=== PATIENT | female | born 1965 | race Caucasian/White ===

== ENCOUNTER → 2016-12-15 | Outpatient (CLI) | payer MEDICARE, OTHER ==
[~2016-12-15] MED LIST: ASPI-557 PO; ATOR10TA64 PO; BETH10TA PO; BUSP30TA2 PO; COLE1TAB2 PO; CYCL-375 PO; DICL100G5 TOP; DICY10CA13 PO; FLUV150C2 PO; GLIM2TAB3 PO; GUAI-782 PO; HYDR4TAB84 PO; HYDR50TA48 PO; HYOS0.124 SL; IBUP-1724 PO; L GA1CAP2 PO; LEVO500T88 PO; LISI10TA7 PO; MENT118G TOP; MULT1TAB69 PO; NALO25TA PO; ONDA4TAB7 PO; PRED10TA PO; PREG150C PO; PROM25TA7 PO; QUET300T3 PO; TOPI50TA25 PO; ZOLP10TA6 PO
--- NOTE | 2016-12-15 16:54 | DI ---
Indication: ITS.REASON: M25.562 LEFT KNEE PAIN PROCEDURE: MRI KNEE LEFT W/O CONTRAST: Encounter: Initial Comparison: None Technique: Multiplanar multisequence MR imaging of the left knee was performed without contrast. Findings: There is a possible oblique undersurface tear of the posterior horn lateral meniscus seen best on coronal proton density image #12. Horizontal tear of the posterior horn medial meniscus involving the inferior articular surface. The ACL and PCL are intact. The MCL and lateral collateral ligament complex are intact. The extensor mechanism is normal. No acute fracture. The cartilage of the lateral compartment is maintained. Medial compartment cartilage is intact. Patellofemoral compartment shows moderate loss in the median ridge and medial facet with small areas of subchondral edema. No joint effusion. Moderate sized Haywood's cyst. Impression: 1. Medial meniscal tear and possible lateral meniscal tear. 2. Moderate Haywood's cyst. .
== END ==
LOC: IMA 14:46
PROVIDERS: ATTEND Internal Medicine
DX: S83.242A Other tear of medial meniscus, current injury, left knee, initial encounter (principal); M71.22 Synovial cyst of popliteal space [Baker], left knee; X58.XXXA Exposure to other specified factors, initial encounter; Y93.9 Activity, unspecified; Y92.9 Unspecified place or not applicable; Y99.9 Unspecified external cause status; M25.562 Pain in left knee

== ENCOUNTER 2016-12-25 12:42 | Emergency (ER) | payer MEDICARE, OTHER ==
[~2016-12-25] VITALS: Ht 160 cm; Wt 109.3 kg
[2016-12-25 12:45] VITALS: Ht 160 cm; Wt 109.3 kg
--- OUTSIDE RECORDS SUMMARY | 2016-12-25 12:47 | XMS REPORT | Summary of Care ---
Author Author Cristi Crystal, Janice J Organization Unknown Address [address], [place] [id number] Phone Unavailable Care Team Providers Care Industrial Real Estate Agent Name Role Phone Tiny Crystal, Min Unavailable Unavailable Cristi Crystal, Leon Unavailable Unavailable Que Adams, Kip Unavailable Unavailable Parish Crystal, Tracie Unavailable Unavailable Manoj Crystal, Pretty Unavailable Unavailable Pretty Aranda PP Unavailable Unavailable Unavailable Functional Status Functional Status Health Issues* Name Dates Details Functional status health issues are not documented Status: Cognitive Status Health Issues* Name Dates Details Cognitive status health issues are not documented Status: Problems Name Dates Details Insomnia (780.52, G47.00) Status: Active Irritable bowel syndrome (564.1, K58.9) Status: Active Anemia (285.9, D64.9) Status: Active Tendonitis (726.90, M77.9) Status: Active Restless legs syndrome (333.94, G25.81) Status: Active Vitamin d deficiency (268.9, E55.9) Status: Active Encounter for screening for malignant neoplasm of colon (V76.51, Z12.11) Status: Active Bursitis of hip (726.5, M70.70) Status: Active Acute ischemic colitis (557.0, K55.0) Status: Active Sleep related hypoxia (327.24, G47.34) Status: Active Bright red blood per rectum (569.3, K62.5) Status: Active Nontoxic thyroid nodule (241.0, E04.1) Status: Active Pain in hand (729.5, M79.643) Status: Active Trigger finger (727.03, M65.30) Status: Active Muscle weakness (728.87, M62.81) Status: Active Clostridium difficile colitis (008.45, A04.7) Status: Active Joint pain, knee (719.46, M25.569) Status: Active Arthralgia of multiple sites (719.49, M25.50) Status: Active Lower back pain (724.2, M54.5) Status: Active Lung nodule (793.11, R91.1) Status: Active Elevated liver enzymes (790.5, R74.8) Status: Active Abnormal liver function test (790.6, R79.89) Status: Active Abdominal pain (789.00, R10.9) Status: Active Diarrhea (787.91, R19.7) Status: Active Visit for screening mammogram (V76.12, Z12.31) Status: Active Type 2 diabetes mellitus (250.00, E11.9) Status: Active Hypertension (401.9, I10) Status: Active Chronic kidney disease, stage III (moderate) (585.3, N18.3) Status: Active Depression (311, F32.9) Status: Active Fibromyalgia (729.1, M79.7) Status: Active Migraine headache (346.90, G43.909) Status: Active Obstructive sleep apnea (327.23, G47.33) Status: Active Obesity (278.00, E66.9) Status: Active Knee joint pain (719.46, M25.569) Status: Active Pain, low back (724.2, M54.5) Status: Active Medications Name Dates Details Multi-Vitamin/Minerals Oral Tablet TAKE 1 TABLET DAILY. Quantity: 30 * Started 24-Nov-2008 ActiveLyrica 150 MG Oral Capsule TAKE 1 CAPSULE BY MOUTH TWICE DAILY. * Quantity: 60 Refills: 2 Devendra Lugo M.D.* Started 10-Nov-2009 ActiveClonazePAM 1 MG Oral Tablet TAKE 1 TABLET 3 times daily * Refills: 0 * Started 14-Apr-2009 ActiveVitamin D3 2000 UNIT Oral Tablet Take 1 tablet daily * Quantity: 30 Refills: 0 * Started ActiveFish Oil 1000 MG Oral Capsule TAKE 2 CAPSULE Daily * Quantity: 60 Refills: 0 * Started ActiveNystatin-Triamcinolone 376877-0.1 UNIT/GM-% External Cream APPLY SPARINGLY TO AFFECTED AREA(S) 3 TIMES A DAY * Quantity: 2 Refills: 4 Pretty Aranda M.D.* Started 19-Jan-2012 Snqdfk33 GM Tube SEROquel XR 300 MG Oral Tablet Extended Release 24 Hour TAKE 1 TABLET DAILY. * Refills: 0 * Started 10-Jul-2012 ActiveLisinopril 10 MG Oral Tablet TAKE 1 TABLET DAILY. * Quantity: 90 Refills: 3 Pretty Aranda M.D.* Started 01-Nov-2012 ActiveBusPIRone HCl - 15 MG Oral Tablet TAKE 1 TABLET 3 times daily * Refills: 0 * Started 19-Nov-2012 ActiveMicronized Colestipol HCl - 1 GM Oral Tablet TAKE 1 TABLET TWICE DAILY PRN diarrhea. * Quantity: 180 Refills: 3 Janice Colin M.D.* Started ActiveVoltaren 1 % Transdermal Gel Sig: Apply to affected area Qid prn. * Quantity: 1 Refills: 1 Devendra Lugo M.D.* Started ActiveGabapentin 600 MG Oral Tablet TAKE ONE TABLET BY MOUTH AT BEDTIME * Quantity: 90 Refills: 3 David Franks M.D.* Started 27-Mar-2013 ActiveAmbien 10 MG Oral Tablet TAKE 1 TABLET BY MOUTH AT BEDTIME NEEDED FOR SLEEP * Quantity: 30 Refills: 0 Pretty Aranda M.D.* Started 14-May-2013 ActiveProbiotic Colon Support Oral Capsule TAKE 1 CAPSULE Daily * Quantity: 30 Refills: 0 Pretty Aranda M.D.* Started 14-May-2013 ActiveVitamin B-12 1000 MCG Oral Tablet TAKE 1 TABLET DAILY DIRECTED. * Quantity: 30 Refills: 0 Pretty Aranda M.D.* Started 14-May-2013 ActiveHerbal/ Natural Products Saccharonyces Boulardiitmos * Refills: 0 * Started 05-Jul-2013 ActiveCalcium 600/Vitamin D 600-400 MG-UNIT Oral Tablet * Refills: 0 * Started 05-Jul-2013 ActiveGlimepiride 2 MG Oral Tablet take one tablet by mouth every day with breakfast * Quantity: 90 Refills: 3 Pretty Aranda M.D.* Started 22-Jul-2013 ActiveHYDROmorphone HCl - 4 MG Oral Tablet Si PO every 6 hours prn with a max of 4 per day. Script must last 30 days. * Quantity: 120 Refills: 0 Devendra Lugo M.D.* Started 29-Aug-2013 ActivePromethazine HCl - 12.5 MG Oral Tablet TAKE 1 TABLET EVERY 6 TO 8 HOURS NEEDED NAUSEA. * Quantity: 60 Refills: 0 Devendra Lugo M.D.* Started 15-Oct-2013 ActiveCyclobenzaprine HCl - 10 MG Oral Tablet Si PO Tid. * Quantity: 90 Refills: 0 Devendra Lugo M.D.* Started 24-Oct-2013 ActiveDicyclomine HCl - 20 MG Oral Tablet TAKE 1 TABLET EVERY 6 HOURS NEEDED. * Quantity: 40 Refills: 0 Kip Grey P.A.* Started 27-May-2014 ActiveLinzess 145 MCG Oral Capsule take 1 capsule daily * Quantity: 7 Refills: 0 Kip Grey PTacoA.* Started 02-Jul-2014 ActiveFluvoxaMINE Maleate 100 MG Oral Tablet Take 1 1/2 tablet at bedtime * Quantity: 45 Refills: 0 Pretty Aranda M.D.* Started 23-Jul-2014 Active Allergies and Adverse Reactions Name Dates Details MetFORMIN HCl TABS Reaction: Diarrhea Status: Active Past Medical History Name Dates Details History of candidiasis (V12.09, Z86.19) Status: Resolved History of herpes zoster (V12.09, Z86.19) Status: Resolved History of infectious mononucleosis (V12.09, Z86.19) Status: Resolved History of influenza (V12.09, Z86.19) Status: Resolved History of Tick bite (919.4, T14.8) Status: Resolved History of transient cerebral ischemia (V12.54, Z86.73) Status: Resolved Procedures Procedure Dates Details History of Surgical Lysis Of Intestinal Adhesions History of Section History of Breast Surgery Lumpectomy History of Appendectomy History of Cholecystectomy History of Hysterectomy History of Salpingo-oophorectomy Bilat Laparosc Removal Of Both Ovaries & Tubes History of Gastroscopy With Biopsy Completed:19-Oct-2012 History of Colonoscopy For Forceps Biopsy Completed:03-Jan-2013 History of Sigmoidoscopy (Fiberoptic) Completed: History of Nerve Block Transforaminal Epidural Lumbar Stool, C DIFFICILE TOXIN GENE 5515 Ordered:22-Jul-2014 STOOL CULTURE 5015 Ordered:22-Jul-2014 MAMMOGRAM-SCREENING Ordered:23-Jul-2014 Immunization Name Dates Details DTaP Administered on:2003 Hepatitis B Administered on:08-Dec-2003 Hepatitis B Administered on:13-Jan-2004 Tdap (Adacel) Lot #: [id number] Administered on: Influenza Administered on:03-Jun-2010 Influenza Lot #: [id number] Administered on:23-May-2011 Pneumo (Pneumovax) Lot #: [id number] Administered on:31-Aug-2011 Influenza Lot #: [id number] Administered on:08-May-2012 Influenza Administered on:13-Jun-2013 Family History Unknown Family Member* Name Dates Details Family history of Coronary Artery Disease Comments: Family History Status: Active Family history of Stroke Syndrome (V17.1) Comments: Family History Status: Active Family history of Depression Comments: Family History Status: Active Family history of Arthritis (V17.7) Comments: Family History Status: Active Family history of Colon Cancer (V16.0) Comments: Family History Status: Active Social History Name Dates Details Smoking Status* Never smoker Vital Signs Date Test Result Details No Known Vitals to report Results Date Description Value Details Results not documented Plan of Care Planned Observations* Name Dates Details Planned Goals not documented Goal Planned Encounters* Appointment; Provider: David Franks On 07-May-2015 14:00 * Appointment; Provider: Devendra Lugo On 28-Oct-2014 11:30 * Appointment; Provider: Pretty Aranda On 28-Oct-2014 10:30 * Appointment; Provider: Lucía Bennett On 19-Oct-2012 09:30 * Appointment; Provider: Francisco Javier Fam On 08-Jul-2011 16:15 * Appointment; Provider: Francisco Javier Fam On 07-Apr-2011 11:30 * Appointment; Provider: Pretty Aranda On 16-Jun-2009 08:00 * Appointment; Provider: Pretty Aranda On 04-Dec-2008 00:45 Instructions * Instructions not documented Encounters Appointment; Devendra Lugo Encounter Diagnosis: Problem not documented On 29-Jul-2014 11:15 Appointment; Pretty Aranda Encounter Diagnosis: Problem not documented On 23-Jul-2014 11:00 Appointment; Kip Grey Encounter Diagnosis: Problem not documented On 13-Jun-2014 13:00 Appointment; Kip Grey Encounter Diagnosis: Problem not documented On 06-Jun-2014 12:45 Appointment; Pretty Aranda Encounter Diagnosis: Problem not documented On 02-Jun-2014 13:30 Appointment; Pretty Aranda Encounter Diagnosis: Problem not documented On 27-May-2014 14:15 Appointment; David Franks Encounter Diagnosis: Problem not documented On 05-May-2014 15:15 Appointment; Devendra Lugo Encounter Diagnosis: Problem not documented On 29-Apr-2014 11:15 Appointment; Dejuan Alcantar Encounter Diagnosis: Problem not documented On 28-Apr-2014 14:45 Appointment; Pretty Aranda Encounter Diagnosis: Problem not documented On 21-Mar-2014 14:00 Appointment; Devendra Lugo Encounter Diagnosis: Problem not documented On 13:15 Appointment; Pretty Aranda Encounter Diagnosis: Problem not documented On 16-Jan-2014 14:45 Appointment; Devendra Lugo Encounter Diagnosis: Problem not documented On 07-Nov-2013 08:30 Appointment; Pretty Aranda Encounter Diagnosis: Problem not documented On 05-Nov-2013 14:15 Appointment; David Franks Encounter Diagnosis: Problem not documented On 04-Nov-2013 15:45 Appointment; Devendra Lugo Encounter Diagnosis: Problem not documented On 21-Oct-2013 10:30 Appointment; Dejuan Alcantar Encounter Diagnosis: Problem not documented On 08-Oct-2013 13:00 Appointment; Devendra Lugo Encounter Diagnosis: Problem not documented On 07-Oct-2013 12:30 Appointment; Devendra Lugo Encounter Diagnosis: Problem not documented On 23-Sep-2013 12:35 Appointment; Devendra Lugo Encounter Diagnosis: Problem not documented On 09-Sep-2013 13:15 Appointment; Devendra Lugo Encounter Diagnosis: Problem not documented On 05-Sep-2013 09:45 Appointment; Devendra Lugo Encounter Diagnosis: Problem not documented On 29-Aug-2013 08:00 Appointment; Jordan Muñoz Encounter Diagnosis: Problem not documented On 26-Aug-2013 13:30 Appointment; Pretty Aranda Encounter Diagnosis: Problem not documented On 19-Aug-2013 13:15 Appointment; Pretty Aranda Encounter Diagnosis: Problem not documented On 30-Jul-2013 14:00 Appointment; David Franks Encounter Diagnosis: Problem not documented On 22-Jul-2013 16:30 Appointment; Devendra Lugo Encounter Diagnosis: Problem not documented On 11-Jun-2013 11:00 Appointment; Jordan Muñoz Encounter Diagnosis: Problem not documented On 27-May-2013 10:30 Appointment; Pretyt Aranda Encounter Diagnosis: Problem not documented On 14-May-2013 11:30 Appointment; Dejuan Alcantar Encounter Diagnosis: Problem not documented On 11-Apr-2013 13:30 Appointment; Dejuan Alcantar Encounter Diagnosis: Problem not documented On 03-Apr-2013 15:15 Appointment; David Franks Encounter Diagnosis: Problem not documented On 27-Mar-2013 16:00 Appointment; Devendra Lugo Encounter Diagnosis: Problem not documented On 14:15 Appointment; Cristi, Janice Encounter Diagnosis: Problem not documented On 15:15 Appointment; Pretty Aranda Encounter Diagnosis: Problem not documented On 14:30 Appointment; Pretty Aranda Encounter Diagnosis: Problem not documented On 15:15 Appointment; Pretty Aranda Encounter Diagnosis: Problem not documented On 15:15 Appointment; Cristi, Janice Encounter Diagnosis: Problem not documented On 09:30 Appointment; Aliza Quiñonez Encounter Diagnosis: Problem not documented On 08:15 Appointment; Cristi Janice Encounter Diagnosis: Problem not documented On 14:30 Appointment; Pretty Aranda Encounter Diagnosis: Problem not documented On 10:00 Appointment; Pretty Aranda Encounter Diagnosis: Problem not documented On 15-Jan-2013 14:15 Appointment; Lucía Bennett Encounter Diagnosis: Problem not documented On 03-Jan-2013 07:00 Appointment; Aliza Quiñonez Encounter Diagnosis: Problem not documented On 03-Jan-2013 07:00 Appointment; Pretty Aranda Encounter Diagnosis: Problem not documented On 14-Dec-2012 13:45 Appointment; Devendra Lugo Encounter Diagnosis: Problem not documented On 11-Dec-2012 13:45 Appointment; Lucía Bennett Encounter Diagnosis: Problem not documented On 19-Nov-2012 08:15 Appointment; Pretty Aranda Encounter Diagnosis: Problem not documented On 01-Nov-2012 14:00 Appointment; Olaf Flores Encounter Diagnosis: Problem not documented On 17-Oct-2012 12:35 Appointment; Pretty Aranda Encounter Diagnosis: Problem not documented On 08-Oct-2012 14:15 Appointment; Pretty Aranda Encounter Diagnosis: Problem not documented On 04-Oct-2012 14:15 Appointment; Devendra Lugo Encounter Diagnosis: Problem not documented On 27-Sep-2012 08:00 Appointment; Devendra Lugo Encounter Diagnosis: Problem not documented On 11-Sep-2012 09:45
--- OUTSIDE RECORDS SUMMARY | 2016-12-25 12:47 | XMS REPORT | Summary of Care ---
Author Author Devendra Lugo M.D. Unknown Address [address], [place] [id number] Phone Unavailable Care Team Providers Care Manager Services Name Role Phone Kip Jensen Unavailable Unavailable Edson Adams, Amelia Unavailable Unavailable Parish Crystal, Tracie Unavailable Unavailable [...] Status: Active Anemia (285.9, D64.9) Status: Active Restless legs syndrome (333.94, G25.81) Status: Active Vitamin d deficiency (268.9, E55.9) Status: Active Sleep related hypoxia (327.24, G47.34) Status: Active Nontoxic thyroid nodule (241.0, E04.1) Status: Active Trigger finger (727.03, M65.30) Status: Active Lung nodule (793.11, R91.1) Status: Active Cervical pain (neck) (723.1, M54.2) Status: Active Brain TIA (435.9, G45.9) Status: Active Fibromyalgia (729.1, M79.7) Status: Active Localized primary osteoarthritis of lower leg, 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, M17.11) Status: Active 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, M17.12) Status: Active Benign paroxysmal positional vertigo (386.11, H81.10) Status: Active Bilateral hip pain (719.45, M25.551) Status: Active Bilateral hip bursitis (726.5, M70.71) Status: Active Symptoms involving urinary system (788.99, R39.9) Status: Active Urinary incontinence, urge (788.31, N39.41) Status: Active Arthralgia of multiple sites (719.49, M25.50) Status: Active Pain of right hand (729.5, M79.641) Status: Active Right hand tendonitis (727.05, M77.8) Status: Active Type 2 diabetes mellitus (250.00, E11.9) Status: Active Slow urinary stream (788.62, R39.19) Status: Active Degenerative disc disease, lumbar (722.52, M51.36) Status: Active Morbid obesity (278.01, E66.01) Status: Active Therapeutic opioid induced constipation (564.09, K59.09) Status: Active Visit for screening mammogram (V76.12, Z12.31) Status: Active Diabetes type 2, controlled (250.00, E11.9) Status: Active Hypertension (401.9, I10) Status: Active Hyperlipidemia (272.4, E78.5) Status: Active Chronic kidney disease, stage III (moderate) (585.3, N18.3) Status: Active Generalized anxiety disorder (300.02, F41.1) Status: Active Depression (311, F32.9) Status: Active Migraine headache (346.90, G43.909) Status: Active Low back pain (724.2, M54.5) Status: Active Obstructive sleep apnea (327.23, G47.33) Status: Active Medications Name Dates Details Multi-Vitamin/Minerals Oral Tablet TAKE 1 TABLET DAILY. Quantity: 30 * Started 24-Nov-2008 ActiveLyrica 150 MG Oral Capsule TAKE 1 CAPSULE BY MOUTH TWICE DAILY.Script must last [address] Lugo. * Quantity: 180 Refills: 0 Devendra Lugo M.D.* Started 10-Nov-2009 ActiveClonazePAM 1 MG Oral Tablet TAKE 1 TABLET 3 times daily * Refills: 0 * Started 14-Apr-2009 ActiveVitamin D3 2000 UNIT Oral Tablet Take 1 tablet daily * Quantity: 30 Refills: 0 * Started ActiveFish Oil 1000 MG Oral Capsule TAKE 2 CAPSULE Daily * Quantity: 60 Refills: 0 * Started ActiveNystatin-Triamcinolone 137962-9.1 UNIT/GM-% External Cream APPLY SPARINGLY TO AFFECTED AREA(S) 3 TIMES A DAY * Quantity: 2 Refills: 4 Pretty Aranda M.D.* Started 19-Jan-2012 [id number] GM Tube SEROquel XR 300 MG Oral Tablet Extended Release 24 Hour TAKE 1 TABLET DAILY. * Refills: 0 * Started 10-Jul-2012 ActiveLisinopril 10 MG Oral Tablet Take 1 tablet daily * Quantity: 90 Refills: 2 Pretty Aranda M.D.* Started 01-Nov-2012 ActiveBusPIRone HCl - 30 MG Oral Tablet TAKE 1 TABLET TWICE DAILY. * Refills: 0 * Started 19-Nov-2012 ActiveGabapentin 600 MG Oral Tablet TAKE ONE TABLET BY MOUTH AT BEDTIME * Quantity: 90 Refills: 3 Amelia Sandhu* Started 27-Mar-2013 ActiveAmbien 10 MG Oral Tablet [...] Started 05-Jul-2013 ActiveGlimepiride 2 MG Oral Tablet TAKE 1 TABLET EVERY DAY WITH BREAKFAST * Quantity: 90 Refills: 2 Pretty Aranda M.D.* Started 22-Jul-2013 ActiveHYDROmorphone HCl - 4 MG Oral Tablet Si PO every 6 hours prn with a max of 4 per day. Script must last [address] Lugo * Quantity: 120 Refills: 0 Devendra Lugo M.D.* Started ActivePromethazine HCl - 12.5 MG Oral Tablet TAKE 1 TABLET EVERY 6 TO 8 HOURS NEEDED NAUSEA. * Quantity: 60 Refills: 3 Devendra Lugo M.D.* Started 15-Oct-2013 ActiveCyclobenzaprine HCl - 10 MG Oral Tablet Si PO Tid. * Quantity: 270 Refills: 0 Devendra Lugo M.D.* Started 24-Oct-2013 ActiveDicyclomine HCl - 20 MG Oral Tablet TAKE 1 TABLET EVERY 6 HOURS NEEDED. * Quantity: 40 Refills: 0 Kip Grey* Started 27-May-2014 ActiveSuppleanna Soft neck braceDx: Cervical neck pain 723.1 * Quantity: 1 Refills: 0 Devendra Lugo M.D.* Started ActiveFluvoxaMINE Maleate 100 MG Oral Tablet TAKE 1 AND 1/2 TABLETS TWICE DAILY. * Refills: 0 * Started 29-Apr-2015 ActiveColestipol HCl - 1 GM Oral Tablet Take 1 tablet twice daily * Refills: 0 Pretty Aranda M.D.* Started 29-Apr-2015 ActiveVoltaren 1 % Transdermal Gel APPLY 2 GRAMS TO AFFECTED AREA TWICE A DAY AND RUB IN WELL * Quantity: 100 Refills: 0 Devendra Lugo M.D.* Started 29-Apr-2015 ActiveAtorvastatin Calcium 10 MG Oral Tablet Take 1 tablet daily * Quantity: 90 Refills: 3 Pretty Aranda M.D.* Started 29-Apr-2015 ActiveAspirin 81 MG TABS Take 1 tablet daily * Quantity: 100 Refills: 0 Pretty Aranda M.D.* Started 29-Apr-2015 ActiveMeclizine HCl - 25 MG Oral Tablet TAKE 1 TABLET 3 TIMES DAILY NEEDED. * Quantity: 30 Refills: 0 Pretty Aranda M.D.* Started 24-Aug-2015 ActiveMovantik 25 MG Oral Tablet Take 1 tablet daily on an empty stomach 1 hr before or 2 hrs after first meal. * Quantity: 30 Refills: 0 Devendra Lugo M.D.* Started 16-Nov-2015 Active Allergies and Adverse Reactions Name Dates Details MetFORMIN HCl TABS Reaction: Diarrhea Status: Active Past Medical History Name Dates Details History of abdominal pain (V13.89, Z87.898) Status: Resolved History of Acute ischemic colitis (557.0, K55.0) Status: Resolved History of Bright red blood per rectum (569.3, K62.5) Status: Resolved History of Bursitis of hip (726.5, M70.70) Status: Resolved History of candidiasis (V12.09, Z86.19) Status: Resolved History of Clostridium difficile colitis (008.45, A04.7) Status: Resolved History of diarrhea (V12.79, Z87.898) Status: Resolved History of Dysphasia and aphasia (784.3, R47.01) Status: Resolved History of Hemiparesis (342.90, G81.90) Status: Resolved History of herpes zoster (V12.09, Z86.19) Status: Resolved History of infectious mononucleosis (V12.09, Z86.19) Status: Resolved History of influenza (V12.09, Z87.09) Status: Resolved History of low back pain (V13.59, Z87.39) Status: Resolved History of Muscle weakness (728.87, M62.81) Status: Resolved History of Tick bite (919.4, W57.XXXA) Status: Resolved Procedures Procedure Dates Details History [...] History of Nerve Block Transforaminal Epidural Lumbar BASIC METABOLIC PROFILE 1210 Ordered:23-Dec-2015 HEMOGLOBIN A1C 3507 Ordered:23-Dec-2015 ULTRASOUND RENAL SONO Ordered:16-Nov-2015 MAMMOGRAM-SCREENING Ordered:23-Dec-2015 Immunization Name Dates Details DTaP Administered on:2003 Hepatitis B Administered on:08-Dec-2003 Hepatitis B Administered on:13-Jan-2004 Tdap (Adacel) Lot #: [id number] Administered on: Influenza Administered on:03-Jun-2010 Influenza Lot #: [id number] Administered on:23-May-2011 Pneumo (Pneumovax) Lot #: [id number] Administered on:31-Aug-2011 Influenza Lot #: [id number] Administered on:08-May-2012 Influenza Administered on:13-Jun-2013 Fluzone Intramuscular Injectable Lot #: [id number] Administered on:29-Apr-2015 Tdap (Adacel) Lot #: [id number] Administered on:29-Apr-2015 Family History Unknown Family Member* Name Dates Details Family history of Coronary Artery Disease Comments: Family History Status: Active Family history of Stroke Syndrome (V17.1) Comments: Family History Status: Active Family history of Arthritis (V17.7) Comments: Family History Status: Active Family history of Colon Cancer (V16.0) Comments: Family History Status: Active Family history of Depression Comments: Family History Status: Active Mother* Name Dates Details Family history of Depression Status: Active Family history of malignant neoplasm of urinary bladder (V16.52, Z80.52) Status: Active Social History Name Dates Details Smoking Status* Never smoker Vital Signs Date Test Result Details 23-Dec-2015 09:33 BP Systolic 100 mm[Hg] Status: BP Diastolic 68 mm[Hg] Status: Heart Rate 112 /min Status: Height 63.5 in Status: Weight 245 lb Status: O2 SAT 98 % Status: Body Mass Index Calculated 42.72 kg/m2 Status: Body Surface Area Calculated 2.12 m2 Status: Results Date Description Value Details 15-Dec-2015 08:10 ULTRASOUND RENAL SONO Comments: Exam Date: 12/15/2015 07:32Dictation Date: 12/15/2015 08:10 XS RENAL LIMITED (Better) 23-Dec-2015 09:01 CBC w/ Auto Diff 7150 Comments: Fastin hours WBC 9.9 K/uL (Better) Range: 4.5-11.0 RBC 4.91 mil/uL (Better) Range: 3.60-5.00 HGB 14.9 g/dL (Better) Range: 12.0-16.0 HCT 45.1 % (Better) Range: 36.0-48.0 MCV 91.8 fL (Better) Range: 80.0-99.0 MCH 30.4 pg (Better) Range: 27.3-32.5 MCHC 33.1 % (Better) Range: 32.0-36.0 RDW 13.9 % (Better) Range: 11.6-14.8 PLATELETS 349 K/uL (Better) Range: 150-400 MPV 8.1 fL (Better) Range: 6.0-11.0 %NEUTRO 71.5 % (Better) Range: 37.0-80.0 %LYMPHS 20.5 % (Better) Range: 13.0-50.0 %MONO 4.1 % (Better) Range: 0.0-12.0 %EOS 1.8 % (Better) Range: 0.0-7.0 %BASO 1.2 % (Better) Range: 0.0-2.5 %ABDULLAHI 0.9 % (Better) Range: 0.0-5.0 NEUTRO 7.1 K/uL (Above high threshold) Range: 2.0-6.9 LYMPHS 2.0 K/uL (Better) Range: 0.6-3.4 MONOS 0.4 K/uL (Better) Range: 0.0-0.9 EOS 0.2 K/uL (Better) Range: 0.0-0.7 BASO 0.1 K/uL (Better) Range: 0.0-0.2 09:26 Urinalysis, Reflex to Microscopic or Culture PRN 8005 Comments: Fastin hours pH 7.0 (Better) Range: 5.0-7.5 SP GRAVITY 1.015 (Better) Range: 1.010-1.030 APPEARANCE CLEAR (Better) Range: Clear COLOR YELLOW (Better) Range: Straw-Yellow PROTEIN NEGATIVE mg/dL (Better) Range: Negative-Trace GLUCOSE NEGATIVE mg/dL (Better) Range: Negative KETONE NEGATIVE mg/dL (Better) Range: Negative BILIRUB NEGATIVE (Better) Range: Negative BLOOD NEGATIVE (Better) Range: Negative UROBIL 0.2 EU/dL (Better) Range: 0.2-1.0 NITRITE NEGATIVE (Better) Range: Negative LEUK MODERATE (Abnormal) Range: Negative 09:26 Urine Microscopic UMIC Comments: Fastin hours WBC 6-10 /HPF (Abnormal) Range: 0-5 Comments: Specimen referred to Microbiology for Culture----- BACTERIA Trace /HPF (Better) Range: Negative-Trace EPITH 0-2 /HPF (Better) Range: 0-10 U TRANSEPI 0-2 /HPF (Better) Range: 0-2 09:27 Comprehensive Metabolic Panel 1212 Comments: Fastin hours SODIUM 141 mmol/L (Better) Range: 133-144 POTASSIUM 3.7 mmol/L (Better) Range: 3.5-5.1 CHLORIDE 102 mmol/L (Better) Range: 98-110 CARBON DIOXIDE 27.6 mmol/L (Better) Range: 23.0-33.0 ANION GAP 11 mmol/L (Better) Range: 6-16 BUN 12 mg/dL (Better) Range: 7-18 CREATININE, SERUM 1.05 mg/dL (Above high threshold) Range: 0.55-1.02 Comments: Please note new reference ranges effective 2015.----- BUN:CREATININE RATIO 11 (Better) EST GFR, >60 ml/min (Better) Range: >60 EST GFR, NON-AFR BURUNDIAN 56 ml/min (Below low threshold) Range: >60 Comments: EST GFR is reported in ml/min per 1.73 m2 of body surface area. For -Greenlandic, please multiple result by 1.2.----- GLUCOSE 167 mg/dL (Above high threshold) Range: 70-100 ALK PHOSPHATASE 126 U/L (Above high threshold) Range: 46-116 TOTAL BILIRUBIN 0.50 mg/dL (Better) Range: 0.20-1.00 AST 16 U/L (Better) Range: 8-35 ALT 28 U/L (Better) Range: 14-59 Comments: Please note new reference ranges. Effective 10/30/2014.----- ALBUMIN 3.5 g/dL (Better) Range: 3.4-5.0 TOTAL PROTEIN 7.8 g/dL (Better) Range: 6.4-8.2 A/G RATIO 0.8 units (Below low threshold) Range: 1.0-1.8 CALCIUM 9.4 mg/dL (Better) Range: 8.5-10.1 09:27 LIPID PROFILE 1184 Comments: Fastin hours CHOLESTEROL 165 mg/dL (Better) Range: <200 TRIGLYCERIDES 127 mg/dL (Better) Range: 30-200 HDL Cholesterol 59 mg/dL (Better) Range: >39 NON HDL CHOLESTEROL 106 (Better) CARDIAC RSK FACTOR 2.8 units (Below low threshold) Range: 4.4-5.0 LDL - CALCULATED 81 mg/dL (Better) Range: 0-130 09:36 THYROID STIM. HORMONE 3602 Comments: Fastin hours THYROID STIM. HORMONE 1.063 uIU/mL (Better) Range: 0.550-4.780 Comments: No established reference ranges for infants and children <2 years of age----- 10:08 Diabetic Foot Exam Negative Microfilament Test (Better) 13:23 HEMOGLOBIN A1C 3507 Comments: Items were attached to this order: [facility] Fastin hours Hemoglobin A1C 6.8 % (Better) ESTIMATED AVG. GLUCOSE 148 (Better) 24-Dec-2015 10:55 URINE CULTURE [id number] Comments: Meetings.io performed at: [facility], [address] [place] [address], [phone], Feather Renovator: Wilfrido Quinones D.O., MPHQuest Collection Date/Time: [id number] Results Received Date/Time: [id number] Reported Date/Time: [id number] FASTING:YESQuest performed at: [facility], [address] [place] [address], [id number], Feather Renovator: Wilfrido Quinones D.O., MPHQuest Collection Date/Time: [id number] Results Received Date/Time: [id number] Reported Date/Time: [id number] FASTING:YES Fastin hours CULTURE, URINE, ROUTINE SEE NOTE (Better) Comments: CULTURE, URINE, ROUTINE MICRO NUMBER: [id number] TEST STATUS: FINAL SPECIMEN SOURCE : URINE, CLEAN CATCH SPECIMEN QUALITY: ADEQUATE RESULT: Multiple organisms present, each less than 10,000 CFU/mL. These organisms, commonly found on external and internal genitalia, are considered to be colonizers. No further testing performed.[KS]----- Plan of Care Planned Observations* Name Dates Details Planned Goals not documented Goal Planned Encounters* Appointment; Provider: Pretty Aranda On 06-Apr-2016 11:15 * Appointment; Provider: Alphonse Asif On 10:45 * Appointment; Provider: David Kelly On 10:30 * Appointment; Provider: Schedule Radiology On 11-Jan-2016 11:20 * Appointment; Provider: Schedule Radiology On 15-Dec-2015 08:00 * Appointment; Provider: Schedule Radiology On 13-Nov-2015 09:00 * Appointment; Provider: Schedule Radiology On 23-Sep-2015 15:30 * Appointment; Provider: Wilfrido Waddell On 15-Apr-2015 16:35 * Appointment; Provider: Schedule Radiology On 24-Mar-2015 13:15 * Appointment; Provider: Schedule Radiology On 11:30 * Appointment; Provider: David Franks On 26-Aug-2014 11:30 * Appointment; Provider: Lucía Bennett On 19-Oct-2012 09:30 * Appointment; Provider: Francisco Javier Fam On 08-Jul-2011 16:15 * Appointment; Provider: Francisco Javier Fam On 07-Apr-2011 11:30 * Appointment; Provider: Pretty Aranda On 16-Jun-2009 08:00 * Appointment; Provider: Pretty Aranda On 04-Dec-2008 00:45 Instructions * Instructions not documented Encounters Appointment; Devendra Lugo Encounter Diagnosis: Problem not documented On 07-Jan-2016 14:15 Appointment; Pretty Aranda Encounter Diagnosis: Problem not documented On 23-Dec-2015 09:45 Appointment; Devendra Lugo Encounter Diagnosis: Problem not documented On 12-Nov-2015 10:30 Appointment; Alphonse Asif Encounter Diagnosis: Problem not documented On 11-Nov-2015 10:15 Appointment; David Kelly Encounter Diagnosis: Problem not documented On 03-Nov-2015 15:30 Appointment; Dejuan Alcantar Encounter Diagnosis: Problem not documented On 14-Oct-2015 16:30 Appointment; Pretty Aranda Encounter Diagnosis: Problem not documented On 29-Sep-2015 14:00 Appointment; Dejuan Alcantar Encounter Diagnosis: Problem not documented On 29-Sep-2015 13:15 Appointment; Devendra Lugo Encounter Diagnosis: Problem not documented On 16-Sep-2015 10:45 Appointment; Pretty Aranda Encounter Diagnosis: Problem not documented On 07-Sep-2015 14:00 Appointment; Devendra Lugo Encounter Diagnosis: Problem not documented On 26-Aug-2015 13:30 Appointment; Pretty Aranda Encounter Diagnosis: Problem not documented On 24-Aug-2015 10:15 Appointment; Devendra Lugo Encounter Diagnosis: Problem not documented On 20-May-2015 11:00 Appointment; Pretty Aranda Encounter Diagnosis: Problem not documented On 29-Apr-2015 09:45 Appointment; Zaid Rodriguez Encounter Diagnosis: Problem not documented On 24-Mar-2015 14:15 Appointment; Amelia Sandhu Encounter Diagnosis: Problem not documented On 24-Mar-2015 11:00 Appointment; Amelia Sandhu Encounter Diagnosis: Problem not documented On 11:30 Appointment; Amelia Sandhu Encounter Diagnosis: Problem not documented On 28-Oct-2014 11:30 Appointment; Pretty Aranda Encounter Diagnosis: Problem not documented On 28-Oct-2014 10:30 Appointment; Pretty Aranda Encounter Diagnosis: Problem not documented On 29-Sep-2014 11:00 Appointment; Devendra Lugo Encounter Diagnosis: Problem not [...]
--- OUTSIDE RECORDS SUMMARY | 2016-12-25 12:47 | XMS REPORT | Summary of Care ---
Author Author Pretty Aranda M.D. Unknown Address [address], [place] [id number] Phone Unavailable Care Team Providers Care Remote Broadcast Technician Name Role Phone Kip Jensen Unavailable Unavailable [...] Active Brain TIA (435.9, G45.9) Status: Active Localized primary osteoarthritis of lower [...] Slow urinary stream (788.62, R39.19) Status: Active Therapeutic opioid induced constipation (564.09, [...] Obstructive sleep apnea (327.23, G47.33) Status: Active Low back pain (724.2, M54.5) Status: Active Degenerative disc disease, lumbar (722.52, M51.36) Status: Active Fibromyalgia (729.1, M79.7) Status: Active Morbid obesity (278.01, E66.01) Status: Active Neurogenic bladder (596.54, N31.9) Status: Active Bruising (924.9, T14.8) Status: Active Left knee pain (719.46, M25.562) Status: Active Generalized anxiety disorder (300.02, F41.1) Status: Active Medications Name Dates Details Multi-Vitamin/Minerals [...] * Quantity: 30 Refills: 0 * Started [id number] ActiveFish Oil 1000 MG Oral Capsule TAKE 2 CAPSULE Daily * Quantity: 60 Refills: 0 * Started ActiveNystatin-Triamcinolone 332301-1.1 UNIT/GM-% External Cream APPLY SPARINGLY TO AFFECTED AREA(S) 3 TIMES A DAY * Quantity: 2 Refills: 4 Pretty Aranda M.D.* Started 19-Jan-2012 [id number] GM Tube SEROquel XR 300 MG Oral [...] Lugo * Quantity: 120 Refills: 0 Devendra Luog M.D.* Started ActivePromethazine HCl - 12.5 MG [...] 40 Refills: 0 Kip Grey* Started 27-May-2014 ActiveSupplies Soft neck braceDx: Cervical neck pain 723.1 [...] 24-Aug-2015 ActiveMovantik 25 MG Oral Tablet Take 2 tablet daily on an empty stomach 1 hr before or 2 hrs after first meal. * Quantity: 60 Refills: 0 Devendra Lugo M.D.* Started 16-Nov-2015 [...] PROFILE 1210 Ordered:23-Dec-2015 HEMOGLOBIN A1C 3507 Ordered:23-Dec-2015 MAMMOGRAM-SCREENING Ordered:23-Dec-2015 Immunization Name Dates Details DTaP Administered on:2003 Hepatitis B Administered on:08-Dec-2003 Hepatitis B Administered on:13-Jan-2004 Tdap (Adacel) Lot #: [id number] Administered on: Influenza Administered on:03-Jun-2010 Influenza Lot #: [id number] Administered on:23-May-2011 Pneumo (Pneumovax) Lot #: [id number] Administered on:31-Aug-2011 Influenza Lot #: [id number] Administered on:08-May-2012 Influenza Administered on:13-Jun-2013 Fluzone Intramuscular Injectable Lot #: [id number] Administered on:29-Apr-2015 Tdap (Adacel) Lot #: [id number] Administered on:29-Apr-2015 Family History Unknown Family Member* [...] smoker Vital Signs Date Test Result Details 10:31 BP Systolic 86 mm[Hg] Status: BP Diastolic 60 mm[Hg] Status: Heart Rate 120 /min Status: Weight 252 lb Status: Body Mass Index Calculated 43.94 kg/m2 Status: Body Surface Area Calculated 2.15 m2 Status: Results Date Description Value Details 11:23 XRay KNEE-Left Comments: Exam Date: 02/03/2016 10: 50Dictation Date: 02/03/2016 11:23 X KNEE COMP (MIN 4V) LT (Better) 12:00 PROTIME PANEL 7000 PROTIME 11.8 secs (Below low threshold) Range: 12.0-14.9 INR 0.88 (Better) 12:03 CBC w/ Auto Diff 7150 WBC 13.1 K/uL (Above high threshold) Range: 4.5-11.0 RBC 4.62 mil/uL (Better) Range: 3.60-5.00 HGB 13.9 g/dL (Better) Range: 12.0-16.0 HCT 42.3 % (Better) Range: 36.0-48.0 MCV 91.5 fL (Better) Range: 80.0-99.0 MCH 30.2 pg (Better) Range: 27.3-32.5 MCHC 33.0 % (Better) Range: 32.0-36.0 RDW 13.4 % (Better) Range: 11.6-14.8 PLATELETS 382 K/uL (Better) Range: 150-400 MPV 8.3 fL (Better) Range: 6.0-11.0 %NEUTRO 72.5 % (Better) Range: 37.0-80.0 %LYMPHS 19.7 % (Better) Range: 13.0-50.0 %MONO 4.0 % (Better) Range: 0.0-12.0 %EOS 2.0 % (Better) Range: 0.0-7.0 %BASO 0.8 % (Better) Range: 0.0-2.5 %ABDULLAHI 1.0 % (Better) Range: 0.0-5.0 NEUTRO 9.5 K/uL (Above high threshold) Range: 2.0-6.9 LYMPHS 2.6 K/uL (Better) Range: 0.6-3.4 MONOS 0.5 K/uL (Better) Range: 0.0-0.9 EOS 0.3 K/uL (Better) Range: 0.0-0.7 BASO 0.1 K/uL (Better) Range: 0.0-0.2 Plan of Care Planned Observations* Name Dates Details Planned Goals not documented Goal Planned Encounters* Appointment; Provider: David Kelly On 27-Jul-2016 10:15 * Appointment; Provider: Pretty Aranda On 06-Apr-2016 11:15 * Appointment; Provider: Devendra Lugo On 14:30 * Appointment; Provider: Alphonse Asif On 10:45 * Appointment; Provider: Devendra Lugo On 11:00 * Appointment; Provider: Schedule Radiology On 11-Jan-2016 [...] Instructions * Instructions not documented Encounters Appointment; Pretty Aranda Encounter Diagnosis: Problem not documented On 10:30 Appointment; David Kelly Encounter Diagnosis: Problem not documented On 10:30 Appointment; Devendra Lugo Encounter Diagnosis: Problem not [...]
--- OUTSIDE RECORDS SUMMARY | 2016-12-25 12:47 | XMS REPORT | Summary of Care ---
Author Author Pretty Aranda M.D. Unknown Address Unknown Phone Unavailable Care Team Providers Care Professional Caster Name Role Phone Kip Jensen Unavailable Unavailable Edson Adams, Amelia Unavailable Unavailable Tracie Lugo M.D. Unavailable Unavailable Manoj Crystal, Pretty Unavailable Unavailable Pretty Aranda Unavailable Unavailable Unavailable Functional Status Name Dates Details Functional status health issues are not documented Status: Name Dates Details Cognitive status health issues are not documented Status: Problems Name Dates Details Irritable bowel syndrome (564.1, K58.9) Status: Active Anemia (285.9, D64.9) Status: Active Vitamin D deficiency (268.9, E55.9) Status: Active Sleep related hypoxia (327.24, G47.34) Status: Active Nontoxic thyroid nodule (241.0, E04.1) Status: Active Lung nodule (793.11, R91.1) Status: Active Cervical pain (neck) (723.1, M54.2) Status: Active Brain TIA (435.9, G45.9) Status: Active 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, M17.12) Status: Active Bilateral hip bursitis (726.5, M70.71) Status: Active Symptoms involving urinary system (788.99, R39.9) Status: Active Urinary incontinence, urge (788.31, N39.41) Status: Active Right hand tendonitis (727.05, M77.8) Status: Active Slow urinary stream (788.62, R39.198) Status: Active Therapeutic opioid induced constipation (564.09, K59.03) Status: Active Hyperlipidemia (272.4, E78.5) Status: Active Migraine headache (346.90, G43.909) Status: Active Obstructive sleep apnea (327.23, G47.33) Status: Active Neurogenic bladder (596.54, N31.9) Status: Active Generalized anxiety disorder (300.02, F41.1) Status: Active Degenerative disc disease, lumbar (722.52, M51.36) Status: Active Bursitis of hip, left (726.5, M70.72) Status: Active Localized primary osteoarthritis of lower leg, 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, M17.11) Status: Active Arthralgia of multiple sites (719.49, M25.50) Status: Active Low back pain (724.2, M54.5) Status: Active Morbid obesity (278.01, E66.01) Status: Active Diabetes type 2, controlled (250.00, E11.9) Status: Active Hypertension (401.9, I10) Status: Active Chronic kidney disease, stage III (moderate) (585.3, N18.3) Status: Active Fibromyalgia (729.1, M79.7) Status: Active Restless legs syndrome (333.94, G25.81) Status: Active Insomnia (780.52, G47.00) Status: Active Fibrocystic breast disease (610.1, N60.19) Status: Active Mental status change (780.97, R41.82) Status: Active Weakness generalized (780.79, R53.1) Status: Active Depression (311, F32.9) Status: Active Medications Name Dates Details Multi-Vitamin/Minerals Oral Tablet TAKE 1 TABLET DAILY. Quantity: 30 * Start 24-Nov-2008 Active Lyrica 150 MG Oral Capsule TAKE 1 CAPSULE BY MOUTH TWICE DAILY.Script must last [address] Lugo. * Quantity: 180 Refills: 0 Devendra Lugo M.D. * Start 10-Nov-2009 Active ClonazePAM 1 MG Oral Tablet TAKE 1 TABLET 3 times daily * Refills: 0 * Start 14-Apr-2009 Active Vitamin D3 2000 UNIT Oral Tablet Take 1 tablet daily * Quantity: 30 Refills: 0 * Start Active Fish Oil 1000 MG Oral Capsule TAKE 2 CAPSULE Daily * Quantity: 60 Refills: 0 * Start Active Nystatin-Triamcinolone 908044-1.1 UNIT/GM-% External Cream APPLY SPARINGLY TO AFFECTED AREA(S) 3 TIMES A DAY * Quantity: 2 Refills: 4 Pretty Aranda M.D. * Start 19-Jan-2012 Active 60 GM Tube SEROquel XR 300 MG Oral Tablet Extended Release 24 Hour TAKE 1 TABLET DAILY. * Refills: 0 * Start 10-Jul-2012 Active Lisinopril 10 MG Oral Tablet Take 1 tablet daily * Quantity: 90 Refills: 0 Aranda M.D.Pretty * Start 01-Nov-2012 Active BusPIRone HCl - 30 MG Oral Tablet TAKE 1 TABLET TWICE DAILY. * Refills: 0 * Start 19-Nov-2012 Active Gabapentin 600 MG Oral Tablet TAKE ONE TABLET BY MOUTH AT BEDTIME * Quantity: 90 Refills: 3 Amelia Rucker * Start 27-Mar-2013 Active Ambien 10 MG Oral Tablet TAKE 1 TABLET BY MOUTH AT BEDTIME NEEDED FOR SLEEP * Quantity: 30 Refills: 0 Aranda M.D.Pretty * Start 14-May-2013 Active Probiotic Colon Support Oral Capsule TAKE 1 CAPSULE Daily * Quantity: 30 Refills: 0 Aranda M.D., Pretty * Start 14-May-2013 Active Vitamin B-12 1000 MCG Oral Tablet TAKE 1 TABLET DAILY DIRECTED. * Quantity: 30 Refills: 0 Aranda M.D.Pretty * Start 14-May-2013 Active Herbal/ Natural Products Saccharonyces Boulardiitmos * Refills: 0 * Start 05-Jul-2013 Active Calcium 600/Vitamin D 600-400 MG-UNIT Oral Tablet * Refills: 0 * Start 05-Jul-2013 Active Glimepiride 2 MG Oral Tablet TAKE 1 TABLET EVERY DAY WITH BREAKFAST * Quantity: 90 Refills: 2 Aranda M.D.Pretty * Start 22-Jul-2013 Active HYDROmorphone HCl - 4 MG Oral Tablet Si PO every 6 hours prn with a max of 4 per day. Script must last [address] Lugo * Quantity: 120 Refills: 0 Devendra Lugo M.D. Start 10-Apr-2016 Active Cyclobenzaprine HCl - 10 MG Oral Tablet Si PO Tid. * Quantity: 270 Refills: 0 Devendra Lugo M.D. * Start 24-Oct-2013 Active Dicyclomine HCl - 20 MG Oral Tablet TAKE 1 TABLET EVERY 6 HOURS NEEDED. * Quantity: 40 Refills: 0 Kip Jensen * Start 27-May-2014 Active FluvoxaMINE Maleate 100 MG Oral Tablet TAKE 1 AND 1/2 TABLETS TWICE DAILY. * Refills: 0 * Start 29-Apr-2015 Active Colestipol HCl - 1 GM Oral Tablet Take 1 tablet twice daily * Refills: 0 Aranda M.D.Pretty * Start 29-Apr-2015 Active Atorvastatin Calcium 10 MG Oral Tablet Take 1 tablet daily * Quantity: 90 Refills: 3 Aranda M.D., Pretty * Start 29-Apr-2015 Active Meclizine HCl - 25 MG Oral Tablet TAKE 1 TABLET 3 TIMES DAILY NEEDED. * Quantity: 30 Refills: 0 Aranda M.D., Pretty * Start 24-Aug-2015 Active Movantik 25 MG Oral Tablet Take 2 tablet daily on an empty stomach 1 hr before or 2 hrs after first meal. 90 day supply for express script only * Quantity: 180 Refills: 0 Parish Carver.Devendra Knapp Start 16-Nov-2015 Active Voltaren 1 % Transdermal Gel APPLY 2 GRAMS TO AFFECTED AREA TWICE A DAY AND RUB IN WELL * Quantity: 100 Refills: 0 Parish Carver.Devendra Knapp Start 29-Apr-2015 Active Supplies Soft neck braceDx: Cervical neck pain 723.1 * Quantity: 1 Refills: 0 Parish Carver.Devendra Knapp Start Active Promethazine HCl - 12.5 MG Oral Tablet TAKE 1 TABLET EVERY 6 TO 8 HOURS NEEDED NAUSEA. * Quantity: 60 Refills: 3 Fan M.D.Devendra Start 15-Oct-2013 Active Aspirin 81 MG TABS Take 1 tablet daily * Quantity: 100 Refills: 0 Aranda M.D.Pretty * Start 29-Apr-2015 Active Allergies and Adverse Reactions Name Dates Details MetFORMIN HCl TABS (Allergy) Reaction: Diarrhea Status: Active Past Medical History Name Dates Details History of abdominal pain (V13.89, Z87.898) Status: Resolved History of Acute ischemic colitis (557.0, K55.039) Status: Resolved History of Benign paroxysmal positional vertigo (386.11, H81.10) Status: Resolved History of Bright red blood [...] & Tubes History of Gastroscopy With Biopsy Completed: 19-Oct-2012 History of Colonoscopy For Forceps Biopsy Completed: 03-Jan-2013 History of Sigmoidoscopy (Fiberoptic) Completed: History of Nerve Block Transforaminal Epidural Lumbar Comprehensive Metabolic Panel 1212 Ordered: 22-Apr-2016 HEMOGLOBIN A1C 3507 Ordered: 22-Apr-2016 Immunization Name Dates Details DTaP on: 2003 Hepatitis B on: 08-Dec-2003 Hepatitis B on: 13-Jan-2004 Tdap (Adacel) Lot #: [id number] on: Influenza on: 03-Jun-2010 Influenza Lot #: [id number] on: 23-May-2011 Pneumo (Pneumovax) Lot #: [id number] on: 31-Aug-2011 Influenza Lot #: [id number] on: 08-May-2012 Influenza on: 13-Jun-2013 Fluzone INJ Lot #: [id number] on: 29-Apr-2015 Tdap (Adacel) Lot #: [id number] on: 29-Apr-2015 Fluzone Quadrivalent 0.5 ML Intramuscular Suspension Lot #: [id number] on: 21-Apr-2016 Family History Name Dates Details Family history of Coronary Artery Disease Comments: Family History Status: Active Family history of Stroke Syndrome (V17.1) Comments: Family History Status: Active Family history of Arthritis (V17.7) Comments: Family History Status: Active Family history of Colon Cancer (V16.0) Comments: Family History Status: Active Family history of Depression Comments: Family History Status: Active Name Dates Details Family history of Depression Status: Active Family history of malignant neoplasm of urinary bladder (V16.52, Z80.52) Status: Active Social History Name Dates Details - Status: Name Dates Details Never smoker Vital Signs Date Test Result Details No Known Vitals to report Results Date Description Value Details Results not documented Plan of Care Name Dates Details Planned Observations Planned Goals not documented Planned Encounters Appointment; Provider: Schedule Radiology On 01-May-2017 13:40 Appointment; Provider: David Kelly M.D.|[place], On 27-Jul-2016 10:15 Appointment; Provider: Pretty Aranda M.D. On 25-Jul-2016 14:15 Appointment; Provider: Devendra Lugo M.D. On 06-Jun-2016 08:15 Interventions Provided Medications/Immunizations Administered* Fluzone Quadrivalent 0.5 ML Intramuscular Suspension; Done: 21 Apr 2016 Instructions Name Dates Details Instructions not documented Encounters Appointment; Pema Sanchez A.P.R.N. Encounter Diagnosis: Problem not documented On 07-Apr-2016 13:20 Appointment; Devendra Lugo M.D. Encounter Diagnosis: Problem not documented On 14:30 Appointment; Nimesh Rangel M.D. Encounter Diagnosis: Problem not documented On 10:30 Appointment; Devendra Lugo M.D. Encounter Diagnosis: Problem not documented On 11:00 Appointment; Pretty Aranda M.D. Encounter Diagnosis: Problem not documented On 10:30 Appointment; David Kelly M.D.|[facility]|[place],EMBER, Encounter Diagnosis: Problem not documented On 10:30 Appointment; Devendra Lugo M.D. Encounter Diagnosis: Problem not documented On 07-Jan-2016 14:15 Appointment; Pretty Aranda M.D. Encounter Diagnosis: Problem not documented On 23-Dec-2015 09:45 Appointment; Devendra Lugo M.D. Encounter Diagnosis: Problem not documented On 12-Nov-2015 10:30 Appointment; Alphonse Asif M.D. Encounter Diagnosis: Problem not documented On 11-Nov-2015 10:15 Appointment; David Kelly M.D.|[facility]|[place],GIOVANNI,EMBER, Encounter Diagnosis: Problem not documented On 03-Nov-2015 15:30 Appointment; Dejuan Alcantar M.D. Encounter Diagnosis: Problem not documented On 14-Oct-2015 16:30 Appointment; Pretty Aranda M.D. Encounter Diagnosis: Problem not documented On 29-Sep-2015 14:00 Appointment; Dejuan Alcantar M.D. Encounter Diagnosis: Problem not documented On 29-Sep-2015 13:15 Appointment; Devendra Lugo M.D. Encounter Diagnosis: Problem not documented On 16-Sep-2015 10:45 Appointment; Pretty Aranda M.D. Encounter Diagnosis: Problem not documented On 07-Sep-2015 14:00 Appointment; Devendra Lugo M.D. Encounter Diagnosis: Problem not documented On 26-Aug-2015 13:30 Appointment; Pretty Aranda M.D. Encounter Diagnosis: Problem not documented On 24-Aug-2015 10:15 Appointment; Devendra Lugo M.D. Encounter Diagnosis: Problem not documented On 20-May-2015 11:00 Appointment; Pretty Aranda M.D. Encounter Diagnosis: Problem not documented On 29-Apr-2015 09:45 Appointment; Zaid Rodriguez D.O. Encounter Diagnosis: Problem not documented On 24-Mar-2015 14:15 Appointment; Amelia Sandhu P.A. Encounter Diagnosis: Problem not documented On 24-Mar-2015 11:00 Appointment; Amelia Sandhu P.A. Encounter Diagnosis: Problem not documented On 11:30 Appointment; Amelia Sandhu P.A. Encounter Diagnosis: Problem not documented On 28-Oct-2014 11:30 Appointment; Pretty Aranda M.D. Encounter Diagnosis: Problem not documented On 28-Oct-2014 10:30 Appointment; Pretty Aranda M.D. Encounter Diagnosis: Problem not documented On 29-Sep-2014 11:00 Appointment; Devendra Lugo M.D. Encounter Diagnosis: Problem not documented On 29-Jul-2014 11:15 Appointment; Pretty Aranda M.D. Encounter Diagnosis: Problem not documented On 23-Jul-2014 11:00 Appointment; Kip Grey P.A. Encounter Diagnosis: Problem not documented On 13-Jun-2014 13:00 Appointment; Kip Grey P.A. Encounter Diagnosis: Problem not documented On 06-Jun-2014 12:45 Appointment; Pretty Aranda M.D. Encounter Diagnosis: Problem not documented On 02-Jun-2014 13:30"
--- OUTSIDE RECORDS SUMMARY | 2016-12-25 12:48 | XMS REPORT | Summary of Care ---
Author Author Kip Jensen Unknown Address [address], [place] [id number] Phone Unavailable Care Team Providers Care Sales Account Leader Name Role Phone Tiny Crystal, Min Unavailable Unavailable Cristi Crystal, Leon Unavailable Unavailable Kip Jensen Unavailable Unavailable Parish Crystal, Tracie Unavailable Unavailable [...] Quantity: 60 Refills: 0 * Started ActiveNystatin-Triamcinolone 606886-9.1 UNIT/GM-% External Cream APPLY SPARINGLY TO AFFECTED AREA(S) 3 TIMES A DAY * Quantity: 2 Refills: 4 Pretty Aranda M.D.* Started 19-Jan-2012 [id number] GM Tube SEROquel XR 300 MG Oral [...] B Administered on:13-Jan-2004 Tdap (Adacel) Lot #: [id number] Administered on: Influenza Administered on:03-Jun-2010 Influenza Lot #: [id number] Administered on:23-May-2011 Pneumo (Pneumovax) Lot #: [id number] Administered on:31-Aug-2011 Influenza Lot #: [id number] Administered on:08-May-2012 Influenza Administered on:13-Jun-2013 Family History [...] Problem not documented On 27-May-2013 10:30 Appointment; Pretty Aranda Encounter Diagnosis: Problem not documented On 14-May-2013 11:30 Appointment; Dejuan Alcantar Encounter Diagnosis: Problem not documented On 11-Apr-2013 13:30 Appointment; Dejuan Alcantar Encounter Diagnosis: Problem not documented On 03-Apr-2013 15:15 Appointment; David Franks Encounter Diagnosis: Problem not documented On 27-Mar-2013 16:00 Appointment; Devendra Lugo Encounter Diagnosis: Problem not documented On 14:15 Appointment; Cristi Janice Encounter Diagnosis: Problem not [...]
--- OUTSIDE RECORDS SUMMARY | 2016-12-25 12:48 | XMS REPORT | Summary of Care ---
Author Author Devendra Lugo M.D. Unknown Address Unknown Phone Unavailable Care Team Providers Care Repulping Supervisor Name Role Phone Kip Jensen Unavailable Unavailable Edson Adams, Amelia Unavailable Unavailable Tracie Lugo M.D. Unavailable Unavailable Manoj Crystal, Pretty Unavailable Unavailable Verito Simmons Unavailable Unavailable Unavailable Unavailable Functional Status Name Dates [...] Active Brain TIA (435.9, G45.9) Status: Active Bilateral hip bursitis (726.5, M70.71) Status: Active Symptoms involving urinary system (788.99, R39.9) Status: Active Urinary incontinence, urge (788.31, N39.41) Status: Active Right hand tendonitis (727.05, M77.8) Status: Active Slow urinary stream (788.62, R39.198) Status: Active Therapeutic opioid induced constipation (564.09, K59.03) Status: Active Hyperlipidemia (272.4, E78.5) Status: Active Obstructive sleep apnea (327.23, G47.33) [...] Low back pain (724.2, M54.5) Status: Active Diabetes type 2, controlled (250.00, E11.9) Status: Active Hypertension (401.9, I10) Status: Active Chronic kidney disease, stage III (moderate) (585.3, N18.3) Status: Active Restless legs syndrome (333.94, G25.81) Status: Active Insomnia (780.52, G47.00) Status: Active Fibrocystic breast disease (610.1, N60.19) Status: Active Mental status change (780.97, R41.82) Status: Active Weakness generalized (780.79, R53.1) Status: Active Depression (311, F32.9) Status: Active Joint pain, knee (719.46, M25.569) Status: Active 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 Quantity: 30 * Start 24-Nov-2008 Active Lyrica 150 MG Oral Capsule TAKE 1 CAPSULE BY MOUTH TWICE DAILY.Script must last [address] Lugo. * Quantity: 180 Refills: 0 Devendra Lugo M.D. Start 10-Nov-2009 Active ClonazePAM 1 MG Oral Tablet TAKE 1 TABLET 3 times daily * Refills: 0 * Start 14-Apr-2009 Active Vitamin D3 2000 UNIT Oral Tablet Take 1 tablet daily * Quantity: 30 Refills: 0 * Start Active Fish Oil 1000 MG Oral Capsule TAKE 2 CAPSULE Daily * Quantity: 60 Refills: 0 * Start Active Nystatin-Triamcinolone 751607-7.1 UNIT/GM-% External Cream APPLY SPARINGLY TO AFFECTED AREA(S) 3 TIMES A DAY * Quantity: 2 Refills: 4 Aranda M.D.Pretty * Start 19-Jan-2012 Active 60 GM Tube SEROquel XR 300 MG Oral Tablet Extended Release 24 Hour TAKE 1 TABLET DAILY. * Refills: 0 * Start 10-Jul-2012 Active Lisinopril 10 MG Oral Tablet Take 1 tablet daily * Quantity: 90 Refills: 1 Aranda M.D.Pretty * Start 06-Jun-2016 Active BusPIRone HCl - 30 MG Oral [...] Daily * Quantity: 30 Refills: 0 Aranda M.D.Pretty * Start 14-May-2013 Active Vitamin B-12 1000 MCG Oral Tablet TAKE 1 TABLET DAILY DIRECTED. * Quantity: 30 Refills: 0 Aranda M.D.Pretty * Start 14-May-2013 Active Herbal/ Natural Products Saccharonyces Adrianitmos * Refills: 0 * Start 05-Jul-2013 Active Calcium 600/Vitamin D 600-400 MG-UNIT Oral Tablet * Refills: 0 * Start 05-Jul-2013 Active Glimepiride 2 MG Oral Tablet TAKE 1 TABLET EVERY DAY WITH BREAKFAST * Quantity: 90 Refills: 1 Aranda M.D.Pretty * Start 30-Jun-2016 Active HYDROmorphone HCl - 4 MG Oral Tablet Si PO every 6 hours prn with a max of 4 per day. Script must last [address] Lugo * Quantity: 120 Refills: 0 Devendra Lugo M.D. Start 15-Oct-2016 Active Promethazine HCl - 12.5 MG Oral Tablet TAKE 1 TABLET EVERY 6 TO 8 HOURS NEEDED NAUSEA. * Quantity: 60 Refills: 3 Devendra Lugo M.D. Start 15-Oct-2013 Active Cyclobenzaprine HCl - 10 MG Oral Tablet Si PO Tid. * Quantity: 270 Refills: 0 Devendra Lugo M.D. Start 24-Oct-2013 Active Dicyclomine HCl - 20 MG Oral Tablet TAKE 1 TABLET EVERY 6 HOURS NEEDED. * Quantity: 40 Refills: 0 Kip Jensen * Start 27-May-2014 Active Supplies Soft neck braceDx: Cervical neck pain 723.1 * Quantity: 1 Refills: 0 Devendra Lugo M.D. Start Active FluvoxaMINE Maleate 100 MG Oral Tablet TAKE 1 AND 1/2 TABLETS TWICE DAILY. * Refills: 0 * Start 29-Apr-2015 Active Colestipol HCl - 1 GM Oral Tablet Take 1 tablet twice daily * Refills: 0 Aranda MPretty Shepherd * Start 29-Apr-2015 Active Voltaren 1 % Transdermal Gel APPLY 2 GRAMS TO AFFECTED AREA TWICE A DAY AND RUB IN WELL * Quantity: 100 Refills: 0 Devendra Lugo M.D. Start 29-Apr-2015 Active Atorvastatin Calcium 10 MG Oral Tablet Take 1 tablet daily * Quantity: 90 Refills: 3 Aranda M.D.Pretty Start 08-Aug-2016 Active Aspirin 81 MG TABS Take 1 tablet daily * Quantity: 100 Refills: 0 Aranda M.Pretty Knapp * Start 29-Apr-2015 Active Meclizine HCl - 25 MG Oral Tablet TAKE 1 TABLET 3 TIMES DAILY NEEDED. * Quantity: 30 Refills: 0 Aranda Pretty Crystal Start 24-Aug-2015 Active Movantik 25 MG Oral Tablet Take 2 tablet daily on an empty stomach 1 hr before or 2 hrs after first meal. 90 day supply for express script only * Quantity: 180 Refills: 0 Devendra Lugo M.D. Start 16-Nov-2015 Active Pennsaid 2 % Transdermal Solution Apply 2 pumps twice daily over area of pain. * Quantity: 1 Refills: 0 Devendra Lugo M.D. Start 08-Jun-2016 Active 112 GM Pump Btl Allergies and Adverse Reactions Name Dates Details [...] History of Nerve Block Transforaminal Epidural Lumbar Procedures not documented Immunization Name Dates Details DTaP on: 2003 Hepatitis B on: 08-Dec-2003 Hepatitis B on: 13-Jan-2004 Tdap (Adacel) Lot #: [id number] on: Influenza on: 03-Jun-2010 Influenza Lot #: [id number] on: 23-May-2011 Pneumo (Pneumovax) Lot #: [id number] on: 31-Aug-2011 Influenza Lot #: [id number] on: 08-May-2012 Influenza on: 13-Jun-2013 Fluzone INJ Lot #: [id number] on: 29-Apr-2015 Tdap (Adacel) Lot #: [id number] on: 29-Apr-2015 Fluzone Quadrivalent 0.5 ML Intramuscular Suspension Lot #: [id number] on: 21-Apr-2016 Family History Name Dates Details [...] Goals not documented Planned Encounters Appointment; Provider: Devendra Lugo M.D. On 10-Nov-2016 15:30 Planned Medications HYDROmorphone HCl - 4 MG Oral Tablet Ordered: 15-Oct-2016 Active Interventions Provided Medication Changes* HYDROmorphone HCl - 4 MG Oral Tablet - Renew Instructions Name Dates Details Instructions not documented Encounters Appointment; Devendra Lugo M.D. Encounter Diagnosis: Problem not documented On 06-Jun-2016 08:15 Appointment; Pretty Aranda M.D. Encounter Diagnosis: Problem not documented On 03-May-2016 09:00 Appointment; Pretty Aranda M.D. Encounter Diagnosis: Problem not documented On 21-Apr-2016 14:15 Appointment; Pema Sanchez A.P.R.N. Encounter Diagnosis: Problem not documented On 07-Apr-2016 13:20 Appointment; Devendra Lugo M.D. Encounter Diagnosis: Problem not documented On 14:30 Appointment; Nimesh Rangel M.D. Encounter Diagnosis: Problem not documented On 10:30 Appointment; Devendra Lugo M.D. Encounter Diagnosis: Problem not documented On 11:00 Appointment; Pretty Aranda M.D. Encounter Diagnosis: Problem not documented On 10:30 Appointment; David Kelly M.D.,EMBER, Encounter Diagnosis: Problem not documented On 10:30 Appointment; Devendra Lugo M.D. Encounter Diagnosis: Problem not documented On 07-Jan-2016 14:15 Appointment; Pretty Aranda M.D. Encounter Diagnosis: Problem not documented On 23-Dec-2015 09:45 Appointment; Devendra Lugo M.D. Encounter Diagnosis: Problem not documented On 12-Nov-2015 10:30 Appointment; Alphonse Asif M.D. Encounter Diagnosis: Problem not documented On 11-Nov-2015 10:15 Appointment; David Kelly M.D., FACS, Encounter Diagnosis: Problem not documented On 03-Nov-2015 [...] documented On 24-Mar-2015 14:15 Appointment; Amelia Sandhu PFlavia Encounter Diagnosis: Problem not documented On 24-Mar-2015 11:00 Appointment; Amelia Sandhu P.A. Encounter Diagnosis: Problem not documented On 11:30 Appointment; Amelia Sandhu P.A. Encounter Diagnosis: Problem not documented On 28-Oct-2014 11:30 Appointment; Pretty Aranda M.D. Encounter Diagnosis: Problem not documented On 28-Oct-2014 10:30 Appointment; Pretty Aranda M.D. Encounter Diagnosis: Problem not documented On 29-Sep-2014 11:00
--- OUTSIDE RECORDS SUMMARY | 2016-12-25 12:48 | XMS REPORT | Summary of Care ---
Author Author Pretty Aranda M.D. Unknown Address [address], [place] [id number] Phone Unavailable Care Team Providers Care Teller Vault Name Role Phone Kip Jensen Unavailable Unavailable [...] of multiple sites (719.49, M25.50) Status: Active Lung nodule (793.11, R91.1) Status: Active Abnormal liver function test (790.6, R79.89) Status: Active Diarrhea (787.91, R19.7) Status: Active Visit for screening mammogram (V76.12, Z12.31) Status: Active Obesity (278.00, E66.9) Status: Active Knee joint pain (719.46, M25.569) Status: Active Pain, low back (724.2, M54.5) Status: Active Cough (786.2, R05) Status: Active Sinusitis, acute (461.9, J01.90) Status: Active Cervical pain (neck) (723.1, M54.2) Status: Active Fibromyalgia (729.1, M79.7) Status: Active Lower back pain (724.2, M54.5) Status: Active Elevated liver enzymes (790.5, R74.8) Status: Active Symptoms involving urinary system (788.99, R39.9) Status: Active Elevated creatine kinase level (790.5, R74.8) Status: Active Costovertebral Angle Tenderness Right Status: Active Costovertebral Angle Tenderness Left Status: Active Urinary tract infection (599.0, N39.0) Status: Active Degenerative disc disease, lumbar (722.52, M51.36) Status: Active Abdominal pain (789.00, R10.9) Status: Active Hemiparesis (342.90, G81.90) Status: Active Dysphasia and aphasia (784.3, R47.01) Status: Active Hypertension (401.9, I10) Status: Active Type 2 diabetes mellitus (250.00, E11.9) Status: Active Obstructive sleep apnea (327.23, G47.33) Status: Active Chronic kidney disease, stage III (moderate) (585.3, N18.3) Status: Active Depression (311, F32.9) Status: Active Low back pain (724.2, M54.5) Status: Active Migraine headache (346.90, G43.909) Status: Active Allergic rhinitis (477.9, J30.9) Status: Active Hyperlipidemia (272.4, E78.5) Status: Active Medications Name Dates Details Multi-Vitamin/Minerals Oral Tablet TAKE 1 TABLET DAILY. Quantity: 30 * Started 24-Nov-2008 ActiveLyrica 150 MG Oral Capsule TAKE 1 CAPSULE BY MOUTH TWICE DAILY.Script must last 30 days. * Quantity: 60 Refills: 2 Devendra Lugo M.D.* Started 10-Nov-2009 ActiveClonazePAM 1 MG Oral Tablet TAKE 1 TABLET 3 times daily * Refills: 0 * Started 14-Apr-2009 ActiveVitamin D3 2000 UNIT Oral Tablet Take 1 tablet daily * Quantity: 30 Refills: 0 * Started ActiveFish Oil 1000 MG Oral Capsule TAKE 2 CAPSULE Daily * Quantity: 60 Refills: 0 * Started ActiveSEROquel XR 300 MG Oral Tablet Extended Release 24 Hour TAKE 1 TABLET DAILY. * Refills: 0 * Started 10-Jul-2012 ActiveLisinopril 10 MG Oral Tablet Take 1 tablet daily * Quantity: 90 Refills: 2 Pretty Aranda M.D.* Started 01-Nov-2012 ActiveBusPIRone HCl - 15 MG Oral Tablet 1 tab po tid * Quantity: 90 Refills: 0 * Started 19-Nov-2012 ActiveGabapentin 600 [...] DAY WITH BREAKFAST * Quantity: 90 Refills: 3 Pretty Aranda M.D.* Started 22-Jul-2013 ActiveHYDROmorphone HCl - 4 MG Oral Tablet Si PO every 6 hours prn with a max of 4 per day. Script must last [address] Lugo * Quantity: 120 Refills: 0 Amelia Sandhu* Started 27-Apr-2015 ActivePromethazine HCl - 12.5 MG Oral Tablet TAKE 1 TABLET EVERY 6 TO 8 HOURS NEEDED NAUSEA. * Quantity: 60 Refills: 0 Devendra Lugo M.D.* Started 15-Oct-2013 ActiveCyclobenzaprine HCl - 10 MG Oral Tablet Si PO Tid. * Quantity: 90 Refills: 2 Amelia Sandhu* Started 24-Oct-2013 ActiveDicyclomine HCl - 20 MG Oral Tablet TAKE 1 TABLET EVERY 6 HOURS NEEDED. * Quantity: 40 Refills: 0 Kip Grey* Started 27-May-2014 ActiveSupplihue Soft neck braceDx: Cervical neck pain 723.1 * Quantity: 1 Refills: 0 Devendra Lugo M.D.* Started ActiveFluticasone Propionate 50 MCG/ACT Nasal Suspension USE 1 SPRAY IN EACH NOSTRIL ONCE DAILY. * Quantity: 1 Refills: 4 Pretty Aranda M.D.* Started 21-Apr-2015 Pkiogy97 GM Bottle FluvoxaMINE Maleate 100 MG Oral Tablet TAKE 2 TABLETS AT BEDTIME. * Refills: 0 * Started 29-Apr-2015 ActiveLinzess 145 MCG Oral Capsule 1 qd * Refills: 0 Pretty Aranda M.D.* Started 29-Apr-2015 ActiveColestipol HCl - 1 GM Oral Tablet Take 1 tablet twice daily * Refills: 0 Pretty Aranda M.D.* Started 29-Apr-2015 ActiveVoltaren 1 % Transdermal Gel * Refills: 0 Pretty Aranda M.D.* Started 29-Apr-2015 ActiveAtorvastatin Calcium 10 MG Oral Tablet take 1 tablet by mouth every day * Quantity: 90 Refills: 1 Pretty Aranda M.D.* Started 29-Apr-2015 ActiveAspirin 81 MG Oral Tablet Take 1 tablet daily * Quantity: 100 Refills: 0 Pretty Aranda M.D.* Started 29-Apr-2015 Active Allergies and Adverse Reactions Name Dates Details MetFORMIN HCl TABS Reaction: Diarrhea Status: Active Past Medical History Name Dates Details History of candidiasis (V12.09, Z86.19) Status: Resolved History of herpes zoster (V12.09, Z86.19) Status: Resolved History of infectious mononucleosis (V12.09, Z86.19) Status: Resolved History of influenza (V12.09, Z87.09) Status: Resolved History of Tick bite (919.4, [...] History of Nerve Block Transforaminal Epidural Lumbar CREATINE KINASE 1300 Ordered:20-Apr-2015 LIPID PROFILE 1184 Ordered:20-Apr-2015 LIVER PROFILE 1215 Ordered:20-Apr-2015 Immunization Name Dates Details DTaP Administered on:2003 Hepatitis B Administered on:08-Dec-2003 Hepatitis B Administered on:13-Jan-2004 Tdap (Adacel) Lot #: [id number] Administered on: Influenza Administered on:03-Jun-2010 Influenza Lot #: [id number] Administered on:23-May-2011 Pneumo (Pneumovax) Lot #: [id number] Administered on:31-Aug-2011 Influenza Lot #: [id number] Administered on:08-May-2012 Influenza Administered on:13-Jun-2013 Family History [...] smoker Vital Signs Date Test Result Details 29-Apr-2015 09:54 BP Systolic 130 mm[Hg] Status: BP Diastolic 80 mm[Hg] Status: Heart Rate 85 /min Status: Weight 245 lb Status: Body Mass Index Calculated 42.72 kg/m2 Status: Body Surface Area Calculated 2.12 m2 Status: Results Date Description Value Details 23-Apr-2015 10:39 CBC w/ Auto Diff 7150 Comments: Fastin hours WBC 7.6 K/uL (Better) Range: 4.5-11.0 RBC 5.05 mil/uL (Above high threshold) Range: 3.60-5.00 HGB 14.6 g/dL (Better) Range: 12.0-16.0 HCT 43.8 % (Better) Range: 36.0-48.0 MCV 86.7 fL (Better) Range: 80.0-99.0 MCH 28.8 pg (Better) Range: 27.3-32.5 MCHC 33.2 % (Better) Range: 32.0-36.0 RDW 13.9 % (Better) Range: 11.6-14.8 PLATELETS 278 K/uL (Better) Range: 150-400 MPV 8.2 fL (Better) Range: 6.0-11.0 %NEUTRO 69.6 % (Better) Range: 37.0-80.0 %LYMPHS 22.6 % (Better) Range: 13.0-50.0 %MONO 4.0 % (Better) Range: 0.0-12.0 %EOS 2.3 % (Better) Range: 0.0-7.0 %BASO 0.4 % (Better) Range: 0.0-2.5 %ABDULLAHI 1.2 % (Better) Range: 0.0-5.0 NEUTRO 5.3 K/uL (Better) Range: 2.0-6.9 LYMPHS 1.7 K/uL (Better) Range: 0.6-3.4 MONOS 0.3 K/uL (Better) Range: 0.0-0.9 EOS 0.2 K/uL (Better) Range: 0.0-0.7 BASO 0.0 K/uL (Better) Range: 0.0-0.2 10:55 Comprehensive Metabolic Panel 1212 Comments: Fastin hours SODIUM 139 mmol/L (Better) Range: 133-144 POTASSIUM 4.0 mmol/L (Better) Range: 3.5-5.1 CHLORIDE 105 mmol/L (Better) Range: 98-110 CARBON DIOXIDE 23.1 mmol/L (Better) Range: 23.0-33.0 ANION GAP 11 mmol/L (Better) Range: 6-16 BUN 10 mg/dL (Better) Range: 7-18 CREATININE, SERUM 1.21 mg/dL (Above high threshold) Range: 0.55-1.02 Comments: Please note new reference ranges effective 2015.----- BUN:CREATININE RATIO 8 (Better) EST GFR, 58 ml/min (Below low threshold) Range: >60 EST GFR, NON-AFR ECUADOREAN 47 ml/min (Below low threshold) Range: >60 Comments: EST GFR is reported in ml/min per 1.73 m2 of body surface area. For -Uzbek, please multiple result by 1.2.----- GLUCOSE 165 mg/dL (Above high threshold) Range: 70-100 ALK PHOSPHATASE 111 U/L (Better) Range: 46-116 TOTAL BILIRUBIN 0.50 mg/dL (Better) Range: 0.20-1.00 AST 37 U/L (Above high threshold) Range: 8-35 ALT 55 U/L (Better) Range: 14-59 Comments: Please note new reference ranges. Effective 10/30/2014.----- ALBUMIN 3.5 g/dL (Better) Range: 3.4-5.0 TOTAL PROTEIN 7.2 g/dL (Better) Range: 6.4-8.2 A/G RATIO 0.9 units (Below low threshold) Range: 1.0-1.8 CALCIUM 8.9 mg/dL (Better) Range: 8.5-10.1 10:56 LIPID PROFILE 1184 Comments: Fastin hours CHOLESTEROL 223 mg/dL (Above high threshold) Range: <200 TRIGLYCERIDES 172 mg/dL (Better) Range: 30-200 HDL Cholesterol 47 mg/dL (Better) Range: >39 NON HDL CHOLESTEROL 176 (Better) CARDIAC RSK FACTOR 4.7 units (Better) Range: 4.4-5.0 LDL - CALCULATED 142 mg/dL (Above high threshold) Range: 0-130 11:09 THYROID STIM. HORMONE 3602 Comments: Fastin hours THYROID STIM. HORMONE 0.563 uIU/mL (Better) Range: 0.550-4.780 Comments: No established reference ranges for infants and children <2 years of age----- 11:11 FREE T4 3604 Comments: Fastin hours FREE T4 1.10 ng/dL (Better) Range: 0.80-1.67 12:15 Stool, C DIFFICILE TOXIN GENE 5515 *C DIFFICILE TOXIN A&B Negative (Better) Range: Negative 12:31 HEMOGLOBIN A1C 3507 Comments: Fastin hours Hemoglobin A1C 6.6 % (Better) ESTIMATED AVG. GLUCOSE 143 (Better) 24-Apr-2015 08:13 Triiodothyronine,Free,Serum ( T3) [id number] Comments: Testing performed at: [] [facility] [address], [place], [address], , Spud Grader: AMY Nolan MD Fasting : 14 hours TRIIODOTHYRONINE,FREE,SERUM 2.3 pg/mL (Better) Range: 2.0-4.4 Plan of Care Planned Observations* Name Dates Details Planned Goals not documented Goal Planned Encounters* Appointment; Provider: David Ramírez On 10-Aug-2015 10:00 * Appointment; Provider: Devendra Lugo On 20-May-2015 11:00 * Appointment; Provider: Jordan Muñoz On 20-May-2015 10:30 * Appointment; Provider: Pretty Aranda On 11-May-2015 10:30 * Appointment; Provider: David Franks On 07-May-2015 14:00 * Appointment; Provider: Eric Garcia On 01-May-2015 10:30 * Appointment; Provider: Wilfrido Waddell On 15-Apr-2015 16:35 * Appointment; Provider: Schedule [facility] On 24-Mar-2015 13:15 * Appointment; Provider: [facility] On 11:30 * Appointment; Provider: Lucía Bennett On [...]
--- OUTSIDE RECORDS SUMMARY | 2016-12-25 12:49 | XMS REPORT | Summary of Care ---
Author Author Pretty Aranda M.D. Unknown Address Unknown Phone Unavailable Care Team Providers Care Dispatcher Maintenance Service Name Role Phone Kip Jensen Unavailable Unavailable [...] legs syndrome (333.94, G25.81) Status: Active Vitamin D deficiency (268.9, E55.9) [...] 2 diabetes mellitus (250.00, E11.9) Status: Active Pain of right hand (729.5, M79.641) Status: Active Slow urinary stream (788.62, R39.19) [...] Active Neurogenic bladder (596.54, N31.9) Status: Active Left knee pain (719.46, M25.562) Status: Active Generalized anxiety disorder (300.02, F41.1) Status: Active Degenerative disc disease, lumbar (722.52, M51.36) Status: Active Bursitis of hip, left (726.5, M70.72) Status: Active Localized primary osteoarthritis of lower leg, 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, M17.11) Status: Active Arthralgia of multiple sites (719.49, M25.50) Status: Active Fibromyalgia (729.1, M79.7) Status: Active Low back pain (724.2, M54.5) Status: Active Morbid obesity (278.01, E66.01) Status: Active Bruising (924.9, T14.8) Status: Active Medications Name Dates Details Multi-Vitamin/Minerals Oral Tablet TAKE 1 TABLET DAILY. Quantity: 30 * Start 24-Nov-2008 Active Lyrica 150 MG Oral Capsule TAKE 1 CAPSULE BY MOUTH TWICE DAILY.Script must last [address] Lugo. * Quantity: 180 Refills: 0 Devnedra Lugo M.D. Start 10-Nov-2009 Active ClonazePAM 1 MG Oral Tablet TAKE 1 TABLET 3 times daily * Refills: 0 * Start 14-Apr-2009 Active Vitamin D3 2000 UNIT Oral Tablet Take 1 tablet daily * Quantity: 30 Refills: 0 * Start Active Fish Oil 1000 MG Oral Capsule TAKE 2 CAPSULE Daily * Quantity: 60 Refills: 0 * Start Active Nystatin-Triamcinolone 263170-5.1 UNIT/GM-% External Cream APPLY SPARINGLY TO AFFECTED AREA(S) 3 TIMES A DAY * Quantity: 2 Refills: 4 Aranda M.D., Pretty * Start 19-Jan-2012 Active 60 GM Tube SEROquel XR 300 MG Oral Tablet Extended Release 24 Hour TAKE 1 TABLET DAILY. * Refills: 0 * Start 10-Jul-2012 Active Lisinopril 10 MG Oral Tablet Take 1 tablet daily * Quantity: 90 Refills: 0 Aranda M.D., Pretty * Start 01-Nov-2012 Active BusPIRone HCl - [...] SLEEP * Quantity: 30 Refills: 0 Aranda M.D., Pretty * Start 14-May-2013 Active Probiotic Colon Support [...] Dr. Lugo * Quantity: 120 Refills: 0 Parish CarverDevendra Shepherd Start 10-Apr-2016 Active Promethazine HCl - 12.5 MG Oral [...] twice daily * Refills: 0 Pretty Aranda M.D. * Start 29-Apr-2015 Active Voltaren 1 % Transdermal Gel APPLY 2 GRAMS TO AFFECTED AREA TWICE A DAY AND RUB IN WELL * Quantity: 100 Refills: 0 Devendra Lugo M.D. Start 29-Apr-2015 Active Atorvastatin Calcium 10 MG Oral Tablet Take 1 tablet daily * Quantity: 90 Refills: 3 Aranda M.Pretty Knapp * Start 29-Apr-2015 Active Aspirin 81 MG TABS Take 1 tablet daily * Quantity: 100 Refills: 0 Aranda M.Pretty Knapp Start 29-Apr-2015 Active Meclizine HCl - 25 MG Oral Tablet TAKE 1 TABLET 3 TIMES DAILY NEEDED. * Quantity: 30 Refills: 0 Aranda M.DPretty [place] Start 24-Aug-2015 Active Movantik 25 MG Oral Tablet Take 2 tablet daily on an empty stomach 1 hr before or 2 hrs after first meal. 90 day supply for express script only * Quantity: 180 Refills: 0 Devendra Lugo M.D. Start 16-Nov-2015 Active Allergies and Adverse Reactions Name [...] History of Nerve Block Transforaminal Epidural Lumbar ORTHO SPINE LUMBAR ( 2 VIEWS ONLY) Ordered: Immunization Name Dates Details DTaP on: 2003 Hepatitis B on: 08-Dec-2003 Hepatitis B on: 13-Jan-2004 Tdap (Adacel) Lot #: [id number] on: Influenza on: 03-Jun-2010 Influenza Lot #: [id number] on: 23-May-2011 Pneumo (Pneumovax) Lot #: [id number] on: 31-Aug-2011 Influenza Lot #: [id number] on: 08-May-2012 Influenza on: 13-Jun-2013 Fluzone INJ Lot #: [id number] on: 29-Apr-2015 Tdap (Adacel) Lot #: [id number] on: 29-Apr-2015 Family History Name Dates Details Family history [...] smoker Vital Signs Date Test Result Details 07-Apr-2016 13:35 BP Systolic 99 mm[Hg] Status: Comments: Location: ; Position: BP Diastolic 82 mm[Hg] Status: Comments: Location: ; Position: Temperature 97.9 f Status: Comments: Method: Heart Rate 130 /min Status: Comments: Location: ; Physical Findings 16 Status: Comments: Respiration Physical Findings 95 Status: Comments: O2 Saturation Results Date Description Value Details Results not documented Plan of Care Name Dates Details Planned Observations BASIC METABOLIC PROFILE 1210 On 26-Mar-2016 Intent HEMOGLOBIN A1C 3507 On 26-Mar-2016 Intent Planned Goals not documented Planned Encounters Appointment; Provider: David Kelly M.D.|Brigette|Marah,EMBER|EMBER [place], On 27-Jul-2016 10:15 Appointment; Provider: Devendra Lugo M.D. On 03-May-2016 13:00 Appointment; Provider: Pretty Aranda M.D. On 21-Apr-2016 14:15 Appointment; Provider: Schedule Radiology On 11-Jan-2016 11:20 Instructions Name Dates Details Instructions not documented Encounters Appointment; Pretty Aranda M.D. Encounter Diagnosis: Problem not documented On 23-Dec-2015 09:45 Appointment; Devendra Lugo M.D. Encounter Diagnosis: Problem not documented On 12-Nov-2015 10:30 Appointment; Alphonse Asif M.D. Encounter Diagnosis: Problem not documented On 11-Nov-2015 10:15 Appointment; David Kelly M.D.|Brigette|Marah,EMBER|Marah,EMBER, Encounter Diagnosis: Problem not documented On 03-Nov-2015 [...] documented On 02-Jun-2014 13:30 Appointment; Pretty Aranda M.D. Encounter Diagnosis: Problem not documented On 27-May-2014 14:15 Appointment; David Franks M.D. Encounter Diagnosis: Problem not documented On 05-May-2014 15:15 Appointment; Devendra Lugo M.D. Encounter Diagnosis: Problem not documented On 29-Apr-2014 11:15 Appointment; Dejuan Alcantar M.D. Encounter Diagnosis: Problem not documented On 28-Apr-2014 14:45"
--- OUTSIDE RECORDS SUMMARY | 2016-12-25 12:49 | XMS REPORT | Summary of Care ---
Author Author Pretty Aranda M.D. Unknown Address [address], [place] [id number] Phone Unavailable Care Team Providers Care Marketing Strategy Analyst Name Role Phone Kip Jensen Unavailable Unavailable [...] neoplasm of colon (V76.51, Z12.11) Status: Active Acute ischemic colitis (557.0, K55.0) Status: Active Sleep related hypoxia (327.24, G47.34) Status: Active Bright red blood per rectum (569.3, K62.5) Status: Active Nontoxic thyroid nodule (241.0, E04.1) Status: Active Pain in hand (729.5, M79.643) Status: Active Trigger finger (727.03, M65.30) Status: Active Joint pain, knee (719.46, M25.569) Status: Active Arthralgia of multiple sites (719.49, M25.50) Status: Active Lung nodule (793.11, R91.1) Status: Active Abnormal liver function test (790.6, R94.5) Status: Active Visit for screening mammogram (V76.12, Z12.31) Status: Active Obesity (278.00, E66.9) Status: Active Knee joint pain (719.46, M25.569) Status: Active Pain, low back (724.2, M54.5) Status: Active Cervical pain (neck) (723.1, M54.2) Status: Active Lower back pain (724.2, M54.5) Status: Active Elevated liver enzymes (790.5, R74.8) Status: Active Symptoms involving urinary system (788.99, R39.9) Status: Active Elevated creatine kinase level (790.5, R74.8) Status: Active Degenerative disc disease, lumbar (722.52, M51.36) Status: Active Hemiparesis (342.90, G81.90) Status: Active Dysphasia and aphasia (784.3, R47.01) Status: Active Migraine headache (346.90, G43.909) Status: Active Allergic rhinitis (477.9, J30.9) Status: Active Type 2 diabetes mellitus (250.00, E11.9) Status: Active Hypertension (401.9, I10) Status: Active Hyperlipidemia (272.4, E78.5) Status: Active Depression (311, F32.9) Status: Active Chronic kidney disease, stage III (moderate) (585.3, N18.3) Status: Active Obstructive sleep apnea (327.23, G47.33) Status: Active Brain TIA (435.9, G45.9) Status: Active Fibromyalgia (729.1, M79.7) Status: Active Vertigo (780.4, R42) Status: Active Medications Name Dates Details Multi-Vitamin/Minerals Oral Tablet TAKE 1 TABLET DAILY. Quantity: 30 * Started 24-Nov-2008 ActiveLyrica 150 MG Oral Capsule TAKE 1 CAPSULE BY MOUTH TWICE DAILY.Script must last 30 days. * Quantity: 180 Refills: 0 Devendra Lugo M.D.* Started 29-May-2015 ActiveClonazePAM 1 MG Oral Tablet TAKE 1 TABLET 3 times daily * Refills: 0 * Started 14-Apr-2009 ActiveSEROquel XR 300 MG Oral Tablet Extended Release 24 Hour TAKE 1 TABLET DAILY. * Refills: 0 * Started 10-Jul-2012 ActiveFish Oil 1000 MG Oral Capsule TAKE 2 CAPSULE Daily * Quantity: 60 Refills: 0 * Started ActiveVitamin D3 2000 UNIT Oral Tablet Take 1 tablet daily * Quantity: 30 Refills: 0 * Started ActiveAmbien 10 MG Oral Tablet TAKE 1 [...] Tablet * Refills: 0 * Started 05-Jul-2013 ActiveDicyclomine HCl - 20 MG Oral Tablet TAKE 1 TABLET EVERY 6 HOURS NEEDED. * Quantity: 40 Refills: 0 Kip Grey PTacoATaco* Started 27-May-2014 ActivePromethazine HCl - 12.5 MG Oral Tablet TAKE 1 TABLET EVERY 6 TO 8 HOURS NEEDED NAUSEA. * Quantity: 60 Refills: 0 Devendra Lugo M.D.* Started 15-Oct-2013 ActiveGlimepiride 2 MG Oral Tablet TAKE 1 TABLET EVERY DAY WITH BREAKFAST * Quantity: 90 Refills: 3 Pretty Aranda M.D.* Started 22-Jul-2013 ActiveSupplies Soft neck braceDx: Cervical neck pain 723.1 * Quantity: 1 Refills: 0 Devendra Lugo M.D.* Started ActiveGabapentin 600 MG Oral Tablet TAKE ONE TABLET BY MOUTH AT BEDTIME * Quantity: 90 Refills: 3 Amelia Sandhu P.ATaco* Started 27-Mar-2013 ActiveHYDROmorphone HCl - 4 MG Oral Tablet Si PO every 6 hours prn with a max of 4 per day. Script must last [address] Lugo * Quantity: 120 Refills: 0 Devendra Lugo M.D.* Started 26-Jun-2015 ActiveCyclobenzaprine HCl - 10 MG Oral Tablet Si PO Tid. * Quantity: 270 Refills: 0 Devendra Lugo M.D.* Started 24-Oct-2013 ActiveLisinopril 10 MG Oral Tablet Take 1 tablet daily * Quantity: 90 Refills: 2 ArandaPretty M.D.* Started 01-Nov-2012 ActiveBusPIRone HCl - 30 MG Oral Tablet TAKE 1 TABLET TWICE DAILY. * Refills: 0 * Started 19-Nov-2012 ActiveColestipol HCl - 1 GM Oral Tablet Take 1 tablet twice daily * Refills: 0 ArandaPretty M.D.* Started 29-Apr-2015 ActiveAspirin 81 MG Oral Tablet Take 1 tablet daily * Quantity: 100 Refills: 0 ArandaPretty M.D.* Started 29-Apr-2015 ActiveAtorvastatin Calcium 10 MG Oral Tablet take 1 tablet by mouth every day * Quantity: 90 Refills: 1 ArandaPretty M.D.* Started 29-Apr-2015 ActiveVoltaren 1 % Transdermal Gel APPLY 2 GRAMS TO AFFECTED AREA TWICE A DAY AND RUB IN WELL * Quantity: 100 Refills: 0 Devendra Lugo M.D.* Started 29-Apr-2015 ActiveFluvoxaMINE Maleate 100 MG Oral Tablet TAKE 1 AND 1/2 TABLETS TWICE DAILY. * Refills: 0 * Started 29-Apr-2015 ActiveMeclizine HCl - 25 MG Oral Tablet TAKE 1 TABLET 3 TIMES DAILY NEEDED. * Quantity: 30 Refills: 0 Pretty Aranda M.D.* Started 24-Aug-2015 Active Allergies and Adverse Reactions Name Dates Details MetFORMIN HCl TABS Reaction: Diarrhea Status: Active Past Medical History Name Dates Details History of abdominal pain (V13.89, Z87.898) Status: Resolved History of Bursitis of hip (726.5, M70.70) Status: Resolved History of candidiasis (V12.09, Z86.19) Status: Resolved History of Clostridium difficile colitis (008.45, A04.7) Status: Resolved History of diarrhea (V12.79, Z87.898) Status: Resolved History of herpes zoster (V12., Z86.19) Status: Resolved History of infectious mononucleosis (V12., Z86.19) Status: Resolved History of influenza (V12.09, [...] History of Nerve Block Transforaminal Epidural Lumbar FREE T4 3604 Ordered:25-Aug-2015 Triiodothyronine,Free,Serum ( T3) [id number] Ordered:25-Aug-2015 Immunization Name Dates Details DTaP Administered on:2003 Hepatitis B Administered on:08-Dec-2003 Hepatitis B Administered on:13-Jan-2004 Tdap (Adacel) Lot #: [id number] Administered on: Influenza Administered on:03-Jun-2010 Influenza Lot #: [id number] Administered on:23-May-2011 Pneumo (Pneumovax) Lot #: [id number] Administered on:31-Aug-2011 Influenza Lot #: [id number] Administered on:08-May-2012 Influenza Administered on:13-Jun-2013 Fluzone Intramuscular Injectable Lot #: [id number] Administered on:29-Apr-2015 Tdap (Adacel) Lot #: [id number] Administered on:29-Apr-2015 Family History Unknown Family Member* [...] Details Family history of Depression Status: Active Social History Name Dates Details Smoking Status* Never smoker Vital Signs Date Test Result Details 24-Aug-2015 10:25 BP Systolic 110 mm[Hg] Status: BP Diastolic 88 mm[Hg] Status: Heart Rate 80 /min Status: Weight 246 lb Status: Body Mass Index Calculated 42.89 kg/m2 Status: Body Surface Area Calculated 2.12 m2 Status: Results Date Description Value Details 24-Aug-2015 11:19 CBC w/ Auto Diff 7150 WBC 7.6 K/uL (Better) Range: 4.5-11.0 RBC 5.29 mil/uL (Above high threshold) Range: 3.60-5.00 HGB 15.2 g/dL (Better) Range: 12.0-16.0 HCT 47.1 % (Better) Range: 36.0-48.0 MCV 89.2 fL (Better) Range: 80.0-99.0 MCH 28.7 pg (Better) Range: 27.3-32.5 MCHC 32.2 % (Better) Range: 32.0-36.0 RDW 14.0 % (Better) Range: 11.6-14.8 PLATELETS 311 K/uL (Better) Range: 150-400 MPV 8.4 fL (Better) Range: 6.0-11.0 %NEUTRO 66.9 % (Better) Range: 37.0-80.0 %LYMPHS 24.7 % (Better) Range: 13.0-50.0 %MONO 3.9 % (Better) Range: 0.0-12.0 %EOS 2.0 % (Better) Range: 0.0-7.0 %BASO 1.0 % (Better) Range: 0.0-2.5 %ABDULLAHI 1.5 % (Better) Range: 0.0-5.0 NEUTRO 5.1 K/uL (Better) Range: 2.0-6.9 LYMPHS 1.9 K/uL (Better) Range: 0.6-3.4 MONOS 0.3 K/uL (Better) Range: 0.0-0.9 EOS 0.2 K/uL (Better) Range: 0.0-0.7 BASO 0.1 K/uL (Better) Range: 0.0-0.2 11:49 Urinalysis, Reflex to Microscopic or Culture PRN 8005 pH 6.5 (Better) Range: 5.0-7.5 SP GRAVITY 1.010 (Better) Range: 1.010-1.030 APPEARANCE CLEAR (Better) Range: Clear COLOR YELLOW (Better) Range: Straw-Yellow PROTEIN NEGATIVE mg/dL (Better) Range: Negative-Trace GLUCOSE NEGATIVE mg/dL (Better) Range: Negative KETONE NEGATIVE mg/dL (Better) Range: Negative BILIRUB NEGATIVE (Better) Range: Negative BLOOD NEGATIVE (Better) Range: Negative UROBIL 0.2 EU/dL (Better) Range: 0.2-1.0 NITRITE NEGATIVE (Better) Range: Negative LEUK MODERATE (Abnormal) Range: Negative 11:49 Urine Microscopic UMIC WBC 3-5 /HPF (Better) Range: 0-5 RBC 0-2 /HPF (Better) Range: 0-2 EPITH 6-10 /HPF (Better) Range: 0-10 11:51 Comprehensive Metabolic Panel 1212 SODIUM 141 mmol/L (Better) Range: 133-144 POTASSIUM 3.9 mmol/L (Better) Range: 3.5-5.1 CHLORIDE 104 mmol/L (Better) Range: 98-110 CARBON DIOXIDE 24.4 mmol/L (Better) Range: 23.0-33.0 ANION GAP 13 mmol/L (Better) Range: 6-16 BUN 8 mg/dL (Better) Range: 7-18 CREATININE, SERUM 1.11 mg/dL (Above high threshold) Range: 0.55-1.02 Comments: Please note new reference ranges effective 2015.----- BUN:CREATININE RATIO 7 (Better) EST GFR, >60 ml/min (Better) Range: >60 EST GFR, NON-AFR MICRONESIAN 52 ml/min (Below low threshold) Range: >60 Comments: EST GFR is reported in ml/min per 1.73 m2 of body surface area. For -[place], please multiple result by 1.2.----- GLUCOSE 174 mg/dL (Above high threshold) Range: 70-100 ALK PHOSPHATASE 117 U/L (Above high threshold) Range: 46-116 TOTAL BILIRUBIN 0.60 mg/dL (Better) Range: 0.20-1.00 AST 42 U/L (Above high threshold) Range: 8-35 ALT 58 U/L (Better) Range: 14-59 Comments: Please note new reference ranges. Effective 10/30/2014.----- ALBUMIN 3.8 g/dL (Better) Range: 3.4-5.0 TOTAL PROTEIN 7.6 g/dL (Better) Range: 6.4-8.2 A/G RATIO 1.0 units (Better) Range: 1.0-1.8 CALCIUM 9.6 mg/dL (Better) Range: 8.5-10.1 12:05 THYROID STIM. HORMONE 3602 THYROID STIM. HORMONE 0.204 uIU/mL (Below low threshold) Range: 0.550- 4.780 Comments: PLEASE NOTE: Patients undergoing fuorescein dye angiography within the last 72 hours can produce falsely depressed TSH values with current methodology.No established reference ranges for infants and children <2 years of age----- Plan of Care Planned Observations* Name Dates Details Planned Goals not documented Goal Planned Encounters* Appointment; Provider: Pretty Aranda On 02-Nov-2015 11:00 * Appointment; Provider: Alphonse Asif On 11-Sep-2015 08:30 * Appointment; Provider: Wilfrido Waddell On 15-Apr-2015 [...] not documented On 21-Mar-2014 14:00 Appointment; Devendra Luog Encounter Diagnosis: Problem not documented On 13:15 [...] documented On 23-Sep-2013 12:35 Appointment; Devendra Lugo Diagnosis: Problem not documented On 09-Sep-2013 13:15 Appointment; Devendra Lugo Diagnosis: Problem not documented On 05-Sep-2013 09:45 Appointment; Devendra Lugo Diagnosis: Problem not documented On 29-Aug-2013 08:00 Appointment; Jordan Muñoz Encounter Diagnosis: Problem not documented On 26-Aug-2013 13:30
--- OUTSIDE RECORDS SUMMARY | 2016-12-25 12:49 | XMS REPORT | Summary of Care ---
Author Author Pretty Aranda M.D. Unknown Address [address], [place] [id number] Phone Unavailable Care Team Providers Care String Top Sealer Name Role Phone Kip Jensen Unavailable Unavailable [...] neoplasm of colon (V76.51, Z12.11) Status: Active Sleep related hypoxia (327.24, G47.34) Status: Active Nontoxic thyroid nodule (241.0, E04.1) Status: Active Trigger finger (727.03, M65.30) Status: Active Lung nodule (793.11, R91.1) Status: Active Abnormal liver function test (790.6, R94.5) Status: Active Visit for screening mammogram (V76.12, Z12.31) Status: Active Obesity (278.00, E66.9) Status: Active Cervical pain (neck) (723.1, M54.2) Status: Active Lower back pain (724.2, M54.5) Status: Active Elevated liver enzymes (790.5, R74.8) Status: Active Symptoms involving urinary system (788.99, R39.9) Status: Active Elevated creatine kinase level (790.5, R74.8) Status: Active Migraine headache (346.90, G43.909) Status: [...] paroxysmal positional vertigo (386.11, H81.10) Status: Active Depression (311, F32.9) Status: Active Hypertension (401.9, I10) Status: Active Type 2 diabetes mellitus (250.00, E11.9) Status: Active Degenerative disc disease, lumbar (722.52, M51.36) Status: Active Low back pain (724.2, M54.5) Status: Active Medications Name Dates Details Multi-Vitamin/Minerals Oral Tablet TAKE 1 TABLET DAILY. Quantity: 30 * Started 24-Nov-2008 ActiveLyrica 150 MG Oral Capsule TAKE 1 CAPSULE BY MOUTH TWICE DAILY.Script must last [address] Lugo. * Quantity: 180 Refills: 0 Devendra uLgo M.D.* Started 26-Sep-2015 ActiveClonazePAM 1 MG Oral Tablet TAKE 1 [...] FOR SLEEP * Quantity: 30 Refills: 0 ArandaPretty M.D.* Started 14-May-2013 ActiveProbiotic Colon Support Oral Capsule TAKE 1 CAPSULE Daily * Quantity: 30 Refills: 0 ArandaPretty M.D.* Started 14-May-2013 ActiveVitamin B-12 1000 MCG Oral Tablet TAKE 1 TABLET DAILY DIRECTED. * Quantity: 30 Refills: 0 ArandaPretty M.D.* Started 14-May-2013 ActiveHerbal/ Natural Products Saccharonyces [...] 120 Refills: 0 Devendra Lugo M.D.* Started 25-Sep-2015 ActivePromethazine HCl - 12.5 MG Oral Tablet [...] * Refills: 0 ArandaPretty M.D.* Started 29-Apr-2015 ActiveVoltaren 1 % Transdermal Gel APPLY 2 GRAMS TO AFFECTED AREA TWICE A DAY AND RUB IN WELL * Quantity: 100 Refills: 0 Devendra Lugo M.D.* Started 29-Apr-2015 ActiveAtorvastatin Calcium 10 MG Oral Tablet Take 1 tablet daily * Quantity: 90 Refills: 3 ArandaPretty M.D.* Started 29-Apr-2015 ActiveAspirin 81 MG Oral Tablet Take 1 tablet daily * Quantity: 100 Refills: 0 ArandaPretty M.D.* Started 29-Apr-2015 ActiveMeclizine HCl - 25 MG Oral Tablet TAKE 1 TABLET 3 TIMES DAILY NEEDED. * Quantity: 30 Refills: 0 Pretty Aranda M.D.* Started 24-Aug-2015 Active Allergies and Adverse Reactions Name Dates Details MetFORMIN HCl TABS Reaction: Diarrhea Status: Active Past Medical History Name Dates Details History of abdominal pain (V13., Z87.898) Status: Resolved History of Acute ischemic colitis (557.0, K55.0) Status: Resolved History of Bright red blood per rectum (569.3, K62.5) Status: Resolved History of Bursitis of hip (726.5, M70.70) Status: Resolved History of candidiasis (V1., Z86.19) Status: Resolved History of Clostridium difficile colitis (008.45, A04.7) Status: Resolved History of diarrhea (V12.79, Z87.898) Status: Resolved History of Dysphasia and aphasia (784.3, R47.01) Status: Resolved History of Hemiparesis (342.90, G81.90) Status: Resolved History of herpes zoster (V12., Z86.19) Status: Resolved History of infectious mononucleosis (V12., Z86.19) Status: Resolved History of influenza (., Z87.09) Status: Resolved History of low back [...] History of Nerve Block Transforaminal Epidural Lumbar CBC w/ Auto Diff 7150 Ordered:29-Sep-2015 Comprehensive Metabolic Panel 1212 Ordered:29-Sep-2015 LIPID PROFILE 1184 Ordered:29-Sep-2015 THYROID STIM. HORMONE 3602 Ordered:29-Sep-2015 Urinalysis, Reflex to Microscopic or Culture PRN 8005 Ordered:29-Sep-2015 ALBUMIN CREAT PANEL 1108 Ordered:29-Sep-2015 HEMOGLOBIN A1C 3507 Ordered:29-Sep-2015 Urinalysis, Reflex to Microscopic or Culture PRN 8005 Ordered:29-Sep-2015 XRay SPINE-LUMBAR Ordered:07-Sep-2015 Immunization Name Dates Details DTaP Administered on:2003 Hepatitis B Administered on:08-Dec-2003 Hepatitis B Administered on:13-Jan-2004 Tdap (Adacel) Lot #: [id number] Administered on: Influenza Administered on:03-Jun-2010 Influenza Lot #: [id number] Administered on:23-May-2011 Pneumo (Pneumovax) Lot #: [id number] Administered on:31-Aug-2011 Influenza Lot #: [id number] Administered on:08-May-2012 Influenza Administered on:13-Jun-2013 Fluzone Intramuscular Injectable Lot #: [id number] Administered on:29-Apr-2015 Tdap (Adacel) Lot #: [id number] Administered on:29-Apr-2015 Family History Unknown Family Member* [...] smoker Vital Signs Date Test Result Details 29-Sep-2015 14:04 BP Systolic 130 mm[Hg] Status: BP Diastolic 76 mm[Hg] Status: Temperature 98.4 f Status: Heart Rate 98 /min Status: Weight 244 lb Status: O2 SAT 96 % Status: Body Mass Index Calculated 42.54 kg/m2 Status: Body Surface Area Calculated 2.12 m2 Status: 29-Sep-2015 13:23 BP Systolic 128 mm[Hg] Status: BP Diastolic 76 mm[Hg] Status: Weight 242 lb Status: Body Mass Index Calculated 42.2 kg/m2 Status: Body Surface Area Calculated 2.11 m2 Status: 07-Sep-2015 14:09 BP Systolic 140 mm[Hg] Status: BP Diastolic 90 mm[Hg] Status: Heart Rate 72 /min Status: Weight 244 lb Status: Body Mass Index Calculated 42.54 kg/m2 Status: Body Surface Area Calculated 2.12 m2 Status: Results Date Description Value Details 07-Sep-2015 15:16 X SPINE L-S COMPLETE (Better) Comments: Exam Date: 14:34Dictation Date: 09/07/2015 15:16 23-Sep-2015 16:56 MRI LUMBAR SPINE Comments: Exam Date: 09/23/2015 15: 01Dictation Date: 09/23/2015 16:56 XMR SPINE LUMBAR (Better) Plan of Care Planned Observations* Name Dates Details Planned Goals not documented Goal Planned Encounters* Appointment; Provider: Devendra Lugo On 12-Nov-2015 10:30 * Appointment; Provider: Alphonse Asif On 11-Nov-2015 10:15 * Appointment; Provider: Pretty Aranda On 02-Nov-2015 11:00 * Appointment; Provider: Schedule Radiology On 23-Sep-2015 [...]
--- OUTSIDE RECORDS SUMMARY | 2016-12-25 12:49 | XMS REPORT | Summary of Care ---
Author Author Michael Rodriguez, Zaid Organization Unknown Address [address] [place] [address], [place] [id number] Phone Unavailable Care Team Providers Care Field Service Poultry Technician Name Role Phone Cristi Crystal, Leon Unavailable Unavailable Michael Rodriguez, Zaid Unavailable Unavailable Que P.A., Kip Unavailable Unavailable Edson P.A., Amelia Unavailable Unavailable Parish Crystal, G Unavailable Unavailable Manoj Crystal, Pretty Unavailable Unavailable [...] for screening mammogram (V76.12, Z12.31) Status: Active Migraine headache (346.90, G43.909) Status: Active Obesity (278.00, E66.9) Status: Active Knee joint pain (719.46, M25.569) Status: Active Pain, low back (724.2, M54.5) Status: Active Cough (786.2, R05) Status: Active Sinusitis, acute (461.9, J01.90) Status: Active Cervical pain (neck) (723.1, M54.2) Status: Active Fibromyalgia (729.1, M79.7) Status: Active Lower back pain (724.2, M54.5) Status: Active Type 2 diabetes mellitus (250.00, E11.9) Status: Active Hypertension (401.9, I10) Status: Active Chronic kidney disease, stage III (moderate) (585.3, N18.3) Status: Active Elevated liver enzymes (790.5, R74.8) Status: Active Depression (311, F32.9) Status: Active Obstructive sleep apnea (327.23, G47.33) Status: Active Symptoms involving urinary system (788.99, R39.9) Status: Active Low back pain (724.2, M54.5) Status: Active Degenerative disc disease, lumbar (722.52, M51.36) Status: Active Abdominal pain (789.00, R10.9) Status: Active Costovertebral Angle Tenderness Right Status: Active Costovertebral Angle Tenderness Left Status: Active Elevated creatine kinase level (790.5, R74.8) Status: Active Medications Name Dates Details Multi-Vitamin/Minerals [...] Quantity: 60 Refills: 0 * Started ActiveNystatin-Triamcinolone 553060-8.1 UNIT/GM-% External Cream APPLY SPARINGLY TO AFFECTED AREA(S) 3 TIMES A DAY * Quantity: 2 Refills: 4 Pretty Aranda M.D.* Started 19-Jan-2012 Ebhebm74 GM Tube SEROquel XR 300 MG Oral [...] Qid prn. * Quantity: 1 Refills: 1 Amelia Sandhu P.A.* Started ActiveGabapentin 600 MG Oral Tablet TAKE ONE TABLET BY MOUTH AT BEDTIME * Quantity: 90 Refills: 3 Amelia Sandhu P.A.* Started 27-Mar-2013 ActiveAmbien 10 MG Oral Tablet [...] Aranda M.D.* Started 14-May-2013 ActiveHerbal/ Natural Products Saccharoshaista Burlesons * Refills: 0 * Started 05-Jul-2013 ActiveCalcium [...] Tid. * Quantity: 90 Refills: 2 Amelia SandhuATaco* Started 24-Oct-2013 ActiveDicyclomine HCl - 20 MG Oral Tablet TAKE 1 TABLET EVERY 6 HOURS NEEDED. * Quantity: 40 Refills: 0 Kip Grey PFlavia* Started 27-May-2014 ActiveLinzess 145 MCG Oral Capsule take 1 capsule daily * Quantity: 7 Refills: 0 Kip Grey* Started 02-Jul-2014 ActiveFluvoxaMINE Maleate 100 MG Oral Tablet TAKE 2 TABLET Every morning * Refills: 0 Pretty Aranda M.D.* Started 23-Jul-2014 ActiveSupplies Soft neck braceDx: Cervical neck pain 723.1 * Quantity: 1 Refills: 0 Devendra Lugo M.D.* Started ActivePredniSONE 10 MG Oral Tablet Take 3tabs x 3daystake 2tabs x 3daystake 1tab x 3days * Quantity: 18 Refills: 0 Zaid Rodriguez D.O.* Started 24-Mar-2015 Active Allergies and Adverse Reactions Name Dates [...] Transforaminal Epidural Lumbar Comprehensive Metabolic Panel 1212 Ordered:24-Mar-2015 Immunization Name Dates Details DTaP Administered on:2003 Hepatitis B Administered on:08-Dec-2003 Hepatitis B Administered on:13-Jan-2004 Tdap (Adacel) Lot #: [id number] Administered on: Influenza Administered on:03-Jun-2010 Influenza Lot #: [id number] Administered on:23-May-2011 Pneumo (Pneumovax) Lot #: [id number] Administered on:31-Aug-2011 Influenza Lot #: [id number] Administered on:08-May-2012 Influenza Administered on:13-Jun-2013 Family History [...] smoker Vital Signs Date Test Result Details 24-Mar-2015 14:12 BP Systolic 116 mm[Hg] Status: BP Diastolic 68 mm[Hg] Status: Temperature 98 f Status: Heart Rate 60 /min Status: Weight 248 lb Status: Body Mass Index Calculated 43.24 kg/m2 Status: Body Surface Area Calculated 2.13 m2 Status: Results Date Description Value Details 24-Mar-2015 13:37 CBC w/ Auto Diff 7150 WBC 9.9 K/uL (Better) Range: 4.5-11.0 RBC 5.00 mil/uL (Better) Range: 3.60-5.00 HGB 14.8 g/dL (Better) Range: 12.0-16.0 HCT 43.5 % (Better) Range: 36.0-48.0 MCV 87.1 fL (Better) Range: 80.0-99.0 MCH 29.6 pg (Better) Range: 27.3-32.5 MCHC 33.9 % (Better) Range: 32.0-36.0 RDW 14.0 % (Better) Range: 11.6-14.8 PLATELETS 288 K/uL (Better) Range: 150-400 MPV 9.0 fL (Better) Range: 6.0-11.0 %NEUTRO 71.3 % (Better) Range: 37.0-80.0 %LYMPHS 21.1 % (Better) Range: 13.0-50.0 %MONO 3.7 % (Better) Range: 0.0-12.0 %EOS 1.9 % (Better) Range: 0.0-7.0 %BASO 1.0 % (Better) Range: 0.0-2.5 %ABDULLAHI 1.0 % (Better) Range: 0.0-5.0 NEUTRO 7.1 K/uL (Above high threshold) Range: 2.0-6.9 LYMPHS 2.1 K/uL (Better) Range: 0.6-3.4 MONOS 0.4 K/uL (Better) Range: 0.0-0.9 EOS 0.2 K/uL (Better) Range: 0.0-0.7 BASO 0.1 K/uL (Better) Range: 0.0-0.2 13:53 CT ABDOMEN WITH IV AND ORAL CONTRAST Comments: Exam Date: 11/2014 12:35Dictation Date: 03/24/2015 13:53 XC AB 45 MIN PREP (Better) Plan of Care Planned Observations* Name Dates Details Planned Goals not documented Goal Planned Encounters* Appointment; Provider: Devendra Lugo On 20-May-2015 11:00 * Appointment; Provider: David Franks On 07-May-2015 14:00 * Appointment; Provider: Eric Garcia On 16-Apr-2015 14:00 * Appointment; Provider: Pretty Aranda On 13-Apr-2015 14:15 * Appointment; Provider: Schedule Radiology On 24-Mar-2015 13:15 * Appointment; Provider: Schedule Radiology On 11:30 * Appointment; Provider: Lucía Bennett On 19-Oct-2012 09:30 * Appointment; Provider: Francisco Javier Fam On 08-Jul-2011 16:15 * Appointment; Provider: Francisco Javier Sarwat On 07-Apr-2011 11:30 * Appointment; Provider: Pretty Aranda On 16-Jun-2009 08:00 * Appointment; Provider: Pretty Aranda On 04-Dec-2008 00:45 Instructions * Instructions not documented Encounters Appointment; Zaid Rodriguez Encounter Diagnosis: Problem not [...]
--- OUTSIDE RECORDS SUMMARY | 2016-12-25 12:50 | XMS REPORT | Referral Summary ---
Author Author [facility] [place], Family Medicine Organization [facility] Address Unknown Phone Unavailable Care Team Providers Care Shaker Tender Name Role Phone Declan Simmons Primary Care Physician [phone] Encounter VC Date(s): 09/23/16 - 09/23/16 Via [facility] [place], [address] [place] [id number] Discharge Disposition: 01-Home or Self Care Attending Physician: Verito Simmons DO Admitting Physician: Verito Simmons DO Vital Signs Most recent to 1 oldest [Reference Range]: Temperature Tympanic 36.8 degC [36.6-38.1 degC] (09/23/16 1:50 PM) Peripheral Pulse 120 bpm Rate [60-100 bpm] *HI* (09/23/16 1:50 PM) Respiratory Rate 18 br/min [14-20 br/min] (09/23/16 1:50 PM) Blood Pressure 108/70 mmHg [90-140/60-90 mmHg] (09/23/16 1:50 PM) SpO2 99 % (09/23/16 1:50 PM) Problem List Condition Effective Dates Status Health Status Informant Anxiety Active disorder(Confirmed) Clostridium Active difficile carrier(Confirmed) Clostridium Active difficile colitis(Confirmed)1 Arthritis(Confirmed) Active Migraines(Confirmed) Active Atypical Active migraine(Confirmed) Morbid Active patient obesity(Confirmed) Fibromyalgia(Confirm Active ed) Depression(Confirmed Active ) Restless leg Active syndrome, controlled(Confirmed ) 15 x confirmed in past Allergies, Adverse Reactions, Alerts Substance Reaction Severity Status metFORMIN diarrhea Active Medications Ambien 10 mg oral tablet 10 mg 1 tabs, Oral, Bedtime (once a day), as needed for sleep, 0 Refill(s) Start Date: 06/15/16 Status: Ordered aspirin 81 mg oral tablet 81 mg 1 tabs, Oral, Daily, # 30 tabs, 0 Refill(s) Start Date: 05/12/16 Status: Ordered atorvastatin 10 mg oral tablet 10 mg 1 tabs, Oral, Daily, # 30 tabs, 0 Refill(s) Start Date: 05/12/16 Status: Ordered atorvastatin 10 mg oral tablet mg tabs, Oral, Daily, 0 Refill(s) Start Date: 06/15/16 Status: Ordered Biofreeze Topical, BID, 0 Refill(s) Start Date: 05/12/16 Status: Ordered busPIRone 30 mg oral tablet 30 mg 1 tabs, Oral, BID, # 60 tabs, 0 Refill(s) Start Date: 05/12/16 Status: Ordered Calcium 600+D oral tablet 1 tabs, Oral, BID, 0 Refill(s) Start Date: 05/12/16 Status: Ordered clonazePAM 1 mg oral tablet 1 mg 1 tabs, Oral, TID, 0 Refill(s) Start Date: 05/12/16 Status: Ordered colestipol 1 g oral tablet 1 g 1 tabs, Oral, BID, # 60 tabs, 0 Refill(s), Pharmacy: [facility] [id number], 1 tabs Oral BID Start Date: 05/12/16 Status: Ordered collagen including biotin collagen including biotin, 1 tabs, Oral, Daily, 0 Refill(s) Start Date: 05/12/16 Status: Ordered cyclobenzaprine 10 mg oral tablet 10 mg 1 tabs, Oral, TID, as needed for spasm, # 30 tabs, 0 Refill(s) Start Date: 05/12/16 Status: Ordered dicyclomine 10 mg oral capsule 10 mg 1 caps, Oral, TID, 0 Refill(s) Start Date: 05/12/16 Status: Ordered Diflucan 150 mg oral tablet 150 mg 1 tabs, Oral, Once, Take one tablet now and in three days take one tablet., # 2 tabs, 0 Refill(s) Start Date: 08/02/16 Status: Ordered Dulcolax Stool Softener 100 mg, Oral, BID, 0 Refill(s) Start Date: 05/12/16 Status: Ordered Fish Oil oral capsule 1 caps, Oral, Daily, # 100 caps, 0 Refill(s) Start Date: 05/12/16 Status: Ordered fluvoxaMINE 150 mg oral capsule, extended release 150 mg 1 caps, Oral, BID, # 30 caps, 0 Refill(s) Start Date: 05/12/16 Status: Ordered gabapentin 600 mg oral tablet 600 mg 1 tabs, Oral, Daily, # 90 tabs, 0 Refill(s) Start Date: 05/12/16 Status: Ordered glimepiride 2 mg oral tablet 2 mg 1 tabs, Oral, Daily, # 90 tabs, 0 Refill(s), Pharmacy: [facility] [id number], 1 tabs Oral Daily Start Date: 06/15/16 Status: Ordered HYDROmorphone 4 mg oral tablet 4 mg 1 tabs, Oral, QID, as needed for pain, 0 Refill(s) Start Date: 05/12/16 Status: Ordered hydrOXYzine 50 mg, Oral, TID, 0 Refill(s) Start Date: 05/12/16 Status: Ordered lisinopril 10 mg oral tablet 10 mg 1 tabs, Oral, Daily, # 30 tabs, 0 Refill(s) Start Date: 05/12/16 Status: Ordered Lyrica 150 mg oral capsule 150 mg 1 caps, Oral, BID, 0 Refill(s) Start Date: 05/12/16 Status: Ordered Movantik 25 mg oral tablet 50 mg 2 tabs, Oral, qAM, 0 Refill(s) Start Date: 05/12/16 Status: Ordered multivitamin Daily, 0 Refill(s) Start Date: 05/12/16 Status: Ordered Pennsaid 2 mg, Topical, 0 Refill(s) Start Date: 05/12/16 Status: Ordered [facility] 1 caps, Oral, Daily, 0 Refill(s) Start Date: 05/12/16 Status: Ordered promethazine 12.5 mg, Oral, BID, once q6h needed for nausea/vomiting, 0 Refill(s) Start Date: 06/15/16 Status: Ordered Saccharomyces Boulardii+MOS oral capsule 1 caps, Oral, Daily, # 90 caps, 0 Refill(s) Start Date: 05/12/16 Status: Ordered SEROquel XR 300 mg oral tablet, extended release 300 mg 1 tabs, Oral, Daily, # 30 tabs, 0 Refill(s) Start Date: 05/12/16 Status: Ordered travel sick chew travel sick chew, 25 mg, Oral, TID, 0 Refill(s) Start Date: 05/12/16 Status: Ordered Vitamin B12 1000 mcg oral tablet 1,000 mcg 1 tabs, Oral, Daily, # 30 tabs, 0 Refill(s) Start Date: 05/12/16 Status: Ordered Vitamin C 500 mg oral tablet 500 mg 1 tabs, Oral, Daily, 0 Refill(s) Start Date: 06/15/16 Status: Ordered Vitamin D3 1000 intl units oral tablet 1,000 Intl_Units 1 tabs, Oral, Daily, # 30 tabs, 0 Refill(s) Start Date: 05/12/16 Status: Ordered Voltaren 1% topical gel 1 sherice, Topical, QID, as needed for pain, # 100 g, 0 Refill(s) Start Date: 05/12/16 Status: Ordered Results Urinalysis Most recent to 1 oldest [Reference Range]: UA Color Yellow (09/23/16 1:54 PM) UA Appear Sl Cloudy (09/23/16 1:54 PM) UA pH [5.0-8.0] 6.0 (09/23/16 1:54 PM) UA Leuk Est Pos 2+ [Negative] *ABN* (09/23/16 1:54 PM) UA Nitrite Negative [Negative] (09/23/16 1:54 PM) UA Protein Negative [Negative] (09/23/16 1:54 PM) UA Glucose Negative [Negative] (09/23/16 1:54 PM) UA Ketones Negative [Negative] (09/23/16 1:54 PM) UA Urobilinogen 0.2 mg/dL [<=1.0 mg/dL] (09/23/16 1:54 PM) UA Bili [Negative] Negative (09/23/16 1:54 PM) UA Blood [Negative] Negative (09/23/16 1:54 PM) UA Spec Grav 1.025 [1.003-1.030] (09/23/16 1:54 PM) Type Clean Catch (09/23/16 1:54 PM) UA WBC [0-4] 5-10 *ABN* (09/23/16 1:54 PM) UA RBC [0-2] 0-2 (09/23/16 1:54 PM) Epithelial Cells 2-5 (09/23/16 1:54 PM) UA Bacteria Occasional *ABN* (09/23/16 1:54 PM) Immunizations No data available for this section Procedures Procedure Date Related Diagnosis Body Site Hysterectomy Social History Social History Type Response Smoking Status Never smoker Assessment and Plan No data available for this section
--- OUTSIDE RECORDS SUMMARY | 2016-12-25 12:50 | XMS REPORT | Summary of Care ---
Author Author Devendra Lugo M.D. Unknown Address Unknown Phone Unavailable Care Team Providers Care Data Management Associate Name Role Phone Kip Jensen Unavailable Unavailable [...] M51.36) Status: Active Bursitis of hip, left Status: Active Localized primary osteoarthritis of lower [...] 60 Refills: 0 * Start Active Nystatin-Triamcinolone 570365-5.1 UNIT/GM-% External Cream APPLY SPARINGLY TO AFFECTED [...] HOURS NEEDED. * Quantity: 40 Refills: 0 Ольга Jensenew * Start 27-May-2014 Active Supplies Soft neck braceDx: Cervical neck pain 723.1 * Quantity: 1 Refills: 0 Devendra Lugo M.D. * Start Active FluvoxaMINE Maleate 100 MG Oral Tablet TAKE 1 AND 1/2 TABLETS TWICE DAILY. * Refills: 0 * Start 29-Apr-2015 Active Colestipol HCl - 1 GM Oral Tablet Take 1 tablet twice daily * Refills: 0 Aranda M.D.Pretty * Start 29-Apr-2015 Active Voltaren 1 % Transdermal Gel APPLY 2 GRAMS TO AFFECTED AREA TWICE A DAY AND RUB IN WELL * Quantity: 100 Refills: 0 Devendra Lugo M.D. Start 29-Apr-2015 Active Atorvastatin Calcium 10 MG Oral Tablet Take 1 tablet daily * Quantity: 90 Refills: 3 Aranda M.D.Pretty * Start 08-Aug-2016 Active Aspirin 81 MG TABS Take 1 tablet daily * Quantity: 100 Refills: 0 Aranda M.D.Pretty * Start 29-Apr-2015 Active Meclizine HCl - 25 MG Oral Tablet TAKE 1 TABLET 3 TIMES DAILY NEEDED. * Quantity: 30 Refills: 0 Aranda M.D.Pretty * Start 24-Aug-2015 Active Movantik 25 MG Oral Tablet TAKE 2 TABLETS DAILY ON AN EMPTY STOMACH 1 HOUR BEFORE OR 2 HOURS AFTER FIRST MEAL. * Quantity: 180 Refills: 0 Parish Carver.Devendra Knapp Start 16-Nov-2015 Active Pennsaid 2 % Transdermal Solution Apply 2 pumps twice daily over area of pain. * Quantity: 1 Refills: 0 Parish Carver.Devendra Knapp Start 08-Jun-2016 Active 112 GM Pump Btl [...] B on: 13-Jan-2004 Tdap (Adacel) Lot #: [id number] on: Influenza on: 03-Jun-2010 Influenza Lot #: [id number] on: 23-May-2011 Pneumo (Pneumovax) Lot #: [id number] on: 31-Aug-2011 Influenza Lot #: [id number] on: 08-May-2012 Influenza on: 13-Jun-2013 Fluzone INJ Lot #: [id number] on: 29-Apr-2015 Tdap (Adacel) Lot #: [id number] on: 29-Apr-2015 Fluzone Quadrivalent 0.5 ML Intramuscular Suspension Lot #: [id number] on: 21-Apr-2016 Family History Name Dates Details [...] Details Planned Observations Planned Goals not documented Interventions Provided Medication Changes* Movantik 25 MG Oral Tablet - Renew Instructions Name Dates Details Instructions not documented Encounters Appointment; Devendra Lugo M.D. Encounter Diagnosis: Problem not documented On 10-Nov-2016 15:30 Appointment; Devendra Lugo M.D. Encounter Diagnosis: Problem not documented On 15-Sep-2016 15:00 Appointment; Devendra Lugo M.D. Encounter Diagnosis: Problem [...] not documented On 10:30 Appointment; David Kelly M.D.,[facility], Encounter Diagnosis: Problem not documented On 10:30 Appointment; Devendra Lugo M.D. Encounter Diagnosis: Problem not documented On 07-Jan-2016 14:15 Appointment; Pretty Aranda M.D. Encounter Diagnosis: Problem not documented On 23-Dec-2015 09:45 Appointment; Devendra Lugo M.D. Encounter Diagnosis: Problem not documented On 12-Nov-2015 10:30 Appointment; Alphonse Asif M.D. Encounter Diagnosis: Problem not documented On 11-Nov-2015 10:15 Appointment; David Kelly M.D.,[facility], Encounter Diagnosis: Problem not documented On 03-Nov-2015 [...]
--- OUTSIDE RECORDS SUMMARY | 2016-12-25 12:50 | XMS REPORT | Summary of Care ---
Author Author Pretty Aranda M.D. Unknown Address [address] [place], [place] [address] Phone Unavailable Care Team Providers Care Product Support Manager Name Role Phone Kip Jensen Unavailable Unavailable [...] Cervical pain (neck) (723.1, M54.2) Status: Active Migraine headache (346.90, G43.909) Status: Active Chronic kidney disease, stage III [...] Status: Active Hyperlipidemia (272.4, E78.5) Status: Active Bilateral hip pain (719.45, M25.551) Status: Active Bilateral hip bursitis (726.5, M70.71) Status: Active Symptoms involving urinary system (788.99, R39.9) Status: Active Urinary incontinence, urge (788.31, N39.41) Status: Active Generalized anxiety disorder (300.02, F41.1) Status: Active Arthralgia of multiple sites (719.49, M25.50) Status: Active Right hand tendonitis (727.05, M77.8) Status: Active Type 2 diabetes mellitus (250.00, E11.9) Status: Active Pain of right hand (729.5, M79.641) Status: Active Slow urinary stream (788.62, R39.19) Status: Active Low back pain (724.2, M54.5) Status: Active Degenerative disc disease, lumbar (722.52, M51.36) Status: Active Morbid obesity (278.01, E66.01) Status: Active Therapeutic opioid induced constipation (564.09, K59.09) Status: Active Visit for screening mammogram (V76.12, Z12.31) Status: Active Medications Name Dates Details Multi-Vitamin/Minerals [...] Quantity: 60 Refills: 0 * Started ActiveNystatin-Triamcinolone 037896-3.1 UNIT/GM-% External Cream APPLY SPARINGLY TO AFFECTED AREA(S) 3 TIMES A DAY * Quantity: 2 Refills: 4 ArandaPretty M.D.* Started 19-Jan-2012 [id number] GM Tube SEROquel XR 300 MG Oral Tablet Extended Release 24 Hour TAKE 1 TABLET DAILY. * Refills: 0 * Started 10-Jul-2012 ActiveAmbien 10 MG Oral Tablet TAKE 1 [...] Refills: 0 Kip Grey PTacoATaco* Started 27-May-2014 ActiveSuppleanna Soft neck braceDx: Cervical neck pain 723.1 * Quantity: 1 Refills: 0 Devendra Lugo M.D.* Started ActiveGabapentin 600 MG Oral Tablet TAKE ONE TABLET BY MOUTH AT BEDTIME * Quantity: 90 Refills: 3 Amelia Sandhu.ATaco* Started 27-Mar-2013 ActiveColestipol HCl - 1 GM Oral Tablet Take 1 tablet twice daily * Refills: 0 Pretty Aranda M.D.* Started 29-Apr-2015 ActiveAspirin 81 MG TABS Take 1 tablet daily * Quantity: 100 Refills: 0 Pretty Aranda M.D.* Started 29-Apr-2015 ActiveVoltaren 1 % Transdermal Gel APPLY 2 GRAMS TO AFFECTED AREA TWICE A DAY AND RUB IN WELL * Quantity: 100 Refills: 0 Devendra Lugo M.D.* Started 29-Apr-2015 ActiveLisinopril 10 MG Oral Tablet Take 1 tablet daily * Quantity: 90 Refills: 2 Aranda, Pretty M.D.* Started 01-Nov-2012 ActiveBusPIRone HCl - 30 MG Oral Tablet TAKE 1 TABLET TWICE DAILY. * Refills: 0 * Started 19-Nov-2012 ActiveFluvoxaMINE Maleate 100 MG Oral Tablet TAKE 1 AND 1/2 TABLETS TWICE DAILY. * Refills: 0 * Started 29-Apr-2015 ActiveMeclizine HCl - 25 MG Oral Tablet TAKE 1 TABLET 3 TIMES DAILY NEEDED. * Quantity: 30 Refills: 0 Pretty Aranda M.D.* Started 24-Aug-2015 ActivePromethazine HCl - 12.5 MG Oral Tablet TAKE 1 TABLET EVERY 6 TO 8 HOURS NEEDED NAUSEA. * Quantity: 60 Refills: 3 Devendra Lugo M.D.* Started 15-Oct-2013 ActiveAtorvastatin Calcium 10 MG Oral Tablet Take 1 tablet daily * Quantity: 90 Refills: 3 Pretty rAanda M.D.* Started 29-Apr-2015 ActiveGlimepiride 2 MG Oral Tablet TAKE 1 TABLET EVERY DAY WITH BREAKFAST * Quantity: 90 Refills: 2 Pretty Aranda M.D.* Started 22-Jul-2013 ActiveHYDROmorphone HCl - 4 MG Oral Tablet Si PO every 6 hours prn with a max of 4 per day. Script must last [address] Lugo * Quantity: 120 Refills: 0 Devendra Lugo M.D.* Started 12-Dec-2015 ActiveCyclobenzaprine HCl - 10 MG Oral Tablet Si PO Tid. * Quantity: 270 Refills: 0 Devendra Lugo M.D.* Started 24-Oct-2013 ActiveMovantik 25 MG Oral Tablet Take 1 [...] History of Nerve Block Transforaminal Epidural Lumbar HEMOGLOBIN A1C 3507 Ordered:23-Dec-2015 MAMMOGRAM-SCREENING Ordered:23-Dec-2015 ULTRASOUND RENAL SONO Ordered:16-Nov-2015 Immunization Name Dates Details DTaP Administered on:2003 Hepatitis B Administered on:08-Dec-2003 Hepatitis B Administered on:13-Jan-2004 Tdap (Adacel) Lot #: [id number] Administered on: Influenza Administered on:03-Jun-2010 Influenza Lot #: [id number] Administered on:23-May-2011 Pneumo (Pneumovax) Lot #: [id number] Administered on:31-Aug-2011 Influenza Lot #: [id number] Administered on:08-May-2012 Influenza Administered on:13-Jun-2013 Fluzone Intramuscular Injectable Lot #: [id number] Administered on:29-Apr-2015 Tdap (Adacel) Lot #: [id number] Administered on:29-Apr-2015 Family History Unknown Family Member* [...] ml/min (Better) Range: >60 EST GFR, NON-AFR [place] 56 ml/min (Below low threshold) Range: >60 Comments: EST GFR is reported in ml/min per 1.73 m2 of body surface area. For -[place], please multiple result by 1.2.----- GLUCOSE 167 [...] Diabetic Foot Exam Negative Microfilament Test (Better) Plan of Care Planned Observations* Name Dates Details Planned Goals not documented Goal Planned Encounters* Appointment; Provider: Pretty Aranda On 06-Apr-2016 11:15 * Appointment; Provider: Schedule Radiology On 11-Jan-2016 11:20 * Appointment; Provider: Devendra Lguo On 07-Jan-2016 14:15 * Appointment; Provider: David Kelly On 05-Jan-2016 11:30 * Appointment; Provider: Schedule Radiology On 15-Dec-2015 [...]
--- OUTSIDE RECORDS SUMMARY | 2016-12-25 12:50 | XMS REPORT ---
Author Author GENERATED, SYSTEM Organization Unknown Address Unknown Phone Unavailable Care Team Providers Care Marketing Researcher Name Role Phone MD MARIFER, RODOLFO [phone] Reason For Visit Chief Complaint NECK PAIN Social History Functional Status Vital Signs Results Problems Encounter Diagnosis No relevant problems exist. Additional Problems * Chest Pain Comment:Problem resolved by [facility] Work[facility] upon Discharge, Status :Resolved. * Inflammatory Bowel Disease Comment:Problem resolved by [facility] upon Discharge, Status:Resolved. Encounters Encounter Diagnosis No relevant problems exist. Plan of Care Procedures * Completed , on 10/19/2012 12:00 AM Immunizations No immunizations administered or ordered. Hospital Course Hospital Discharge Instructions Allergies, Adverse Reactions, Alerts * Latex Allergy has not been assessed. * IV Contrast Allergy has not been assessed. * No Known Drug Allergies. Medication Medication reconciliation has not been performed.
--- OUTSIDE RECORDS SUMMARY | 2016-12-25 12:50 | XMS REPORT | Summary of Care ---
Author Author Amelia Rucker Unknown Address [address], [place] [id number] Phone Unavailable Care Team Providers Care Airfield Services Officer Name Role Phone Tiny Crystal, Min Unavailable Unavailable Cristi Crystal, Leon Unavailable Unavailable Que P.A., Kip Unavailable Unavailable Amelia Rucker Unavailable Unavailable Parish Crystal, Tracie Unavailable Unavailable [...] involving urinary system (788.99, R39.9) Status: Active Medications Name Dates Details Multi-Vitamin/Minerals [...] Quantity: 60 Refills: 0 * Started ActiveNystatin-Triamcinolone 818504-8.1 UNIT/GM-% External Cream APPLY SPARINGLY TO AFFECTED AREA(S) 3 TIMES A DAY * Quantity: 2 Refills: 4 ArandaPretty mendez M.D.* Started 19-Jan-2012 [id number] GM Tube SEROquel XR 300 MG Oral Tablet Extended Release 24 Hour TAKE 1 TABLET DAILY. * Refills: 0 * Started 10-Jul-2012 ActiveLisinopril 10 MG Oral Tablet Take 1 tablet daily * Quantity: 90 Refills: 2 ArandaPretty M.D.* Started 01-Nov-2012 ActiveBusPIRone HCl - 15 [...] prn. * Quantity: 1 Refills: 1 Amelia Sandhu* Started ActiveGabapentin 600 MG Oral Tablet TAKE [...] Quantity: 120 Refills: 0 Amelia Sandhu* Started ActivePromethazine HCl - 12.5 MG Oral Tablet TAKE 1 TABLET EVERY 6 TO 8 HOURS NEEDED NAUSEA. * Quantity: 60 Refills: 0 Devendra Lugo M.D.* Started 15-Oct-2013 ActiveCyclobenzaprine HCl - 10 MG Oral Tablet Si PO Tid. * Quantity: 90 Refills: 2 Devendra Lugo M.D.* Started 24-Oct-2013 ActiveDicyclomine HCl - 20 MG Oral Tablet TAKE 1 TABLET EVERY 6 HOURS NEEDED. * Quantity: 40 Refills: 0 Kip Grey PTacoATaco* Started 27-May-2014 ActiveLinzess 145 MCG Oral Capsule take 1 capsule daily * Quantity: 7 Refills: 0 Kip Grey P.A.* Started 02-Jul-2014 ActiveFluvoxaMINE Maleate 100 MG Oral [...] not documented Immunization Name Dates Details DTaP Administered on:2003 Hepatitis B Administered on:08-Dec-2003 Hepatitis B Administered on:13-Jan-2004 Tdap (Adacel) Lot #: [id number] Administered on: Influenza Administered on:03-Jun-2010 Influenza Lot #: [id number] Administered on:23-May-2011 Pneumo (Pneumovax) Lot #: [id number] Administered on:31-Aug-2011 Influenza Lot #: [id number] Administered on:08-May-2012 Influenza Administered on:13-Jun-2013 Family History [...] Franks On 07-May-2015 14:00 * Appointment; Provider: Amelia Sandhu On 24-Mar-2015 11:00 * Appointment; Provider: Pretty Aranda On 13:00 * Appointment; Provider: Lucía Bennett On 19-Oct-2012 09:30 * Appointment; Provider: Francisco Javier Fam On 08-Jul-2011 16:15 * Appointment; Provider: Francisco Javier Fam On 07-Apr-2011 11:30 * Appointment; Provider: Pretty Aranda On 16-Jun-2009 08:00 * Appointment; Provider: Pretty Aranda On 04-Dec-2008 00:45 Instructions * Instructions not documented Encounters Appointment; Amelia Sandhu Encounter Diagnosis: Problem not [...] Diagnosis: Problem not documented On 15:15 Appointment; Cristi January Encounter Diagnosis: Problem not documented On 09:30 Appointment; Aliza Quiñonez Encounter Diagnosis: Problem not documented On 08:15 Appointment; Cristi January Encounter Diagnosis: Problem not documented On 14:30 Appointment; Pretty Aranda Encounter Diagnosis: Problem not documented On 10:00
--- OUTSIDE RECORDS SUMMARY | 2016-12-25 12:51 | XMS REPORT | Summary of Care ---
Author Author Pretty Aranda M.D. Unknown Address [address] [place], [place] [id number] Phone Unavailable Care Team Providers Care Planning Rn Name Role Phone Tiny Crystal, Min Unavailable [...] Quantity: 60 Refills: 0 * Started ActiveNystatin-Triamcinolone 019449-6.1 UNIT/GM-% External Cream APPLY SPARINGLY TO AFFECTED AREA(S) 3 TIMES A DAY * Quantity: 2 Refills: 4 Pretty Aranda M.D.* Started 19-Jan-2012 [id number] GM Tube SEROquel XR 300 MG Oral [...] * Quantity: 40 Refills: 0 Kip Grey PTacoA.* Started 27-May-2014 ActiveLinzess 145 MCG Oral Capsule take 1 capsule daily * Quantity: 7 Refills: 0 Kip GreyA.* Started 02-Jul-2014 ActiveFluvoxaMINE Maleate 100 MG Oral [...] B Administered on:13-Jan-2004 Tdap (Adacel) Lot #: [id number] Administered on: Influenza Administered on:03-Jun-2010 Influenza Lot #: [id number] Administered on:23-May-2011 Pneumo (Pneumovax) Lot #: [id number] Administered on:31-Aug-2011 Influenza Lot #: [id number] Administered on:08-May-2012 Influenza Administered on:13-Jun-2013 Family History [...]
--- OUTSIDE RECORDS SUMMARY | 2016-12-25 12:51 | XMS REPORT | Summary of Care ---
Author Author Pretty Aranda M.D. Unknown Address [address] [place] [address], [place] [id number] Phone Unavailable Care Team Providers Care Mercerizing Range Feeder Name Role Phone Kip Jensen Unavailable Unavailable [...] opioid induced constipation (564.09, K59.09) Status: Active Medications Name Dates Details Multi-Vitamin/Minerals [...] NEEDED. * Quantity: 40 Refills: 0 Kip GreyATaco* Started 27-May-2014 ActiveSupplies Soft neck braceDx: Cervical [...] Refills: 3 Pretty Aranda M.D.* Started 29-Apr-2015 ActiveGlimepiride 2 MG Oral [...] Transforaminal Epidural Lumbar Comprehensive Metabolic Panel 1212 Ordered:08-Dec-2015 LIPID PROFILE 1184 Ordered:08-Dec-2015 CBC w/ Auto Diff 7150 Ordered:08-Dec-2015 THYROID STIM. HORMONE 3602 Ordered:08-Dec-2015 Urinalysis, Reflex to Microscopic or Culture PRN 8005 Ordered:08-Dec-2015 ULTRASOUND RENAL SONO Ordered:16-Nov-2015 Immunization Name Dates Details DTaP Administered on:2003 Hepatitis B Administered on:08-Dec-2003 Hepatitis B Administered on:13-Jan-2004 Tdap (Adacel) Lot #: [id number] Administered on: Influenza Administered on:03-Jun-2010 Influenza Lot #: [id number] Administered on:23-May-2011 Pneumo (Pneumovax) Lot #: [id number] Administered on:31-Aug-2011 Influenza Lot #: [id number] Administered on:08-May-2012 Influenza Administered on:13-Jun-2013 Fluzone Intramuscular Injectable Lot #: [id number] Administered on:29-Apr-2015 Tdap (Adacel) Lot #: [id number] Administered on:29-Apr-2015 Family History Unknown Family Member* [...] to report Results Date Description Value Details 15-Dec-2015 08:10 ULTRASOUND RENAL SONO Comments: Exam Date: 12/15/2015 07:32Dictation Date: 12/15/2015 08:10 XS RENAL LIMITED (Better) Plan of Care Planned Observations* Name Dates Details Planned Goals not documented Goal Planned Encounters* Appointment; Provider: Devendra Lugo On 07-Jan-2016 14:15 * Appointment; Provider: Daivd Kelly On 05-Jan-2016 11:30 * Appointment; Provider: Pretty Aranda On 23-Dec-2015 09:45 * Appointment; Provider: Schedule Radiology On 15-Dec-2015 [...]
--- OUTSIDE RECORDS SUMMARY | 2016-12-25 12:51 | XMS REPORT | Summary of Care ---
Author Author Pretty Aranda M.D. Unknown Address [address], [place] [address] Phone Unavailable Care Team Providers Care Paper Reclaiming Machine Operator Name Role Phone Kip Jensen Unavailable Unavailable Edson Adams, Amelia Unavailable Unavailable Parish Crystal, Tracie Unavailable Unavailable Manoj Crystal, rPetty Unavailable Unavailable Pretty Aranda PP Unavailable Unavailable [...] 180 Refills: 0 Devendra Lugo M.D.* Started 26-Sep-2015 ActiveClonazePAM 1 MG Oral [...] 100 Refills: 0 ArandaPretty M.D.* Started 29-Apr-2015 ActiveVoltaren 1 % Transdermal Gel APPLY 2 GRAMS TO AFFECTED AREA TWICE A DAY AND RUB IN WELL * Quantity: 100 Refills: 0 Devendra Lugo M.D.* Started 29-Apr-2015 ActiveMeclizine HCl - 25 MG Oral Tablet TAKE 1 TABLET 3 TIMES DAILY NEEDED. * Quantity: 30 Refills: 0 ArandaPretty M.D.* Started 24-Aug-2015 ActiveAtorvastatin Calcium 10 MG Oral Tablet Take 1 tablet daily * Quantity: 90 Refills: 3 ArandaPretty M.D.* Started 29-Apr-2015 Active Allergies and Adverse [...] History of Nerve Block Transforaminal Epidural Lumbar XRay SPINE-LUMBAR Ordered:07-Sep-2015 Immunization Name Dates Details DTaP Administered on:2003 Hepatitis B Administered on:08-Dec-2003 Hepatitis B Administered on:13-Jan-2004 Tdap (Adacel) Lot #: [id number] Administered on: Influenza Administered on:03-Jun-2010 Influenza Lot #: [id number] Administered on:23-May-2011 Pneumo (Pneumovax) Lot #: [id number] Administered on:31-Aug-2011 Influenza Lot #: [id number] Administered on:08-May-2012 Influenza Administered on:13-Jun-2013 Fluzone Intramuscular Injectable Lot #: [id number] Administered on:29-Apr-2015 Tdap (Adacel) Lot #: [id number] Administered on:29-Apr-2015 Family History Unknown Family Member* [...] smoker Vital Signs Date Test Result Details 07-Sep-2015 14:09 BP Systolic 140 mm[Hg] Status: [...]
--- OUTSIDE RECORDS SUMMARY | 2016-12-25 12:51 | XMS REPORT | Summary of Care ---
Author Author Pretty Aranda M.D. Unknown Address [address], [place] [id number] Phone Unavailable Care Team Providers Care Key Person Name Role Phone Cristi Crystal, Leon Unavailable Unavailable Que P.A., Kip Unavailable Unavailable Edson P.A., Amelia Unavailable Unavailable Parish Crystal, Tracie Unavailable [...] Urinary tract infection (599.0, N39.0) Status: Active Low back pain (724.2, M54.5) Status: Active Degenerative disc disease, lumbar (722.52, M51.36) Status: Active Abdominal pain (789.00, R10.9) Status: Active Medications Name Dates Details Multi-Vitamin/Minerals Oral Tablet TAKE 1 TABLET DAILY. Quantity: 30 * Started 24-Nov-2008 ActiveFish Oil 1000 MG Oral Capsule TAKE 2 CAPSULE Daily * Quantity: 60 Refills: 0 * Started ActiveVitamin D3 2000 UNIT Oral Tablet Take 1 tablet daily * Quantity: 30 Refills: 0 * Started ActiveClonazePAM 1 MG Oral Tablet TAKE 1 TABLET 3 times daily * Refills: 0 * Started 14-Apr-2009 ActiveLyrica 150 MG Oral Capsule TAKE 1 CAPSULE BY MOUTH TWICE DAILY.Script must last 30 days. * Quantity: 60 Refills: 2 Devendra Lugo M.D.* Started 10-Nov-2009 ActiveSEROquel XR 300 MG Oral Tablet Extended [...] Tablet * Refills: 0 * Started 05-Jul-2013 ActiveMicronized Colestipol HCl - 1 GM Oral Tablet TAKE 1 TABLET TWICE DAILY PRN diarrhea. * Quantity: 180 Refills: 3 Janice Colin M.D.* Started ActiveNystatin-Triamcinolone 860291-2.1 UNIT/GM-% External Cream APPLY SPARINGLY TO AFFECTED AREA(S) 3 TIMES A DAY * Quantity: 2 Refills: 4 Pretty Aranda M.D.* Started 19-Jan-2012 [id number] GM Tube BusPIRone HCl - 15 MG Oral Tablet TAKE 1 TABLET 3 times daily * Refills: 0 * Started 19-Nov-2012 ActiveDicyclomine HCl - 20 MG Oral Tablet TAKE 1 TABLET EVERY 6 HOURS NEEDED. * Quantity: 40 Refills: 0 Kip Grey* Started 27-May-2014 ActivePromethazine HCl - 12.5 MG Oral Tablet TAKE 1 TABLET EVERY 6 TO 8 HOURS NEEDED NAUSEA. * Quantity: 60 Refills: 0 Devendra Lugo M.D.* Started 15-Oct-2013 ActiveGlimepiride 2 MG Oral Tablet TAKE 1 TABLET EVERY DAY WITH BREAKFAST * Quantity: 90 Refills: 3 Pretty Aranda M.D.* Started 22-Jul-2013 ActiveLisinopril 10 MG Oral Tablet Take 1 tablet daily * Quantity: 90 Refills: 2 Pretty Aranda M.D.* Started 01-Nov-2012 ActiveVoltaren 1 % Transdermal Gel Sig: Apply to affected area Qid prn. * Quantity: 1 Refills: 1 Amelia Sandhu PTacoATaco* Started ActiveCyclobenzaprine HCl - 10 MG Oral Tablet Si PO Tid. * Quantity: 90 Refills: 2 Amelia Sandhu P.ATaco* Started 24-Oct-2013 ActiveHYDROmorphone HCl - 4 MG Oral Tablet Si PO every 6 hours prn with a max of 4 per day. Script must last [address] Lugo * Quantity: 120 Refills: 0 Amelia SandhuATaco* Started 27-Apr-2015 ActiveGabapentin 600 MG Oral Tablet TAKE ONE TABLET BY MOUTH AT BEDTIME * Quantity: 90 Refills: 3 Amelia Sandhu P.ATaco* Started 27-Mar-2013 ActiveLinzess 145 MCG Oral Capsule take 1 capsule daily * Quantity: 7 Refills: 0 Kip GreyATaco* Started 02-Jul-2014 ActiveFluvoxaMINE Maleate 100 MG Oral Tablet TAKE 2 TABLET Every morning * Refills: 0 Pretty Aranda M.D.* Started 23-Jul-2014 ActiveSupplies Soft neck braceDx: Cervical neck pain 723.1 * Quantity: 1 Refills: 0 Devendra Lugo M.D.* Started Active Allergies and Adverse Reactions Name Dates [...] Epidural Lumbar Comprehensive Metabolic Panel 1212 Ordered:24-Mar-2015 Urinalysis, Reflex to Microscopic or Culture PRN 8005 Ordered:24-Mar-2015 Immunization Name Dates Details DTaP Administered on:2003 Hepatitis B Administered on:08-Dec-2003 Hepatitis B Administered on:13-Jan-2004 Tdap (Adacel) Lot #: [id number] Administered on: Influenza Administered on:03-Jun-2010 Influenza Lot #: [id number] Administered on:23-May-2011 Pneumo (Pneumovax) Lot #: [id number] Administered on:31-Aug-2011 Influenza Lot #: [id number] Administered on:08-May-2012 Influenza Administered on:13-Jun-2013 Family History [...] 0.0-0.7 BASO 0.1 K/uL (Better) Range: 0.0-0.2 13:45 Comprehensive Metabolic Panel 1212 SODIUM 139 mmol/L (Better) Range: 133-144 POTASSIUM 3.8 mmol/L (Better) Range: 3.5-5.1 CHLORIDE 103 mmol/L (Better) Range: 98-110 CARBON DIOXIDE 29.0 mmol/L (Better) Range: 23.0-33.0 ANION GAP 7 mmol/L (Better) Range: 6-16 BUN 8 mg/dL (Better) Range: 7-18 CREATININE, SERUM 1.21 mg/dL (Above high threshold) Range: 0.55-1.02 Comments: Please note new reference ranges effective 2015.----- BUN:CREATININE RATIO 7 (Better) EST GFR, 58 ml/min (Below low threshold) Range: >60 EST GFR, NON-AFR [place] 47 ml/min (Below low threshold) Range: >60 Comments: EST GFR is reported in ml/min per 1.73 m2 of body surface area. For -[place], please multiple result by 1.2.----- GLUCOSE 156 mg/dL (Above high threshold) Range: 70-100 ALK PHOSPHATASE 112 U/L (Better) Range: 46-116 TOTAL BILIRUBIN 0.50 mg/dL (Better) Range: 0.20-1.00 AST 36 U/L (Above high threshold) Range: 8-35 ALT 43 U/L (Better) Range: 14-59 Comments: Please note new reference ranges. Effective 10/30/2014.----- ALBUMIN 3.4 g/dL (Better) Range: 3.4-5.0 TOTAL PROTEIN 7.4 g/dL (Better) Range: 6.4-8.2 A/G RATIO 0.9 units (Below low threshold) Range: 1.0-1.8 CALCIUM 9.5 mg/dL (Better) Range: 8.5-10.1 13:53 CT ABDOMEN WITH IV AND ORAL CONTRAST Comments: Exam Date: 11/2014 12:35Dictation Date: 03/24/2015 13:53 XC AB 45 MIN PREP (Better) 14:14 ERYTHROCYTE SED RATE 7800 ERYTHROCYTE SED RATE 39 mm/60 min. (Above high threshold) Range: 0-20 14:39 Urinalysis, reflex to Micro and Culture ([facility]) 8016 pH 7.5 (Better) Range: 5.0-7.5 SP GRAVITY 1.005 (Abnormal) Range: 1.010-1.030 APPEARANCE Clear (Better) Range: Clear COLOR Yellow (Better) Range: Straw-Yellow PROTEIN Negative mg/dL (Better) Range: Negative-Trace GLUCOSE Negative mg/dL (Better) Range: Negative KETONES Negative mg/dL (Better) Range: Negative BILIRUBIN Negative (Better) Range: Negative BLOOD Negative (Better) Range: Negative UROBIL 0.2 EU/dL (Better) Range: 0.2-1.0 NITRITE Negative (Better) Range: Negative LEUKOCYTES 1+ (Abnormal) Range: Negative 16:22 Urine Microscopic UMIC WBC 0-2 /HPF (Better) Range: 0-5 RBC 0-2 /HPF (Better) Range: 0-2 EPITH 0-2 /HPF (Better) Range: 0-10 Plan of Care Planned Observations* Name Dates Details Planned Goals not documented Goal Planned Encounters* Appointment; Provider: Devendra Lugo On 20-May-2015 11:00 * Appointment; Provider: Pretty Aranda On 11-May-2015 10:30 * Appointment; Provider: David Franks On 07-May-2015 14:00 * Appointment; Provider: Eric Garcia On 01-May-2015 10:30 * Appointment; Provider: Schedule Radiology On 24-Mar-2015 [...]
--- OUTSIDE RECORDS SUMMARY | 2016-12-25 12:52 | XMS REPORT | Summary of Care ---
Author Author Amelia Rucker Unknown Address [address], [place] [address] Phone Unavailable Care Team Providers Care Animal Surgeon Name Role Phone Tiny Crystal, Min Unavailable [...] disc disease, lumbar (722.52, M51.36) Status: Active Medications Name Dates Details Multi-Vitamin/Minerals [...] Quantity: 60 Refills: 0 * Started ActiveNystatin-Triamcinolone 251997-8.1 UNIT/GM-% External Cream APPLY SPARINGLY TO AFFECTED AREA(S) 3 TIMES A DAY * Quantity: 2 Refills: 4 Pretty Aranda M.D.* Started 19-Jan-2012 Tfuplk89 GM Tube SEROquel XR 300 MG Oral [...] M.D.* Started 14-May-2013 ActiveHerbal/ Natural Products Saccharonyces Bojannieitmos * Refills: 0 * Started 05-Jul-2013 ActiveCalcium [...] 40 Refills: 0 Kip Grey* Started 27-May-2014 ActiveLinzess 145 MCG Oral Capsule [...] B Administered on:13-Jan-2004 Tdap (Adacel) Lot #: [id number] Administered on: Influenza Administered on:03-Jun-2010 Influenza Lot #: [id number] Administered on:23-May-2011 Pneumo (Pneumovax) Lot #: [id number] Administered on:31-Aug-2011 Influenza Lot #: [id number] Administered on:08-May-2012 Influenza Administered on:13-Jun-2013 Family History [...] Problem not documented On 15:15 Appointment; Cristi Janice Encounter Diagnosis: Problem not documented On 09:30 Appointment; Aliza Quiñonez Encounter Diagnosis: Problem not documented On 08:15 Appointment; Cristi Janice Encounter Diagnosis: Problem not documented On 14:30 Appointment; Pretty Aranda Encounter Diagnosis: Problem not documented On 10:00
--- OUTSIDE RECORDS SUMMARY | 2016-12-25 12:52 | XMS REPORT | Referral Summary ---
Author Author [facility], Family Medicine Organization [facility] Address Unknown Phone Unavailable Care Team Providers Care Yarn Washer Name Role Phone Declan Simmons Primary Care Physician [phone] Encounter VC Date(s): 07/25/16 - 07/25/16 [facility] [address] [place] [address] Discharge Diagnosis: Acute UTI Discharge Diagnosis: Hospital discharge follow-up Discharge Diagnosis: Atypical migraine Discharge Diagnosis: Clostridium difficile carrier Discharge Disposition: 01-Home or Self Care Attending Physician: Verito Simmons DO Admitting Physician: Verito Simmons DO Vital Signs Most recent to 1 oldest [Reference Range]: Temperature Tympanic 36.5 degC [36.6-38.1 degC] *LOW* (07/25/16 2:55 PM) Peripheral Pulse 117 bpm Rate [60-100 bpm] *HI* (07/25/16 2:55 PM) Respiratory Rate 16 br/min [14-20 br/min] (07/25/16 2:55 PM) Blood Pressure 92/60 mmHg [90-140/60-90 mmHg] (07/25/16 2:55 PM) SpO2 94 % (07/25/16 2:55 PM) Problem List Condition Effective Dates Status [...] BID, # 60 tabs, 0 Refill(s), Pharmacy: [facility], 1 tabs Oral BID Start Date: 05/12/16 [...] 0 Refill(s) Start Date: 05/12/16 Status: Ordered Dulcolax Stool Softener 100 mg, [...] Daily, # 90 tabs, 0 Refill(s), Pharmacy: [id number], 1 tabs Oral Daily Start Date: 06/15/16 [...] 0 Refill(s) Start Date: 05/12/16 Status: Ordered [facility] 1 caps, Oral, Daily, 0 Refill(s) Start [...] 1 oldest [Reference Range]: UA Color Yellow (07/25/16 3:48 PM) UA Appear Sl Cloudy (07/25/16 3:48 PM) UA pH [5.0-8.0] 6.0 (07/25/16 3:48 PM) UA Leuk Est Pos 2+ [Negative] *ABN* (07/25/16 3:48 PM) UA Nitrite Negative [Negative] (07/25/16 3:48 PM) UA Protein Negative [Negative] (07/25/16 3:48 PM) UA Glucose Negative [Negative] (07/25/16 3:48 PM) UA Ketones Negative [Negative] (07/25/16 3:48 PM) UA Urobilinogen 0.2 mg/dL [<=1.0 mg/dL] (07/25/16 3:48 PM) UA Bili [Negative] Negative (07/25/16 3:48 PM) UA Blood [Negative] Negative (07/25/16 3:48 PM) UA Spec Grav 1.020 [1.003-1.030] (07/25/16 3:48 PM) Type Clean Catch (07/25/16 3:48 PM) UA WBC [0-4] 5-10 *ABN* (07/25/16 3:48 PM) UA RBC [0-2] 0-2 (07/25/16 3:48 PM) Epithelial Cells 2-5 (07/25/16 3:48 PM) UA Bacteria Occasional *ABN* (07/25/16 3:48 PM) Immunizations No data available for this section Procedures Procedure Date Related Diagnosis Body Site Hysterectomy Social History Social History Type Response Smoking Status Never smoker Assessment and Plan Extracted from: Title: TCM Author: Verito Simmons DO Date: 07/25/16 Assessment/Plan Acute UTI Because she has a C. difficile. We will try to avoid antibiotics at this time, she will push cranberry juice and other fluids and return to clinic in 1 week for repeat UA to see if she is unsuccessful. Ordered: [facility] 7 Day Disch 14798 Atypical migraine Continue as per neurology and pain management. Ordered: [facility] 7 Day Disch 11957 Clostridium difficile carrier Because of this we want to try to avoid antibiotic for her UTI at this time. Ordered: [facility] 7 Day Disch [id number] Hospital discharge follow-up Stable at this time, blood pressure little well , continue to push fluids and return to clinic with symptoms. Ordered: [facility] 7 Day Disch [id number]
--- OUTSIDE RECORDS SUMMARY | 2016-12-25 12:52 | XMS REPORT | Summary of Care ---
Author Author Pretty Aranda M.D. 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 Quantity: 30 * Started 24-Nov-2008 ActiveLyrica 150 MG Oral Capsule TAKE 1 CAPSULE BY MOUTH TWICE DAILY.Script must last 30 days. * Quantity: 180 Refills: 0 Devendra Lugo M.D.* Started 27-Aug-2015 ActiveClonazePAM 1 MG Oral Tablet TAKE 1 [...] M.D.* Started 14-May-2013 ActiveHerbal/ Natural Products Saccharonyces Benmos * Refills: 0 * Started 05-Jul-2013 ActiveCalcium 600/Vitamin D 600-400 MG-UNIT Oral Tablet * Refills: 0 * Started 05-Jul-2013 ActiveDicyclomine HCl - 20 MG Oral Tablet TAKE 1 TABLET EVERY 6 HOURS NEEDED. * Quantity: 40 Refills: 0 Kip Grey P.A.* Started 27-May-2014 ActiveGlimepiride 2 MG Oral Tablet TAKE 1 [...] Refills: 1 Pretty Aranda M.D.* Started 29-Apr-2015 ActiveCyclobenzaprine HCl - 10 MG Oral Tablet Si PO Tid. * Quantity: 270 Refills: 0 Devendra Lugo M.D.* Started 24-Oct-2013 ActiveVoltaren 1 % Transdermal Gel APPLY 2 GRAMS TO AFFECTED AREA TWICE A DAY AND RUB IN WELL * Quantity: 100 Refills: 0 Devendra Lugo M.D.* Started 29-Apr-2015 ActiveLisinopril 10 MG Oral Tablet Take 1 tablet daily * Quantity: 90 Refills: 2 Aranda Pretty M.D.* Started 01-Nov-2012 ActiveBusPIRone HCl - [...] Refills: 0 Pretty Aranda M.D.* Started 24-Aug-2015 ActiveHYDROmorphone HCl - 4 MG Oral Tablet [...] Refills: 0 Devendra Lugo M.D.* Started 15-Oct-2013 Active Allergies and Adverse Reactions Name Dates [...] B Administered on:13-Jan-2004 Tdap (Adacel) Lot #: [id number] Administered on: Influenza Administered on:03-Jun-2010 Influenza Lot #: [id number] Administered on:23-May-2011 Pneumo (Pneumovax) Lot #: [id number] Administered on:31-Aug-2011 Influenza Lot #: [id number] Administered on:08-May-2012 Influenza Administered on:13-Jun-2013 Fluzone Intramuscular Injectable Lot #: [id number] Administered on:29-Apr-2015 Tdap (Adacel) Lot #: [id number] Administered on:29-Apr-2015 Family History Unknown Family Member* [...] ml/min (Better) Range: >60 EST GFR, NON-AFR [place] 52 ml/min (Below low threshold) Range: >60 Comments: EST GFR is reported in ml/min per 1.73 m2 of body surface area. For -[place], please multiple result by 1.2.----- GLUCOSE 174 [...] infants and children <2 years of age----- 25-Aug-2015 17:19 FREE T4 3604 Comments: Items were attached to this order: [id number] were attached to this order: FT4 FREE T4 1.16 ng/dL (Better) Range: 0.80-1.67 26-Aug-2015 09:07 Triiodothyronine,Free,Serum ( T3) [id number] Comments: Testing performed at: [] [facility] [address], [place], [address], , Charge Master Coordinator: AMY Nolan MD TRIIODOTHYRONINE,FREE,SERUM 3.4 pg/mL (Better) Range: 2.0-4.4 Plan of Care Planned Observations* Name Dates Details Planned Goals not documented Goal Planned Encounters* Appointment; Provider: Pretty Aranda On 02-Nov-2015 11:00 * Appointment; Provider: Devendra Lugo On 27-Oct-2015 13:45 * Appointment; Provider: Alphonse Asif On 11-Sep-2015 [...]
--- OUTSIDE RECORDS SUMMARY | 2016-12-25 12:52 | XMS REPORT | Summary of Care ---
Author Author Devendra Lugo M.D. Unknown Address Unknown Phone Unavailable Care Team Providers Care Die Try Out Worker Name Role Phone Tiny Crystal, Min Unavailable Unavailable Cristi Crystal, Leon Unavailable Unavailable Tracie Lugo M.D. Unavailable Unavailable [...] Status: Active Anemia (285.9, D64.9) Status: Active Migraine headache (346.90, G43.909) Status: Active Tendonitis (726.90, M77.9) Status: Active Obesity (278.00, E66.9) Status: Active Restless legs syndrome (333.94, G25.81) [...] Active Muscle weakness (728.87, M62.81) Status: Active Diarrhea (787.91, R19.7) Status: Active Clostridium difficile colitis (008.45, A04.7) Status: Active Joint pain, knee (719.46, M25.569) Status: Active Pain, low back (724.2, M54.5) Status: Active Tick bite (919.4, T14.8) Status: Active Type 2 diabetes mellitus (250.00, E11.9) Status: Active Hypertension (401.9, I10) Status: Active Chronic kidney disease, stage III (moderate) (585.3, N18.3) Status: Active Fibromyalgia (729.1, M79.7) Status: Active Depression (311, F32.9) Status: Active Obstructive sleep apnea (327.23, G47.33) Status: Active Arthralgia of multiple sites (719.49, M25.50) Status: Active Lower back pain (724.2, M54.5) Status: Active Lung nodule (793.11, R91.1) Status: Active Abdominal pain (789.00, R10.9) Status: [...] * Quantity: 60 Refills: 0 * Started ActiveCymbalta 30 MG Oral Capsule Delayed Release Particles TAKE 3 CAPSULE Daily * Quantity: 90 Refills: 0 * Started 10-Oct-2011 ActiveNystatin-Triamcinolone 721804-5.1 UNIT/GM-% External Cream APPLY SPARINGLY TO AFFECTED AREA(S) 3 TIMES A DAY * Quantity: 2 Refills: 4 Pretty Aranda M.D.* Started 19-Jan-2012 Oontpe93 GM Tube SEROquel XR 300 MG Oral [...] per day. Script must last 30 days. May fill on or after 05-23-2014. * Quantity: 120 Refills: 0 Devendra Lugo [...] HOURS NEEDED. * Quantity: 40 Refills: 0 Pretty Aranda M.D.* Started 27-May-2014 Active Allergies and Adverse Reactions Name Dates Details MetFORMIN HCl TABS Reaction: Diarrhea Status: Active Past Medical History Name Dates Details History of candidiasis (V12.09, Z86.19) Status: Resolved History of herpes zoster (V12.09, Z86.19) Status: Resolved History of infectious mononucleosis (V12.09, Z86.19) Status: Resolved History of influenza (V12.09, Z86.19) Status: Resolved History of transient cerebral ischemia [...] History of Nerve Block Transforaminal Epidural Lumbar CP Echo Ordered:02-Jun-2014 Stool, C DIFFICILE TOXIN GENE 5515 Ordered:02-Jun-2014 CT CHEST WITHOUT IV CONTRAST Ordered:05-May-2014 Immunization Name Dates Details DTaP Administered on:2003 Hepatitis B Administered on:08-Dec-2003 Hepatitis B Administered on:13-Jan-2004 Tdap (Adacel) Lot #: [id number] Administered on: Influenza Administered on:03-Jun-2010 Influenza Lot #: [id number] Administered on:23-May-2011 Pneumo (Pneumovax) Lot #: [id number] Administered on:31-Aug-2011 Influenza Lot #: [id number] Administered on:08-May-2012 Influenza Administered on:13-Jun-2013 Family History [...] smoker Vital Signs Date Test Result Details 02-Jun-2014 13:45 BP Systolic 128 mm[Hg] Status: BP Diastolic 96 mm[Hg] Status: Heart Rate 88 /min Status: Temperature 98.8 f Status: Weight 262 lb Status: Body Mass Index Calculated 46.41 kg/m2 Status: Body Surface Area Calculated 2.17 m2 Status: 27-May-2014 14:41 BP Systolic 122 mm[Hg] Status: BP Diastolic 68 mm[Hg] Status: Heart Rate 88 /min Status: Temperature 98.1 f Status: Weight 255 lb Status: Body Mass Index Calculated 45.17 kg/m2 Status: Body Surface Area Calculated 2.14 m2 Status: 05-May-2014 15:09 BP Systolic 128 mm[Hg] Status: BP Diastolic 64 mm[Hg] Status: Heart Rate 104 /min Status: Weight 263 lb Status: Height 63 in Status: O2 SAT 96 % Status: Body Mass Index Calculated 46.59 kg/m2 Status: Body Surface Area Calculated 2.17 m2 Status: Results Date Description Value Details 05-May-2014 14:32 CT CHEST WITHOUT IV CONTRAST Comments: Exam Date: 14:14Dictation Date: 14:32 XC CHEST (Better) 27-May-2014 15:15 CBC w/ Auto Diff 7150 WBC 9.6 K/uL (Better) Range: 4.5-11.0 RBC 5.52 mil/uL (Above high threshold) Range: 3.60-5.00 HGB 16.2 g/dL (Above high threshold) Range: 12.0-16.0 HCT 49.4 % (Above high threshold) Range: 36.0-48.0 MCV 89.5 fL (Better) Range: 80.0-99.0 MCH 29.3 pg (Better) Range: 27.3-32.5 MCHC 32.8 % (Better) Range: 32.0-36.0 RDW 14.6 % (Better) Range: 11.6-14.8 PLATELETS 375 K/uL (Better) Range: 150-400 MPV 7.4 fL (Better) Range: 6.0-11.0 %NEUTRO 69.3 % (Better) Range: 37.0-80.0 %LYMPHS 21.4 % (Better) Range: 13.0-50.0 %MONO 5.0 % (Better) Range: 0.0-12.0 %EOS 1.7 % (Better) Range: 0.0-7.0 %BASO 1.1 % (Better) Range: 0.0-2.5 %ABDULLAHI 1.4 % (Better) Range: 0.0-5.0 NEUTRO 6.7 K/uL (Better) Range: 2.0-6.9 LYMPHS 2.1 K/uL (Better) Range: 0.6-3.4 MONOS 0.5 K/uL (Better) Range: 0.0-0.9 EOS 0.2 K/uL (Better) Range: 0.0-0.7 BASO 0.1 K/uL (Better) Range: 0.0-0.2 15:30 Urinalysis, Reflex to Microscopic or Culture PRN 8005 pH 7.5 (Better) Range: 5.0-7.5 SP GRAVITY <=1.005 (Abnormal) Range: 1.010-1.030 APPEARANCE CLEAR (Better) Range: Clear COLOR YELLOW (Better) Range: Straw-Yellow PROTEIN NEGATIVE mg/dL (Better) Range: Negative-Trace GLUCOSE NEGATIVE mg/dL (Better) Range: Negative KETONE NEGATIVE mg/dL (Better) Range: Negative BILIRUB NEGATIVE (Better) Range: Negative BLOOD NEGATIVE (Better) Range: Negative UROBIL 0.2 EU/dL (Better) Range: 0.2-1.0 NITRITE NEGATIVE (Better) Range: Negative LEUK NEGATIVE (Better) Range: Negative 15:31 Comprehensive Metabolic Panel 1212 SODIUM 140 mmol/L (Better) Range: 133-144 POTASSIUM 3.7 mmol/L (Better) Range: 3.5-5.1 CHLORIDE 102 mmol/L (Better) Range: 98-110 CARBON DIOXIDE 28.2 mmol/L (Better) Range: 23.0-33.0 ANION GAP 10 mmol/L (Better) Range: 6-16 BUN 9 mg/dL (Better) Range: 7-18 CREATININE, SERUM 1.13 mg/dL (Better) Range: 0.43-1.13 BUN:CREATININE RATIO 8 (Better) EST GFR, >60 ml/min (Better) Range: >60 EST GFR, NON-AFR [place]IST[place] 52 ml/min (Below low threshold) Range: >60 Comments: EST GFR is reported in ml/min per 1.73 m2 of body surface area. For -Marshallese, please multiple result by 1.2.----- GLUCOSE 115 mg/dL (Above high threshold) Range: 70-100 ALK PHOSPHATASE 117 U/L (Above high threshold) Range: 46-116 Comments: Please Note: New Reference Range effective 2013.----- TOTAL BILIRUBIN 1.10 mg/dL (Above high threshold) Range: 0.20-1.00 AST 53 U/L (Above high threshold) Range: 8-35 ALT 75 U/L (Better) Range: 12-78 ALBUMIN 3.7 g/dL (Better) Range: 3.4-5.0 TOTAL PROTEIN 8.1 g/dL (Better) Range: 6.4-8.2 A/G RATIO 0.8 units (Below low threshold) Range: 1.0-1.8 CALCIUM 10.2 mg/dL (Above high threshold) Range: 8.5-10.1 15:31 AMYLASE 1250 AMYLASE 32 U/L (Better) Range: 25-115 15:31 Lipase 1275 LIPASE 120 U/L (Better) Range: 73-393 17:32 CT AB/ PEL WITH IV AND ORAL CONTRAST Comments: Exam Date: 16:15Dictation Date: 17:32 XC AB/PEL 45 MIN PREP (Better) Plan of Care Planned Observations* Name Dates Details Planned Goals not documented Goal Planned Encounters* Appointment; Provider: David Franks On 07-May-2015 14:00 * Appointment; Provider: Devendra Lugo On 29-Jul-2014 11:15 * Appointment; Provider: Pretty Aranda On 10-Jul-2014 16:00 * Appointment; Provider: Kip Grey On 06-Jun-2014 12:45 * Appointment; Provider: Lucía Bennett On 19-Oct-2012 [...] Problem not documented On 08-Oct-2013 13:00 Appointment; Dveendra Lugo Encounter Diagnosis: Problem not documented On [...] Diagnosis: Problem not documented On 15:15 Appointment; rPetty Aranda Encounter Diagnosis: Problem not documented On 14:30 Appointment; Pretty Aranda Encounter Diagnosis: Problem not documented On 15:15 Appointment; Pretty Aranda Encounter Diagnosis: Problem not documented On 15:15 Appointment; Cristi, January Encounter Diagnosis: Problem not documented On 09:30 Appointment; [facility] Encounter Diagnosis: Problem not documented On 08:15 Appointment; Cristi Janice Encounter Diagnosis: Problem not documented On 14:30 Appointment; Pretty Aranda Encounter Diagnosis: Problem not documented On 10:00 Appointment; Pretty Aranda Encounter Diagnosis: Problem not documented On 15-Jan-2013 14:15 Appointment; Lucía Bennett Encounter Diagnosis: Problem not documented On 03-Jan-2013 07:00 Appointment; [facility] Encounter Diagnosis: Problem not documented On 03-Jan-2013 [...] Diagnosis: Problem not documented On 11-Sep-2012 09:45 Appointment; Francisco Javier Fam Encounter Diagnosis: Problem not documented On 10-Jul-2012 13:45
--- OUTSIDE RECORDS SUMMARY | 2016-12-25 12:53 | XMS REPORT | Summary of Care ---
Author Author Zaid Rodriguez D.O. Unknown Address [address] [place], [place] [id number] Phone Unavailable Care Team Providers Care Frontend Engineer Name Role Phone Cristi Crystal, Leon Unavailable [...] Quantity: 60 Refills: 0 * Started ActiveNystatin-Triamcinolone 717078-4.1 UNIT/GM-% External Cream APPLY SPARINGLY TO AFFECTED AREA(S) 3 TIMES A DAY * Quantity: 2 Refills: 4 Pretty Aranda M.D.* Started 19-Jan-2012 Drtiyt36 GM Tube SEROquel XR 300 MG Oral [...] History Name Dates Details History of candidiasis (V12., Z86.19) Status: Resolved History of herpes zoster (V12., Z86.19) Status: Resolved History of infectious mononucleosis (V12., Z86.19) Status: Resolved History of influenza (V12., Z86.19) Status: Resolved History of Tick bite [...] Epidural Lumbar CBC w/ Auto Diff 7150 Ordered:24-Mar-2015 ERYTHROCYTE SED RATE 7800 Ordered:24-Mar-2015 Comprehensive Metabolic Panel 1212 Ordered:24-Mar-2015 CT ABDOMEN WITH IV AND ORAL CONTRAST Ordered:24-Mar-2015 Immunization Name Dates Details DTaP Administered on:2003 Hepatitis B Administered on:08-Dec-2003 Hepatitis B Administered on:13-Jan-2004 Tdap (Adacel) Lot #: [id number] Administered on: Influenza Administered on:03-Jun-2010 Influenza Lot #: [id number] Administered on:23-May-2011 Pneumo (Pneumovax) Lot #: [id number] Administered on:31-Aug-2011 Influenza Lot #: [id number] Administered on:08-May-2012 Influenza Administered on:13-Jun-2013 Family History [...] Aranda On 13-Apr-2015 14:15 * Appointment; Provider: Zaid Rodriugez On 24-Mar-2015 14:15 * Appointment; Provider: Schedule Radiology On [...] Problem not documented On 14-May-2013 11:30 Appointment; Deujan Alcantar Encounter Diagnosis: Problem not documented On 11-Apr-2013 13:30 Appointment; Dejuan Alcantar Encounter Diagnosis: Problem not documented On 03-Apr-2013 15:15 Appointment; David Franks Encounter Diagnosis: Problem not documented On 27-Mar-2013 16:00
--- OUTSIDE RECORDS SUMMARY | 2016-12-25 12:53 | XMS REPORT | Summary of Care ---
Author Author Juan Carlos Crystal, Nimesh Mireles Unknown Address Unknown Phone Unavailable Care Team Providers Care Marina Porter Name Role Phone Kip Jensen Unavailable Unavailable [...] Obstructive sleep apnea (327.23, G47.33) Status: Active Fibromyalgia (729.1, M79.7) Status: Active Neurogenic bladder (596.54, N31.9) Status: Active Bruising (924.9, T14.8) Status: Active Left knee pain (719.46, M25.562) Status: Active Generalized anxiety disorder (300.02, F41.1) Status: Active Low back pain (724.2, M54.5) Status: Active Degenerative disc disease, lumbar (722.52, M51.36) Status: Active Bursitis of hip, left (726.5, M70.72) Status: Active Localized primary osteoarthritis of lower leg, 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, M17.11) Status: Active Morbid obesity (278.01, E66.01) Status: Active Medications Name Dates Details Multi-Vitamin/Minerals [...] Quantity: 60 Refills: 0 * Started ActiveNystatin-Triamcinolone 247857-3.1 UNIT/GM-% External Cream APPLY SPARINGLY TO AFFECTED AREA(S) 3 TIMES A DAY * Quantity: 2 Refills: 4 Pretty Aranda M.D.* Started 19-Jan-2012 Knxqeb76 GM Tube SEROquel XR 300 MG Oral [...] 120 Refills: 0 Devendra Lugo M.D.* Started 10-Apr-2016 ActivePromethazine HCl - 12.5 MG Oral Tablet [...] ONLY) Ordered: Immunization Name Dates Details DTaP Administered on:2003 Hepatitis B Administered on:08-Dec-2003 Hepatitis B Administered on:13-Jan-2004 Tdap (Adacel) Lot #: [id number] Administered on: Influenza Administered on:03-Jun-2010 Influenza Lot #: [id number] Administered on:23-May-2011 Pneumo (Pneumovax) Lot #: [id number] Administered on:31-Aug-2011 Influenza Lot #: [id number] Administered on:08-May-2012 Influenza Administered on:13-Jun-2013 Fluzone Intramuscular Injectable Lot #: [id number] Administered on:29-Apr-2015 Tdap (Adacel) Lot #: [id number] Administered on:29-Apr-2015 Family History Unknown Family Member* [...] smoker Vital Signs Date Test Result Details 11:00 BP Systolic 100 mm[Hg] Status: BP Diastolic 68 mm[Hg] Status: Heart Rate 101 /min Status: Weight 247.5 lb Status: Body Mass Index Calculated 43.16 kg/m2 Status: Body Surface Area Calculated 2.13 m2 Status: 10:31 BP Systolic 86 mm[Hg] Status: BP [...] Kelly On 27-Jul-2016 10:15 * Appointment; Provider: Devendra Lugo On 13-Apr-2016 11:30 * Appointment; Provider: Pretty Aranda On 06-Apr-2016 11:15 * Appointment; Provider: Devendra Lugo On 14:30 * Appointment; Provider: Alphonse Asif On 10:45 * Appointment; Provider: Schedule Radiology On 11-Jan-2016 [...] Instructions * Instructions not documented Encounters Appointment; Nimesh Rangel Encounter Diagnosis: Problem not documented On 10:30 Appointment; Devendra Lugo Encounter Diagnosis: Problem not documented On 11:00 Appointment; Pretty Aranda Encounter Diagnosis: Problem [...]
--- OUTSIDE RECORDS SUMMARY | 2016-12-25 12:53 | XMS REPORT | Summary of Care ---
Author Author Pretty Aranda M.D. Unknown Address [address], [place] [address] Phone Unavailable Care Team Providers Care Lockstitch Waistline Joiner Name Role Phone Tiny Crystal, Min Unavailable [...] TABLET DAILY. Quantity: 30 * Started 24-Nov-2008 ActiveClonazePAM 1 MG Oral Tablet TAKE 1 [...] daily * Refills: 0 * Started 19-Nov-2012 ActiveVoltaren 1 % Transdermal Gel Sig: Apply to affected area Qid prn. * Quantity: 1 Refills: 1 Devendra Lugo M.D.* Started ActiveHerbal/ Natural Products Saccharonyces Boulardiitmos * Refills: [...] Refills: 0 Devendra Lugo M.D.* Started 29-Aug-2013 ActiveCyclobenzaprine HCl - 10 MG Oral Tablet Si PO Tid. * Quantity: 90 Refills: 0 Devendra Lugo M.D.* Started 24-Oct-2013 ActiveDicyclomine HCl - 20 MG Oral Tablet TAKE 1 TABLET EVERY 6 HOURS NEEDED. * Quantity: 40 Refills: 0 Kip Grey* Started 27-May-2014 ActiveFluvoxaMINE Maleate 100 MG Oral Tablet Take 1 1/2 tablet at bedtime * Quantity: 45 Refills: 0 Pretty Aranda M.D.* Started 23-Jul-2014 ActiveLinzess 145 MCG Oral Capsule take 1 capsule daily * Quantity: 7 Refills: 0 Kip Grey PTacoATaco* Started 02-Jul-2014 ActivePromethazine HCl - 12.5 MG Oral Tablet TAKE 1 TABLET EVERY 6 TO 8 HOURS NEEDED NAUSEA. * Quantity: 60 Refills: 0 Devendra Lugo M.D.* Started 15-Oct-2013 ActiveVitamin B-12 1000 MCG Oral Tablet TAKE 1 TABLET DAILY DIRECTED. * Quantity: 30 Refills: 0 Pretty Aranda M.D.* Started 14-May-2013 ActiveProbiotic Colon Support Oral Capsule TAKE 1 CAPSULE Daily * Quantity: 30 Refills: 0 Pretty Aranda M.D.* Started 14-May-2013 ActiveAmbien 10 MG Oral Tablet TAKE 1 TABLET BY MOUTH AT BEDTIME NEEDED FOR SLEEP * Quantity: 30 Refills: 0 Pretty Aranda M.D.* Started 14-May-2013 ActiveGabapentin 600 MG Oral Tablet TAKE ONE TABLET BY MOUTH AT BEDTIME * Quantity: 90 Refills: 3 David Franks M.D.* Started 27-Mar-2013 ActiveMicronized Colestipol HCl - 1 GM Oral Tablet TAKE 1 TABLET TWICE DAILY PRN diarrhea. * Quantity: 180 Refills: 3 Janice Colin M.D.* Started ActiveLyrica 150 MG Oral Capsule TAKE 1 CAPSULE BY MOUTH TWICE DAILY. * Quantity: 60 Refills: 2 Devendra Lugo M.D.* Started 10-Nov-2009 ActiveNystatin-Triamcinolone 896128-0.1 UNIT/GM-% External Cream APPLY SPARINGLY TO AFFECTED AREA(S) 3 TIMES A DAY * Quantity: 2 Refills: 4 Pretty Aranda M.D.* Started 19-Jan-2012 Mtjcfw92 GM Tube Allergies and Adverse Reactions Name Dates Details [...] History of Nerve Block Transforaminal Epidural Lumbar STOOL CULTURE 5015 Ordered:22-Jul-2014 Stool, C DIFFICILE TOXIN GENE 5515 Ordered:22-Jul-2014 MAMMOGRAM-SCREENING Ordered:23-Jul-2014 Immunization Name Dates Details DTaP Administered on:2003 Hepatitis B Administered on:08-Dec-2003 Hepatitis B Administered on:13-Jan-2004 Tdap (Adacel) Lot #: [id number] Administered on: Influenza Administered on:03-Jun-2010 Influenza Lot #: [id number] Administered on:23-May-2011 Pneumo (Pneumovax) Lot #: [id number] Administered on:31-Aug-2011 Influenza Lot #: [id number] Administered on:08-May-2012 Influenza Administered on:13-Jun-2013 Family History [...]
--- OUTSIDE RECORDS SUMMARY | 2016-12-25 12:54 | XMS REPORT | Summary of Care ---
Author Author Hemant Issa M.D. Unknown Address Unknown Phone Unavailable Care Team Providers Care Coil Spring Assembler Name Role Phone Kip Jensen Unavailable Unavailable Edson Adams, Amelia Unavailable Unavailable Tracie Lugo M.D. Unavailable Unavailable David Issa M.D. Unavailable Unavailable Manoj Crystal, Pretty Unavailable Unavailable Pretty Aranda Unavailable Unavailable Unavailable Unavailable Functional Status Name [...] Urinary incontinence, urge (788.31, N39.41) Status: Active Pain of right hand (729.5, [...] 60 Refills: 0 * Start Active Nystatin-Triamcinolone 555844-0.1 UNIT/GM-% External Cream APPLY SPARINGLY TO AFFECTED [...] Start 14-May-2013 Active Herbal/ Natural Products Saccharonyces Bomaricarmendiitmos * Refills: 0 * Start 05-Jul-2013 Active Calcium 600/Vitamin D 600-400 MG-UNIT Oral Tablet * Refills: 0 * Start 05-Jul-2013 Active Glimepiride 2 MG Oral Tablet TAKE 1 TABLET EVERY DAY WITH BREAKFAST * Quantity: 90 Refills: 2 Aranda M.D., Pretty * Start 22-Jul-2013 Active HYDROmorphone HCl - 4 MG Oral Tablet Si PO every 6 hours prn with a max of 4 per day. Script must last [address] Lugo * Quantity: 120 Refills: 0 Devendra Lugo M.D. Start 10-Apr-2016 Active Promethazine HCl - 12.5 MG Oral Tablet TAKE 1 TABLET EVERY 6 TO 8 HOURS NEEDED NAUSEA. * Quantity: 60 Refills: 3 Devendra Lugo M.D. * Start 15-Oct-2013 Active Cyclobenzaprine HCl - 10 [...] 90 Refills: 3 Aranda M.D.Pretty * Start 29-Apr-2015 Active Aspirin 81 MG [...] SPINE LUMBAR ( 2 VIEWS ONLY) Ordered: MAMMOGRAM-SCREENING Ordered: 07-Apr-2016 Immunization Name Dates Details DTaP on: 2003 Hepatitis B on: 08-Dec-2003 Hepatitis B on: 13-Jan-2004 Tdap (Adacel) Lot #: [id number] on: Influenza on: 03-Jun-2010 Influenza Lot #: [id number] on: 23-May-2011 Pneumo (Pneumovax) Lot #: [id number] on: 31-Aug-2011 Influenza Lot #: [id number] on: 08-May-2012 Influenza on: 13-Jun-2013 Fluzone INJ Lot #: [id number] on: 29-Apr-2015 Tdap (Adacel) Lot #: [id number] on: 29-Apr-2015 Family History Name Dates Details [...] O2 Saturation Results Date Description Value Details 07-Apr-2016 14:36 CBC w/ Auto Diff 7150 WBC 13.5 K/uL (Above high threshold) Range: 4.5-11.0 RBC 5.26 mil/uL (Above high threshold) Range: 3.60-5.00 HGB 15.5 g/dL Range: 12.0-16.0 HCT 47.8 % Range: 36.0-48.0 MCV 90.9 fL Range: 80.0-99.0 MCH 29.4 pg Range: 27.3-32.5 MCHC 32.4 % Range: 32.0-36.0 RDW 15.1 % (Above high threshold) Range: 11.6-14.8 PLATELETS 391 K/uL Range: 150-400 MPV 7.3 fL Range: 6.0-11.0 %NEUTRO 79.6 % Range: 37.0-80.0 %LYMPHS 13.4 % Range: 13.0-50.0 %MONO 4.3 % Range: 0.0-12.0 %EOS 1.3 % Range: 0.0-7.0 %BASO 0.6 % Range: 0.0-2.5 %ABDULLAHI 0.8 % Range: 0.0-5.0 NEUTRO 10.8 K/uL (Above high threshold) Range: 2.0-6.9 LYMPHS 1.8 K/uL Range: 0.6-3.4 MONOS 0.6 K/uL Range: 0.0-0.9 EOS 0.2 K/uL Range: 0.0-0.7 BASO 0.1 K/uL Range: 0.0-0.2 15:03 BASIC METABOLIC PROFILE 1210 SODIUM 138 mmol/L Range: 133-144 POTASSIUM 3.9 mmol/L Range: 3.5-5.1 CHLORIDE 102 mmol/L Range: 98-110 CARBON DIOXIDE 27.5 mmol/L Range: 23.0-33.0 ANION GAP 9 mmol/L Range: 6-16 BUN 8 mg/dL Range: 7-18 CREATININE, SERUM 1.11 mg/dL (Above high threshold) Range: 0.55-1.02 Comments: Please note new reference ranges effective 2015.----- EST GFR, >60 ml/min Range: >60 EST GFR, NON-AFR IRANIAN 52 ml/min (Below low threshold) Range: >60 Comments: EST GFR is reported in ml/min per 1.73 m2 of body surface area. For -Egyptian, please multiple result by 1.2.----- BUN:CREATININE RATIO 7 GLUCOSE 113 mg/dL (Above high threshold) Range: 70-100 CALCIUM 9.3 mg/dL Range: 8.5-10.1 15:22 HEMOGLOBIN A1C 3507 Hemoglobin A1C 6.9 % ESTIMATED AVG. GLUCOSE 151 Plan of Care Name Dates Details Planned Observations Planned Goals not documented Planned Encounters Appointment; Provider: David Kelly M.D.|Brigette|Marah,EMBER|Marah,EMBER, On 27-Jul-2016 10:15 Appointment; Provider: Devendra Lugo M.D. On 03-May-2016 13:00 Appointment; Provider: Pretty Aranda M.D. On 21-Apr-2016 14:15 Instructions Name Dates Details Instructions not documented [...] not documented On 10:30 Appointment; David Kelly M.D.|F.A.C.STaco|Marah,GIOVANNI,EMBER, Encounter Diagnosis: Problem not documented On 10:30 Appointment; Devendra Lugo M.D. Encounter Diagnosis: Problem not documented On 07-Jan-2016 14:15 Appointment; Pretty Aranda M.D. Encounter Diagnosis: Problem not documented On 23-Dec-2015 09:45 Appointment; Devendra Lugo M.D. Encounter Diagnosis: Problem not documented On 12-Nov-2015 10:30 Appointment; Alphonse Asif M.D. Encounter Diagnosis: Problem not documented On 11-Nov-2015 10:15 Appointment; David Kelly M.D.|F.A.C.S.|MTacoDTaco,EMBER|Marah,EMBER, Encounter Diagnosis: Problem not documented On 03-Nov-2015 [...]
--- OUTSIDE RECORDS SUMMARY | 2016-12-25 12:54 | XMS REPORT | Summary of Care ---
Author Author Zaid Rodriguez D.O. Unknown Address [address], [place] [address] Phone Unavailable Care Team Providers Care Radon Inspector Name Role Phone Que Adams, Kip Unavailable Unavailable Edson Adams, Amelia Unavailable Unavailable [...] involving urinary system (788.99, R39.9) Status: Active Costovertebral Angle Tenderness Right Status: Active Costovertebral Angle Tenderness Left Status: Active Elevated creatine kinase level (790.5, R74.8) Status: Active Urinary tract infection (599.0, N39.0) [...] Active Allergic rhinitis (477.9, J30.9) Status: Active Medications Name Dates Details Multi-Vitamin/Minerals [...] 15 MG Oral Tablet TAKE 1 TABLET 4 times daily * Refills: 0 * Started 19-Nov-2012 ActiveGabapentin [...] Refills: 4 Pretty Aranda M.D.* Started 21-Apr-2015 [id number] GM Bottle Allergies and Adverse Reactions Name Dates Details [...] PROFILE 1184 Ordered:20-Apr-2015 LIVER PROFILE 1215 Ordered:20-Apr-2015 CBC w/ Auto Diff 7150 Ordered:16-Apr-2015 Immunization Name Dates Details DTaP Administered on:2003 Hepatitis B Administered on:08-Dec-2003 Hepatitis B Administered on:13-Jan-2004 Tdap (Adacel) Lot #: [id number] Administered on: Influenza Administered on:03-Jun-2010 Influenza Lot #: [id number] Administered on:23-May-2011 Pneumo (Pneumovax) Lot #: [id number] Administered on:31-Aug-2011 Influenza Lot #: [id number] Administered on:08-May-2012 Influenza Administered on:13-Jun-2013 Family History [...] low threshold) Range: >60 EST GFR, NON-AFR [place] 47 ml/min (Below low threshold) Range: >60 Comments: EST GFR is reported in ml/min per 1.73 m2 of body surface area. For -Brazilian, please multiple result by 1.2.----- GLUCOSE 156 [...] 14:39 Urinalysis, reflex to Micro and Culture ([facility]) 8016 pH 7.5 (Better) Range: 5.0-7.5 SP [...] Garcia On 01-May-2015 10:30 * Appointment; Provider: Pretty Aranda On 29-Apr-2015 09:45 * Appointment; Provider: Wilfriod Waddell On 15-Apr-2015 16:35 * Appointment; Provider: [...] not documented On 21-Oct-2013 10:30 Appointment; Dejuan Aclantar Encounter Diagnosis: Problem not documented On 08-Oct-2013 [...]
--- OUTSIDE RECORDS SUMMARY | 2016-12-25 12:54 | XMS REPORT | Summary of Care ---
Author Author Devendra Lugo M.D. Unknown Address Unknown Phone Unavailable Care Team Providers Care Utility Maintenance Worker Name Role Phone Kip Jensen Unavailable Unavailable [...] Quantity: 60 Refills: 0 * Started ActiveNystatin-Triamcinolone 549864-8.1 UNIT/GM-% External Cream APPLY SPARINGLY TO AFFECTED AREA(S) 3 TIMES A DAY * Quantity: 2 Refills: 4 Pretty Aranda M.D.* Started 19-Jan-2012 Sywudk97 GM Tube SEROquel XR 300 MG Oral [...] first meal. * Quantity: 60 Refills: 0 Deevndra Lugo M.D.* Started 16-Nov-2015 Active Allergies and [...] B Administered on:13-Jan-2004 Tdap (Adacel) Lot #: [id number] Administered on: Influenza Administered on:03-Jun-2010 Influenza Lot #: [id number] Administered on:23-May-2011 Pneumo (Pneumovax) Lot #: [id number] Administered on:31-Aug-2011 Influenza Lot #: [id number] Administered on:08-May-2012 Influenza Administered on:13-Jun-2013 Fluzone Intramuscular Injectable Lot #: [id number] Administered on:29-Apr-2015 Tdap (Adacel) Lot #: [id number] Administered on:29-Apr-2015 Family History Unknown Family Member* [...]
--- OUTSIDE RECORDS SUMMARY | 2016-12-25 12:54 | XMS REPORT | Summary of Care ---
Author Author Pretty Aranda M.D. Unknown Address [address], [place] [address] Phone Unavailable Care Team Providers Care Men'S Swim Coach Name Role Phone Cristi Crystal, Leon Unavailable Unavailable Michael Rodriguez, Zaid Unavailable Unavailable Nicolasenbasophy P.A., Kip Unavailable Unavailable Edson P.A., Amelia [...] Quantity: 60 Refills: 0 * Started ActiveNystatin-Triamcinolone 769463-8.1 UNIT/GM-% External Cream APPLY SPARINGLY TO AFFECTED AREA(S) 3 TIMES A DAY * Quantity: 2 Refills: 4 Pretty Aranda M.D.* Started 19-Jan-2012 Ipzymh08 GM Tube SEROquel XR 300 MG Oral [...] prn. * Quantity: 1 Refills: 1 Amelia Sadnhu P.A.* Started ActiveGabapentin 600 MG Oral Tablet [...] M.D.* Started 14-May-2013 ActiveHerbal/ Natural Products Saccharonyces Benjys * Refills: 0 * Started 05-Jul-2013 ActiveCalcium [...] 120 Refills: 0 Amelia SandhuATaco* Started 27-Apr-2015 ActivePromethazine HCl - 12.5 MG [...] * Quantity: 40 Refills: 0 Kip Grey P.ATaco* Started 27-May-2014 ActiveLinzess 145 MCG Oral Capsule take 1 capsule daily * Quantity: 7 Refills: 0 Kip Grey P.ATaco* Started 02-Jul-2014 ActiveFluvoxaMINE Maleate 100 MG Oral Tablet TAKE 2 TABLET Every morning * Refills: 0 Pretty Aranda M.D.* Started 23-Jul-2014 ActiveSupplies Soft neck braceDx: Cervical neck pain 723.1 * Quantity: 1 Refills: 0 Devendra Lugo M.D.* Started ActivePredniSONE 10 MG Oral Tablet Take 3tabs x 3daystake 2tabs x 3daystake 1tab x 3days * Quantity: 18 Refills: 0 Zaid Rodriguez D.O.* Started 24-Mar-2015 ActiveCiprofloxacin HCl - 500 MG Oral Tablet Take 1 tablet twice daily * Quantity: 10 Refills: 0 Zaid Rodriguez D.O.* Started 24-Mar-2015 ActiveFluconazole 150 MG Oral Tablet TAKE 1 TABLET 1 TIME ONLY. * Quantity: 1 Refills: 0 Zaid Rodriguez D.O.* Started 24-Mar-2015 [...] B Administered on:13-Jan-2004 Tdap (Adacel) Lot #: [id number] Administered on: Influenza Administered on:03-Jun-2010 Influenza Lot #: [id number] Administered on:23-May-2011 Pneumo (Pneumovax) Lot #: [id number] Administered on:31-Aug-2011 Influenza Lot #: [id number] Administered on:08-May-2012 Influenza Administered on:13-Jun-2013 Family History [...] low threshold) Range: >60 EST GFR, NON-AFR HONDURAN 47 ml/min (Below low threshold) Range: >60 Comments: EST GFR is reported in ml/min per 1.73 m2 of body surface area. For -Venezuelan, please multiple result by 1.2.----- GLUCOSE 156 [...] 14:39 Urinalysis, reflex to Micro and Culture ([facility] [[email or web address] 8016 pH 7.5 (Better) Range: 5.0-7.5 SP [...]
--- OUTSIDE RECORDS SUMMARY | 2016-12-25 12:55 | XMS REPORT | Continuity of care Document ---
Author Author GENERATED, SYSTEM Organization Unknown Address Unknown Phone Unavailable Purpose Hospital Course Allergies, Adverse Reactions, Alerts * Latex Allergy has not been assessed. * IV Contrast Allergy has not been assessed. * No Known Drug Allergies. Problems * Chest Pain Status:Active. * Inflammatory Bowel Disease Status:Active. Procedures No relevant procedures performed. Medication Medication reconciliation has not been performed. Results DX Radiology from 01/07/2014 3:44 PMSPINE CERVICAL 4-5 VIEWS DATE OF EXAM: Jan 07 2014 4:46PM Proc: DAVID [id number] - SPINE CERVICAL 5 VIEWS CPT Code(s): 09813-; ; ; INDICATION / CLINICAL HISTORY: Fall, pain. FINDINGS: Cervical alignment appears within normal limits. Vertebral body heights and disc spaces appear within normal limits. Prevertebral soft tissues appear unremarkable. No fractures or subluxations are identified. The odontoid and lateral masses appear intact. IMPRESSION: Unremarkable cervical spine without evidence of acute fracture or subluxation. SPINE LUMBOSACRAL 4 VIEWS DATE OF EXAM: Jan 07 2014 4:46PM Proc: DAVID 0081 - SPINE LUMBOSACRAL 4 VIEWS CPT Code(s): 58710-; ; ; INDICATION / CLINICAL HISTORY: Fall, back pain FINDINGS: There is mild disk space narrowing throughout the lumbar spine consistent with mild degenerative disk disease. No fractures or subluxations are identified. Alignment appears within normal limits. IMPRESSION: No evidence of acute fracture or subluxation. SPINE THORACIC 3 VIEW DATE OF EXAM: Jan 07 2014 4:46PM Proc: DAVID 0078 - SPINE THORACIC 3 VIEW CPT Code(s): 04430-; ; ; INDICATION / CLINICAL HISTORY: \E\fall, pain FINDINGS: Three views of the thoracic spine were obtained. No fractures or subluxations are identified. The vertebral body heights and disc spaces are well maintained. The pedicles and paraspinous lines appear intact. IMPRESSION: Unremarkable thoracic spine. DX Radiology from 01/07/2014 3:45 PMWRIST LEFT 3 VIEWS DATE OF EXAM: Jan 07 2014 4:46PM Proc: DAVID 4021 - WRIST LEFT 3 VIEWS CPT Code(s): 62205-GE; ; ; INDICATION / CLINICAL HISTORY: \E\fall, pain FINDINGS: Three views of the left wrist were obtained. The carpal bones and joint spaces appear well maintained. No acute fracture or subluxations are identified. The distal radius and ulna appear intact. No periosteal reactions, lytic, or blastic lesions are identified. IMPRESSION: Normal appearing osseous structures of the left wrist. DX Radiology from 01/07/2014 3:57 PMKNEE LEFT 3 VIEWS DATE OF EXAM: Jan 07 2014 4:46PM Proc: DAVID 4046 - KNEE LEFT 3 VIEWS CPT Code(s): 59881-GZ; ; ; INDICATION / CLINICAL HISTORY: Fall. Knee pain. COMPARISON: None. FINDINGS: There is no acute fracture. The knee is in normal alignment. There are minimal degenerative changes. No significant joint effusion is demonstrated. IMPRESSION: No acute osseous abnormality.
--- OUTSIDE RECORDS SUMMARY | 2016-12-25 12:55 | XMS REPORT | Summary of Care ---
Author Author Pretty Aranda M.D. Unknown Address [address], [place] [address] Phone Unavailable Care Team Providers Care Microsoft Architect Name Role Phone Kip Jensen Unavailable Unavailable [...] Quantity: 60 Refills: 0 * Started ActiveNystatin-Triamcinolone 634647-9.1 UNIT/GM-% External Cream APPLY SPARINGLY TO AFFECTED AREA(S) 3 TIMES A DAY * Quantity: 2 Refills: 4 ArandaPretty M.D.* Started 19-Jan-2012 Uebsej00 GM Tube SEROquel XR 300 MG Oral [...] BREAKFAST * Quantity: 90 Refills: 2 Pretty Aranad M.D.* Started 22-Jul-2013 ActiveHYDROmorphone HCl - 4 MG Oral Tablet Si PO every 6 hours prn with a max of 4 per day. Script must last [address] Lugo * Quantity: 120 Refills: 0 Devendra Lugo M.D.* Started 12-Dec-2015 ActivePromethazine HCl - 12.5 MG Oral Tablet [...] B Administered on:13-Jan-2004 Tdap (Adacel) Lot #: [id number] Administered on: Influenza Administered on:03-Jun-2010 Influenza Lot #: [id number] Administered on:23-May-2011 Pneumo (Pneumovax) Lot #: [id number] Administered on:31-Aug-2011 Influenza Lot #: [id number] Administered on:08-May-2012 Influenza Administered on:13-Jun-2013 Fluzone Intramuscular Injectable Lot #: [id number] Administered on:29-Apr-2015 Tdap (Adacel) Lot #: [id number] Administered on:29-Apr-2015 Family History Unknown Family Member* [...] ml/min (Better) Range: >60 EST GFR, NON-AFR GRENADIAN 56 ml/min (Below low threshold) Range: >60 Comments: EST GFR is reported in ml/min per 1.73 m2 of body surface area. For -Beninese, please multiple result by 1.2.----- GLUCOSE 167 [...] Comments: Items were attached to this order: [facility] Fastin hours Hemoglobin A1C 6.8 % (Better) ESTIMATED AVG. GLUCOSE 148 (Better) 24-Dec-2015 10:55 URINE CULTURE [id number] Comments: [facility] performed at: [facility], [address] [place] [address], [address], Softball Core Molder: Wilfrido Quinones D.O., MPHQuest Collection Date/Time: [id number] Results Received Date/Time: [id number] Reported Date/Time: [id number] FASTING:YESQuest performed at: [facility], [address] [place] [address], [address], Softball Core Molder: Wilfrido Quinones D.O., MPHQuest Collection Date/Time: [id number] Results Received Date/Time: [id number] Reported Date/Time: [id number] FASTING:YES Fastin hours CULTURE, URINE, ROUTINE SEE NOTE (Better) Comments: CULTURE, URINE, ROUTINE MICRO NUMBER: [id number] TEST STATUS: FINAL SPECIMEN SOURCE : URINE, [...] On 11-Jan-2016 11:20 * Appointment; Provider: Devendra Lugo On 07-Jan-2016 14:15 * Appointment; Provider: David [...]
--- OUTSIDE RECORDS SUMMARY | 2016-12-25 12:55 | XMS REPORT | Summary of Care ---
Author Author Devendra Lugo M.D. Unknown Address [address], [place] [address] Phone Unavailable Care Team Providers Care Parts Department Supervisor Name Role Phone Kip Jensen Unavailable [...] Active Trigger finger (727.03, M65.30) Status: Active Clostridium difficile colitis (008.45, A04.7) Status: Active Joint pain, knee (719.46, M25.569) Status: Active Arthralgia of multiple sites (719.49, M25.50) Status: Active Lung nodule (793.11, R91.1) Status: Active Abnormal liver function test (790.6, R79.89) Status: Active Visit for screening mammogram (V76.12, [...] Dysphasia and aphasia (784.3, R47.01) Status: Active Low back pain (724.2, M54.5) [...] Status: Active Fibromyalgia (729.1, M79.7) Status: Active Medications Name Dates Details Multi-Vitamin/Minerals [...] Refills: 0 Devendra Lugo M.D.* Started 26-Jun-2015 ActivePromethazine HCl - 12.5 MG Oral Tablet [...] NEEDED. * Quantity: 40 Refills: 0 Kip GreyA.* Started 27-May-2014 ActiveSupplies Soft neck braceDx: Cervical neck pain 723.1 * Quantity: 1 Refills: 0 Devendra Lugo M.D.* Started ActiveFluticasone Propionate 50 MCG/ACT Nasal Suspension USE 1 SPRAY IN EACH NOSTRIL ONCE DAILY. * Quantity: 1 Refills: 4 ArandaPretty M.D.* Started 21-Apr-2015 Gorzhw89 GM Bottle FluvoxaMINE Maleate 100 MG Oral Tablet TAKE 2 TABLETS AT BEDTIME. * Refills: 0 * Started 29-Apr-2015 ActiveLinzess 145 MCG Oral Capsule 1 qd * Refills: 0 ArandaPretty M.D.* Started 29-Apr-2015 ActiveColestipol HCl - 1 GM Oral Tablet Take 1 tablet twice daily * Refills: 0 ArandaPrtety M.D.* Started 29-Apr-2015 ActiveVoltaren 1 % Transdermal Gel * Refills: 0 ArandaPretty M.D.* Started 29-Apr-2015 ActiveAtorvastatin Calcium 10 MG Oral Tablet take 1 tablet by mouth every day * Quantity: 90 Refills: 1 ArandaPretty M.D.* Started 29-Apr-2015 ActiveAspirin 81 MG Oral Tablet Take 1 tablet daily * Quantity: 100 Refills: 0 ArandaPretty M.D.* Started 29-Apr-2015 Active Allergies and Adverse Reactions Name Dates Details MetFORMIN HCl TABS Reaction: Diarrhea Status: Active Past Medical History Name Dates Details History of candidiasis (V12.09, Z86.19) Status: Resolved History of diarrhea (V12.79, Z87.898) Status: Resolved History of herpes zoster (V12.09, Z86.19) Status: Resolved History of infectious mononucleosis (V12.09, Z86.19) Status: Resolved History of influenza (V12.09, Z87.09) Status: Resolved History of Muscle weakness (728.87, M62.81) Status: Resolved History of Tick bite (919.4, T14.8) Status: Resolved Procedures Procedure Dates Details History [...] PROFILE 1184 Ordered:20-Apr-2015 LIVER PROFILE 1215 Ordered:20-Apr-2015 ALBUMIN CREAT PANEL 1108 Ordered:05-May-2015 CBC w/ Auto Diff 7150 Ordered:05-May-2015 Comprehensive Metabolic Panel 1212 Ordered:05-May-2015 HEMOGLOBIN A1C 3507 Ordered:05-May-2015 LIPID PROFILE 1184 Ordered:05-May-2015 THYROID STIM. HORMONE 3602 Ordered:05-May-2015 Urinalysis, Reflex to Microscopic or Culture PRN 8005 Ordered:05-May-2015 Immunization Name Dates Details DTaP Administered on:2003 Hepatitis B Administered on:08-Dec-2003 Hepatitis B Administered on:13-Jan-2004 Tdap (Adacel) Lot #: [id number] Administered on: Influenza Administered on:03-Jun-2010 Influenza Lot #: [id number] Administered on:23-May-2011 Pneumo (Pneumovax) Lot #: [id number] Administered on:31-Aug-2011 Influenza Lot #: [id number] Administered on:08-May-2012 Influenza Administered on:13-Jun-2013 Fluzone Intramuscular Injectable Lot #: [id number] Administered on:29-Apr-2015 Tdap (Adacel) Lot #: [id number] Administered on:29-Apr-2015 Family History Unknown Family Member* [...] low threshold) Range: >60 EST GFR, NON-AFR [place]THER[place] IRISH 47 ml/min (Below low threshold) Range: >60 Comments: EST GFR is reported in ml/min per 1.73 m2 of body surface area. For -Eritrean, please multiple result by 1.2.----- GLUCOSE 165 [...] 143 (Better) 24-Apr-2015 08:13 Triiodothyronine,Free,Serum ( T3) [id number] Comments: [facility] at: [facility], [address] [place] [address], [place], [address], , Computer Customer Support Specialist: AMY Nolan MD Fasting : 14 hours TRIIODOTHYRONINE,FREE,SERUM 2.3 pg/mL (Better) Range: 2.0-4.4 15-May-2015 14:52 CT CHEST WITHOUT IV CONTRAST Comments: Exam Date: 10:43Dictation Date: 05/15/2015 14:52 XC CHEST (Better) Plan of Care Planned Observations* Name Dates Details Planned Goals not documented Goal Planned Encounters* Appointment; Provider: David Ramírez On 10-Aug-2015 10:00 * Appointment; Provider: Pretty Aranda On 30-Jul-2015 10:30 * Appointment; Provider: Eric Garcia On 11-Jun-2015 14:00 * Appointment; Provider: Jordan Muñoz On 05-Jun-2015 10:30 * Appointment; Provider: Wilfrido Waddell On [...]
--- OUTSIDE RECORDS SUMMARY | 2016-12-25 12:55 | XMS REPORT | Summary of Care ---
Author Author Amelia Rucker Unknown Address [address], [place] [address] Phone Unavailable Care Team Providers Care Ground Service Equipment Mechanic Name Role Phone Tiny Crystal, Min Unavailable Unavailable Cristi Crystal, Leon Unavailable Unavailable Que P.A., Kip Unavailable Unavailable Amleia Rucker Unavailable Unavailable Parish Crystal, Tracie Unavailable [...] Quantity: 60 Refills: 0 * Started ActiveNystatin-Triamcinolone 144333-3.1 UNIT/GM-% External Cream APPLY SPARINGLY TO AFFECTED AREA(S) 3 TIMES A DAY * Quantity: 2 Refills: 4 Pretty Aranda M.D.* Started 19-Jan-2012 Jlrzam34 GM Tube SEROquel XR 300 MG Oral [...] Quantity: 120 Refills: 0 Amelia Sandhu* Started 29-Aug-2013 ActiveDicyclomine HCl - 20 MG Oral Tablet TAKE 1 TABLET EVERY 6 HOURS NEEDED. * Quantity: 40 Refills: 0 Kip Grey* Started 27-May-2014 ActiveLinzess 145 MCG Oral Capsule take 1 capsule daily * Quantity: 7 Refills: 0 Kip Grey* Started 02-Jul-2014 ActiveFluvoxaMINE Maleate 100 MG Oral Tablet Take 1 1/2 tablet at bedtime * Quantity: 45 Refills: 0 Pretty Aranda M.D.* Started 23-Jul-2014 ActiveCyclobenzaprine HCl - 10 MG Oral Tablet Si PO Tid. * Quantity: 90 Refills: 2 Devendra Lugo M.D.* Started 24-Oct-2013 ActivePromethazine HCl - 12.5 MG Oral Tablet [...] B Administered on:13-Jan-2004 Tdap (Adacel) Lot #: [id number] Administered on: Influenza Administered on:03-Jun-2010 Influenza Lot #: [id number] Administered on:23-May-2011 Pneumo (Pneumovax) Lot #: [id number] Administered on:31-Aug-2011 Influenza Lot #: [id number] Administered on:08-May-2012 Influenza Administered on:13-Jun-2013 Family History [...] Diagnosis: Problem not documented On 14:15 Appointment; Janice Colin Encounter Diagnosis: Problem not documented On 15:15 Appointment; Pretty Aranda Encounter Diagnosis: Problem not documented On 14:30 Appointment; Pretty Aranda Encounter Diagnosis: Problem not documented On 15:15 Appointment; Pretty Aranda Encounter Diagnosis: Problem not documented On 15:15 Appointment; Cristi, Janice Encounter Diagnosis: Problem not documented On 09:30 Appointment; Aliza Quiñonez Encounter Diagnosis: Problem not documented On 08:15 Appointment; Janice Colin Encounter Diagnosis: Problem not documented On 14:30 [...]
--- OUTSIDE RECORDS SUMMARY | 2016-12-25 12:56 | XMS REPORT | Summary of Care ---
Author Author Pretty Aranda M.D. Unknown Address [address], [place] [address] Phone Unavailable Care Team Providers Care Serologist Name Role Phone Cristi Crystal, Leon Unavailable [...] Active Migraine headache (346.90, G43.909) Status: Active Medications Name Dates Details Multi-Vitamin/Minerals [...] PRN diarrhea. * Quantity: 180 Refills: 3 CristiJanice M.D.* Started ActiveNystatin-Triamcinolone 517933-8.1 UNIT/GM-% External Cream APPLY SPARINGLY TO AFFECTED AREA(S) 3 TIMES A DAY * Quantity: 2 Refills: 4 ArandaPretty M.D.* Started 19-Jan-2012 Lsokqj75 GM Tube BusPIRone HCl - 15 MG Oral Tablet TAKE 1 TABLET 3 times daily * Refills: 0 * Started 19-Nov-2012 ActiveDicyclomine HCl - 20 MG Oral Tablet TAKE 1 TABLET EVERY 6 HOURS NEEDED. * Quantity: 40 Refills: 0 Kip Gery* Started 27-May-2014 ActivePromethazine HCl - 12.5 MG [...] Quantity: 1 Refills: 1 Amelia Sandhu* Started ActiveCyclobenzaprine HCl - 10 MG Oral Tablet Si PO Tid. * Quantity: 90 Refills: 2 Amelia Sandhu* Started 24-Oct-2013 ActiveHYDROmorphone HCl - 4 MG Oral Tablet Si PO every 6 hours prn with a max of 4 per day. Script must last [address] Lugo * Quantity: 120 Refills: 0 Amelia Sandhu* Started 27-Apr-2015 ActiveGabapentin 600 MG Oral Tablet TAKE ONE TABLET BY MOUTH AT BEDTIME * Quantity: 90 Refills: 3 Amelia Sandhu* Started 27-Mar-2013 ActiveLinzess 145 MCG Oral Capsule [...] B Administered on:13-Jan-2004 Tdap (Adacel) Lot #: [id number] Administered on: Influenza Administered on:03-Jun-2010 Influenza Lot #: [id number] Administered on:23-May-2011 Pneumo (Pneumovax) Lot #: [id number] Administered on:31-Aug-2011 Influenza Lot #: [id number] Administered on:08-May-2012 Influenza Administered on:13-Jun-2013 Family History [...] low threshold) Range: >60 EST GFR, NON-AFR [place] 47 ml/min (Below low threshold) Range: >60 Comments: EST GFR is reported in ml/min per 1.73 m2 of body surface area. For -Chadian, please multiple result by 1.2.----- GLUCOSE 156 [...] 14:39 Urinalysis, reflex to Micro and Culture ([facility]) 8016 pH 7.5 (Better) Range: 5.0-7.5 SP [...]
--- OUTSIDE RECORDS SUMMARY | 2016-12-25 12:56 | XMS REPORT | Summary of Care ---
Author Author Pretty Aranda M.D. Unknown Address [address], [place] [address] Phone Unavailable Care Team Providers Care Nutrition Technician Name Role Phone Kip Jensen Unavailable [...] Status: Active Depression (311, F32.9) Status: Active Bilateral hip pain (719.45, M25.551) Status: Active Bilateral hip bursitis (726.5, M70.71) Status: Active Hypertension (401.9, I10) Status: Active Hyperlipidemia (272.4, E78.5) Status: Active Symptoms involving urinary system (788.99, [...] History of Nerve Block Transforaminal Epidural Lumbar ULTRASOUND RENAL SONO Ordered:16-Nov-2015 Immunization Name Dates Details DTaP Administered on:2003 Hepatitis B Administered on:08-Dec-2003 Hepatitis B Administered on:13-Jan-2004 Tdap (Adacel) Lot #: [id number] Administered on: Influenza Administered on:03-Jun-2010 Influenza Lot #: [id number] Administered on:23-May-2011 Pneumo (Pneumovax) Lot #: [id number] Administered on:31-Aug-2011 Influenza Lot #: [id number] Administered on:08-May-2012 Influenza Administered on:13-Jun-2013 Fluzone Intramuscular Injectable Lot #: [id number] Administered on:29-Apr-2015 Tdap (Adacel) Lot #: [id number] Administered on:29-Apr-2015 Family History Unknown Family Member* [...] to report Results Date Description Value Details 05-Nov-2015 08:37 URINE CULTURE [id number] Comments: [facility] performed at: [place], [address] [place], [address], Electronic Systems Security Assessment: Wilfrido Quinones D.O., MPHQuest Collection Date/Time: [id number] Results Received Date/Time: [id number] Reported Date/Time: [id number] signed CULTURE, URINE, ROUTINE SEE NOTE (Better) Comments: CULTURE, URINE, ROUTINE MICRO NUMBER: [id number] TEST STATUS: FINAL SPECIMEN SOURCE : URINE, CLEAN CATCH SPECIMEN QUALITY: ADEQUATE RESULT: Multiple organisms present, each less than 10,000 CFU/mL. These organisms, commonly found on external and internal genitalia, are considered to be colonizers. No further testing performed.[[place]]----- Plan of Care Planned Observations* Name Dates Details Planned Goals not documented Goal Planned Encounters* Appointment; Provider: Devendra Lugo On 07-Jan-2016 14:15 * Appointment; Provider: Pretty Aranda On 23-Dec-2015 09:45 * Appointment; Provider: Schedule Radiology On 13-Nov-2015 [...]
--- OUTSIDE RECORDS SUMMARY | 2016-12-25 12:56 | XMS REPORT | Summary of Care ---
Author Author Amelia Rucker Unknown Address [address] [place], [place] [address] Phone Unavailable Care Team Providers Care Ammonia Refrigeration Technician Name Role Phone Tiny Crystal, Min Unavailable [...] Cervical pain (neck) (723.1, M54.2) Status: Active Medications Name Dates Details Multi-Vitamin/Minerals [...] DAILY. * Refills: 0 * Started 10-Jul-2012 ActiveVoltaren 1 % Transdermal Gel Sig: Apply to affected area Qid prn. * Quantity: 1 Refills: 1 Devnedra Lugo M.D.* Started ActiveAmbien 10 MG Oral Tablet TAKE [...] 180 Refills: 3 Janice Colin M.D.* Started ActiveLisinopril 10 MG Oral Tablet TAKE 1 TABLET DAILY. * Quantity: 90 Refills: 3 Pretty Aranda M.D.* Started 01-Nov-2012 ActiveGlimepiride 2 MG Oral Tablet take one tablet by mouth every day with breakfast * Quantity: 90 Refills: 3 Pretty Aranda M.D.* Started 22-Jul-2013 ActiveGabapentin 600 MG Oral Tablet TAKE ONE TABLET BY MOUTH AT BEDTIME * Quantity: 90 Refills: 3 David Franks M.D.* Started 27-Mar-2013 ActiveNystatin-Triamcinolone 485234-6.1 UNIT/GM-% External Cream APPLY SPARINGLY TO AFFECTED AREA(S) 3 TIMES A DAY * Quantity: 2 Refills: 4 Pretty Aranda M.D.* Started 19-Jan-2012 Gbfdgx01 GM Tube BusPIRone HCl - 15 MG Oral Tablet TAKE 1 TABLET 3 times daily * Refills: 0 * Started 19-Nov-2012 ActiveDicyclomine HCl - 20 MG Oral Tablet TAKE 1 TABLET EVERY 6 HOURS NEEDED. * Quantity: 40 Refills: 0 Kip Grey* Started 27-May-2014 ActiveLinzess 145 MCG Oral Capsule take 1 capsule daily * Quantity: 7 Refills: 0 Kip Grey* Started 02-Jul-2014 ActiveCyclobenzaprine HCl - 10 MG Oral Tablet Si PO Tid. * Quantity: 90 Refills: 2 Devendra Lugo M.D.* Started 24-Oct-2013 ActivePromethazine HCl - 12.5 MG Oral Tablet TAKE 1 TABLET EVERY 6 TO 8 HOURS NEEDED NAUSEA. * Quantity: 60 Refills: 0 Devendra Lugo M.D.* Started 15-Oct-2013 ActiveFluvoxaMINE Maleate 100 MG Oral Tablet TAKE 2 TABLET Every morning * Refills: 0 Pretty Aranda M.D.* Started 23-Jul-2014 ActiveHYDROmorphone HCl - 4 MG Oral Tablet Si PO every 6 hours prn with a max of 4 per day. Script must last [address] Lugo * Quantity: 120 Refills: 0 Amelia Sandhu* Started 29-Aug-2013 Active Allergies and Adverse Reactions Name Dates [...] of Nerve Block Transforaminal Epidural Lumbar XRay SPINE-CERVICAL Ordered:28-Oct-2014 Immunization Name Dates Details DTaP Administered on:2003 Hepatitis B Administered on:08-Dec-2003 Hepatitis B Administered on:13-Jan-2004 Tdap (Adacel) Lot #: [id number] Administered on: Influenza Administered on:03-Jun-2010 Influenza Lot #: [id number] Administered on:23-May-2011 Pneumo (Pneumovax) Lot #: [id number] Administered on:31-Aug-2011 Influenza Lot #: [id number] Administered on:08-May-2012 Influenza Administered on:13-Jun-2013 Family History [...] smoker Vital Signs Date Test Result Details 28-Oct-2014 10:29 BP Systolic 122 mm[Hg] Status: BP Diastolic 78 mm[Hg] Status: Heart Rate 110 /min Status: Weight 249 lb Status: O2 SAT 95 % Status: Body Mass Index Calculated 43.42 kg/m2 Status: Body Surface Area Calculated 2.13 m2 Status: 29-Sep-2014 11:15 BP Systolic 130 mm[Hg] Status: BP Diastolic 70 mm[Hg] Status: Heart Rate 88 /min Status: Temperature 98.6 f Status: Weight 247 lb Status: Body Mass Index Calculated 43.07 kg/m2 Status: Body Surface Area Calculated 2.13 m2 Status: Results Date Description Value Details 27-Oct-2014 10:34 HEMOGLOBIN A1C 3507 Hemoglobin A1C 6.7 % (Better) ESTIMATED AVG. GLUCOSE 146 (Better) Plan of Care Planned Observations* Name Dates Details Planned Goals not documented Goal Planned Encounters* Appointment; Provider: David Franks On 07-May-2015 14:00 * Appointment; Provider: Pretty Aranda On 13:00 [...]
--- OUTSIDE RECORDS SUMMARY | 2016-12-25 12:57 | XMS REPORT | Summary of Care ---
Author Author Devendra Lugo M.D. Unknown Address Unknown Phone Unavailable Care Team Providers Care Embalmer Apprentice Name Role Phone Tiny Crystal, Min Unavailable [...] Quantity: 60 Refills: 0 * Started ActiveNystatin-Triamcinolone 454927-2.1 UNIT/GM-% External Cream APPLY SPARINGLY TO AFFECTED AREA(S) 3 TIMES A DAY * Quantity: 2 Refills: 4 Pretty Aranda M.D.* Started 19-Jan-2012 Yrpkjr28 GM Tube SEROquel XR 300 MG Oral [...] B Administered on:13-Jan-2004 Tdap (Adacel) Lot #: [id number] Administered on: Influenza Administered on:03-Jun-2010 Influenza Lot #: [id number] Administered on:23-May-2011 Pneumo (Pneumovax) Lot #: [id number] Administered on:31-Aug-2011 Influenza Lot #: [id number] Administered on:08-May-2012 Influenza Administered on:13-Jun-2013 Family History [...] On 28-Oct-2014 10:30 * Appointment; Provider: Lucía Benntet On 19-Oct-2012 09:30 * Appointment; Provider: Francisco [...] Diagnosis: Problem not documented On 08:15 Appointment; Cristi, Janice Encounter Diagnosis: Problem not [...]
--- OUTSIDE RECORDS SUMMARY | 2016-12-25 12:57 | XMS REPORT | Summary of Care ---
Author Author Pretty Aranda M.D. Unknown Address [address], [place] [id number] Phone Unavailable Care Team Providers Care Remedial Project Manager Name Role Phone Kip Jensen Unavailable [...] Active Brain TIA (435.9, G45.9) Status: Active Medications Name Dates Details Multi-Vitamin/Minerals [...] Refills: 3 Amelia Sandhu P.ATaco* Started 27-Mar-2013 ActiveAmbien 10 MG Oral Tablet TAKE 1 TABLET BY MOUTH AT BEDTIME NEEDED FOR SLEEP * Quantity: 30 Refills: 0 Pretty Aranda M.D.* Started 14-May-2013 ActiveProbiotic Colon Support Oral Capsule TAKE 1 CAPSULE Daily * Quantity: 30 Refills: 0 Pretty Aranda M.D.* Started 14-May-2013 ActiveVitamin B-12 1000 MCG Oral Tablet TAKE 1 TABLET DAILY DIRECTED. * Quantity: 30 Refills: 0 rPetty Aranda M.D.* Started 14-May-2013 ActiveHerbal/ Natural Products [...] Lugo * Quantity: 120 Refills: 0 Amelia Sandhu P.ATaco* Started 27-Apr-2015 ActivePromethazine HCl - 12.5 MG Oral Tablet TAKE 1 TABLET EVERY 6 TO 8 HOURS NEEDED NAUSEA. * Quantity: 60 Refills: 0 Devendra uLgo M.D.* Started 15-Oct-2013 ActiveCyclobenzaprine HCl - 10 [...] 1 Refills: 4 ArandaPretty M.D.* Started 21-Apr-2015 Lhledg36 GM Bottle FluvoxaMINE Maleate 100 MG Oral [...] B Administered on:13-Jan-2004 Tdap (Adacel) Lot #: [id number] Administered on: Influenza Administered on:03-Jun-2010 Influenza Lot #: [id number] Administered on:23-May-2011 Pneumo (Pneumovax) Lot #: [id number] Administered on:31-Aug-2011 Influenza Lot #: [id number] Administered on:08-May-2012 Influenza Administered on:13-Jun-2013 Fluzone Intramuscular Injectable Lot #: [id number] Administered on:29-Apr-2015 Tdap (Adacel) Lot #: [id number] Administered on:29-Apr-2015 Family History Unknown Family Member* [...] low threshold) Range: >60 EST GFR, NON-AFR PRYDEINIG 47 ml/min (Below low threshold) Range: >60 Comments: EST GFR is reported in ml/min per 1.73 m2 of body surface area. For -Guinean, please multiple result by 1.2.----- GLUCOSE 165 [...] 143 (Better) 24-Apr-2015 08:13 Triiodothyronine,Free,Serum ( T3) [id number] Comments: Testing performed at: [] [facility], [address] [place] [address], [place], [address], , Digital Account Supervisor: AMY Nolan MD Fasting : 14 hours TRIIODOTHYRONINE,FREE,SERUM 2.3 pg/mL (Better) Range: 2.0-4.4 Plan of Care Planned Observations* Name Dates Details Planned Goals not documented Goal Planned Encounters* Appointment; Provider: David Ramírez On 10-Aug-2015 10:00 * Appointment; Provider: Pretty Aranda On 30-Jul-2015 10:30 * Appointment; Provider: Devendra Lugo On 20-May-2015 11:00 * Appointment; Provider: Jordan Muñoz On 20-May-2015 10:30 * Appointment; Provider: Pretty Aranda On 11-May-2015 10:30 * Appointment; Provider: David Franks On 07-May-2015 14:00 * Appointment; Provider: Wilfrido Waddell On 15-Apr-2015 [...]
--- OUTSIDE RECORDS SUMMARY | 2016-12-25 12:57 | XMS REPORT | Summary of Care ---
Author Author Devendra Lugo M.D. Unknown Address [address] [place], [place] [address] Phone Unavailable Care Team Providers Care Mailing Clerk Name Role Phone Cristi Crystal, Leon Unavailable [...] Quantity: 60 Refills: 0 * Started ActiveNystatin-Triamcinolone 720796-5.1 UNIT/GM-% External Cream APPLY SPARINGLY TO AFFECTED AREA(S) 3 TIMES A DAY * Quantity: 2 Refills: 4 Pretty Aranda M.D.* Started 19-Jan-2012 Bortbw96 GM Tube SEROquel XR 300 MG Oral [...] Z86.19) Status: Resolved History of herpes zoster (., Z86.19) Status: Resolved History of infectious mononucleosis (., Z86.19) Status: Resolved History of influenza (V12., [...] Transforaminal Epidural Lumbar BASIC METABOLIC PROFILE 1210 Ordered:24-Mar-2015 CBC w/ Auto Diff 7150 Ordered:24-Mar-2015 CT ABDOMEN WITH IV AND ORAL CONTRAST Ordered:24-Mar-2015 Immunization Name Dates Details DTaP Administered on:2003 Hepatitis B Administered on:08-Dec-2003 Hepatitis B Administered on:13-Jan-2004 Tdap (Adacel) Lot #: [id number] Administered on: Influenza Administered on:03-Jun-2010 Influenza Lot #: [id number] Administered on:23-May-2011 Pneumo (Pneumovax) Lot #: [id number] Administered on:31-Aug-2011 Influenza Lot #: [id number] Administered on:08-May-2012 Influenza Administered on:13-Jun-2013 Family History [...] On 13-Apr-2015 14:15 * Appointment; Provider: Zaid Rodriguez On 24-Mar-2015 14:15 * Appointment; Provider: Schedule [...]
--- OUTSIDE RECORDS SUMMARY | 2016-12-25 12:57 | XMS REPORT | Summary of Care ---
Author Author Pretty Aranda M.D. Unknown Address [address], [place] [id number] Phone Unavailable Care Team Providers Care Traffic Court Referee Name Role Phone Tiny Crystal, Min Unavailable [...] Active Sinusitis, acute (461.9, J01.90) Status: Active Medications Name Dates Details Multi-Vitamin/Minerals [...] 1 Refills: 1 Devendra Lugo M.D.* Started ActiveAmbien 10 MG Oral [...] 3 David Franks M.D.* Started 27-Mar-2013 ActiveNystatin-Triamcinolone 497132-1.1 UNIT/GM-% External Cream APPLY SPARINGLY TO AFFECTED AREA(S) 3 TIMES A DAY * Quantity: 2 Refills: 4 Pretty Aranda M.D.* Started 19-Jan-2012 Fqiboa76 GM Tube BusPIRone HCl - 15 MG Oral Tablet TAKE 1 TABLET 3 times daily * Refills: 0 * Started 19-Nov-2012 ActiveDicyclomine HCl - 20 MG Oral Tablet TAKE 1 TABLET EVERY 6 HOURS NEEDED. * Quantity: 40 Refills: 0 Kip Grey* Started 27-May-2014 ActiveLinzess 145 MCG Oral Capsule take 1 capsule daily * Quantity: 7 Refills: 0 Kip Grey* Started 02-Jul-2014 ActiveHYDROmorphone HCl - 4 MG Oral Tablet Si PO every 6 hours prn with a max of 4 per day. Script must last [address] Lugo * Quantity: 120 Refills: 0 Amelia Snadhu* Started 29-Aug-2013 ActiveCyclobenzaprine HCl - 10 MG [...] B Administered on:13-Jan-2004 Tdap (Adacel) Lot #: [id number] Administered on: Influenza Administered on:03-Jun-2010 Influenza Lot #: [id number] Administered on:23-May-2011 Pneumo (Pneumovax) Lot #: [id number] Administered on:31-Aug-2011 Influenza Lot #: [id number] Administered on:08-May-2012 Influenza Administered on:13-Jun-2013 Family History [...]
--- OUTSIDE RECORDS SUMMARY | 2016-12-25 12:57 | XMS REPORT ---
Author Author GENERATED, SYSTEM Organization Unknown Address Unknown Phone Unavailable Care Team Providers Care Tile Molder Hand Name Role Phone MD MARIFER, RODOLFO [phone] Reason For Visit Chief Complaint R32 Social History Functional Status Vital Signs Results Problems Encounter Diagnosis No relevant problems exist. Additional Problems * Chest Pain Comment:Problem resolved by [facility] Workflow upon Discharge, Status :Resolved. * Fall Risk Comment:Problem resolved by [facility] Workflow upon Discharge, Status: Resolved. * Hypertensive Disorder Comment:Problem resolved by [facility] Workflow upon Discharge, Status:Resolved. * Inflammatory Bowel Disease Comment:Problem resolved by [facility] Workflow upon Discharge, Status:Resolved. * Mobility Impairment Comment:Problem resolved by [facility] Workflow upon Discharge, Status:Resolved. * Transient Cerebral Ischemia Comment:Problem resolved by [facility] Workflow upon Discharge, [...]
--- OUTSIDE RECORDS SUMMARY | 2016-12-25 12:58 | XMS REPORT | Summary of Care ---
Author Author Pretty Aranda M.D. Unknown Address [address], [place] [address] Phone Unavailable Care Team Providers Care Sheeter Operator Name Role Phone Cristi Crystal, Leon Unavailable Unavailable Que P.A., Kip Unavailable Unavailable Edson P.A., Amelia Unavailable Unavailable Parish Crystal, Tracie Unavailable Unavailable Manoj Crystla, Pretty Unavailable Unavailable Pretty Aranda PP Unavailable [...] Refills: 3 Janice Colin M.D.* Started ActiveNystatin-Triamcinolone 321338-4.1 UNIT/GM-% External Cream APPLY SPARINGLY TO AFFECTED AREA(S) 3 TIMES A DAY * Quantity: 2 Refills: 4 Pretty Aranda M.D.* Started 19-Jan-2012 Uxbvbd23 GM Tube BusPIRone HCl - 15 MG [...] B Administered on:13-Jan-2004 Tdap (Adacel) Lot #: [id number] Administered on: Influenza Administered on:03-Jun-2010 Influenza Lot #: [id number] Administered on:23-May-2011 Pneumo (Pneumovax) Lot #: [id number] Administered on:31-Aug-2011 Influenza Lot #: [id number] Administered on:08-May-2012 Influenza Administered on:13-Jun-2013 Family History [...] low threshold) Range: >60 EST GFR, NON-AFR ETHIOPIAN 47 ml/min (Below low threshold) Range: >60 Comments: EST GFR is reported in ml/min per 1.73 m2 of body surface area. For -Nauruan, please multiple result by 1.2.----- GLUCOSE 156 [...] 14:39 Urinalysis, reflex to Micro and Culture ([facility]) 8016 pH 7.5 (Better) Range: 5.0-7.5 [...]
--- OUTSIDE RECORDS SUMMARY | 2016-12-25 12:58 | XMS REPORT | Summary of Care ---
Author Author Pretty Aranda M.D. 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 * Quantity: 40 Refills: 0 Osenbaugh P.A., Kip * Start 27-May-2014 Active Supplies Soft neck braceDx: Cervical neck pain 723.1 * Quantity: 1 Refills: 0 Parish Carver.Devendra Knapp * Start Active FluvoxaMINE Maleate 100 MG Oral Tablet TAKE 1 AND 1/2 TABLETS TWICE DAILY. * Refills: 0 * Start 29-Apr-2015 Active Colestipol HCl - 1 GM Oral Tablet Take 1 tablet twice daily * Refills: 0 Aranda M.D.Eddaa * Start 29-Apr-2015 Active Voltaren 1 % Transdermal Gel APPLY 2 GRAMS TO AFFECTED AREA TWICE A DAY AND RUB IN WELL * Quantity: 100 Refills: 0 Parish Carver.Devendra Knapp Start 29-Apr-2015 Active Atorvastatin Calcium 10 MG Oral Tablet Take 1 tablet daily * Quantity: 90 Refills: 3 Aranda M.D., Pretty * Start 29-Apr-2015 Active Aspirin 81 MG [...] Quantity: 180 Refills: 0 Parish Carver.Devendra Knapp * Start 16-Nov-2015 Active Allergies and Adverse Reactions Name Dates Details MetFORMIN HCl TABS (Allergy) Reaction: Diarrhea Status: Active Past Medical History Name Dates Details History of abdominal pain (V13.89, Z87.898) Status: Resolved History of Acute ischemic colitis (557.0, K55.0) Status: Resolved History of Benign paroxysmal positional [...] Transforaminal Epidural Lumbar BASIC METABOLIC PROFILE 1210 Ordered: 14-Apr-2016 Comprehensive Metabolic Panel 1212 Ordered: 22-Apr-2016 HEMOGLOBIN A1C 3507 Ordered: 22-Apr-2016 ORTHO SPINE LUMBAR ( 2 VIEWS ONLY) Ordered: MAMMOGRAM-SCREENING Ordered: 07-Apr-2016 Immunization Name Dates Details DTaP on: 2003 Hepatitis B on: 08-Dec-2003 Hepatitis B on: 13-Jan-2004 Tdap (Adacel) Lot #: [id number] on: Influenza on: 03-Jun-2010 Influenza Lot #: [id number] on: 23-May-2011 Pneumo (Pneumovax) Lot #: [id number] on: 31-Aug-2011 Influenza Lot #: [id number] on: 08-May-2012 Influenza on: 13-Jun-2013 Fluzone INJ Lot #: [id number] on: 29-Apr-2015 Tdap (Adacel) Lot #: [id number] on: 29-Apr-2015 Fluzone Quadrivalent 0.5 ML Intramuscular Suspension Lot #: [id number] on: 21-Apr-2016 Family History Name Dates Details [...] smoker Vital Signs Date Test Result Details 21-Apr-2016 14:18 BP Systolic 98 mm[Hg] Status: Comments: Location: ; Position: BP Diastolic 68 mm[Hg] Status: Comments: Location: ; Position: Heart Rate 127 /min Status: Comments: Location: ; Weight 251 lb Status: Physical Findings 98 Status: Comments: O2 Saturation Body Mass Index Calculated 43.77 kg/m2 Status: Body Surface Area Calculated 2.14 m2 Status: 07-Apr-2016 13:35 BP Systolic 99 mm[Hg] Status: Comments: Location: ; Position: BP Diastolic 82 mm[Hg] Status: Comments: Location: ; Position: Temperature 97.9 f Status: Heart Rate 130 /min Status: Comments: Location: [...] >60 ml/min Range: >60 EST GFR, NON-AFR HAITIAN 52 ml/min (Below low threshold) Range: >60 Comments: EST GFR is reported in ml/min per 1.73 m2 of body surface area. For -Anguillan, please multiple result by 1.2.----- BUN:CREATININE RATIO 7 GLUCOSE 113 mg/dL (Above high threshold) Range: 70-100 CALCIUM 9.3 mg/dL Range: 8.5-10.1 15:22 HEMOGLOBIN A1C 3507 Hemoglobin A1C 6.9 % ESTIMATED AVG. GLUCOSE 151 Plan of Care Name Dates Details Planned Observations Planned Goals not documented Planned Encounters Appointment; Provider: David Kelly M.D.|Dori,EMBER|Marah,EMBER, On 27-Jul-2016 10:15 Appointment; Provider: Pretty Aranda M.D. On 25-Jul-2016 14:15 Appointment; Provider: Devendra Lugo M.D. On 03-May-2016 13:00 Interventions Provided Labs/Procedures/Imaging* BASIC METABOLIC PROFILE 1210; To be Done: 21 Apr 2016 Medications/Immunizations Administered* Fluzone Quadrivalent 0.5 ML Intramuscular [...] not documented On 10:30 Appointment; David Kelly M.D.|F.Vianney.C.STaco|EMBER Crystal|EMBER Crystal, Encounter Diagnosis: Problem not documented On 10:30 Appointment; Devendra Lugo M.D. Encounter Diagnosis: Problem not documented On 07-Jan-2016 14:15 Appointment; Pretty Aranda M.D. Encounter Diagnosis: Problem not documented On 23-Dec-2015 09:45 Appointment; Devendra Lugo M.D. Encounter Diagnosis: Problem not documented On 12-Nov-2015 10:30 Appointment; Alphonse Asif M.D. Encounter Diagnosis: Problem not documented On 11-Nov-2015 10:15 Appointment; David Kelly M.D.|F.A.C.S.|Marah,EMBER|Marah,EMBER, Encounter Diagnosis: Problem not documented On 03-Nov-2015 [...] documented On 24-Mar-2015 11:00 Appointment; Amelia Sandhu PFlavia Encounter Diagnosis: Problem not documented On 11:30 [...]
--- OUTSIDE RECORDS SUMMARY | 2016-12-25 12:58 | XMS REPORT | Summary of Care ---
Author Author Juan Carlos Crystal, Nimesh Mireles Unknown Address Unknown Phone Unavailable Care Team Providers Care Credit Verifier Name Role Phone Kip Jensen Unavailable Unavailable Edson Adams, Amelia Unavailable Unavailable Parish Cyrstal, Tracie Unavailable Unavailable Manoj Crystal, Pretty Unavailable [...] Quantity: 60 Refills: 0 * Started ActiveNystatin-Triamcinolone 467098-2.1 UNIT/GM-% External Cream APPLY SPARINGLY TO AFFECTED AREA(S) 3 TIMES A DAY * Quantity: 2 Refills: 4 Pretty Aranda M.D.* Started 19-Jan-2012 Aqxsmc86 GM Tube SEROquel XR 300 MG Oral [...] B Administered on:13-Jan-2004 Tdap (Adacel) Lot #: [id number] Administered on: Influenza Administered on:03-Jun-2010 Influenza Lot #: [id number] Administered on:23-May-2011 Pneumo (Pneumovax) Lot #: [id number] Administered on:31-Aug-2011 Influenza Lot #: [id number] Administered on:08-May-2012 Influenza Administered on:13-Jun-2013 Fluzone Intramuscular Injectable Lot #: [id number] Administered on:29-Apr-2015 Tdap (Adacel) Lot #: [id number] Administered on:29-Apr-2015 Family History Unknown Family Member* [...]
--- OUTSIDE RECORDS SUMMARY | 2016-12-25 12:58 | XMS REPORT | Summary of Care ---
Author Author Amelia Rucker Unknown Address [address], [place] [address] Phone Unavailable Care Team Providers Care Adjunct Faculty For Medical Terminology Name Role Phone Tiny Crystal, Min Unavailable [...] Quantity: 60 Refills: 0 * Started ActiveNystatin-Triamcinolone 132051-6.1 UNIT/GM-% External Cream APPLY SPARINGLY TO AFFECTED AREA(S) 3 TIMES A DAY * Quantity: 2 Refills: 4 Pretty Aranda M.D.* Started 19-Jan-2012 Fwgpcg35 GM Tube SEROquel XR 300 MG Oral [...] Quantity: 120 Refills: 0 Amelia SandhuATaco* Started 29-Aug-2013 ActivePromethazine HCl - 12.5 MG [...] B Administered on:13-Jan-2004 Tdap (Adacel) Lot #: [id number] Administered on: Influenza Administered on:03-Jun-2010 Influenza Lot #: [id number] Administered on:23-May-2011 Pneumo (Pneumovax) Lot #: [id number] Administered on:31-Aug-2011 Influenza Lot #: [id number] Administered on:08-May-2012 Influenza Administered on:13-Jun-2013 Family History [...] Pretty Aranda On 13:00 * Appointment; Provider: Amelia Sandhu On 11:30 * Appointment; Provider: Lucía Bennett [...]
--- OUTSIDE RECORDS SUMMARY | 2016-12-25 12:59 | XMS REPORT | Summary of Care ---
Author Author Pretty Aranda M.D. Unknown Address [address], [place] [id number] Phone Unavailable Care Team Providers Care Durability Engineer Name Role Phone Kip Jensen Unavailable Unavailable [...] * Quantity: 60 Refills: 0 * Started ActiveGabapentin 600 MG Oral Tablet TAKE ONE TABLET BY MOUTH AT BEDTIME * Quantity: 90 Refills: 3 Amelia Sandhu PTacoATaco* Started 27-Mar-2013 ActiveHerbal/ Natural Products Saccharonyces Boulardiitmos * Refills: 0 * Started 05-Jul-2013 ActiveCalcium 600/Vitamin D 600-400 MG-UNIT Oral Tablet * Refills: 0 * Started 05-Jul-2013 ActivePromethazine HCl - 12.5 MG Oral Tablet TAKE 1 TABLET EVERY 6 TO 8 HOURS NEEDED NAUSEA. * Quantity: 60 Refills: 0 Devendra Lugo M.D.* Started 15-Oct-2013 ActiveCyclobenzaprine HCl - 10 MG Oral Tablet Si PO Tid. * Quantity: 90 Refills: 2 Amelia Sandhu PTacoATaco* Started 24-Oct-2013 ActiveDicyclomine HCl - 20 MG Oral Tablet TAKE 1 TABLET EVERY 6 HOURS NEEDED. * Quantity: 40 Refills: 0 Kip Grey PTacoATaco* Started 27-May-2014 ActiveSupplies Soft neck braceDx: Cervical neck pain 723.1 * Quantity: 1 Refills: 0 Devendra Lugo M.D.* Started ActiveFluticasone Propionate 50 MCG/ACT Nasal Suspension USE 1 SPRAY IN EACH NOSTRIL ONCE DAILY. * Quantity: 1 Refills: 4 Pretty Aranda M.D.* Started 21-Apr-2015 Dfpfeo70 GM Bottle Glimepiride 2 MG Oral Tablet TAKE 1 TABLET EVERY DAY WITH BREAKFAST * Quantity: 90 Refills: 3 Pretty Aranda M.D.* Started 22-Jul-2013 ActiveVitamin B-12 1000 MCG Oral Tablet TAKE 1 TABLET DAILY DIRECTED. * Quantity: 30 Refills: 0 ArandaPretty M.D.* Started 14-May-2013 ActiveProbiotic Colon Support Oral Capsule TAKE 1 CAPSULE Daily * Quantity: 30 Refills: 0 ArandaPretty M.D.* Started 14-May-2013 ActiveAmbien 10 MG Oral Tablet TAKE 1 TABLET BY MOUTH AT BEDTIME NEEDED FOR SLEEP * Quantity: 30 Refills: 0 ArandaPretty M.D.* Started 14-May-2013 ActiveLisinopril 10 MG Oral Tablet Take 1 tablet daily * Quantity: 90 Refills: 2 ArandaPretty M.D.* Started 01-Nov-2012 ActiveSEROquel XR 300 MG Oral Tablet Extended Release 24 Hour TAKE 1 TABLET DAILY. * Refills: 0 * Started 10-Jul-2012 ActiveBusPIRone HCl - 15 MG Oral Tablet TAKE 1 TABLET 4 times daily * Refills: 0 * Started 19-Nov-2012 ActiveHYDROmorphone HCl - 4 MG Oral Tablet Si PO every 6 hours prn with a max of 4 per day. Script must last [address] Lugo * Quantity: 120 Refills: 0 Amelia Sandhu* Started 27-Apr-2015 Active Allergies and Adverse Reactions Name Dates [...] B Administered on:13-Jan-2004 Tdap (Adacel) Lot #: [id number] Administered on: Influenza Administered on:03-Jun-2010 Influenza Lot #: [id number] Administered on:23-May-2011 Pneumo (Pneumovax) Lot #: [id number] Administered on:31-Aug-2011 Influenza Lot #: [id number] Administered on:08-May-2012 Influenza Administered on:13-Jun-2013 Family History [...] low threshold) Range: >60 EST GFR, NON-AFR ZAMBIAN 47 ml/min (Below low threshold) Range: >60 [...] 14:39 Urinalysis, reflex to Micro and Culture ([facility]) 8016 pH 7.5 (Better) Range: 5.0-7.5 SP [...] Aranda On 29-Apr-2015 09:45 * Appointment; Provider: Wilfrido Waddell On 15-Apr-2015 [...] Problem not documented On 23-Jul-2014 11:00 Appointment; iKp Grey Encounter Diagnosis: Problem not documented On [...]
--- OUTSIDE RECORDS SUMMARY | 2016-12-25 12:59 | XMS REPORT ---
Author Author GENERATED, SYSTEM Organization Unknown Address Unknown Phone Unavailable Care Team Providers Care Freight Clerk Name Role Phone MD MARIFER, RODOLFO [phone] Reason For Visit Reason for Visit from 04/22/2016 11:48 PM:* Pt Stated Reason for Adm : TIA Chief Complaint TRANSIENT ISCHEMIC ATTACK Social History Social History from 04/23/2016 12:17 PM:* Tobacco Use? : Never Smoker Social History from 04/22/2016 11:48 PM:* Tobacco Use? : Never Smoker Functional Status Functional Status from 04/23/2016 8:08 AM:* LOC : Alert * Oriented To : Person,Place,Time,Event * Weight Bearing Status : Full * Assist Level : Partial * # Assists : 1 Functional Status from 04/22/2016 11:48 PM:* LOC : Drowsy * Oriented To : Person,Place,Time * Weight Bearing Status : Full * Assist Level : Partial * # Assists : 1 Vital Signs Hospital Vital Signs from 04/23/2016 11:30 AM:* Height : 5/2 ft,in * Temperature : 96.3 F * Pulse : 78 * Respirations : 18 * BP : 106/66 Hospital Vital Signs from 04/23/2016 8:08 AM:* Heart Rate : 72 Hospital Vital Signs from 04/23/2016 7:50 AM:* Height : 5/2 ft,in * Temperature : 97.7 F * Pulse : 72 * Respirations : 18 * BP : 107/70 Hospital Vital Signs from 04/23/2016 2:56 AM:* Height : 5/2 ft,in * Temperature : 96.4 F * Pulse : 98 * Respirations : 18 * BP : 128/76 Hospital Vital Signs from 04/22/2016 11:48 PM:* Weight : 117.1/ kg * Height : 5/2 ft,in Hospital Vital Signs from 04/22/2016 11:29 PM:* Weight : 117.1/ kg * Height : 5/2 ft,in * Temperature : 96.3 F * Pulse : 110 * Respirations : 16 * BP : 115/72 Results Chemistry from 04/23/2016 4:54 AM*EST AVG GLUCOSE 134.1 gm/dl CHOLESTEROL 131 MG/DL (50-199 MG/DL) TRIGLYCERIDES 160 MG/DL H (0-149 MG/DL) HDL CHOLESTEROL 42 MG/DL (40-60 MG/DL) *LDL (CALCULATED) CHOL 57 MG/DL (0-99 MG/DL) HEMOGLOBIN A1C 6.3 % H (4.5-6.2 %) Echocardiology from 04/23/2016 12:00 AMEchocardiogram See also the report from this date MRI from 04/23/2016 8:19 AMMRI BRAIN W/O_W/CONTRAST History: confusion . Double vision left-sided facial numbness. Technique: Pre and Post contrast images were performed after the administration of 7 milliliters of Prohance intravenous contrast. Priors: 04/15/2015 Findings: The ventricles, sulci, and cisterns appear within normal limits. There is no midline shift. Normal vascular flow voids are seen at the skull base. The fallon-white matter differentiation is within normal limits. There is no focus of restricted diffusion seen to suggest acute stroke. No space occupying lesions seen. The visualized paranasal sinuses and mastoid air cells are unremarkable. There is no evidence of cerebellopontine angle mass. The internal auditory canals appear unremarkable bilaterally. There is no evidence of suspicious enhancement. Impression: Unremarkable MRI examination of the brain. Electronically signed by: Kyaw Johnson MD Dictated: 04/23/2016 11:02 Problems Encounter Diagnosis * Acute Pain Status:Active. * Depression Status:Active. * Diabetes Mellitus Status:Active. * Fall Risk Status:Active. * History of TIA Status:Active. * Migraine Status:Active. Additional Problems * Chest Pain Comment:Problem resolved by [facility] upon Discharge, Status :Resolved. * Hypertensive Disorder Comment:Problem resolved by [facility] upon Discharge, Status:Resolved. * Inflammatory Bowel Disease Comment:Problem resolved by [facility] upon Discharge, Status:Resolved. * Mobility Impairment Comment:Problem resolved by [facility] upon Discharge, Status:Resolved. * Transient Cerebral Ischemia Comment:Problem resolved by [facility] upon Discharge, Status:Resolved. Encounters Encounter Diagnosis * Acute Pain Status:Active. * Depression Status:Active. * Diabetes Mellitus Status:Active. * Fall Risk Status:Active. * History of TIA Status:Active. * Migraine Status:Active. Plan of Care Follow-up Appointments from 04/23/2016 12:17 PM:* #1 Office appointment: : Dr Aranda (call Monday to schedule a follow up appointment in 1-2 days) * Address # 1 : [facility]: [address] [place], [place]- [phone] or Treatment Plan from 04/23/2016 9:59 AM:* Care Management Note : Patient admitted under outpatient observation status after presenting to the ED w/ c/o mental status changes et confusion associated w/ migraine et L facial droop. Patient has had approx 7 TIA's in the past per [facility]. Symptoms resolved other than patient reported feeling like her thought process was slow. CTA head et neck negative. POC will be to check MRI. Patient is outpatient observation status appropriate at this time. Procedures * Completed , on 10/19/2012 12:00 AM Immunizations No immunizations administered or ordered. Hospital Course Hospital Discharge Instructions How to care for yourself at home from 04/23/2016 12:17 PM:* Discharge Activity : Activity as tolerated,May Shower * Discharge Diet : Diet as tolerated * Discharge Diet: : Regular * Call your doctor if: : Fever over 101 F or severe chills,Chest pain or other unexplained symptoms,Tingling or numbness develops,A sudden increase or decrease in weight,You have persistent or worsening symptoms,If you have Heart Failure and you gain 3 pounds within 1 week or your symptoms worsen. (Weigh at home tomorrow morning) * Specific Discharge Teaching Instructions provided: : Yes * Specific Discharge Teaching Instructions Reviewed: : Stroke Education Packet * Discharge on Warfarin : No Allergies, Adverse Reactions, Alerts * No Latex Allergy. * No IV Contrast Allergy. * No Known Drug Allergies. Medication It is the responsibility of the patient or patient customer response representative to confirm the list of medications with either the patient's personal care provider or the patient's follow-up care provider to ensure the patient has an appropriate list of medications to take at home. Discharge medications Continued medications* ascorbic acid (Vitamin C) 1,000 mg Tablet, Ordered By: ANALILIA HUBBARD MD Directions: 1 tablet oral daily * aspirin 81 mg tablet,chewable, Ordered By: ANALILIA HUBBARD MD Directions: 1 tablet oral daily every morning * atorvastatin 10 mg Tablet, Ordered By: ANALILIA HUBBARD MD Directions: 1 tablet oral daily * busPIRone 30 mg Tablet, Ordered By: ANALILIA HUBBARD MD Directions: 1 tablet oral twice a day * calcium carbonate-vitamin D3 (Calcium 600 + D(3)) 600 mg calcium (1,500 mg)- 400 unit Tablet, Ordered By: ANALILIA HUBBARD MD Directions: 1 tablet oral daily * cholecalciferol (vitamin D3) (Vitamin D3) 1,000 unit Tablet, Ordered By: ANALILIA HUBBARD MD Directions: 1 tablet oral daily * clonazePAM 1 mg Tablet, Ordered By: ANALILIA HUBBARD MD Directions: 1 tablet oral three times a day * colestipol 1 gram Tablet, Ordered By: ANALILIA HUBBARD MD Directions: 1 tablet oral twice a day * cyclobenzaprine 10 mg Tablet, Ordered By: ANALILIA HUBBARD MD Directions: 1 tablet oral three times a day * dicyclomine 10 mg Capsule, Ordered By: ANALILIA HUBBARD MD Directions: 1 capsule oral three times a day PRN diarrhea * FLUvoxamine 150 mg capsule,extended release 24hr, Ordered By: ANALILIA HUBBARD MD Directions: 1 capsule oral twice a day * gabapentin 600mg Capsule, Ordered By: ANALILIA HUBBARD MD Directions: 1 capsule oral daily at bedtime * glimepiride 2 mg Tablet, Ordered By: ANALILIA HUBBARD MD Directions: 1 tablet oral daily with breakfast * HYDROmorphone 4 mg Tablet, Ordered By: ANALILIA HUBBARD MD Directions: 1 tablet oral every six hours PRN pain * hydrOXYzine HCl 50 mg Tablet, Ordered By: ANALILIA HUBBARD MD Directions: 1 tablet oral three times a day PRN anxiety * lisinopril 10 mg Tablet, Ordered By: ANALILIA HUBBARD MD Directions: 1 tablet oral daily * omega-3 fatty acids (Fish Oil) 1200mg Capsule, Ordered By: ANALILIA HUBBARD MD Directions: 1 capsule oral daily * promethazine 25 mg Tablet, Ordered By: ANALILIA HUBBARD MD Directions: 1 tablet oral every six hours PRN nausea or vomiting * QUEtiapine (SEROquel XR) 300 mg Tablet Extended Release 24 hr, Ordered By: ANALILIA HUBBARD MD Directions: 1 tablet oral daily * saccharomyces boulardii (Digest Probiotic (S.boulardii)) 250 mg Capsule, Ordered By: ANALILIA HUBBARD MD Directions: 2 capsule oral daily * zolpidem 10 mg Tablet, Ordered By: ANALILIA HUBBARD MD Directions: 1 tablet oral daily at bedtime Stopped medications* None
--- OUTSIDE RECORDS SUMMARY | 2016-12-25 12:59 | XMS REPORT | Referral Summary ---
Author Author [facility] Organization [facility] Address Unknown Phone Unavailable Care Team Providers Care Data Collection Interviewer Name Role Phone Declan Simmons Primary Care Physician [phone] Encounter VC Date(s): 05/12/16 - 05/12/16 [facility], [address] [place] [address] Discharge Disposition: 01-Home or Self Care Attending Physician: Verito Simmons DO Admitting Physician: Verito Simmons DO Vital Signs Most recent to 1 oldest [Reference Range]: Temperature Tympanic 36.4 degC [36.6-38.1 degC] *LOW* (05/12/16 2:53 PM) Peripheral Pulse 115 bpm Rate [60-100 bpm] *HI* (05/12/16 2:53 PM) Blood Pressure 134/76 mmHg [90-140/60-90 mmHg] (05/12/16 2:53 PM) SpO2 97 % (05/12/16 2:53 PM) Problem List Condition Effective Dates Status Health Status Informant Morbid Active patient obesity(Confirmed) Fibromyalgia(Confirm Active ed) Allergies, Adverse Reactions, Alerts Substance Reaction Severity Status metFORMIN diarrhea Active Medications Ambien 10 mg oral tablet 10 mg 1 tabs, Oral, Bedtime (once a day), as needed for sleep, 0 Refill(s) Start Date: 05/12/16 Status: Ordered aspirin 81 mg oral tablet 81 mg 1 tabs, Oral, Daily, # 30 tabs, 0 Refill(s) Start Date: 05/12/16 Status: Ordered atorvastatin 10 mg oral tablet 10 mg 1 tabs, Oral, Daily, # 30 tabs, 0 Refill(s) Start Date: 05/12/16 Status: Ordered Biofreeze Topical, BID, 0 Refill(s) [...] BID, # 60 tabs, 0 Refill(s), Pharmacy: [facility] [id number], 1 tabs Oral BID Start Date: 05/12/16 [...] Refill(s) Start Date: 05/12/16 Status: Ordered glimepiride 1 mg oral tablet 1 mg 1 tabs, Oral, Daily, # 30 tabs, 0 Refill(s) Start Date: 05/12/16 Status: Ordered HYDROmorphone 4 mg oral tablet [...] 0 Refill(s) Start Date: 05/12/16 Status: Ordered [facility] 1 caps, Oral, Daily, 0 Refill(s) Start Date: 05/12/16 Status: Ordered promethazine 25 mg oral tablet 25 mg 1 tabs, Oral, q6hr, as needed for nausea/vomiting, # 60 tabs, 0 Refill(s) Start Date: 05/12/16 Status: Ordered Saccharomyces Boulardii+MOS oral capsule 1 caps, Oral, Daily, # 90 caps, 0 Refill(s) Start Date: 05/12/16 Status: Ordered SEROquel XR 300 mg oral tablet, extended release 300 mg 1 tabs, Oral, Daily, # 30 tabs, 0 Refill(s) Start Date: 05/12/16 Status: Ordered travel sick chew travel sick chew, 25 mg, Oral, TID, 0 Refill(s) Start Date: 05/12/16 Status: Ordered vancomycin 125 mg oral capsule 125 mg 1 caps, Oral, q6hr, X 10 days, # 40 caps, 0 Refill(s), Pharmacy: [id number], 1 caps Oral q6hr,x10 days Start Date: 05/12/16 Stop Date: 05/22/16 Status: Ordered Vitamin B12 1000 mcg oral tablet 1,000 mcg 1 tabs, Oral, Daily, # 30 tabs, 0 Refill(s) Start Date: 05/12/16 Status: Ordered Vitamin D3 1000 intl units oral tablet 1,000 Intl_Units 1 tabs, Oral, Daily, # 30 tabs, 0 Refill(s) Start Date: 05/12/16 Status: Ordered Voltaren 1% topical gel 1 sherice, Topical, QID, as needed for pain, # 100 g, 0 Refill(s) Start Date: 05/12/16 Status: Ordered Results No data available for this section Immunizations No data available for this section Procedures Procedure Date Related Diagnosis Body Site Hysterectomy Social History Social History Type Response Smoking Status Current every day smoker Assessment and Plan Extracted from: Title: DOC diarrhea Author: Verito Simmons DO Date: 05/12/16 Assessment/Plan Diarrhea Patient will leave stool sample for testing. Due to patient's history we will go ahead and provideoral vancomycin as treatment for C. difficile. We'll provide the patient with some colestipol as she reports this is the only thing that helps herwith the diarrhea from the C. difficile. Further recommendations afterstool sample. Follow-up with PCP if not improving. Ordered: C diff Battery Office Visit Level 3 Est 99093 Stool Culture w/ Campy and Shigatoxin
--- OUTSIDE RECORDS SUMMARY | 2016-12-25 12:59 | XMS REPORT | Summary of Care ---
Author Author Kip Jensen Unknown Address [address], [place] [id number] Phone Unavailable Care Team Providers Care Fruit Tester Name Role Phone Tiny Crystal, Min Unavailable [...] Quantity: 60 Refills: 0 * Started ActiveNystatin-Triamcinolone 753782-7.1 UNIT/GM-% External Cream APPLY SPARINGLY TO AFFECTED AREA(S) 3 TIMES A DAY * Quantity: 2 Refills: 4 Pretty Aranda M.D.* Started 19-Jan-2012 [id number] GM Tube SEROquel XR 300 MG Oral [...] B Administered on:13-Jan-2004 Tdap (Adacel) Lot #: [id number] Administered on: Influenza Administered on:03-Jun-2010 Influenza Lot #: [id number] Administered on:23-May-2011 Pneumo (Pneumovax) Lot #: [id number] Administered on:31-Aug-2011 Influenza Lot #: [id number] Administered on:08-May-2012 Influenza Administered on:13-Jun-2013 Family History [...]
--- OUTSIDE RECORDS SUMMARY | 2016-12-25 12:59 | XMS REPORT | Referral Summary ---
Author Author [facility] Organization [facility] Address Unknown Phone Unavailable Care Team Providers Care Parcel Carrier Name Role Phone Declan Simmons Primary Care Physician [phone] Encounter VC Date(s): 06/15/16 - 06/15/16 [facility], [address] [place] [address] Discharge Diagnosis: Other hyperlipidemia Discharge Diagnosis: Diabetes Discharge Disposition: 01-Home or Self Care Attending Physician: Verito Simmons DO Admitting Physician: Verito Simmons DO Vital Signs Most recent to 1 oldest [Reference Range]: Temperature Tympanic 37.2 degC [36.6-38.1 degC] (06/15/16 2:52 PM) Peripheral Pulse 104 bpm Rate [60-100 bpm] *HI* (06/15/16 2:52 PM) Respiratory Rate 16 br/min [14-20 br/min] (06/15/16 2:52 PM) Blood Pressure 132/70 mmHg [90-140/60-90 mmHg] (06/15/16 2:52 PM) SpO2 97 % (06/15/16 2:52 PM) Problem List Condition Effective Dates Status [...] BID, # 60 tabs, 0 Refill(s), Pharmacy: [facility], 1 tabs Oral BID Start Date: 05/12/16 [...] Daily, # 90 tabs, 0 Refill(s), Pharmacy: [id number], 1 tabs Oral Daily Start Date: 06/15/16 [...] 0 Refill(s) Start Date: 05/12/16 Status: Ordered [employer] [facility] [facility] 1 caps, Oral, Daily, 0 Refill(s) Start [...] Refill(s) Start Date: 05/12/16 Status: Ordered Results Chemistry Most recent to 1 oldest [Reference Range]: Sodium Lvl [135-144 140 mEq/L mEq/L] (06/15/16 3:55 PM) Potassium Lvl 4.9 mEq/L [3.5-5.2 mEq/L] (06/15/16 3:55 PM) Chloride [99-111 103 mEq/L mEq/L] (06/15/16 3:55 PM) CO2 [22-31 mEq/L] 25 mEq/L (06/15/16 3:55 PM) AGAP [3-20] 12 (06/15/16 3:55 PM) BUN [10-20 mg/dL] 13 mg/dL (06/15/16 3:55 PM) Glucose Lvl [70-99 121 mg/dL mg/dL] *HI* (06/15/16 3:55 PM) Creatinine Lvl 1.01 mg/dL [0.57-1.11 mg/dL] (06/15/16 3:55 PM) eGFR [>60 mL/min] 58 mL/min 1 *ABN* (06/15/16 3:55 PM) Calcium Lvl 9.9 mg/dL [8.9-10.5 mg/dL] (06/15/16 3:55 PM) Albumin Lvl [3.5-5.0 4.3 gm/dL gm/dL] (06/15/16 3:55 PM) Total Protein 7.1 gm/dL [6.1-7.7 gm/dL] (06/15/16 3:55 PM) Globulin [1.8-4.0 2.8 gm/dL gm/dL] (06/15/16 3:55 PM) ALT [0-55 U/L] 24 U/L (06/15/16 3:55 PM) AST [5-34 U/L] 21 U/L (06/15/16 3:55 PM) Alk Phos [40-150 120 U/L U/L] (06/15/16 3:55 PM) Bili Total [0.2-1.2 1.0 mg/dL mg/dL] (06/15/16 3:55 PM) Hgb A1c [4.1-5.6 %] 6.6 % *HI* (06/15/16 3:55 PM) eAvg Glucose 142.7 mg/dL (06/15/16 3:55 PM) 1Result Comment: Multiply eGFR results by 1.21 for race. Immunizations No data available for this section Procedures Procedure Date Related Diagnosis Body Site Hysterectomy Social History Social History Type Response Smoking Status Never smoker Assessment and Plan No data available for this section
--- OUTSIDE RECORDS SUMMARY | 2016-12-25 12:59 | XMS REPORT ---
Author Author GENERATED, SYSTEM Organization Unknown Address Unknown Phone Unavailable Care Team Providers Care Heating And Cooling Systems Engineer Name Role Phone MD MARIFER, RODOLFO [phone] Reason For Visit Reason for Visit from 07/20/2016 11:05 PM:* Pt Stated Reason for Adm : tia rule out cva Chief Complaint TIA R/O CVA Social History Social History from 07/22/2016 2:52 PM:* Tobacco Use? : Never Smoker Social History from 07/20/2016 11:05 PM:* Tobacco Use? : Never Smoker Functional Status Functional Status from 07/22/2016 10:00 AM:* # Assists : 1 Functional Status from 07/22/2016 7:15 AM:* LOC : Alert * Oriented To : Person,Place,Time,Event * Weight Bearing Status : Full * Assist Level : Partial * # Assists : 1 Functional Status from 07/21/2016 7:45 PM:* LOC : Alert * Oriented To : Person,Place,Time,Event * Weight Bearing Status : Full * Assist Level : Partial * # Assists : 1 Functional Status from 07/21/2016 3:06 PM:* Oriented To : Person,Place,Time,Event Functional Status from 07/21/2016 2:22 PM:* Oriented To : Person,Place,Time,Event Functional Status from 07/21/2016 7:10 AM:* LOC : Alert * Oriented To : Person,Place,Time * Weight Bearing Status : Full * Assist Level : Partial * # Assists : 1 Functional Status from 07/21/2016 1:32 AM:* LOC : Alert * Oriented To : Person,Place,Time,Event Functional Status from 07/20/2016 11:05 PM:* Weight Bearing Status : Full * Assist Level : Dependent * # Assists : 1 Vital Signs Hospital Vital Signs from 07/22/2016 11:30 AM:* Height : 5/2 ft,in * Temperature : 96.3 F * Pulse : 89 * Respirations : 18 * BP : 110/76 Hospital Vital Signs from 07/22/2016 7:30 AM:* Height : 5/2 ft,in * Temperature : 96.7 F * Pulse : 89 * Respirations : 18 * BP : 100/57 Hospital Vital Signs from 07/22/2016 2:58 AM:* Heart Rate : 100 Hospital Vital Signs from 07/21/2016 11:41 PM:* Heart Rate : 95 Hospital Vital Signs from 07/21/2016 9:56 PM:* Height : 5/2 ft,in * Temperature : 97.2 F * Pulse : 92 * Respirations : 18 * BP : 103/59 Hospital Vital Signs from 07/21/2016 7:45 PM:* Heart Rate : 90 Hospital Vital Signs from 07/21/2016 6:40 PM:* Height : 5/2 ft,in * Temperature : 98.3 F * Pulse : 98 * Respirations : 18 * BP : 103/64 Hospital Vital Signs from 07/21/2016 4:19 PM:* Height : 5/2 ft,in * Temperature : 98.1 F * Pulse : 88 * Respirations : 18 * BP : 131/85 Hospital Vital Signs from 07/21/2016 10:55 AM:* Height : 5/2 ft,in * Temperature : 96.5 F * Pulse : 108 * Respirations : 18 * BP : 116/72 Hospital Vital Signs from 07/21/2016 9:55 AM:* Height : 5/2 ft,in Hospital Vital Signs from 07/21/2016 6:32 AM:* Height : 5/2 ft,in * Temperature : 96.4 F * Pulse : 84 * Respirations : 18 * BP : 100/58 Hospital Vital Signs from 07/21/2016 3:38 AM:* Height : 5/2 ft,in Hospital Vital Signs from 07/21/2016 3:33 AM:* Height : 5/2 ft,in * Pulse : 87 * Respirations : 20 * BP : 108/69 Hospital Vital Signs from 07/21/2016 3:25 AM:* Heart Rate : 90 Hospital Vital Signs from 07/21/2016 3:01 AM:* Height : 5/2 ft,in * Temperature : 97.3 F * Pulse : 102 * Respirations : 18 * BP : 99/63 Hospital Vital Signs from 07/20/2016 11:05 PM:* Weight : 113.4/ kg * Weight : 114.4/ kg * Height : 5/2 ft,in * Height : 5/2 ft,in * Temperature : 96.8 F * Pulse : 85 * Respirations : 18 * BP : 107/56 Results Chemistry from 07/21/2016 11:25 AMTROPONIN-I <0.017 NG/ML (0.000-0.056 NG/ML) Chemistry from 07/21/2016 4:19 AM*EST AVG GLUCOSE 142.7 gm/dl TROPONIN-I <0.017 NG/ML (0.000-0.056 NG/ML) CHOLESTEROL 141 MG/DL (50-199 MG/DL) TRIGLYCERIDES 106 MG/DL (0-149 MG/DL) HDL CHOLESTEROL 46 MG/DL (40-60 MG/DL) *LDL (CALCULATED) CHOL 74 MG/DL (0-99 MG/DL) HEMOGLOBIN A1C 6.6 % H (4.5-6.2 %) MRI from 07/21/2016 9:25 AMMRI BRAIN W/O_W/CONTRAST History: Cardiovascular Accident . Left facial numbness Technique: Pre and Post contrast images were performed after the administration of 7 milliliters of Prohance intravenous contrast. Priors: MRI of the brain dated 04/23/2016 Findings: The ventricles, sulci, and cisterns appear [...] are unremarkable. There is no evidence of suspicious enhancement. Impression: Unremarkable MRI examination of the brain. Electronically signed by: Mary Franco MD Dictated: 07/21/2016 10:37 Problems Encounter Diagnosis * Acute Pain Status:Active. * Altered Mental Status Status:Active. * Fall Risk Status:Active. * Nausea & Vomiting Status:Active. Additional Problems * Chest Pain Comment:Problem resolved by [facility] upon Discharge, Status :Resolved. * Depression Comment:Problem resolved by [facility] upon Discharge, Status :Resolved. * Diabetes Mellitus Comment:Problem resolved by [facility] upon Discharge , Status:Resolved. * History of TIA Comment:Problem resolved by [facility] upon Discharge, Status:Resolved. * Hypertensive Disorder Comment:Problem resolved by [facility] upon Discharge, Status:Resolved. * Inflammatory Bowel Disease Comment:Problem resolved by [facility] upon Discharge, Status:Resolved. * Migraine Comment:Problem resolved by [facility] upon Discharge, Status: Resolved. * Mobility Impairment Comment:Problem resolved by [facility] upon Discharge, Status:Resolved. * Transient Cerebral Ischemia Comment:Problem resolved by [facility] upon Discharge, Status:Resolved. Encounters Encounter Diagnosis * Acute Pain Status:Active. * Altered Mental Status Status:Active. * Fall Risk Status:Active. * Nausea & Vomiting Status:Active. Plan of Care Treatment Plan from 07/22/2016 10:41 AM:* Care Management Note : talked with Dr Byers - she anticipates discharge to home later today. Cass DELGADO aware. Treatment Plan from 07/21/2016 10:52 AM:* Care Management Note : Admission status: Outpatient observation Patient presented to ER for complaints of chest pain and numbness to left tongue and face. labs and vital signs noted. Work up pending - MRI, EEG. Neurology consulted for evaluation. PT/OT to evaluate. Bedside glucose checks ac/hs. IVF at 125. Aspirin started. Lovenox for DVT prevention. Continuous Cardiac Monitoring. Await work up. Meets outpatient observation status at this time for possible TIA /CVA. Procedures * Completed , on 10/19/2012 12:00 AM Immunizations No immunizations administered or ordered. Hospital Course Hospital Discharge Instructions How to care for yourself at home from 07/22/2016 2:52 PM:* Discharge Activity : Activity as tolerated,May Shower,Do not engage in sports, heavy work or heavy lifting until your physician gives permission * Do not drive or operate machinery for: : While on narcotics * Discharge Diet : Modification as given by physician * Discharge Diet: : Cardiac 4gram sodium * Call your doctor if: : Fever [...] * Specific Discharge Teaching Instructions Reviewed: : Cardiac Diet * Discharge on Warfarin : No Allergies, Adverse Reactions, Alerts * No Latex Allergy. * No IV Contrast Allergy. * No Known Drug Allergies. Medication It is the responsibility of the patient or patient novelties sales representative to confirm the list of medications with either the patient's personal care provider or the patient's follow-up care provider to ensure the patient has an appropriate list of medications to take at home. Discharge medications Continued medications* aspirin 81 mg tablet,chewable, Ordered By: DANIEL BYERS MD Directions: 1 tablet oral daily every morning * atorvastatin 10 mg Tablet, Ordered By: DANIEL BYERS MD Directions: 1 tablet oral daily * busPIRone 30 mg Tablet, Ordered By: DANIEL BYERS MD Directions: 1 tablet oral twice a day * calcium carbonate-vitamin D3 (Calcium 600 + D(3)) 600 mg calcium (1,500 mg)- 400 unit Tablet, Ordered By: DANIEL BYERS MD Directions: 1 tablet oral daily * cholecalciferol (vitamin D3) (Vitamin D3) 1,000 unit Tablet, Ordered By: DANIEL BYERS MD Directions: 1 tablet oral daily * clonazePAM 1 mg Tablet, Ordered By: DANIEL BYERS MD Directions: 1 tablet oral three times a day * cyclobenzaprine 10 mg Tablet, Ordered By: DANIEL BYERS MD Directions: 1 tablet oral three times a day * promethazine 25 mg Tablet, Ordered By: DANIEL BYERS MD Directions: 1 tablet oral every six hours PRN nausea or vomiting * QUEtiapine (SEROquel XR) 300 mg Tablet Extended Release 24 hr, Ordered By: DANIEL BYERS MD Directions: 1 tablet oral daily takes at 1500 at home * saccharomyces boulardii (Digest Probiotic (S.boulardii)) 250 mg Capsule, Ordered By: DANIEL BYERS MD Directions: 2 capsule oral daily Additional Instructions: takes in the evening * L. gasseri-B. bifidum-B longum (WARSTUFF) 1.5 billion cell Capsule, Ordered By: DANIEL BYERS MD Directions: 1 capsule oral daily with breakfast * dicyclomine 10 mg Capsule, Ordered By: DANIEL BYERS MD Directions: 1 capsule oral three times a day PRN diarrhea * FLUvoxamine 150 mg capsule,extended release 24hr, Ordered By: DANIEL BYERS MD Directions: 1 capsule oral twice a day * gabapentin 600mg Capsule, Ordered By: DANIEL BYERS MD Directions: 1 capsule oral daily at bedtime * glimepiride 2 mg Tablet, Ordered By: DANIEL BYERS MD Directions: 1 tablet oral daily with breakfast * HYDROmorphone 4 mg Tablet, Ordered By: DANIEL BYERS MD Directions: 1 tablet oral three times a day PRN pain * hydrOXYzine HCl 50 mg Tablet, Ordered By: DANIEL BYERS MD Directions: 1 tablet oral three times a day PRN anxiety * lisinopril 10 mg Tablet, Ordered By: DANIEL BYERS MD Directions: 1 tablet oral daily * pregabalin (Lyrica) 150 mg Capsule, Ordered By: DANIEL BYERS MD Directions: 1 capsule oral twice a day * naloxegol (Movantik) 25 mg Tablet, Ordered By: DANIEL BYERS MD Directions: 1 tablet oral hs * omega-3 fatty acids (Fish Oil) 1200mg Capsule, Ordered By: DANIEL BYERS MD Directions: 1 capsule oral daily * zolpidem (Ambien) 10 mg Tablet, Ordered By: DANIEL BYERS MD Directions: 1 tablet oral daily at bedtime * ascorbic acid (vitamin C) (Vitamin C) 1,000 mg Tablet, Ordered By: DANIEL BYERS MD Directions: 1 tablet oral daily Stopped medications* None
[2016-12-25] MEDS ORDERED: NITROGLYCERIN 0.4 MG SUBLINGUAL TABLET SL PRN (13:00)
[2016-12-25] MEDS ORDERED: ASPIRIN 81 MG CHEWABLE TABLET PO ONE (13:00)
--- OUTSIDE RECORDS SUMMARY | 2016-12-25 13:00 | XMS REPORT | Summary of Care ---
Author Author Pretty Aranda M.D. Unknown Address [address], [place] [id number] Phone Unavailable Care Team Providers Care Precision Thread Grinder Operator Name Role Phone Kip Jensen Unavailable Unavailable Edson Adams, Ameila Unavailable Unavailable Parish Crystal, Tracie Unavailable Unavailable [...] (726.5, M70.70) Status: Resolved History of candidiasis (V12., Z86.19) Status: Resolved History of Clostridium difficile [...] History of Nerve Block Transforaminal Epidural Lumbar THYROID STIM. HORMONE 3602 Ordered:24-Aug-2015 CBC w/ Auto Diff 7150 Ordered:24-Aug-2015 Urinalysis, Reflex to Microscopic or Culture PRN 8005 Ordered:24-Aug-2015 Comprehensive Metabolic Panel 1212 Ordered:24-Aug-2015 Immunization Name Dates Details DTaP Administered on:2003 Hepatitis B Administered on:08-Dec-2003 Hepatitis B Administered on:13-Jan-2004 Tdap (Adacel) Lot #: [id number] Administered on: Influenza Administered on:03-Jun-2010 Influenza Lot #: [id number] Administered on:23-May-2011 Pneumo (Pneumovax) Lot #: [id number] Administered on:31-Aug-2011 Influenza Lot #: [id number] Administered on:08-May-2012 Influenza Administered on:13-Jun-2013 Fluzone Intramuscular Injectable Lot #: [id number] Administered on:29-Apr-2015 Tdap (Adacel) Lot #: [id number] Administered on:29-Apr-2015 Family History Unknown Family Member* [...] m2 Status: Results Date Description Value Details Results not [...]
--- OUTSIDE RECORDS SUMMARY | 2016-12-25 13:00 | XMS REPORT | Summary of Care ---
Author Author Pretty Aranda M.D. Unknown Address [address], [place] [id number] Phone Unavailable Care Team Providers Care Numerical Control Router Operator Name Role Phone Tiny Crystal, Min Unavailable [...] Status: Active Symptoms involving urinary system (788.99, R39.89) Status: Active Medications Name Dates Details Multi-Vitamin/Minerals [...] Quantity: 60 Refills: 0 * Started ActiveNystatin-Triamcinolone 166342-3.1 UNIT/GM-% External Cream APPLY SPARINGLY TO AFFECTED AREA(S) 3 TIMES A DAY * Quantity: 2 Refills: 4 Pretty Aranda M.D.* Started 19-Jan-2012 Zxomyx86 GM Tube SEROquel XR 300 MG Oral [...] 120 Refills: 0 Amelia Sandhu* Started 29-Aug-2013 ActivePromethazine HCl - 12.5 MG [...] Block Transforaminal Epidural Lumbar HEMOGLOBIN A1C 3507 Ordered:29-Oct-2014 LIPID PROFILE 1184 Ordered:29-Oct-2014 LIVER PROFILE 1215 Ordered:29-Oct-2014 Immunization Name Dates Details DTaP Administered on:2003 Hepatitis B Administered on:08-Dec-2003 Hepatitis B Administered on:13-Jan-2004 Tdap (Adacel) Lot #: [id number] Administered on: Influenza Administered on:03-Jun-2010 Influenza Lot #: [id number] Administered on:23-May-2011 Pneumo (Pneumovax) Lot #: [id number] Administered on:31-Aug-2011 Influenza Lot #: [id number] Administered on:08-May-2012 Influenza Administered on:13-Jun-2013 Family History [...] % (Better) ESTIMATED AVG. GLUCOSE 146 (Better) 28-Oct-2014 12:39 XRay SPINE-CERVICAL Comments: Exam Date: 11: 55Dictation Date: 12:39 X SPINE CERVICAL COMP (Better) Plan of Care Planned Observations* Name [...] Diagnosis: Problem not documented On 15:15 Appointment; CristiJanuary Encounter Diagnosis: Problem not documented On 09:30 Appointment; Aliza Quiñonez Encounter Diagnosis: Problem not documented On 08:15 Appointment; CristiJanuary Encounter Diagnosis: Problem not documented On 14:30 [...]
--- OUTSIDE RECORDS SUMMARY | 2016-12-25 13:00 | XMS REPORT | Summary of Care ---
Author Author Michael Rodriguez, Zaid Organization Unknown Address [address], [place] [id number] Phone Unavailable Care Team Providers Care Certified Physician Assistant Name Role Phone Cristi Crystal, Leon Unavailable [...] Quantity: 60 Refills: 0 * Started ActiveNystatin-Triamcinolone 735782-9.1 UNIT/GM-% External Cream APPLY SPARINGLY TO AFFECTED AREA(S) 3 TIMES A DAY * Quantity: 2 Refills: 4 Pretty Aranda M.D.* Started 19-Jan-2012 Cessrb14 GM Tube SEROquel XR 300 MG Oral Tablet Extended Release 24 Hour TAKE 1 TABLET DAILY. * Refills: 0 * Started 10-Jul-2012 ActiveLisinopril 10 MG Oral Tablet Take 1 tablet daily * Quantity: 90 Refills: 2 Pretty Aradna M.D.* Started 01-Nov-2012 ActiveBusPIRone HCl - 15 [...] B Administered on:13-Jan-2004 Tdap (Adacel) Lot #: [id number] Administered on: Influenza Administered on:03-Jun-2010 Influenza Lot #: [id number] Administered on:23-May-2011 Pneumo (Pneumovax) Lot #: [id number] Administered on:31-Aug-2011 Influenza Lot #: [id number] Administered on:08-May-2012 Influenza Administered on:13-Jun-2013 Family History [...] low threshold) Range: >60 EST GFR, NON-AFR MOZAMBICAN 47 ml/min (Below low threshold) Range: >60 Comments: EST GFR is reported in ml/min per 1.73 m2 of body surface area. For -[place], please multiple result by 1.2.----- GLUCOSE 156 [...] 14:39 Urinalysis, reflex to Micro and Culture ([facility]) 8016 pH 7.5 [...]
--- OUTSIDE RECORDS SUMMARY | 2016-12-25 13:00 | XMS REPORT ---
Author Author GENERATED, SYSTEM Organization Unknown Address Unknown Phone Unavailable Care Team Providers Care Neurology Nurse Name Role Phone MD MARIFER, RODOLFO [phone] Reason For Visit Reason for Visit from 04/14/2015 4:10 PM:* Pt Stated Reason for Adm : weakness, left sided weakness Chief Complaint TIA Social History Social History from 04/16/2015 12:43 PM:* Tobacco Use? : Never Smoker Social History from 04/14/2015 4:10 PM:* Tobacco Use? : Never Smoker Functional Status Functional Status from 04/16/2015 11:00 AM:* Oriented To : Person,Place,Time, Event Functional Status from 04/16/2015 10:10 AM:* Oriented To : Person,Place,Time, Event Functional Status from 04/16/2015 8:39 AM:* LOC : Alert * Oriented To : Person,Place,Time,Event * Weight Bearing Status : Full * Assist Level : Independent * # Assists : Independent Functional Status from 04/15/2015 7:35 PM:* LOC : Alert * Oriented To : Person,Place,Time,Event * Weight Bearing Status : Full * Assist Level : Partial * # Assists : 1 Functional Status from 04/15/2015 8:30 AM:* LOC : Alert * Oriented To : Person,Place,Time * Weight Bearing Status : Full * Assist Level : Independent * # Assists : Independent Functional Status from 04/15/2015 6:20 AM:* # Assists : 1 Functional Status from 04/14/2015 7:43 PM:* LOC : Alert * Oriented To : Person,Place,Time,Event * Weight Bearing Status : Full * Assist Level : Partial * # Assists : 1 Functional Status from 04/14/2015 4:10 PM:* LOC : Alert * Oriented To : Person,Place,Time * Weight Bearing Status : Full * Assist Level : Partial * # Assists : 1 Vital Signs Hospital Vital Signs from 04/16/2015 10:27 AM:* Height : 5/2 ft,in * Temperature : 96.7 F * Pulse : 85 * Respirations : 20 * BP : 124/67 Hospital Vital Signs from 04/16/2015 9:53 AM:* Height : 5/2 ft,in Hospital Vital Signs from 04/16/2015 8:39 AM:* Heart Rate : 86 Hospital Vital Signs from 04/16/2015 6:50 AM:* Height : 5/2 ft,in * Temperature : 96.4 F * Pulse : 91 * Respirations : 20 * BP : 102/59 Hospital Vital Signs from 04/16/2015 2:28 AM:* Weight : 114.5/ kg * Height : 5/2 ft,in Hospital Vital Signs from 04/15/2015 10:30 PM:* Height : 5/2 ft,in * Temperature : 97.1 F * Pulse : 85 * Respirations : 20 * BP : 103/55 Hospital Vital Signs from 04/15/2015 7:35 PM:* Height : 5/2 ft,in * Temperature : 97.1 F * Pulse : 106 * Heart Rate : 97 * Respirations : 20 * BP : 130/60 Hospital Vital Signs from 04/15/2015 3:46 PM:* Height : 5/2 ft,in * Temperature : 97.6 F * Pulse : 96 * Respirations : 20 * BP : 94/59 Hospital Vital Signs from 04/15/2015 11:32 AM:* Height : 5/2 ft,in * Temperature : 97.8 F * Pulse : 88 * Respirations : 20 * BP : 118/68 Hospital Vital Signs from 04/15/2015 8:54 AM:* Height : 5/2 ft,in Hospital Vital Signs from 04/15/2015 8:30 AM:* Heart Rate : 92 Hospital Vital Signs from 04/15/2015 7:25 AM:* Height : 5/2 ft,in * Temperature : 96.7 F * Pulse : 89 * Respirations : 20 * BP : 103/63 Hospital Vital Signs from 04/15/2015 7:01 AM:* Weight : 117.0/ kg * Height : 5/2 ft,in Hospital Vital Signs from 04/15/2015 3:00 AM:* Height : 5/2 ft,in * Temperature : 95.4 F * Pulse : 89 * Respirations : 20 * BP : 98/57 Hospital Vital Signs from 04/14/2015 10:11 PM:* Height : 5/2 ft,in * Temperature : 96.3 F * Pulse : 90 * Respirations : 20 * BP : 93/59 Hospital Vital Signs from 04/14/2015 7:43 PM:* Heart Rate : 91 Hospital Vital Signs from 04/14/2015 4:10 PM:* Weight : 112.9/ kg * Height : 5/2 ft,in Hospital Vital Signs from 04/14/2015 2:48 PM:* Weight : 112.9/ kg * Height : 5/2 ft,in * Temperature : 97.6 F * Pulse : 91 * Respirations : 20 * BP : 122/57 Results Chemistry from 04/15/2015 4:58 AMSODIUM 145 MMOL/L (136-145 MMOL/L) POTASSIUM 3.9 MMOL/L (3.5-5.1 MMOL/L) CHLORIDE 111 MMOL/L H (98-107 MMOL/L) TCO2 26.6 MMOL/L (21.0-32.0 MMOL/L) ANION GAP 7.4 MMOL/L L (8.0-16.0 MMOL/L) BUN 9 MG/DL (7-18 MG/DL) CREATININE 1.05 MG/DL H (0.55-1.02 MG/DL) BUN/CREATININE RATIO 8.6 L (9.1-17.0 ) GLUCOSE 148 MG/DL H (65-99 MG/DL) GFR EST NON AFR NORTHERN IRISH 63 ML/MIN GFRA EST AFR AMER 73 ML/MIN CALCIUM 8.7 MG/DL (8.5-10.1 MG/DL) BILIRUBIN TOTAL 0.69 MG/DL (0.20-1.00 MG/DL) TOTAL PROTEIN 5.9 GM/DL L (6.4-8.2 GM/DL) ALBUMIN 2.7 GM/DL L (3.4-5.0 GM/DL) GLOBULIN 3.2 GM/DL (2.3-3.5 GM/DL) A/G RATIO 0.8 MG/DL L (1.5-2.2 MG/DL) ALK PHOS 83 U/L (46-116 U/L) ALT (SGPT) 55 U/L (16-63 U/L) AST (SGOT) 34 U/L (15-37 U/L) TSH 0.30 UIU/ML L (0.34-4.82 UIU/ML) CHOLESTEROL 182 MG/DL (50-199 MG/DL) TRIGLYCERIDES 213 MG/DL H (0-149 MG/DL) HDL CHOLESTEROL 40 MG/DL (40-60 MG/DL) LDL (CALCULATED) CHOL 99 MG/DL (0-99 MG/DL) Hematology from 04/15/2015 4:58 AMWBC 6.3 X10e3/UL (3.6-11.2 X10e3/UL) RBC 4.47 X10e6/UL (3.63-4.92 X10e6/UL) HEMOGLOBIN 13.1 G/DL (11.0-14.3 G/DL) HEMATOCRIT 39.1 % (31.2-41.9 %) MCV 87.4 FL (79.0-98.0 FL) MCH 29.4 PG (27.0-33.0 PG) MCHC 33.6 G/DL (32.0-36.0 G/DL) RDW 14.3 % (12.3-17.0 %) RDWSD 44.2 (37.1-47.8 ) PLATELET 228 X10e3/UL (159-386 X10e3/UL) MPV 8.9 FL (7.4-10.4 FL) AUTOMATED DIFF PERFORMED SEGS 50.8 % LYMPHOCYTES 36.8 % MONOCYTES 6.5 % EOSINOPHILS 4.5 % BASOPHILS 1.4 % ABSOLUTE NEUTROPHILS 3.20 X10e3/UL (1.80-7.80 X10e3/UL) ABSOLUTE LYMPHOCYTES 2.30 X10e3/UL (1.00-3.00 X10e3/UL) ABSOLUTE MONOCYTES 0.40 X10e3/UL (0.30-1.00 X10e3/UL) ABSOLUTE EOSINOPHILS 0.30 X10e3/UL (0.00-0.50 X10e3/UL) ABSOLUTE BASOPHILS 0.10 X10e3/UL (0.00-0.20 X10e3/UL) Echocardiology from 04/15/2015 12:00 AMEchocardiogram See also the report from this date MRI from 04/15/2015 9:16 AMMRI BRAIN W/O_W/CONTRAST History: TIA, NECK PAIN . Technique: Pre and Post contrast images were performed after the administration of 17 milliliters of Prohance intravenous contrast. Priors: MRI of the brain dated 10/23/2008 Findings: The ventricles, sulci, and cisterns appear [...] is no evidence of suspicious enhancement. Impression: No evidence of acute infarct or intracranial mass. Electronically signed by: Mary Franco MD Dictated: 04/15/2015 09:49 Problems Encounter Diagnosis * Fall Risk Comment:Problem resolved by [facility] upon Discharge, Status: Resolved. * Hypertensive Disorder Comment:Problem resolved by [facility] upon Discharge, Status:Resolved. * Mobility Impairment Comment:Problem resolved by [facility] upon Discharge, Status:Resolved. * Transient Cerebral Ischemia Comment:Problem resolved by [facility] upon Discharge, Status:Resolved. Additional Problems * Chest Pain Comment:Problem resolved by [facility] upon Discharge, Status :Resolved. * Inflammatory Bowel Disease Comment:Problem resolved by [facility] upon Discharge, Status:Resolved. Encounters Encounter Diagnosis * Fall Risk Comment:Problem resolved by [facility] Work[facility] upon Discharge, Status: Resolved. * Hypertensive Disorder Comment:Problem resolved by [facility] Work[facility] upon Discharge, Status:Resolved. * Mobility Impairment Comment:Problem resolved by [facility] upon Discharge, Status:Resolved. * Transient Cerebral Ischemia Comment:Problem resolved by [facility] upon Discharge, Status:Resolved. Plan of Care Follow-up Appointments from 04/16/2015 12:43 PM:* #1 Office appointment: : Dr. Caicedo Labs before [phone] * #1 Date/Time : 04/22/2015 10:30 AM * Address # 1 : [facility]: [address] [place]- [phone] or Treatment Plan from 04/16/2015 10:55 AM:* Care Management Note : Patient was concerned about observation status and wanted care management to explain it to spouse. Called spouse in room with patient and Jenny DELGADO, and explained status change. Discussed the need for medical necessity for coverage as an inpatient, and that they may see a bill for medications as an observation. Spouse was very understanding and had no questions at this time. Patient felt better after discussion with . Anticipate discharge later today. Treatment Plan from 04/16/2015 9:45 AM:* Care Management Note : Patient is aware of planned discharge for today. Patient voiced concerns regarding outpatient vs inpatient status. [facility] Anette Laughlin went over concerns with patient and Anette called patient's at patient's request to explain situation to him as well. Patient and voiced understanding at the situation and were informed of the phone number they could contact if more questions arise. Patient stated that she did not feel that home health was an option she wanted to pursue at this time as most things that they wanted done were going to be private pay and she was already paying someone to do that. [facility] her to keep the list of agencies so that if they needed something in the future they have the options available. Patient voiced no additional concerns or needs at this time. Treatment Plan from 04/15/2015 3:50 PM:* Care Management Note : Discussed with patient about changing to observation. Explained that there was not a medical necessity for inpatient status but for observation. Discussed that there would be a chance that Medicare would deny an inpatient stay d/t lack of medical necessity. Medication coverage was covered - stating that patient my see a bill for medications. Questions answered and patient understood change. Copy of UR letter and drug coverage given to patient. Treatment Plan from 04/15/2015 1:07 PM:* Care Management Note : Patient's work up thus far has been negative. Patient admitted with a TIA. Patient is not inpatient appropriate, called Dr. Thomas, who is on for Dr. Caicedo, and agreed to change patient to observation. Code 44 in progress. Treatment Plan from 04/15/2015 11:10 AM:* Care Management Note : Patient lives at home with her spouse in [place]. She states that she had been considering having a ENERGY ECONOMIST provide services in her home as there are many things that she is not able to do on her own. Patient states that she falls often due to degenerative disc disease and is unable to complete many ADLs. [facility] explained the difference between services that Medicare or insurances would pay for and what would be private pay. Many of items patient is interested in would be private pay such as cleaning, cooking and being availalbe when she bathes. SW' er provided home health lists for both private pay and insurance billable. [facility] informed patient and spouse that if they made a decision prior to discharge [facility] able [facility] assist in making the referral. [facility] also [facility] as patient stated she wasn't always able to prepare a meal when her was gone. [facility] will be available is needed. Treatment Plan from 04/15/2015 8:48 AM:* Care Management Note : Patient was admitted as inpatient d/t a TIA. POC is to consult neuro, PT/OT/ST, neuro checks every 2 hours, check MRI of the brain, and start IV fluids. Will continue to follow. Procedures * Completed , on 10/19/2012 12:00 AM Immunizations No immunizations administered or ordered. Hospital Course Hospital Discharge Instructions How to care for yourself at home from 04/16/2015 12:43 PM:* Discharge Activity : Activity as tolerated * Discharge Diet : As before hospitalization * Call your doctor if: : Fever over 101 F or severe chills,Chest pain or other unexplained symptoms,Tingling or numbness develops,A sudden increase or decrease in weight,You have persistent or worsening symptoms,If you have Heart Failure and you gain 3 pounds within 1 week or your symptoms worsen. (Weigh at home tomorrow morning) * Specific Discharge Teaching Instructions provided: : Yes * Discharge on Warfarin : No Allergies, Adverse Reactions, Alerts * No Latex Allergy. * No IV Contrast Allergy. * No Known Drug Allergies. Medication It is the responsibility of the patient or patient patient access representative to confirm the list of medications with either the patient's personal care provider or the patient's follow-up care provider to ensure the patient has an appropriate list of medications to take at home. Discharge medications New medications* aspirin 81 mg tablet,chewable, Ordered By: RODOLFO CAICEDO MD Directions: 1 tablet oral daily every morning Continued medications* busPIRone 15 mg Tablet, Ordered By: RODOLFO CAICEDO MD Directions: 1 tablet oral four times daily * clonazePAM 1 mg Tablet, Ordered By: RODOLFO CAICEDO MD Directions: 1 tablet oral three times a day * cyclobenzaprine 10 mg Tablet, Ordered By: RODOLFO CAICEDO MD Directions: 1 tablet oral three times a day * dicyclomine 20 mg Tablet, Ordered By: RODOLFO CAICEDO MD Directions: 1 tablet oral every six hours PRN diarrhea * fexofenadine (Clarisse Allergy) 180 mg Tablet, Ordered By: RODOLFO CAICEDO MD Directions: 1 tablet oral daily * FLUoxetine (PROzac) 100mg Capsule, Ordered By: RODOLFO CAICEDO MD Directions: 1.5 oral twice a day * fluticasone (Flonase) 50 mcg spray,suspension, Ordered By: RODOLFO CAICEDO MD Directions: 2 spray nasal daily * gabapentin 600mg Capsule, Ordered By: RODOLFO CAICEDO MD Directions: 1 capsule oral daily at bedtime * glimepiride 2 mg Tablet, Ordered By: RODOLFO CAICEDO MD Directions: 1 tablet oral daily with breakfast * HYDROmorphone 4 mg Tablet, Ordered By: RODOLFO CAICEDO MD Directions: 1 tablet oral every six hours PRN pain * hydrOXYzine HCl 50 mg Tablet, Ordered By: RODOLFO CAICEDO MD Directions: 1 tablet oral three times a day PRN anxiety * lisinopril 10 mg Tablet, Ordered By: RODOLFO CAICEDO MD Directions: 1 tablet oral daily * pregabalin (Lyrica) 150 mg Capsule, Ordered By: RODOLFO CAICEDO MD Directions: 1 capsule oral twice a day * promethazine 12.5 mg Tablet, Ordered By: RODOLFO CAICEDO MD Directions: 1 tablet oral every four hours PRN nausea or vomiting * QUEtiapine (SEROquel XR) 300 mg Tablet Extended Release 24 hr, Ordered By: RODOLFO CAICEDO MD Directions: 1 tablet oral daily * zolpidem 10 mg Tablet, Ordered By: RODOLFO CAICEDO MD Directions: 1 tablet oral daily at bedtime Stopped medications* None
--- OUTSIDE RECORDS SUMMARY | 2016-12-25 13:01 | XMS REPORT | Summary of Care ---
Author Author Pretty Aranda M.D. Unknown Address [address], [place] [id number] Phone Unavailable Care Team Providers Care Shot Hole Driller Name Role Phone Tiny Crystal, Min Unavailable Unavailable Cristi Crystal, Leon Unavailable Unavailable Que P.A., Kip Unavailable Unavailable Edson P.A., Amelia Unavailable Unavailable Parish rCystal, Tracie Unavailable Unavailable Manoj Crystal, Pretty Unavailable [...] Quantity: 60 Refills: 0 * Started ActiveNystatin-Triamcinolone 558318-1.1 UNIT/GM-% External Cream APPLY SPARINGLY TO AFFECTED AREA(S) 3 TIMES A DAY * Quantity: 2 Refills: 4 Pretty Aranda M.D.* Started 19-Jan-2012 [id number] GM Tube SEROquel XR 300 MG Oral [...] Refills: 0 Pretty Aranda M.D.* Started 23-Jul-2014 ActiveLevofloxacin 500 MG Oral Tablet TAKE 1 TABLET DAILY DIRECTED. * Quantity: 10 Refills: 0 Pretty Aranda M.D.* Started 29-Sep-2014 Ended 09-Oct-2014 ActivePredniSONE 10 MG Oral Tablet 4 tabs for 2 days, 2 tabs for 3 days then stop * Quantity: 14 Refills: 0 Pretty Aranda M.D.* Started 29-Sep-2014 Active Allergies and Adverse Reactions Name Dates [...] B Administered on:13-Jan-2004 Tdap (Adacel) Lot #: [id number] Administered on: Influenza Administered on:03-Jun-2010 Influenza Lot #: [id number] Administered on:23-May-2011 Pneumo (Pneumovax) Lot #: [id number] Administered on:31-Aug-2011 Influenza Lot #: [id number] Administered on:08-May-2012 Influenza Administered on:13-Jun-2013 Family History [...] smoker Vital Signs Date Test Result Details 29-Sep-2014 11:15 BP Systolic 130 mm[Hg] Status: [...]
--- OUTSIDE RECORDS SUMMARY | 2016-12-25 13:01 | XMS REPORT | Summary of Care ---
Author Author Amelia Rucker Unknown Address [address] [place], [place] [id number] Phone Unavailable Care Team Providers Care Dust Collector Attendant Name Role Phone Tiny Crystal, Min Unavailable [...] Lower back pain (724.2, M54.5) Status: Active Medications [...] 3 David Franks M.D.* Started 27-Mar-2013 ActiveNystatin-Triamcinolone 713086-2.1 UNIT/GM-% External Cream APPLY SPARINGLY TO AFFECTED AREA(S) 3 TIMES A DAY * Quantity: 2 Refills: 4 Pretty Aranda M.D.* Started 19-Jan-2012 Lljigb69 GM Tube BusPIRone HCl - 15 MG [...] B Administered on:13-Jan-2004 Tdap (Adacel) Lot #: [id number] Administered on: Influenza Administered on:03-Jun-2010 Influenza Lot #: [id number] Administered on:23-May-2011 Pneumo (Pneumovax) Lot #: [id number] Administered on:31-Aug-2011 Influenza Lot #: [id number] Administered on:08-May-2012 Influenza Administered on:13-Jun-2013 Family History [...]
--- OUTSIDE RECORDS SUMMARY | 2016-12-25 13:01 | XMS REPORT | Summary of Care ---
Author Author Devendra Lugo M.D. 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, M17.11) Status: Active 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, M17.12) Status: Active Medications Name Dates Details Multi-Vitamin/Minerals [...] M.D.* Started 14-May-2013 ActiveHerbal/ Natural Products Saccharonyces Adrianitmos * Refills: 0 * Started 05-Jul-2013 ActiveCalcium [...] B Administered on:13-Jan-2004 Tdap (Adacel) Lot #: [id number] Administered on: Influenza Administered on:03-Jun-2010 Influenza Lot #: [id number] Administered on:23-May-2011 Pneumo (Pneumovax) Lot #: [id number] Administered on:31-Aug-2011 Influenza Lot #: [id number] Administered on:08-May-2012 Influenza Administered on:13-Jun-2013 Fluzone Intramuscular Injectable Lot #: [id number] Administered on:29-Apr-2015 Tdap (Adacel) Lot #: [id number] Administered on:29-Apr-2015 Family History Unknown Family Member* [...] ml/min (Better) Range: >60 EST GFR, NON-AFR KITTITIAN 52 ml/min (Below low threshold) Range: >60 Comments: EST GFR is reported in ml/min per 1.73 m2 of body surface area. For -Nepalese, please multiple result by 1.2.----- GLUCOSE 174 [...] Comments: Items were attached to this order: [id number] were attached to this order: FT4 FREE T4 1.16 ng/dL (Better) Range: 0.80-1.67 26-Aug-2015 09:07 Triiodothyronine,Free,Serum ( T3) [id number] Comments: [facility] performed at: [facility], [address] [place] [address], [place], [address], , [employer] Boat [employer] Finisher: AMY Nolan MD TRIIODOTHYRONINE,FREE,SERUM 3.4 pg/mL (Better) [...]
--- NOTE | 2016-12-25 13:02 | NUR ---
PAIN PT REPORTS DECREASE IN PAIN TO 4-5/10 WITH REST.
--- OUTSIDE RECORDS SUMMARY | 2016-12-25 13:02 | XMS REPORT | Summary of Care ---
Author Author Pretty Aranda M.D. Unknown Address [address] [place], [place] [id number] Phone Unavailable Care Team Providers Care Litharge Mill Operator Name Role Phone Kip Jensen Unavailable [...] Status: Active Depression (311, F32.9) Status: Active Degenerative disc disease, lumbar (722.52, M51.36) Status: Active Arthralgia of multiple sites (719.49, M25.50) Status: Active Bilateral hip pain (719.45, M25.551) Status: Active Bilateral hip bursitis (726.5, M70.71) Status: Active Low back pain (724.2, M54.5) Status: Active Right hand tendonitis (727.05, M77.8) Status: Active Morbid obesity (278.01, E66.01) Status: Active Type 2 diabetes mellitus (250.00, [...] WITH BREAKFAST * Quantity: 90 Refills: 2 ArandaPretty M.D.* Started 22-Jul-2013 ActiveHYDROmorphone HCl - 4 [...] IN WELL * Quantity: 100 Refills: 0 Devenrda Lugo M.D.* Started 29-Apr-2015 ActiveAtorvastatin Calcium 10 [...] 30 Refills: 0 ArandaPretty M.D.* Started 24-Aug-2015 Active Allergies and Adverse [...] Z86.19) Status: Resolved History of influenza (V12., Z87.09) Status: Resolved History of low back [...] PANEL 1108 Ordered:29-Sep-2015 HEMOGLOBIN A1C 3507 Ordered:29-Sep-2015 XRay SPINE-LUMBAR Ordered:07-Sep-2015 Immunization Name Dates Details DTaP Administered on:2003 Hepatitis B Administered on:08-Dec-2003 Hepatitis B Administered on:13-Jan-2004 Tdap (Adacel) Lot #: [id number] Administered on: Influenza Administered on:03-Jun-2010 Influenza Lot #: [id number] Administered on:23-May-2011 Pneumo (Pneumovax) Lot #: [id number] Administered on:31-Aug-2011 Influenza Lot #: [id number] Administered on:08-May-2012 Influenza Administered on:13-Jun-2013 Fluzone Intramuscular Injectable Lot #: [id number] Administered on:29-Apr-2015 Tdap (Adacel) Lot #: [id number] Administered on:29-Apr-2015 Family History Unknown Family Member* [...] Body Surface Area Calculated 2.11 m2 Status: Results Date Description Value Details 23-Sep-2015 16:56 MRI LUMBAR SPINE Comments: Exam Date: 09/23/2015 15: 01Dictation Date: 09/23/2015 16:56 XMR SPINE LUMBAR (Better) 29-Sep-2015 14:59 Urinalysis, Reflex to Microscopic or Culture PRN 8005 pH 6.0 (Better) Range: 5.0-7.5 SP GRAVITY <=1.005 (Abnormal) Range: 1.010-1.030 APPEARANCE CLEAR (Better) Range: Clear COLOR YELLOW (Better) Range: Straw-Yellow PROTEIN NEGATIVE mg/dL (Better) Range: Negative-Trace GLUCOSE NEGATIVE mg/dL (Better) Range: Negative KETONE NEGATIVE mg/dL (Better) Range: Negative BILIRUB NEGATIVE (Better) Range: Negative BLOOD NEGATIVE (Better) Range: Negative UROBIL 0.2 EU/dL (Better) Range: 0.2-1.0 NITRITE NEGATIVE (Better) Range: Negative LEUK LARGE (Abnormal) Range: Negative 14:59 Urine Microscopic UMIC WBC 6-10 /HPF (Abnormal) Range: 0-5 Comments: Specimen referred to Microbiology for Culture----- RBC 0-2 /HPF (Better) Range: 0-2 BACTERIA 2+ /HPF (Abnormal) Range: Negative-Trace EPITH 0-2 /HPF (Better) Range: 0-10 U TRANSEPI 0-2 /HPF (Better) Range: 0-2 01-Oct-2015 09:21 URINE CULTURE [id number] Comments: [facility] performed at: [facility], [address] [place], [address], Hall Coordinator: Wilfrido Quinones D.O., MPHQuest Collection Date/Time: [id number] Results Received Date/Time: [id number] Reported Date/Time: [id number] CULTURE, URINE, ROUTINE SEE NOTE (Better) Comments: CULTURE, URINE, ROUTINE MICRO NUMBER: [id number] TEST STATUS: FINAL SPECIMEN SOURCE : URINE, [...] * Appointment; Provider: Pretty Aranda On 02-Nov-2015 09:45 * Appointment; Provider: Dejuan Alcantar On 14-Oct-2015 16:30 * Appointment; Provider: Schedule Radiology On 23-Sep-2015 [...]
--- OUTSIDE RECORDS SUMMARY | 2016-12-25 13:02 | XMS REPORT | Summary of Care ---
Author Author Devendra Lugo M.D. Unknown Address Unknown Phone Unavailable Care Team Providers Care Clean Rice Grader And Reel Tender Name Role Phone Tiny Crystal, Min Unavailable [...] Quantity: 60 Refills: 0 * Started ActiveNystatin-Triamcinolone 895434-6.1 UNIT/GM-% External Cream APPLY SPARINGLY TO AFFECTED AREA(S) 3 TIMES A DAY * Quantity: 2 Refills: 4 Pretty Aranda M.D.* Started 19-Jan-2012 Vrjkro82 GM Tube SEROquel XR 300 MG Oral [...] B Administered on:13-Jan-2004 Tdap (Adacel) Lot #: [id number] Administered on: Influenza Administered on:03-Jun-2010 Influenza Lot #: [id number] Administered on:23-May-2011 Pneumo (Pneumovax) Lot #: [id number] Administered on:31-Aug-2011 Influenza Lot #: [id number] Administered on:08-May-2012 Influenza Administered on:13-Jun-2013 Family History [...] not documented On 21-Mar-2014 14:00 Appointment; Devendra Lguo Encounter Diagnosis: Problem not documented On 13:15 [...]
--- OUTSIDE RECORDS SUMMARY | 2016-12-25 13:02 | XMS REPORT | Summary of Care ---
Author Author Devendra Lugo M.D. Unknown Address [address] [place] [address], [place] [id number] Phone Unavailable Care Team Providers Care General Maintenance Mechanic Name Role Phone Kip Jensen Unavailable Unavailable Edson Adams, Amelia Unavailable Unavailable Parish Crystal, Tracie Unavailable Unavailable Maonj Crystal, Pretty Unavailable Unavailable Pretty Aranda PP [...] 2 diabetes mellitus (250.00, E11.9) Status: Active Low back pain (724.2, M54.5) [...] Block Transforaminal Epidural Lumbar XRay SPINE-LUMBAR Ordered:07-Sep-2015 MRI LUMBAR SPINE Ordered:16-Sep-2015 Immunization Name Dates Details DTaP Administered on:2003 Hepatitis B Administered on:08-Dec-2003 Hepatitis B Administered on:13-Jan-2004 Tdap (Adacel) Lot #: [id number] Administered on: Influenza Administered on:03-Jun-2010 Influenza Lot #: [id number] Administered on:23-May-2011 Pneumo (Pneumovax) Lot #: [id number] Administered on:31-Aug-2011 Influenza Lot #: [id number] Administered on:08-May-2012 Influenza Administered on:13-Jun-2013 Fluzone Intramuscular Injectable Lot #: [id number] Administered on:29-Apr-2015 Tdap (Adacel) Lot #: [id number] Administered on:29-Apr-2015 Family History Unknown Family Member* [...] Body Surface Area Calculated 2.12 m2 Status: 24-Aug-2015 10:25 BP Systolic 110 mm[Hg] Status: [...] ml/min (Better) Range: >60 EST GFR, NON-AFR FAROESE 52 ml/min (Below low threshold) Range: >60 Comments: EST GFR is reported in ml/min per 1.73 m2 of body surface area. For -[place], please multiple result by 1.2.----- GLUCOSE 174 [...] Comments: Items were attached to this order: [id number] were attached to this order: FT4 FREE T4 1.16 ng/dL (Better) Range: 0.80-1.67 26-Aug-2015 09:07 Triiodothyronine,Free,Serum ( T3) [id number] Comments: Testing performed at: [DA] [facility], [address] [place] [address], [place], [address], , Human Services Professional: AMY Nolan MD TRIIODOTHYRONINE,FREE,SERUM 3.4 pg/mL (Better) Range: 2.0-4.4 07-Sep-2015 15:16 X SPINE L-S COMPLETE (Better) Comments: Exam Date: 14:34Dictation Date: 09/07/2015 15:16 Plan of Care Planned Observations* Name Dates [...]
--- OUTSIDE RECORDS SUMMARY | 2016-12-25 13:02 | XMS REPORT | Summary of Care ---
Author Author Pretty Aranda M.D. Unknown Address [address] [place], [place] [address] Phone Unavailable Care Team Providers Care Lead Vulcanizing Operator Name Role Phone Kip Jensen Unavailable [...] Dates Details Insomnia (780.52, G47.00) Status: Active Tendonitis (726.90, M77.9) Status: Active Restless legs syndrome (333.94, G25.81) Status: Active Vitamin d deficiency (268.9, E55.9) Status: Active Acute ischemic colitis (557.0, K55.0) Status: Active Pain in hand (729.5, M79.643) Status: Active Trigger finger (727.03, M65.30) Status: Active Clostridium difficile colitis (008.45, A04.7) Status: Active Joint pain, knee (719.46, M25.569) Status: Active Abnormal liver function test (790.6, R79.89) Status: Active Obesity (278.00, E66.9) Status: Active Knee joint pain (719.46, M25.569) Status: Active Pain, low back (724.2, M54.5) Status: Active Cervical pain (neck) (723.1, M54.2) Status: Active Lower back pain (724.2, M54.5) Status: Active Elevated creatine kinase level (790.5, R74.8) Status: Active Degenerative disc disease, lumbar (722.52, M51.36) Status: Active Abdominal pain (789.00, R10.9) Status: Active Hemiparesis (342.90, G81.90) Status: Active Dysphasia and aphasia (784.3, R47.01) Status: Active Low back pain (724.2, M54.5) Status: Active Migraine headache (346.90, G43.909) Status: Active Type 2 diabetes mellitus (250.00, E11.9) Status: Active Hypertension (401.9, I10) Status: Active Hyperlipidemia (272.4, E78.5) Status: Active Depression (311, F32.9) Status: Active Chronic kidney disease, stage III (moderate) (585.3, N18.3) Status: Active Obstructive sleep apnea (327.23, G47.33) Status: Active Brain TIA (435.9, G45.9) Status: Active Fibromyalgia (729.1, M79.7) Status: Active Symptoms involving urinary system (788.99, R39.9) Status: Active Elevated liver enzymes (790.5, R74.8) Status: Active Visit for screening mammogram (V76.12, Z12.31) Status: Active Lung nodule (793.11, R91.1) Status: Active Arthralgia of multiple sites (719.49, M25.50) Status: Active Nontoxic thyroid nodule (241.0, E04.1) Status: Active Bright red blood per rectum (569.3, K62.5) Status: Active Sleep related hypoxia (327.24, G47.34) Status: Active Bursitis of hip (726.5, M70.70) Status: Active Encounter for screening for malignant neoplasm of colon (V76.51, Z12.11) Status: Active Anemia (285.9, D64.9) Status: Active Irritable bowel syndrome (564.1, K58.9) Status: Active Allergic rhinitis (477.9, J30.9) Status: Active Medications Name Dates Details Multi-Vitamin/Minerals Oral Tablet TAKE 1 TABLET DAILY. Quantity: 30 * Started 24-Nov-2008 ActiveLyrica 150 MG Oral Capsule TAKE 1 CAPSULE BY MOUTH TWICE DAILY.Script must last 30 days. * Quantity: 180 Refills: 0 Devendra Lugo M.D.* Started 29-May-2015 ActiveFish Oil 1000 MG Oral Capsule TAKE 2 CAPSULE Daily * Quantity: 60 Refills: 0 * Started ActiveGabapentin 600 MG Oral Tablet TAKE ONE TABLET BY MOUTH AT BEDTIME * Quantity: 90 Refills: 3 Amelia Sandhu* Started 27-Mar-2013 ActiveHerbal/ Natural Products Saccharonyces Boulardiitmos [...] Refills: 0 Devendra Lugo M.D.* Started 24-Oct-2013 ActiveSupplies Soft neck braceDx: Cervical neck pain 723.1 * Quantity: 1 Refills: 0 Devendra Lugo M.D.* Started ActiveFluticasone Propionate 50 MCG/ACT Nasal Suspension USE 1 SPRAY IN EACH NOSTRIL ONCE DAILY. * Quantity: 1 Refills: 4 Pretty Aranda M.D.* Started 21-Apr-2015 [id number] GM Bottle FluvoxaMINE Maleate 100 MG Oral [...] Refills: 0 Devendra Lugo M.D.* Started 29-Apr-2015 ActiveDicyclomine HCl - 20 MG Oral Tablet TAKE 1 TABLET EVERY 6 HOURS NEEDED. * Quantity: 40 Refills: 0 Kip Grey* Started 27-May-2014 ActiveAspirin 81 MG Oral Tablet Take 1 tablet daily * Quantity: 100 Refills: 0 Pretty Aranda M.D.* Started 29-Apr-2015 ActiveAtorvastatin Calcium 10 MG Oral Tablet take 1 tablet by mouth every day * Quantity: 90 Refills: 1 ArandaPretty M.D.* Started 29-Apr-2015 ActivePromethazine HCl - 12.5 MG Oral Tablet [...] SLEEP * Quantity: 30 Refills: 0 ArandaPretty mendez M.D.* Started 14-May-2013 ActiveBusPIRone HCl - 15 MG Oral Tablet 1 tab po tid * Quantity: 90 Refills: 0 * Started 19-Nov-2012 ActiveLisinopril 10 MG Oral Tablet Take 1 tablet daily * Quantity: 90 Refills: 2 ArandaPretty M.D.* Started 01-Nov-2012 ActiveSEROquel XR 300 MG Oral Tablet Extended Release 24 Hour TAKE 1 TABLET DAILY. * Refills: 0 * Started 10-Jul-2012 ActiveVitamin D3 2000 UNIT Oral Tablet Take 1 tablet daily * Quantity: 30 Refills: 0 * Started ActiveClonazePAM 1 MG Oral Tablet TAKE 1 TABLET 3 times daily * Refills: 0 * Started 14-Apr-2009 Active Allergies and Adverse Reactions Name Dates [...] Resolved Procedures Procedure Dates Details History of Gastroscopy With Biopsy Completed:19-Oct-2012 History of Nerve Block Transforaminal Epidural Lumbar History of Sigmoidoscopy (Fiberoptic) Completed: History of Colonoscopy For Forceps Biopsy Completed:03-Jan-2013 History of Salpingo-oophorectomy Bilat Laparosc Removal Of Both Ovaries & Tubes History of Hysterectomy History of Cholecystectomy History of Appendectomy History of Breast Surgery Lumpectomy History of Section History of Surgical Lysis Of Intestinal Adhesions ALBUMIN CREAT PANEL 1108 Ordered:05-May-2015 CBC w/ Auto Diff 7150 Ordered:05-May-2015 Comprehensive Metabolic Panel 1212 Ordered:05-May-2015 HEMOGLOBIN A1C 3507 Ordered:05-May-2015 LIPID PROFILE 1184 Ordered:05-May-2015 THYROID STIM. HORMONE 3602 Ordered:05-May-2015 Urinalysis, Reflex to Microscopic or Culture PRN 8005 Ordered:05-May-2015 Immunization Name Dates Details DTaP Administered on:2003 Hepatitis B Administered on:08-Dec-2003 Hepatitis B Administered on:13-Jan-2004 Tdap (Adacel) Lot #: [id number] Administered on: Influenza Administered on:03-Jun-2010 Influenza Lot #: [id number] Administered on:23-May-2011 Pneumo (Pneumovax) Lot #: [id number] Administered on:31-Aug-2011 Influenza Lot #: [id number] Administered on:08-May-2012 Influenza Administered on:13-Jun-2013 Fluzone Intramuscular Injectable Lot #: [id number] Administered on:29-Apr-2015 Tdap (Adacel) Lot #: [id number] Administered on:29-Apr-2015 Family History Unknown Family Member* Name Dates Details Family history of Arthritis (V17.7) Comments: Family History Status: Active Family history of Colon Cancer (V16.0) Comments: Family History Status: Active Family history of Depression Comments: Family History Status: Active Family history of Stroke Syndrome (V17.1) Comments: Family History Status: Active Family history of Coronary Artery Disease Comments: Family History Status: Active Social History Name Dates Details Smoking Status* Never smoker Vital Signs Date Test Result Details No Known Vitals to report Results Date Description Value Details 15-May-2015 14:52 CT CHEST WITHOUT IV CONTRAST Comments: Exam Date: 10:43Dictation Date: 05/15/2015 14:52 XC CHEST (Better) Plan of Care Planned Observations* Name Dates Details Planned Goals not documented Goal Planned Encounters* Appointment; Provider: Alphonse Asif On 11-Sep-2015 08:30 * Appointment; Provider: Pretty Aranda On 30-Jul-2015 10:30 * Appointment; Provider: Devendra Lugo On 29-Jul-2015 10:45 * Appointment; Provider: Eric Garcia On 10-Jul-2015 10:30 * Appointment; Provider: David Franks On 08-Jul-2015 15:15 * Appointment; Provider: Jordan Muñoz On 24-Jun-2015 10:30 * Appointment; Provider: Wilfrido Waddell On [...]
--- OUTSIDE RECORDS SUMMARY | 2016-12-25 13:03 | XMS REPORT | Summary of Care ---
Author Author Cristi Crystal, Janice J Organization Unknown Address [address], [place] [address] Phone Unavailable Care Team Providers Care Derrick Boat Captain Name Role Phone Tiny Crystal, Min Unavailable [...] Refills: 2 Devendra Lugo M.D.* Started 10-Nov-2009 ActiveVitamin D3 2000 UNIT Oral Tablet Take 1 tablet daily * Quantity: 30 Refills: 0 * Started ActiveFish Oil 1000 MG Oral Capsule TAKE 2 CAPSULE Daily * Quantity: 60 Refills: 0 * Started ActiveSEROquel XR 300 MG Oral Tablet Extended Release 24 Hour TAKE 1 TABLET DAILY. * Refills: 0 * Started 10-Jul-2012 ActiveHerbal/ Natural Products Saccharonyces Boulardiitmos * Refills: 0 * Started 05-Jul-2013 ActiveCalcium 600/Vitamin D 600-400 MG-UNIT Oral Tablet * Refills: 0 * Started 05-Jul-2013 ActiveLisinopril 10 MG Oral Tablet TAKE 1 TABLET DAILY. * Quantity: 90 Refills: 3 Pretty Aranda M.D.* Started 01-Nov-2012 ActiveBusPIRone HCl - 15 MG Oral Tablet TAKE 1 TABLET 3 times daily * Refills: 0 * Started 19-Nov-2012 ActiveDicyclomine HCl - 20 MG Oral Tablet TAKE 1 TABLET EVERY 6 HOURS NEEDED. * Quantity: 40 Refills: 0 Kip GreyATaco* Started 27-May-2014 ActiveLinzess 145 MCG Oral Capsule take 1 capsule daily * Quantity: 7 Refills: 0 Kip Grey P.ATaco* Started 02-Jul-2014 ActiveHYDROmorphone HCl - 4 MG Oral Tablet Si PO every 6 hours prn with a max of 4 per day. Script must last 30 days. * Quantity: 120 Refills: 0 Devendra Lugo M.D.* Started 29-Aug-2013 ActiveFluvoxaMINE Maleate 100 MG Oral Tablet Take 1 1/2 tablet at bedtime * Quantity: 45 Refills: 0 Pretty Aranda M.D.* Started 23-Jul-2014 ActiveMicronized Colestipol HCl - 1 GM Oral Tablet TAKE 1 TABLET TWICE DAILY PRN diarrhea. * Quantity: 180 Refills: 3 Janice Colin M.D.* Started ActivePromethazine HCl - 12.5 MG [...] Refills: 0 Pretty Aranda M.D.* Started 14-May-2013 ActiveVoltaren 1 % Transdermal Gel Sig: Apply to affected area Qid prn. * Quantity: 1 Refills: 1 Devendra Lugo M.D.* Started ActiveNystatin-Triamcinolone 726766-4.1 UNIT/GM-% External Cream APPLY SPARINGLY TO AFFECTED AREA(S) 3 TIMES A DAY * Quantity: 2 Refills: 4 Pretty Aranda M.D.* Started 19-Jan-2012 Hthlyr33 GM Tube ClonazePAM 1 MG Oral Tablet TAKE 1 TABLET 3 times daily * Refills: 0 * Started 14-Apr-2009 ActiveCyclobenzaprine HCl - 10 MG Oral Tablet Si PO Tid. * Quantity: 90 Refills: 0 Devendra Lugo M.D.* Started 24-Oct-2013 ActiveGabapentin 600 MG Oral Tablet TAKE ONE TABLET BY MOUTH AT BEDTIME * Quantity: 90 Refills: 3 David Franks M.D.* Started 27-Mar-2013 ActiveGlimepiride 2 MG Oral Tablet take one tablet by mouth every day with breakfast * Quantity: 90 Refills: 3 Pretty Aranda M.D.* Started 22-Jul-2013 Active Allergies and Adverse Reactions Name Dates [...] Colonoscopy For Forceps Biopsy Completed:03-Jan-2013 History of Nerve Block Transforaminal Epidural Lumbar History of Sigmoidoscopy (Fiberoptic) Completed: MAMMOGRAM-SCREENING Ordered:23-Jul-2014 Immunization Name Dates Details DTaP Administered on:2003 Hepatitis B Administered on:08-Dec-2003 Hepatitis B Administered on:13-Jan-2004 Tdap (Adacel) Lot #: [id number] Administered on: Influenza Administered on:03-Jun-2010 Influenza Lot #: [id number] Administered on:23-May-2011 Pneumo (Pneumovax) Lot #: [id number] Administered on:31-Aug-2011 Influenza Lot #: [id number] Administered on:08-May-2012 Influenza Administered on:13-Jun-2013 Family History [...] Problem not documented On 30-Jul-2013 14:00 Appointment; Dvaid Franks Encounter Diagnosis: Problem not documented On [...]
--- OUTSIDE RECORDS SUMMARY | 2016-12-25 13:03 | XMS REPORT | Summary of Care ---
Author Author Amelia Rucker Unknown Address [address] [place], [place] [address] Phone Unavailable Care Team Providers Care Mud Engineer Name Role Phone Tiny Crystal, Min Unavailable [...] Quantity: 60 Refills: 0 * Started ActiveNystatin-Triamcinolone 126693-6.1 UNIT/GM-% External Cream APPLY SPARINGLY TO AFFECTED AREA(S) 3 TIMES A DAY * Quantity: 2 Refills: 4 Pretty Aranda M.D.* Started 19-Jan-2012 Cvbhxm23 GM Tube SEROquel XR 300 MG Oral [...] (., Z86.19) Status: Resolved History of influenza (2., Z86.19) Status: Resolved History of Tick bite [...] B Administered on:13-Jan-2004 Tdap (Adacel) Lot #: [id number] Administered on: Influenza Administered on:03-Jun-2010 Influenza Lot #: [id number] Administered on:23-May-2011 Pneumo (Pneumovax) Lot #: [id number] Administered on:31-Aug-2011 Influenza Lot #: [id number] Administered on:08-May-2012 Influenza Administered on:13-Jun-2013 Family History [...] 14:15 * Appointment; Provider: Schedule Radiology On 11:30 [...]
--- OUTSIDE RECORDS SUMMARY | 2016-12-25 13:03 | XMS REPORT | Continuity of Care Document ---
Author Author [facility] Organization [facility] Address Unknown Phone Unavailable Allergies Active Description Code Type Severity Reaction Onset Reported/Identified Relationship to Patient Clinical Status Yes metFORMIN ZZ Drug Allergy N/A diarrhea, stomach upset 10/30/2013 Medications Problems Date Dx Coded Attending Type Code Diagnosis Diagnosed By 05/21/2015 MARAH [facility] THERAPIST, LINK [place] 296.33 Major Depressive Disorder, Recurrent, Severe Without Psychotic Features 05/21/2015 MARAH [facility] THERAPIST, LINK [place] 300.01 Panic Disorder Without Agoraphobia 05/21/2015 MARAH [facility] TH[facility]APISTLINK 300.3 Obsessive-Compulsive Disorder 05/21/2015 MARAH [facility] THERAPIST, LINK [place] 301.83 Borderline Personality Disorder 09/03/2015 RADHA WILSON H6123 Impacted cerumen, bilateral 09/03/2015 RADHA WILSON R51 Headache 09/03/2015 RADHA WILSON [id number] Unspecified injury of head, initial encounter 09/03/2015 RADHA WILSON [id number] Contusion of right elbow, initial encounter 09/03/2015 RADHA WILSON [id number] Contusion of right knee, initial encounter 09/03/2015 RAHDA WILSON [id number] Fall from bed, initial encounter 09/03/2015 RADHA WILSON [id number] Bedroom of single-family (private) house as place 05/23/2016 MARAH [facility] THERAPIST, LINK [place] 300.3 Obsessive-Compulsive Disorder Procedures Code Description [place] [address] 08/26/2015 73302 08/26/2015 64534 08/26/2015 20378 08/26/2015 15958 08/26/2015 72868 08/26/2015 Results Test Result Range CBC WITH PLATELET AND DIFFERENTIAL - 07/19/16 08:50 SEGS 80.0 % NRG *BASOPHILS 4.0 % NRG *EOSINOPHILS 4.0 % NRG *LYMPHOCYTES 4.0 % NRG *MONOCYTES 4.0 % NRG *ABSOLUTE BASOPHILS 0.44 10*3/uL 0.00- 0.20 *ABSOLUTE EOSINOPHILS 0.44 10*3/uL 0.00- 0.50 *ABSOLUTE LYMPHOCYTES 0.44 10*3/uL 1.00- 3.00 *ABSOLUTE MONOCYTES 0.44 10*3/uL 0.30- 1.00 *ABSOLUTE NEUTROPHILS 9.16 10*3/uL 1.80- 7.80 COMPREHENSIVE METABOLIC PANEL - 07/19/16 08:50 BILIFUBIN TOTAL 0.70 0.20-1.00 TOTAL PROTEIN 6.7 6.4-8.2 ALBUMIN 3.0 3.4-5.0 *GLOBULIN 3.7 2.3-3.5 *A/G RATIO 0.8 1.5-2.2 ALK PHOS 110 U/L 46-116 ALT (SGPT) 23 U/L 16-63 AST (SGOT) 22 U/L 15-37 GFR ESTIMATION - 07/19/16 08:50 *GFR EST NON AFR EGYPTIAN 52 mL/min NRG *GRFA EST AFR AMER 61 mL/min NRG TROPONIN-I - 07/19/16 08:50 TROPONIN-I <0.017 ng/mL 0.000-0.056 MANUAL DIFFERENTIAL - 07/19/16 08:50 *POLYCHROMASIA 1+ NRG *TEARDROP CELLS 1+ NRG *BANDS 4.0 % NRG *MANUAL DIFF PERFORMED NRG BNP - 07/19/16 08:50 B-TYPE NATRIURETIC PROTEIN 13 pg/mL 1- 100 URINALYSIS, AUTOMATED WITH MICROSCOPY - 07/19/16 09:18 *URINE APPEARANCE CLEAR CLEAR *URINE BILIRUBIN NEGATIVE NEGATIVE *URINE BLOOD NEGATIVE NEGATIVE *URINE GLUCOSE NEGATIVE NEGATIVE *URINE KETONES NEGATIVE NEGATIVE *URINE LEUKOCYTES NEGATIVE NEGATIVE *URINE NITRITES NEGATIVE NEGATIVE URINE PH 6.0 5.0-8.0 *URINE PROTEIN NEGATIVE NEGATIVE URINE SPECIFIC GRAVITY <1.005 <=1.005->= 1.030 *URINE UROBILINOGEN 0.2 0.2-1.0 *URINE COLOR YELLOW STRAW/YELL/DK YELL CBC WITH PLATELET AND DIFFERENTIAL - 07/20/16 20:01 SEGS 54.7 % NRG *BASOPHILS 1.3 % NRG *EOSINOPHILS 3.5 % NRG AUTOMATED DIFF PERFORMED NRG *LYMPHOCYTES 32.8 % NRG *MONOCYTES 7.7 % NRG *ABSOLUTE BASOPHILS 0.10 10*3/uL 0.00- 0.20 *ABSOLUTE EOSINOPHILS 0.30 10*3/uL 0.00- 0.50 *ABSOLUTE LYMPHOCYTES 3.00 10*3/uL 1.00- 3.00 *ABSOLUTE MONOCYTES 0.70 10*3/uL 0.30- 1.00 *ABSOLUTE NEUTROPHILS 5.00 10*3/uL 1.80- 7.80 MPV 9.0 fL 7.4-10.4 PLATELETS 287 10*3/uL 159-386 WBC 9.1 10*3/uL 3.6-11.2 RBC 4.87 3.63-4.92 HEMOGLOBIN 13.8 11.0-14.3 HEMATOCRIT 42.2 % 31.2-41.9 MCV 86.7 fL 79.0-98.0 MCH 28.3 pg 27.0-33.0 MCHC 32.6 32.0-36.0 RDW 14.3 % 12.3-17.0 RDWSD 43.8 37.1-47.8 PROTHROMBIN TIME - 07/20/16 20:01 *INR 1.0 0.9-1.1 *PROTHROMBIN TIME 10.4 s 9.4-11.5 BNP - 07/20/16 20:01 B-TYPE NATRIURETIC PROTEIN 16 pg/mL 1- 100 COMPREHENSIVE METABOLIC PANEL - 07/20/16 20:01 BILIFUBIN TOTAL 0.40 0.20-1.00 TOTAL PROTEIN 6.9 6.4-8.2 ALBUMIN 3.1 3.4-5.0 *GLOBULIN 3.8 2.3-3.5 *A/G RATIO 0.8 1.5-2.2 ALK PHOS 99 U/L 46-116 ALT (SGPT) 39 U/L 16-63 AST (SGOT) 35 U/L 15-37 GFR ESTIMATION - 07/20/16 20:01 *GFR EST NON AFR EGYPTIAN 57 mL/min NRG *GRFA EST AFR AMER 67 mL/min NRG TROPONIN-I - 07/20/16 20:01 TROPONIN-I <0.017 ng/mL 0.000-0.056 LIPASE - 07/20/16 20:01 LIPASE 126 U/L 73-393 TROPONIN-I - 07/21/16 04:19 TROPONIN-I <0.017 ng/mL 0.000-0.056 LIPID PANEL W/ LDL DIRECT REFLEX - 07/21/16 04:19 TRIGLYCERIDES 106 0-149 CHOLESTEROL 141 50-199 HDL CHOLESTEROL 46 40-60 *LDL (CALCULATED) CHOL 74 0-99 HEMOGLOBIN A1C - 07/21/16 04:19 HEMOGLOBIN A1C 6.6 % 4.5-6.2 EST AVG. GLUCOSE - 07/21/16 04:19 EST AVG. GLUCOSE 142.7 g/dL NRG TROPONIN-I - 07/21/16 11:25 TROPONIN-I <0.017 ng/mL 0.000-0.056 Encounters ACCT No. Visit Date/Time Discharge Status Pt. Type Provider Facility Loc./Unit Complaint [id number] 09/08/2008 00:00:00 09/08/2008 23: 59:59 CLS Outpatient MARAH SERRATOJenn THERAPISTLINK
--- OUTSIDE RECORDS SUMMARY | 2016-12-25 13:03 | XMS REPORT | Summary of Care ---
Author Author Devendra Lugo M.D. Unknown Address [address], [place] [address] Phone Unavailable Care Team Providers Care Sql Report Developer Name Role Phone Kip Jensen Unavailable Unavailable [...] (V12., Z86.19) Status: Resolved History of influenza (V1., Z87.09) Status: Resolved History of low back [...] PANEL 1108 Ordered:29-Sep-2015 HEMOGLOBIN A1C 3507 Ordered:29-Sep-2015 ULTRASOUND RENAL SONO Ordered:03-Nov-2015 Immunization Name Dates Details DTaP Administered on:2003 Hepatitis B Administered on:08-Dec-2003 Hepatitis B Administered on:13-Jan-2004 Tdap (Adacel) Lot #: [id number] Administered on: Influenza Administered on:03-Jun-2010 Influenza Lot #: [id number] Administered on:23-May-2011 Pneumo (Pneumovax) Lot #: [id number] Administered on:31-Aug-2011 Influenza Lot #: [id number] Administered on:08-May-2012 Influenza Administered on:13-Jun-2013 Fluzone Intramuscular Injectable Lot #: [id number] Administered on:29-Apr-2015 Tdap (Adacel) Lot #: [id number] Administered on:29-Apr-2015 Family History Unknown Family Member* [...] smoker Vital Signs Date Test Result Details 03-Nov-2015 15:44 BP Systolic 102 mm[Hg] Status: BP Diastolic 80 mm[Hg] Status: 14-Oct-2015 16:12 BP Systolic 144 mm[Hg] Status: BP Diastolic 88 mm[Hg] Status: Weight 244 lb Status: Body Mass Index Calculated 42.54 kg/m2 Status: Body Surface Area Calculated 2.12 m2 Status: Results Date Description Value Details 03-Nov-2015 17:16 CYTOLOGY - URINE 4444 CYTOLOGY Specimen referred to [facility]. Report to follow. (Better) 05-Nov-2015 08:37 URINE CULTURE [id number] Comments: LogFire performed at: [facility], [address] [place], [address], [employer] Torch: Wilfrido Quinones D.O., MPHQuest Collection Date/Time: [id number] Results Received Date/Time: [id number] Reported Date/Time: [id number] signed CULTURE, URINE, ROUTINE SEE NOTE (Better) Comments: CULTURE, URINE, ROUTINE MICRO NUMBER: [id number] TEST STATUS: FINAL SPECIMEN SOURCE : URINE, CLEAN CATCH SPECIMEN QUALITY: ADEQUATE RESULT: Multiple organisms present, each less than 10,000 CFU/mL. These organisms, commonly found on external and internal genitalia, are considered to be colonizers. No further testing performed.[NC]----- Plan of Care Planned Observations* Name Dates Details Planned Goals not documented Goal Planned Encounters* Appointment; Provider: Devendra Lugo On 07-Jan-2016 14:15 * Appointment; Provider: Pretty Aranda On 23-Dec-2015 09:45 * Appointment; Provider: David Kelly On 23-Nov-2015 10:30 * Appointment; Provider: Schedule Radiology On 13-Nov-2015 [...]
--- OUTSIDE RECORDS SUMMARY | 2016-12-25 13:04 | XMS REPORT | Summary of Care ---
Author Author Devendra Lugo M.D. Unknown Address [address], [place] [address] Phone Unavailable Care Team Providers Care Fire Extinguisher Tester Name Role Phone Cristi Crystal, Leon Unavailable [...] Quantity: 60 Refills: 0 * Started ActiveNystatin-Triamcinolone 938260-4.1 UNIT/GM-% External Cream APPLY SPARINGLY TO AFFECTED AREA(S) 3 TIMES A DAY * Quantity: 2 Refills: 4 Pretty Aranda M.D.* Started 19-Jan-2012 Lrafvk06 GM Tube SEROquel XR 300 MG Oral [...] pain 723.1 * Quantity: 1 Refills: 0 Devenrda Lugo M.D.* Started Active Allergies and Adverse [...] B Administered on:13-Jan-2004 Tdap (Adacel) Lot #: [id number] Administered on: Influenza Administered on:03-Jun-2010 Influenza Lot #: [id number] Administered on:23-May-2011 Pneumo (Pneumovax) Lot #: [id number] Administered on:31-Aug-2011 Influenza Lot #: [id number] Administered on:08-May-2012 Influenza Administered on:13-Jun-2013 Family History [...]
--- OUTSIDE RECORDS SUMMARY | 2016-12-25 13:04 | XMS REPORT | Summary of Care ---
Author Author Pretty Aranda M.D. Unknown Address [address], [place] [address] Phone Unavailable Care Team Providers Care Charging Board Operator Name Role Phone Tiny Crystal, Min Unavailable Unavailable Cristi Crystal, Leon Unavailable Unavailable Parish Crystal, Tracie Unavailable Unavailable [...] Status: Active Fibromyalgia (729.1, M79.7) Status: Active Obstructive sleep apnea (327.23, G47.33) Status: Active Arthralgia of multiple sites (719.49, M25.50) Status: Active Lower back pain (724.2, M54.5) Status: Active Lung nodule (793.11, R91.1) Status: Active Abdominal pain (789.00, R10.9) Status: Active Diarrhea (787.91, R19.7) Status: Active Depression (311, F32.9) Status: Active [...] 90 Refills: 0 * Started 10-Oct-2011 ActiveNystatin-Triamcinolone 125104-8.1 UNIT/GM-% External Cream APPLY SPARINGLY TO AFFECTED AREA(S) 3 TIMES A DAY * Quantity: 2 Refills: 4 Pretty Aranda M.D.* Started 19-Jan-2012 [id number] GM Tube BusPIRone HCl - 15 MG Oral Tablet TAKE 1 TABLET 3 times daily * Refills: 0 * Started 19-Nov-2012 ActiveVoltaren 1 % Transdermal Gel Sig: Apply to affected area Qid prn. * Quantity: 1 Refills: 1 Devendra Lugo M.D.* Started ActiveHerbal/ Natural Products Saccharonyces Bojannieitmos * Refills: 0 * Started 05-Jul-2013 ActiveCalcium 600/Vitamin D 600-400 MG-UNIT Oral Tablet * Refills: 0 * Started 05-Jul-2013 ActivePromethazine HCl - 12.5 MG Oral Tablet TAKE 1 TABLET EVERY 6 TO 8 HOURS NEEDED NAUSEA. * Quantity: 60 Refills: 0 Devendra Lugo M.D.* Started 15-Oct-2013 ActiveMicronized Colestipol HCl - 1 GM Oral Tablet TAKE 1 TABLET TWICE DAILY PRN diarrhea. * Quantity: 180 Refills: 3 Janice Colin M.D.* Started ActiveCyclobenzaprine HCl - 10 MG Oral Tablet Si PO Tid. * Quantity: 90 Refills: 2 Devendra Lugo M.D.* Started 24-Oct-2013 ActiveGlimepiride 2 MG Oral Tablet take one tablet by mouth every day with breakfast * Quantity: 90 Refills: 3 Pretty Aranda M.D.* Started 22-Jul-2013 ActiveGabapentin 600 MG Oral Tablet TAKE ONE TABLET BY MOUTH AT BEDTIME * Quantity: 90 Refills: 3 David Franks M.D.* Started 27-Mar-2013 ActiveHYDROmorphone HCl - 4 MG Oral Tablet Si PO every 6 hours prn with a max of 4 per day. Script must last 30 days. May fill on or after 05-23-2014. * Quantity: 120 Refills: 0 Devendra Lugo M.D.* Started 29-Aug-2013 ActiveDicyclomine HCl - 20 MG Oral Tablet TAKE 1 TABLET EVERY 6 HOURS NEEDED. * Quantity: 40 Refills: 0 Pretty Aranda M.D.* Started 27-May-2014 ActiveLisinopril 10 MG Oral Tablet TAKE 1 TABLET DAILY. * Quantity: 90 Refills: 3 Pretty Aranda M.D.* Started 01-Nov-2012 ActiveSEROquel XR 300 MG Oral Tablet Extended Release 24 Hour TAKE 1 TABLET DAILY. * Refills: 0 * Started 10-Jul-2012 ActiveVitamin B-12 1000 MCG Oral Tablet TAKE 1 TABLET DAILY DIRECTED. * Quantity: 30 Refills: 0 ArandaPretty M.D.* Started 14-May-2013 ActiveProbiotic Colon Support Oral Capsule TAKE 1 CAPSULE Daily * Quantity: 30 Refills: 0 ArandaPretty M.D.* Started 14-May-2013 ActiveAmbien 10 MG Oral Tablet TAKE 1 TABLET BY MOUTH AT BEDTIME NEEDED FOR SLEEP * Quantity: 30 Refills: 0 ArandaPretty M.D.* Started 14-May-2013 Active Allergies and Adverse Reactions Name Dates [...] B Administered on:13-Jan-2004 Tdap (Adacel) Lot #: [id number] Administered on: Influenza Administered on:03-Jun-2010 Influenza Lot #: [id number] Administered on:23-May-2011 Pneumo (Pneumovax) Lot #: [id number] Administered on:31-Aug-2011 Influenza Lot #: [id number] Administered on:08-May-2012 Influenza Administered on:13-Jun-2013 Family History [...] ml/min (Better) Range: >60 EST GFR, NON-AFR TURKMEN 52 ml/min (Below low threshold) Range: >60 Comments: EST GFR is reported in ml/min per 1.73 m2 of body surface area. For -Zimbabwean, please multiple result by 1.2.----- GLUCOSE 115 [...] Problem not documented On 08:15 Appointment; Cristi, January Encounter Diagnosis: Problem not [...] Problem not documented On 11-Sep-2012 09:45 Appointment; Fam Francisco Javier Encounter Diagnosis: Problem not documented On 10-Jul-2012 13:45
--- OUTSIDE RECORDS SUMMARY | 2016-12-25 13:04 | XMS REPORT | Summary of Care ---
Author Author Pretty Aranda M.D. Unknown Address Unknown Phone Unavailable Care Team Providers Care Supervisor Industrial Garment Name Role Phone Kip Jensen Unavailable Unavailable Edson Adams, Amelia Unavailable Unavailable Tracie Lugo M.D. Unavailable Unavailable Pretty Aranda M.D. Unavailable Unavailable Verito Simmons Unavailable Unavailable Unavailable [...] Joint pain, knee (719.46, M25.569) Status: Active Fibromyalgia (729.1, M79.7) Status: Active 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, M17.12) Status: Active Morbid obesity (278.01, E66.01) Status: Active Migraine without status migrainosus, not intractable (346.90, G43.909) Status: Active Medications Name Dates Details ClonazePAM 1 MG Oral Tablet TAKE 1 TABLET 3 times daily * Start 14-Apr-2009 Active Gabapentin 600 MG Oral Tablet TAKE ONE TABLET BY MOUTH AT BEDTIME * Quantity: 90 Refills: 3 Amelia Rucker * Start 27-Mar-2013 Active Herbal/ Natural Products Saccharonyces Boulardiitmos * Refills: 0 * Start 05-Jul-2013 Active Calcium 600/Vitamin D 600-400 MG-UNIT Oral Tablet * Refills: 0 * Start 05-Jul-2013 Active Supplies Soft neck braceDx: Cervical neck pain 723.1 * Quantity: 1 Refills: 0 Devendra Lugo M.D. * Start Active FluvoxaMINE Maleate 100 MG Oral Tablet TAKE 1 AND 1/2 TABLETS TWICE DAILY. * Refills: 0 * Start 29-Apr-2015 Active Pennsaid 2 % Transdermal Solution Apply 2 pumps twice daily over area of pain. * Quantity: 1 Refills: 0 Parish Carver.Devendra Knapp * Start 08-Jun-2016 Active 112 GM Pump Btl Colestipol HCl - 1 GM Oral Tablet Take 1 tablet twice daily * Refills: 0 Aranda M.D.Pretty * Start 29-Apr-2015 Active Aspirin 81 MG TABS Take 1 tablet daily * Quantity: 100 Refills: 0 Aranda M.D.Pretty * Start 29-Apr-2015 Active Voltaren 1 % Transdermal Gel APPLY 2 GRAMS TO AFFECTED AREA TWICE A DAY AND RUB IN WELL * Quantity: 100 Refills: 0 Parish Carver.Devendra Knapp * Start 29-Apr-2015 Active Movantik 25 MG Oral Tablet Take 2 tablet daily on an empty stomach 1 hr before or 2 hrs after first meal. 90 day supply for express script only * Quantity: 180 Refills: 0 Parish Carver.Devendra Knapp * Start 16-Nov-2015 Active Meclizine HCl - 25 MG Oral Tablet TAKE 1 TABLET 3 TIMES DAILY NEEDED. * Quantity: 30 Refills: 0 Aranda M.D.Pretty * Start 24-Aug-2015 Active Atorvastatin Calcium 10 MG Oral Tablet Take 1 tablet daily * Quantity: 90 Refills: 3 Aranda M.D.Pretty * Start 08-Aug-2016 Active Cyclobenzaprine HCl - 10 MG Oral Tablet Si PO Tid. * Quantity: 270 Refills: 0 Devendra Lugo M.D. * Start 24-Oct-2013 Active HYDROmorphone HCl - 4 MG Oral Tablet Si PO every 6 hours prn with a max of 4 per day. Script must last [address] Lugo * Quantity: 120 Refills: 0 Parish Carver.Devendra Knapp Start 06-Jul-2016 Active Glimepiride 2 MG Oral Tablet TAKE 1 TABLET EVERY DAY WITH BREAKFAST * Quantity: 90 Refills: 1 Aranda M.D.Pretty * Start 30-Jun-2016 Active Vitamin B-12 1000 MCG Oral Tablet TAKE 1 TABLET DAILY DIRECTED. * Quantity: 30 Refills: 0 Aranda M.D.Pretty * Start 14-May-2013 Active Probiotic Colon Support Oral Capsule TAKE 1 CAPSULE Daily * Quantity: 30 Refills: 0 Aranda M.D.Pretty * Start 14-May-2013 Active Ambien 10 MG Oral Tablet TAKE 1 TABLET BY MOUTH AT BEDTIME NEEDED FOR SLEEP * Quantity: 30 Refills: 0 Aranda M.D., Pretty * Start 14-May-2013 Active BusPIRone HCl - 30 MG Oral Tablet TAKE 1 TABLET TWICE DAILY. * Refills: 0 * Start 19-Nov-2012 Active Lisinopril 10 MG Oral Tablet Take 1 tablet daily * Quantity: 90 Refills: 1 Aranda M.D., Pretty * Start 06-Jun-2016 Active SEROquel XR 300 MG Oral Tablet Extended Release 24 Hour TAKE 1 TABLET DAILY. * Refills: 0 * Start 10-Jul-2012 Active Nystatin-Triamcinolone 353517-9.1 UNIT/GM-% External Cream APPLY SPARINGLY TO AFFECTED AREA(S) 3 TIMES A DAY * Quantity: 2 Refills: 4 Aranda M.D.Pretty * Start 19-Jan-2012 Active 60 GM Tube Fish Oil 1000 MG Oral Capsule TAKE 2 CAPSULE Daily * Quantity: 60 Refills: 0 * Start Active Vitamin D3 2000 UNIT Oral Tablet Take 1 tablet daily * Quantity: 30 Refills: 0 * Start Active Lyrica 150 MG Oral Capsule TAKE 1 CAPSULE BY MOUTH TWICE DAILY.Script must last [address] Lugo. * Quantity: 180 Refills: 0 Devendra Lugo M.D. * Start 10-Nov-2009 Active Multi-Vitamin/Minerals Oral Tablet TAKE 1 TABLET DAILY. * Quantity: 30 Refills: 0 * Start 24-Nov-2008 Active Promethazine HCl - 12.5 MG Oral Tablet TAKE 1 TABLET EVERY 6 TO 8 HOURS NEEDED NAUSEA. * Quantity: 60 Refills: 3 Devendra Lugo M.D. * Start 15-Oct-2013 Active Dicyclomine HCl - 20 MG Oral Tablet TAKE 1 TABLET EVERY 6 HOURS NEEDED. * Quantity: 40 Refills: 0 Kip Jensen * Start 27-May-2014 Active Allergies and Adverse Reactions Name [...] B on: 13-Jan-2004 Tdap (Adacel) Lot #: [id number] on: Influenza on: 03-Jun-2010 Influenza Lot #: [id number] on: 23-May-2011 Pneumo (Pneumovax) Lot #: [id number] on: 31-Aug-2011 Influenza Lot #: [id number] on: 08-May-2012 Influenza on: 13-Jun-2013 Tdap (Adacel) Lot #: [id number] on: 29-Apr-2015 Fluzone INJ Lot #: [id number] on: 29-Apr-2015 Fluzone Quadrivalent 0.5 ML Intramuscular Suspension Lot #: [id number] on: 21-Apr-2016 Family History Name Dates Details [...] Encounters Appointment; Provider: Devendra Lugo M.D. On 15-Sep-2016 15:00 Appointment; Provider: Wilfrido Waddell M.D. On 21-Jul-2016 12:15 Instructions Name Dates Details Instructions not documented [...] Diagnosis: Problem not documented On 11:00 Appointment; Pretyt Aranda M.D. Encounter Diagnosis: Problem not documented On 10:30 Appointment; David Kelly M.D.,[facility], Encounter Diagnosis: Problem not documented On 10:30 Appointment; Devendra Lugo M.D. Encounter Diagnosis: Problem not documented On 07-Jan-2016 14:15 Appointment; Pretty Aranda M.D. Encounter Diagnosis: Problem not documented On 23-Dec-2015 09:45 Appointment; Devendra Lugo M.D. Encounter Diagnosis: Problem not documented On 12-Nov-2015 10:30 Appointment; Alphonse Asif M.D. Encounter Diagnosis: Problem not documented On 11-Nov-2015 10:15 Appointment; David Kelly M.D.,[facility], Encounter Diagnosis: Problem not documented On [...]
--- OUTSIDE RECORDS SUMMARY | 2016-12-25 13:04 | XMS REPORT | Summary of Care ---
Author Author Pretty Aranda M.D. Unknown Address [address], [place] [address] Phone Unavailable Care Team Providers Care Architectural Technologist Name Role Phone Kip Jensen Unavailable Unavailable Edson Adams, Amelia Unavailable Unavailable Parish Crystal, Tracie Unavailable Unavailable Manoj Crysatl, Pretty Unavailable Unavailable Pretty Aranda PP Unavailable [...] B Administered on:13-Jan-2004 Tdap (Adacel) Lot #: [id number] Administered on: Influenza Administered on:03-Jun-2010 Influenza Lot #: [id number] Administered on:23-May-2011 Pneumo (Pneumovax) Lot #: [id number] Administered on:31-Aug-2011 Influenza Lot #: [id number] Administered on:08-May-2012 Influenza Administered on:13-Jun-2013 Fluzone Intramuscular Injectable Lot #: [id number] Administered on:29-Apr-2015 Tdap (Adacel) Lot #: [id number] Administered on:29-Apr-2015 Family History Unknown Family Member* [...] 0.0-7.0 %BASO 1.0 % (Better) Range: 0.0-2.5 %ADBULLAHI 1.5 % (Better) Range: 0.0-5.0 NEUTRO 5.1 [...] ml/min (Better) Range: >60 EST GFR, NON-AFR [place]AN 52 ml/min (Below low threshold) Range: >60 Comments: EST GFR is reported in ml/min per 1.73 m2 of body surface area. For -Tristanian, please multiple result by 1.2.----- GLUCOSE 174 [...] Comments: Items were attached to this order: [id number] were attached to this order: FT4 FREE T4 1.16 ng/dL (Better) Range: 0.80-1.67 26-Aug-2015 09:07 Triiodothyronine,Free,Serum ( T3) [id number] Comments: [facility] performed at: [facility], [address] [place] [address], [place], [address], , Photoengraving Etcher Apprentice: AMY Nolan MD TRIIODOTHYRONINE,FREE,SERUM 3.4 pg/mL (Better) [...]
--- OUTSIDE RECORDS SUMMARY | 2016-12-25 13:05 | XMS REPORT | Summary of Care ---
Author Author Pretty Aranda M.D. 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, E04.1) Status: Active Lung nodule (793.11, R91.1) Status: Active Abnormal liver function test (790.6, R94.5) Status: Active Visit for screening mammogram (V76.12, Z12.31) Status: Active Cervical pain (neck) (723.1, M54.2) Status: Active Lower back pain (724.2, M54.5) Status: Active Degenerative [...] Status: Active Fibromyalgia (729.1, M79.7) Status: Active Elevated creatine kinase level (790.5, R74.8) Status: Active Symptoms involving urinary system (788.99, R39.9) Status: Active Elevated liver enzymes (790.5, R74.8) Status: Active Pain, low back (724.2, M54.5) Status: Active Knee joint pain (719.46, M25.569) Status: Active Obesity (278.00, E66.9) Status: Active Arthralgia of multiple sites (719.49, M25.50) Status: Active Joint pain, knee (719.46, M25.569) Status: Active Trigger finger (727.03, M65.30) Status: Active Pain in hand (729.5, M79.643) Status: Active Encounter for screening for malignant neoplasm of colon (V76.51, Z12.11) Status: Active Vitamin d deficiency (268.9, E55.9) Status: Active Medications Name Dates Details Multi-Vitamin/Minerals [...] Refills: 3 Amelia Sandhu P.ATaco* Started 27-Mar-2013 ActiveFluticasone Propionate 50 MCG/ACT Nasal Suspension USE 1 SPRAY IN EACH NOSTRIL ONCE DAILY. * Quantity: 1 Refills: 4 Pretty Aranda M.D.* Started 21-Apr-2015 Ofquah12 GM Bottle BusPIRone HCl - 15 MG Oral Tablet 1 tab po tid * Quantity: 90 Refills: 0 * Started 19-Nov-2012 ActiveFluvoxaMINE Maleate [...] 90 Refills: 1 ArandaPretty M.D.* Started 29-Apr-2015 ActiveHYDROmorphone HCl - 4 MG Oral Tablet [...] 90 Refills: 2 ArandaPretty M.D.* Started 01-Nov-2012 Active Allergies and Adverse Reactions Name Dates [...] Epidural Lumbar History of Sigmoidoscopy (Fiberoptic) Completed: Procedures not documented Immunization Name Dates Details DTaP Administered on:2003 Hepatitis B Administered on:08-Dec-2003 Hepatitis B Administered on:13-Jan-2004 Tdap (Adacel) Lot #: [id number] Administered on: Influenza Administered on:03-Jun-2010 Influenza Lot #: [id number] Administered on:23-May-2011 Pneumo (Pneumovax) Lot #: [id number] Administered on:31-Aug-2011 Influenza Lot #: [id number] Administered on:08-May-2012 Influenza Administered on:13-Jun-2013 Fluzone Intramuscular Injectable Lot #: [id number] Administered on:29-Apr-2015 Tdap (Adacel) Lot #: [id number] Administered on:29-Apr-2015 Family History Unknown Family Member* [...]
--- OUTSIDE RECORDS SUMMARY | 2016-12-25 13:05 | XMS REPORT | Summary of Care ---
Author Author Leticia Crystal, FACS, ,, David Mireles Unknown Address [address], [place] [address] Phone Unavailable Care Team Providers Care Ancillary Services Manager Therapy Name Role Phone Que Adams, Kip Unavailable Unavailable Edson P.A., Amelia Unavailable [...] Active Neurogenic bladder (596.54, N31.9) Status: Active Medications Name Dates Details Multi-Vitamin/Minerals [...] Quantity: 60 Refills: 0 * Started ActiveNystatin-Triamcinolone 239953-1.1 UNIT/GM-% External Cream APPLY SPARINGLY TO AFFECTED AREA(S) 3 TIMES A DAY * Quantity: 2 Refills: 4 Pretty Aranda M.D.* Started 19-Jan-2012 [id number] GM Tube SEROquel XR 300 MG Oral [...] B Administered on:13-Jan-2004 Tdap (Adacel) Lot #: [id number] Administered on: Influenza Administered on:03-Jun-2010 Influenza Lot #: [id number] Administered on:23-May-2011 Pneumo (Pneumovax) Lot #: [id number] Administered on:31-Aug-2011 Influenza Lot #: [id number] Administered on:08-May-2012 Influenza Administered on:13-Jun-2013 Fluzone Intramuscular Injectable Lot #: [id number] Administered on:29-Apr-2015 Tdap (Adacel) Lot #: [id number] Administered on:29-Apr-2015 Family History Unknown Family Member* [...] Instructions * Instructions not documented Encounters Appointment; David Kelly Encounter Diagnosis: Problem not [...]
--- OUTSIDE RECORDS SUMMARY | 2016-12-25 13:05 | XMS REPORT | Summary of Care ---
Author Author Ortiz Crystal, [employer] Organization Unknown Address [address], [place] [address] Phone Unavailable Care Team Providers Care Tunnel Kiln Repairer Name Role Phone uQe Adams, Kip Unavailable Unavailable Edson Adams, Amelia [...] Script must last [address] Luog * Quantity: 120 Refills: 0 Devendra Lugo [...] tablet daily * Quantity: 100 Refills: 0 rPetty Aranda M.D.* Started 29-Apr-2015 ActiveMeclizine HCl - [...] B Administered on:13-Jan-2004 Tdap (Adacel) Lot #: [id number] Administered on: Influenza Administered on:03-Jun-2010 Influenza Lot #: [id number] Administered on:23-May-2011 Pneumo (Pneumovax) Lot #: [id number] Administered on:31-Aug-2011 Influenza Lot #: [id number] Administered on:08-May-2012 Influenza Administered on:13-Jun-2013 Fluzone Intramuscular Injectable Lot #: [id number] Administered on:29-Apr-2015 Tdap (Adacel) Lot #: [id number] Administered on:29-Apr-2015 Family History Unknown Family Member* [...] U TRANSEPI 0-2 /HPF (Better) Range: 0-2 Plan of Care Planned Observations* Name Dates Details Planned Goals not documented Goal Planned Encounters* Appointment; Provider: Devendra Lugo On 12-Nov-2015 10:30 * Appointment; Provider: Alphonse Asif On 11-Nov-2015 10:15 * Appointment; Provider: Pretty Aranda On 02-Nov-2015 11:00 * Appointment; Provider: Dejuan Alcantar On 06-Oct-2015 11:15 * Appointment; Provider: Schedule Radiology On 23-Sep-2015 [...]
--- OUTSIDE RECORDS SUMMARY | 2016-12-25 13:05 | XMS REPORT | Summary of Care ---
Author Author Devendra Lugo M.D. Unknown Address Unknown Phone Unavailable Care Team Providers Care Crumb Packer Name Role Phone Kip Jensen Unavailable Unavailable [...] Lugo. * Quantity: 180 Refills: 0 Devendra Luog M.D. Start 10-Nov-2009 Active ClonazePAM 1 MG Oral Tablet TAKE 1 TABLET 3 times daily * Refills: 0 * Start 14-Apr-2009 Active Vitamin D3 2000 UNIT Oral Tablet Take 1 tablet daily * Quantity: 30 Refills: 0 * Start Active Fish Oil 1000 MG Oral Capsule TAKE 2 CAPSULE Daily * Quantity: 60 Refills: 0 * Start Active Nystatin-Triamcinolone 662379-8.1 UNIT/GM-% External Cream APPLY SPARINGLY TO AFFECTED [...] Aranda M.D., Pretty * Start 06-Jun-2016 Active BusPIRone HCl - [...] 120 Refills: 0 Devendra Lugo M.D. Start 06-Jul-2016 Active Promethazine HCl - 12.5 MG Oral Tablet TAKE 1 TABLET EVERY 6 TO 8 HOURS NEEDED NAUSEA. * Quantity: 60 Refills: 3 Devednra Lugo M.D. Start 15-Oct-2013 Active Cyclobenzaprine HCl [...] Parish Carver.Devendra Knapp * Start 29-Apr-2015 Active Atorvastatin Calcium 10 [...] only * Quantity: 180 Refills: 0 Parish Carver.DDevendra España * Start 16-Nov-2015 Active Allergies and Adverse [...] Ordered: 22-Apr-2016 HEMOGLOBIN A1C 3507 Ordered: 22-Apr-2016 XRay KNEE-Left Ordered: 06-Jun-2016 Immunization Name Dates Details DTaP on: 2003 Hepatitis B on: 08-Dec-2003 Hepatitis B on: 13-Jan-2004 Tdap (Adacel) Lot #: [id number] on: Influenza on: 03-Jun-2010 Influenza Lot #: [id number] on: 23-May-2011 Pneumo (Pneumovax) Lot #: [id number] on: 31-Aug-2011 Influenza Lot #: [id number] on: 08-May-2012 Influenza on: 13-Jun-2013 Fluzone INJ Lot #: [id number] on: 29-Apr-2015 Tdap (Adacel) Lot #: [id number] on: 29-Apr-2015 Fluzone Quadrivalent 0.5 ML Intramuscular Suspension Lot #: [id number] on: 21-Apr-2016 Family History Name Dates Details [...] Schedule Radiology On 01-May-2017 13:40 Appointment; Provider: Devendra Lugo M.D. On 04-Aug-2016 14:30 Appointment; Provider: David Kelly M.D.|[facility] [place]|EMBER [place], On 27-Jul-2016 10:15 Appointment; Provider: Pretty Aranda M.D. On 25-Jul-2016 14:15 Planned Medications HYDROmorphone HCl - 4 MG Oral Tablet Ordered: 06-Jul-2016 Active Interventions Provided Medication Changes* HYDROmorphone HCl - 4 MG Oral Tablet - Renew Labs/Procedures/Imaging* XRay KNEE-Left; To be Done: 06 Jun 2016 Instructions Name Dates Details Instructions not [...] not documented On 10:30 Appointment; David Kelly M.D.|F.A.[facility]|[place],EMBER|[place],EMBER, Encounter Diagnosis: Problem not documented On 10:30 Appointment; Devendra Lugo M.D. Encounter Diagnosis: Problem not documented On 07-Jan-2016 14:15 Appointment; Pretty Aranda M.D. Encounter Diagnosis: Problem not documented On 23-Dec-2015 09:45 Appointment; Devendra Lugo M.D. Encounter Diagnosis: Problem not documented On 12-Nov-2015 10:30 Appointment; Alphonse Asif M.D. Encounter Diagnosis: Problem not documented On 11-Nov-2015 10:15 Appointment; David Kelly M.D.|F.A[facility].|Maarh,FACS|Marah,EMBER, Encounter Diagnosis: Problem not documented On 03-Nov-2015 [...] Encounter Diagnosis: Problem not documented On 06-Jun-2014 12:45"
--- OUTSIDE RECORDS SUMMARY | 2016-12-25 13:06 | XMS REPORT | Summary of Care ---
Author Author Pretty Aranda M.D. Unknown Address [address], [place] [address] Phone Unavailable Care Team Providers Care Cyber Forensics Analyst Name Role Phone Tiny Crystal, Min Unavailable [...] 1 Refills: 1 Devendra Lugo M.D.* Started ActiveFish Oil 1000 MG Oral Capsule TAKE 2 CAPSULE Daily * Quantity: 60 Refills: 0 * Started ActiveVitamin D3 2000 UNIT Oral Tablet Take 1 tablet daily * Quantity: 30 Refills: 0 * Started ActiveAmbien 10 MG Oral Tablet TAKE 1 TABLET BY MOUTH AT BEDTIME NEEDED FOR SLEEP * Quantity: 30 Refills: 0 Pretty Aranda M.D.* Started 14-May-2013 ActiveMicronized Colestipol HCl - 1 GM Oral Tablet TAKE 1 TABLET TWICE DAILY PRN diarrhea. * Quantity: 180 Refills: 3 Janice Colin M.D.* Started ActiveLisinopril 10 MG Oral Tablet TAKE 1 TABLET DAILY. * Quantity: 90 Refills: 3 Pretty Aranda M.D.* Started 01-Nov-2012 ActiveGabapentin 600 MG Oral Tablet TAKE ONE TABLET BY MOUTH AT BEDTIME * Quantity: 90 Refills: 3 David Franks M.D.* Started 27-Mar-2013 ActiveNystatin-Triamcinolone 444151-6.1 UNIT/GM-% External Cream APPLY SPARINGLY TO AFFECTED AREA(S) 3 TIMES A DAY * Quantity: 2 Refills: 4 Pretty Aranda M.D.* Started 19-Jan-2012 Makqyo94 GM Tube BusPIRone HCl - 15 MG Oral Tablet TAKE 1 TABLET 3 times daily * Refills: 0 * Started 19-Nov-2012 ActiveProbiotic Colon Support Oral Capsule TAKE 1 [...] Refills: 3 Pretty Aranda M.D.* Started 22-Jul-2013 ActiveDicyclomine HCl - 20 MG Oral Tablet [...] 120 Refills: 0 Amelia Sandhu* Started 29-Aug-2013 ActiveCyclobenzaprine HCl - 10 MG Oral Tablet Si PO Tid. * Quantity: 90 Refills: 2 Devendra Lugo M.D.* Started 24-Oct-2013 ActivePromethazine HCl - 12.5 MG Oral Tablet TAKE 1 TABLET EVERY 6 TO 8 HOURS NEEDED NAUSEA. * Quantity: 60 Refills: 0 Devendra Lugo M.D.* Started 15-Oct-2013 ActivePredniSONE 10 MG Oral Tablet 4 tabs [...] Block Transforaminal Epidural Lumbar HEMOGLOBIN A1C 3507 Ordered:07-Oct-2014 Immunization Name Dates Details DTaP Administered on:2003 Hepatitis B Administered on:08-Dec-2003 Hepatitis B Administered on:13-Jan-2004 Tdap (Adacel) Lot #: [id number] Administered on: Influenza Administered on:03-Jun-2010 Influenza Lot #: [id number] Administered on:23-May-2011 Pneumo (Pneumovax) Lot #: [id number] Administered on:31-Aug-2011 Influenza Lot #: [id number] Administered on:08-May-2012 Influenza Administered on:13-Jun-2013 Family History [...] 14:00 * Appointment; Provider: Amelia Sandhu On 28-Oct-2014 11:30 * Appointment; Provider: Pretty [...] Problem not documented On 08:15 Appointment; Cristi Jaince Encounter Diagnosis: Problem not documented On 14:30 [...]
--- OUTSIDE RECORDS SUMMARY | 2016-12-25 13:06 | XMS REPORT | Summary of Care ---
Author Author Juan Carlos Crystal, Nimesh Mireles Unknown Address Unknown Phone Unavailable Care Team Providers Care Locomotive Firer/Fireman Name Role Phone Kip Jensen Unavailable Unavailable [...] Quantity: 60 Refills: 0 * Started ActiveNystatin-Triamcinolone 992628-1.1 UNIT/GM-% External Cream APPLY SPARINGLY TO AFFECTED AREA(S) 3 TIMES A DAY * Quantity: 2 Refills: 4 Pretty Aranda M.D.* Started 19-Jan-2012 Uqdesr35 GM Tube SEROquel XR 300 MG Oral [...] B Administered on:13-Jan-2004 Tdap (Adacel) Lot #: [id number] Administered on: Influenza Administered on:03-Jun-2010 Influenza Lot #: [id number] Administered on:23-May-2011 Pneumo (Pneumovax) Lot #: [id number] Administered on:31-Aug-2011 Influenza Lot #: [id number] Administered on:08-May-2012 Influenza Administered on:13-Jun-2013 Fluzone Intramuscular Injectable Lot #: [id number] Administered on:29-Apr-2015 Tdap (Adacel) Lot #: [id number] Administered on:29-Apr-2015 Family History Unknown Family Member* [...] Problem not documented On 11-Nov-2015 10:15 Appointment; Daivd Kelly Encounter Diagnosis: Problem not documented On [...]
--- OUTSIDE RECORDS SUMMARY | 2016-12-25 13:06 | XMS REPORT ---
Author Author GENERATED, SYSTEM Organization Unknown Address Unknown Phone Unavailable Care Team Providers Care Loom Operator Name Role Phone MD MARIFER, RODOLFO [phone] Reason For Visit Chief Complaint WEAKNESS Social History Functional Status Vital Signs Results Chemistry from 07/19/2016 8:50 AMSODIUM 142 MMOL/L (136-145 MMOL/L) POTASSIUM 4.0 MMOL/L (3.5-5.1 MMOL/L) CHLORIDE 106 MMOL/L (98-107 MMOL/L) TCO2 28.1 MMOL/L (21.0-32.0 MMOL/L) *ANION GAP 7.9 MMOL/L L (8.0-16.0 MMOL/L) BUN 8 MG/DL (7-18 MG/DL) CREATININE 1.21 MG/DL H (0.55-1.02 MG/DL) *BUN/CREATININE RATIO 6.6 L (9.1-17.0 ) GLUCOSE 137 MG/DL H (65-99 MG/DL) *GFR EST NON AFR ALBANIAN 52 ML/MIN *GFR EST AFR AMER 61 ML/MIN CALCIUM 8.9 MG/DL (8.5-10.1 MG/DL) BILIRUBIN TOTAL 0.70 MG/DL (0.20-1.00 MG/DL) TOTAL PROTEIN 6.7 GM/DL (6.4-8.2 GM/DL) ALBUMIN 3.0 GM/DL L (3.4-5.0 GM/DL) *GLOBULIN 3.7 GM/DL H (2.3-3.5 GM/DL) *A/G RATIO 0.8 MG/DL L (1.5-2.2 MG/DL) ALK PHOS 110 U/L (46-116 U/L) ALT (SGPT) 23 U/L (16-63 U/L) AST (SGOT) 22 U/L (15-37 U/L) TROPONIN-I <0.017 NG/ML (0.000-0.056 NG/ML) B-TYPE NATRIURETIC PROTEIN 13 PG/ML (1-100 PG/ML) Hematology from 07/19/2016 8:50 AMWBC 10.9 X10e3/UL (3.6-11.2 X10e3/UL) RBC 4.86 X10e6/UL (3.63-4.92 X10e6/UL) HEMOGLOBIN 13.8 G/DL (11.0-14.3 G/DL) HEMATOCRIT 41.9 % (31.2-41.9 %) *MCV 86.1 FL (79.0-98.0 FL) *MCH 28.4 PG (27.0-33.0 PG) *MCHC 33.0 G/DL (32.0-36.0 G/DL) *RDW 14.6 % (12.3-17.0 %) *RDWSD 44.6 (37.1-47.8 ) PLATELET 303 X10e3/UL (159-386 X10e3/UL) *MPV 9.2 FL (7.4-10.4 FL) *MANUAL DIFF PERFORMED SEGS 80.0 % *BANDS 4.0 % *LYMPHOCYTES 4.0 % *MONOCYTES 4.0 % *EOSINOPHILS 4.0 % *BASOPHILS 4.0 % *ABSOLUTE NEUTROPHILS 9.16 X10e3/UL H (1.80-7.80 X10e3/UL) *ABSOLUTE LYMPHOCYTES 0.44 X10e3/UL L (1.00-3.00 X10e3/UL) *ABSOLUTE MONOCYTES 0.44 X10e3/UL (0.30-1.00 X10e3/UL) *ABSOLUTE EOSINOPHILS 0.44 X10e3/UL (0.00-0.50 X10e3/UL) *ABSOLUTE BASOPHILS 0.44 X10e3/UL H (0.00-0.20 X10e3/UL) *POLYCHROMASIA 1+ *TEARDROP CELLS 1+ Urinalysis from 07/19/2016 9:18 AM* Status: Final Result URINALYSIS Specimen Number: [id number] Sample Collection Date/Time: 07/19/2016 9:18 AM Specimen Source: *URINE COLOR YELLOW (STRAW/YELL/DK YELL ) *URINE APPEARANCE CLEAR (CLEAR ) URINE PH 6.0 (5.0-8.0 ) URINE SPECIFIC GRAVITY <1.005 (<=1.005->=1.030 ) *URINE GLUCOSE NEGATIVE MG/DL (NEGATIVE MG/DL) *URINE BILIRUBIN NEGATIVE (NEGATIVE ) *URINE KETONES NEGATIVE MG/DL (NEGATIVE MG/DL) *URINE BLOOD NEGATIVE (NEGATIVE ) *URINE PROTEIN NEGATIVE MG/DL (NEGATIVE MG/DL) *URINE UROBILINOGEN 0.2 EU/DL (0.2-1.0 EU/DL) *URINE NITRITES NEGATIVE (NEGATIVE ) *URINE LEUKOCYTES NEGATIVE (NEGATIVE ) DX Radiology from 07/19/2016 10:39 AMHIP LEFT 2 VIEWS WITH PELVIS History: fall, with left hip pain- r/o fx . Technique: Single-view pelvis with two-view left hip Priors: None. Findings: There is no acute fracture. The hip is in normal alignment. There are no significant degenerative changes. Impression: No acute findings. Electronically signed by: Kyaw Johnson MD Dictated: 07/19/2016 12:07 DX [facility] History: weakness, tachycardia Technique: 1 view chest performed Priors: 04/22/2016 Findings: The heart size is within normal limits. No acute infiltrate, pneumothorax, or pleural effusion is identified. Impression: No evidence of acute cardiopulmonary process. Electronically signed by: Kyaw Johnson MD Dictated: 07/19/2016 12:08 [facility]2016 [facility] History: weakness, tachy- r/o PE . Technique: Post contrast images were performed after the administration of 95 milliliters of Isovue intravenous contrast. 3 dimensional reconstructions were performed by the technologist. Priors: CT the chest dated 07/12/2013 Findings: Heart Size: Normal. Aorta: Intact and normal in size. Mediastinum and Noemi: No dominant adenopathy or fluid collection. Pulmonary Arteries: No evidence of filling defect to suggest pulmonary emboli. Pleura: No effusion or pneumothorax. Pulmonary parenchyma: There is mild bibasilar atelectasis. No discrete pulmonary nodules are identified. There is unchanged mild enlargement of the thyroid gland with sub centimeter hypodense nodules. Upper abdomen: Postsurgical changes of cholecystectomy are noted. Impression: No CT evidence of pulmonary artery embolus or other acute abnormality. Electronically signed by: Mary Franco MD Dictated: 07/19/2016 10:07 Problems Encounter Diagnosis No relevant problems exist. Additional Problems * Acute Pain Comment:Problem resolved by [facility] [employer] upon Discharge, Status :Resolved. * Chest Pain Comment:Problem resolved by [facility] Work[facility] upon Discharge, Status :Resolved. * Depression Comment:Problem resolved by [facility] [employer] upon Discharge, Status :Resolved. * Diabetes Mellitus Comment:Problem resolved by [facility] [employer] upon Discharge , Status:Resolved. * Fall Risk Comment:Problem resolved by [facility] Work[facility] upon Discharge, Status: Resolved. * Fall Risk Comment:Problem resolved by [facility] upon Discharge, Status: Resolved. * History of TIA Comment:Problem resolved by [...]
--- OUTSIDE RECORDS SUMMARY | 2016-12-25 13:06 | XMS REPORT | Summary of Care ---
Author Author Pretty Aranda M.D. Unknown Address Unknown Phone Unavailable Care Team Providers Care Burlap Roll Coverer Name Role Phone Kip Jensen Unavailable Unavailable [...] 60 Refills: 0 * Start Active Nystatin-Triamcinolone 958356-2.1 UNIT/GM-% External Cream APPLY SPARINGLY TO AFFECTED [...] pain 723.1 * Quantity: 1 Refills: 0 Fan M.DDevendra [place] * Start Active FluvoxaMINE Maleate 100 MG Oral Tablet TAKE 1 AND 1/2 TABLETS TWICE DAILY. * Refills: 0 * Start 29-Apr-2015 Active Colestipol HCl - 1 GM Oral Tablet Take 1 tablet twice daily * Refills: 0 Aranda M.D.BinaPretty * Start 29-Apr-2015 Active Voltaren 1 % Transdermal Gel APPLY 2 GRAMS TO AFFECTED AREA TWICE A DAY AND RUB IN WELL * Quantity: 100 Refills: 0 Fan M.D.Devendra * Start 29-Apr-2015 Active Atorvastatin Calcium 10 [...] script only * Quantity: 180 Refills: 0 Fan M.D.Devendra Start 16-Nov-2015 Active Allergies and Adverse Reactions [...] B on: 13-Jan-2004 Tdap (Adacel) Lot #: [id number] on: Influenza on: 03-Jun-2010 Influenza Lot #: [id number] on: 23-May-2011 Pneumo (Pneumovax) Lot #: [id number] on: 31-Aug-2011 Influenza Lot #: [id number] on: 08-May-2012 Influenza on: 13-Jun-2013 Fluzone INJ Lot #: [id number] on: 29-Apr-2015 Tdap (Adacel) Lot #: [id number] on: 29-Apr-2015 Fluzone Quadrivalent 0.5 ML Intramuscular Suspension Lot #: [id number] on: 21-Apr-2016 Family History Name Dates Details [...] smoker Vital Signs Date Test Result Details 03-May-2016 09:10 BP Systolic 112 mm[Hg] Status: Comments: Location: ; Position: BP Diastolic 70 mm[Hg] Status: Comments: Location: ; Position: Temperature 99.7 f Status: Comments: Method: Heart Rate 119 /min Status: Comments: Location: ; Physical Findings 92 Status: Comments: O2 Saturation 21-Apr-2016 14:18 BP Systolic 98 mm[Hg] Status: [...] >60 ml/min Range: >60 EST GFR, NON-AFR MACANESE 52 ml/min (Below low threshold) Range: >60 Comments: EST GFR is reported in ml/min per 1.73 m2 of body surface area. For -Swiss, please multiple result by 1.2.----- BUN:CREATININE RATIO 7 GLUCOSE 113 mg/dL (Above high threshold) Range: 70-100 CALCIUM 9.3 mg/dL Range: 8.5-10.1 15:22 HEMOGLOBIN A1C 3507 Hemoglobin A1C 6.9 % ESTIMATED AVG. GLUCOSE 151 28-Apr-2016 14:52 MAMMOGRAM-SCREENING Comments: Exam Date: 04/28/2016 13: 12Dictation Date: 04/28/2016 14:52 XM SCREENING Plan of Care Name Dates Details Planned Observations Planned Goals not documented Planned Encounters Appointment; Provider: Schedule Radiology On 01-May-2017 13:40 Appointment; Provider: David Kelly M.D.|GIOVANNI [place],EMBER, On 27-Jul-2016 10:15 Appointment; Provider: Pretty Aranda M.D. On 25-Jul-2016 14:15 Appointment; Provider: Devendra Lugo M.D. On 03-May-2016 13:00 Instructions Name Dates Details Instructions not documented [...] not documented On 10:30 Appointment; David Kelly M.D.|Brigette|Marah,EMBER|Marah,EMBER, Encounter Diagnosis: Problem not documented On 10:30 [...] documented On 24-Mar-2015 11:00 Appointment; Amelia Sandhu PTacoATaco Encounter Diagnosis: Problem not documented On 11:30 [...] Encounter Diagnosis: Problem not documented On 05-May-2014 15:15"
--- OUTSIDE RECORDS SUMMARY | 2016-12-25 13:07 | XMS REPORT | Summary of Care ---
Author Author Pretty Aranda M.D. Unknown Address Unknown Phone Unavailable Care Team Providers Care Tanning Drum Operator Name Role Phone Kip Jensen Unavailable [...] 60 Refills: 0 * Start Active Nystatin-Triamcinolone 858857-1.1 UNIT/GM-% External Cream APPLY SPARINGLY TO AFFECTED [...] B on: 13-Jan-2004 Tdap (Adacel) Lot #: [id number] on: Influenza on: 03-Jun-2010 Influenza Lot #: [id number] on: 23-May-2011 Pneumo (Pneumovax) Lot #: [id number] on: 31-Aug-2011 Influenza Lot #: [id number] on: 08-May-2012 Influenza on: 13-Jun-2013 Fluzone INJ Lot #: [id number] on: 29-Apr-2015 Tdap (Adacel) Lot #: [id number] on: 29-Apr-2015 Fluzone Quadrivalent 0.5 ML Intramuscular Suspension Lot #: [id number] on: 21-Apr-2016 Family History Name Dates Details [...] >60 ml/min Range: >60 EST GFR, NON-AFR MALAWIAN 52 ml/min (Below low threshold) Range: >60 Comments: EST GFR is reported in ml/min per 1.73 m2 of body surface area. For -Indonesian, please multiple result by 1.2.----- BUN:CREATININE RATIO [...] not documented On 10:30 Appointment; David Kelly M.D.|Dori,GIOVANNI,EMBER, Encounter Diagnosis: Problem not documented On 10:30 Appointment; Devendra Lugo M.D. Encounter Diagnosis: Problem not documented On 07-Jan-2016 14:15 Appointment; Pretty Aranda M.D. Encounter Diagnosis: Problem not documented On 23-Dec-2015 09:45 Appointment; Devendra Lugo M.D. Encounter Diagnosis: Problem not documented On 12-Nov-2015 10:30 Appointment; Alphonse Asif M.D. Encounter Diagnosis: Problem not documented On 11-Nov-2015 10:15 Appointment; David Kelly M.D.|CynthiaCTacoSTaco|GIOVANNI Crystal,EMBER, Encounter Diagnosis: Problem not documented On 03-Nov-2015 [...]
--- OUTSIDE RECORDS SUMMARY | 2016-12-25 13:07 | XMS REPORT | Summary of Care ---
Author Author Pema Sanchez APRN Organization Unknown Address [address], [place] [id number] Phone Unavailable Care Team Providers Care Peanut Sorter Name Role Phone Kip Jensen Unavailable Unavailable Edson Adams, Amelia Unavailable Unavailable Pema Sanchez APRN Unavailable Unavailable Parish Crystal, G Unavailable Unavailable [...] 60 Refills: 0 * Start Active Nystatin-Triamcinolone 566396-1.1 UNIT/GM-% External Cream APPLY SPARINGLY TO AFFECTED [...] * Quantity: 90 Refills: 3 Pretty Aranda M.D. Start 29-Apr-2015 Active Aspirin 81 MG TABS Take 1 tablet daily * Quantity: 100 Refills: 0 Pretty Aranda M.D. Start 29-Apr-2015 Active Meclizine HCl - 25 MG Oral Tablet TAKE 1 TABLET 3 TIMES DAILY NEEDED. * Quantity: 30 Refills: 0 Pretty Aranda M.D. Start 24-Aug-2015 Active Movantik 25 MG Oral [...] B on: 13-Jan-2004 Tdap (Adacel) Lot #: [id number] on: Influenza on: 03-Jun-2010 Influenza Lot #: [id number] on: 23-May-2011 Pneumo (Pneumovax) Lot #: [id number] on: 31-Aug-2011 Influenza Lot #: [id number] on: 08-May-2012 Influenza on: 13-Jun-2013 Fluzone INJ Lot #: [id number] on: 29-Apr-2015 Tdap (Adacel) Lot #: [id number] on: 29-Apr-2015 Family History Name Dates Details [...] documented Planned Encounters Appointment; Provider: David Kelly M.D.|EMBER Meadows|EMBER Crystal, On 27-Jul-2016 10:15 Appointment; Provider: Devendra [...] not documented On 10:30 Appointment; David Kelly M.D.|FFlaviaC.STaco|Marah,EMBER|Marah,EMBER, Encounter Diagnosis: Problem not documented On 10:30 Appointment; Devendra Lugo M.D. Encounter Diagnosis: Problem not documented On 07-Jan-2016 14:15 Appointment; Pretty Aranda M.D. Encounter Diagnosis: Problem not documented On 23-Dec-2015 09:45 Appointment; Devendra Lugo M.D. Encounter Diagnosis: Problem not documented On 12-Nov-2015 10:30 Appointment; Alphonse Asif M.D. Encounter Diagnosis: Problem not documented On 11-Nov-2015 10:15 Appointment; David Kelly M.D.|Kristine.Vianney.C.S.|Marah,EMBER|Marah,EMBER, Encounter Diagnosis: Problem not documented On 03-Nov-2015 [...]
--- OUTSIDE RECORDS SUMMARY | 2016-12-25 13:07 | XMS REPORT | Summary of Care ---
Author Author Pretty Aranda M.D. Unknown Address [address], [place] [id number] Phone Unavailable Care Team Providers Care Senior Controls Analyst Name Role Phone Kip Jensen Unavailable [...] Quantity: 60 Refills: 0 * Started ActiveNystatin-Triamcinolone 864249-0.1 UNIT/GM-% External Cream APPLY SPARINGLY TO AFFECTED AREA(S) 3 TIMES A DAY * Quantity: 2 Refills: 4 Pretty Aranda M.D.* Started 19-Jan-2012 Awfdri82 GM Tube SEROquel XR 300 MG Oral [...] DIRECTED. * Quantity: 30 Refills: 0 ArandaPretty mendez M.D.* Started 14-May-2013 ActiveHerbal/ Natural Products Saccharonyces [...] B Administered on:13-Jan-2004 Tdap (Adacel) Lot #: [id number] Administered on: Influenza Administered on:03-Jun-2010 Influenza Lot #: [id number] Administered on:23-May-2011 Pneumo (Pneumovax) Lot #: [id number] Administered on:31-Aug-2011 Influenza Lot #: [id number] Administered on:08-May-2012 Influenza Administered on:13-Jun-2013 Fluzone Intramuscular Injectable Lot #: [id number] Administered on:29-Apr-2015 Tdap (Adacel) Lot #: [id number] Administered on:29-Apr-2015 Family History Unknown Family Member* [...] ml/min (Better) Range: >60 EST GFR, NON-AFR NAURUAN 56 ml/min (Below low threshold) Range: >60 Comments: EST GFR is reported in ml/min per 1.73 m2 of body surface area. For -Australian, please multiple result by 1.2.----- GLUCOSE 167 [...]
--- OUTSIDE RECORDS SUMMARY | 2016-12-25 13:07 | XMS REPORT ---
Author Author GENERATED, SYSTEM Organization Unknown Address Unknown Phone Unavailable Care Team Providers Care Refrigeration Installer Name Role Phone MD MARIFER, RODOLFO [phone] Reason For Visit Chief Complaint FELL, LEG PAIN, WRIST PAIN, HEADACHE Social History Functional Status Vital Signs Results DX Radiology from 08/26/2015 2:47 AMELBOW RIGHT 3 VIEWS ADDENDUM REPORT Addendum: Right elbow pain after fall Electronically signed by: Kyaw Johnson MD Dictated: 08/26/2015 09:29 Addendum . FINAL REPORT History: pain aftera fall . Technique: 3view elbow Priors: None. Findings: No acute fracture or subluxation is identified. There is no evidence of joint effusion. Impression: Unremarkable radiographs of the right elbow. Electronically signed by: Kyaw Johnson MD Dictated: 08/26/2015 09:25 . HIP RIGHT 2 VIEWS History: Right hip pain after a fall . Technique: 2 view hip Priors: None. Findings: There is no acute fracture. The hip is in normal alignment. There are no significant degenerative changes. Impression: No acute findings. Electronically signed by: Kyaw Johnson MD Dictated: 08/26/2015 09:29 KNEE RIGHT 3 VIEWS History: Right knee pain after a fall . Technique: 3 view knee performed. Priors: None. Findings: No acute fractures or subluxations are identified. There is no joint effusion. Impression: Unremarkable radiographs of the right knee. Electronically signed by: Kyaw Johnson MD Dictated: 08/26/2015 09:29 WRIST RIGHT 3 VIEWS ADDENDUM REPORT Addendum: Right wrist pain after fall Electronically signed by: Kyaw Johnson MD Dictated: 08/26/2015 09:30 Addendum . FINAL REPORT History: pain aftera fall . Technique: 3 view wrist Priors: None. Findings: There is no acute fracture or subluxation. The distal radius and ulna are intact. The carpals are normally aligned. Impression: Unremarkable radiographs of the right wrist. Electronically signed by: Kyaw Johnson MD Dictated: 08/26/2015 09:[address] Scan from 08/26/2015 3:08 AMCT CEREBRAL W/O CONTRAST History: headache after a fall . Onset was 1 hour prior to arrival. The patient reports vertigo for the past 10 days. She became dizzy and fell out of bed. Priors: CT head dated 04/14/2015 Findings: Ventricles and Extra axial spaces: Normal in size and morphology for the patient's age. Hemorrhage: None. Cerebral parenchyma: Normal. Mass effect/midline shift: None. Brainstem/Cerebellum: Normal. Calvarium: Normal. Visualized Paranasal sinuses/Mastoids: Clear. Impression: No acute intracranial abnormality. Electronically signed by: Mary Franco MD Dictated: 08/26/2015 08:41 Problems Encounter Diagnosis No relevant problems exist. [...]
--- OUTSIDE RECORDS SUMMARY | 2016-12-25 13:08 | XMS REPORT | Summary of Care ---
Author Author Leticia Crystal, FACS, ,, David Mireles Unknown Address [address], [place] [address] Phone Unavailable Care Team Providers Care Running Instructor Name Role Phone Que Adams, Kip Unavailable [...] disc disease, lumbar (722.52, M51.36) Status: Active Bilateral hip pain (719.45, M25.551) Status: Active Bilateral hip bursitis (726.5, M70.71) Status: Active Low back pain (724.2, M54.5) Status: Active Morbid obesity (278.01, E66.01) Status: Active Hypertension (401.9, I10) Status: Active [...] Slow urinary stream (788.62, R39.19) Status: Active Medications Name Dates Details Multi-Vitamin/Minerals [...] Name Dates Details History of abdominal pain (V1., Z87.898) Status: Resolved History of Acute ischemic colitis (557.0, K55.0) Status: Resolved History of Bright red blood per rectum (569.3, K62.5) Status: Resolved History of Bursitis of hip (726.5, M70.70) Status: Resolved History of candidiasis (., Z86.19) Status: Resolved History of Clostridium difficile colitis (008.45, A04.7) Status: Resolved History of diarrhea (V1., Z87.898) Status: Resolved History of Dysphasia and aphasia (784.3, R47.01) Status: Resolved History of Hemiparesis (342.90, G81.90) Status: Resolved History of herpes zoster (2., Z86.19) Status: Resolved History of infectious mononucleosis (., Z86.19) Status: Resolved History of influenza (V12.09, [...] PANEL 1108 Ordered:29-Sep-2015 HEMOGLOBIN A1C 3507 Ordered:29-Sep-2015 URINE CULTURE [id number] Ordered:03-Nov-2015 ULTRASOUND RENAL SONO Ordered:03-Nov-2015 XRay SPINE-LUMBAR Ordered:07-Sep-2015 Immunization Name Dates Details DTaP Administered on:2003 Hepatitis B Administered on:08-Dec-2003 Hepatitis B Administered on:13-Jan-2004 Tdap (Adacel) Lot #: [id number] Administered on: Influenza Administered on:03-Jun-2010 Influenza Lot #: [id number] Administered on:23-May-2011 Pneumo (Pneumovax) Lot #: [id number] Administered on:31-Aug-2011 Influenza Lot #: [id number] Administered on:08-May-2012 Influenza Administered on:13-Jun-2013 Fluzone Intramuscular Injectable Lot #: [id number] Administered on:29-Apr-2015 Tdap (Adacel) Lot #: [id number] Administered on:29-Apr-2015 Family History Unknown Family Member* [...] - URINE 4444 CYTOLOGY Specimen referred to [facility]. Report to follow. (Better) Plan of Care Planned Observations* Name Dates Details Planned Goals not documented Goal Planned Encounters* Appointment; Provider: Pretty Aranda On 23-Dec-2015 09:45 * Appointment; Provider: David Kelly On 23-Nov-2015 10:30 * Appointment; Provider: Devendra Lugo On 12-Nov-2015 10:30 * Appointment; Provider: Alphonse Asif On 11-Nov-2015 10:15 * Appointment; Provider: Schedule Radiology On 09-Nov-2015 09:00 * Appointment; Provider: Schedule Radiology On [...]
--- OUTSIDE RECORDS SUMMARY | 2016-12-25 13:08 | XMS REPORT | Summary of Care ---
Author Author Devendra Lugo M.D. Unknown Address [address], [place] [id number] Phone Unavailable Care Team Providers Care Outpatient Physical Therapist Name Role Phone Kip Jensen Unavailable Unavailable [...] Quantity: 60 Refills: 0 * Started ActiveNystatin-Triamcinolone 484996-4.1 UNIT/GM-% External Cream APPLY SPARINGLY TO AFFECTED AREA(S) 3 TIMES A DAY * Quantity: 2 Refills: 4 Pretty Aranda M.D.* Started 19-Jan-2012 Ivtdmh08 GM Tube SEROquel XR 300 MG Oral [...] B Administered on:13-Jan-2004 Tdap (Adacel) Lot #: [id number] Administered on: Influenza Administered on:03-Jun-2010 Influenza Lot #: [id number] Administered on:23-May-2011 Pneumo (Pneumovax) Lot #: [id number] Administered on:31-Aug-2011 Influenza Lot #: [id number] Administered on:08-May-2012 Influenza Administered on:13-Jun-2013 Fluzone Intramuscular Injectable Lot #: [id number] Administered on:29-Apr-2015 Tdap (Adacel) Lot #: [id number] Administered on:29-Apr-2015 Family History Unknown Family Member* [...] ml/min (Better) Range: >60 EST GFR, NON-AFR WALLISIAN 56 ml/min (Below low threshold) Range: >60 Comments: EST GFR is reported in ml/min per 1.73 m2 of body surface area. For -Filipino, please multiple result by 1.2.----- GLUCOSE 167 [...] Comments: Items were attached to this order: [facility] Fastin hours Hemoglobin A1C 6.8 % (Better) ESTIMATED AVG. GLUCOSE 148 (Better) 24-Dec-2015 10:55 URINE CULTURE [id number] Comments: [employer] performed at: [facility], [address] [place] [address], [id number], Access Spec: Wilfrido Quinones D.O., MPHQuest Collection Date/Time: [id number] Results Received Date/Time: [id number] Reported Date/Time: [id number] FASTING:YESQuest performed at: [facility], [address] [place] [address], [id number], Access Spec: Wilfrido Quinones D.O., MPHQuest Collection Date/Time: [id number] Results Received Date/Time: [id number] Reported Date/Time: [id number] FASTING:YES Fast[employer] hours CULTURE, URINE, ROUTINE SEE NOTE (Better) Comments: CULTURE, URINE, ROUTINE MICRO NUMBER: [id number] TEST STATUS: FINAL SPECIMEN SOURCE : URINE, [...]
--- OUTSIDE RECORDS SUMMARY | 2016-12-25 13:08 | XMS REPORT | Summary of Care ---
Author Author Pretty Aranda M.D. Unknown Address [address], [place] [id number] Phone Unavailable Care Team Providers Care Garment Presser Name Role Phone Tiny Crystal, Min Unavailable [...] TWICE DAILY. * Quantity: 60 Refills: 2 Devnedra Lugo M.D.* Started 10-Nov-2009 ActiveNystatin-Triamcinolone 358575-0.1 UNIT/GM-% External Cream APPLY SPARINGLY TO AFFECTED AREA(S) 3 TIMES A DAY * Quantity: 2 Refills: 4 Pretty Aranda M.D.* Started 19-Jan-2012 Sfywev27 GM Tube BusPIRone HCl - 15 MG [...] Devendra Lugo M.D.* Started ActiveHerbal/ Natural Products Saccharoshaista Kwok * Refills: 0 * Started 05-Jul-2013 ActiveCalcium 600/Vitamin D 600-400 MG-UNIT Oral Tablet * Refills: 0 * Started 05-Jul-2013 ActiveGlimepiride 2 MG Oral Tablet take one tablet by mouth every day with breakfast * Quantity: 90 Refills: 3 Pretty Aranda M.D.* Started 22-Jul-2013 ActivePromethazine HCl - 12.5 MG Oral Tablet TAKE 1 TABLET EVERY 6 TO 8 HOURS NEEDED NAUSEA. * Quantity: 60 Refills: 0 Devendra Lugo M.D.* Started 15-Oct-2013 ActiveCyclobenzaprine HCl - 10 MG Oral Tablet Si PO Tid. * Quantity: 90 Refills: 0 Devendra Lugo M.D.* Started 24-Oct-2013 ActiveFluvoxaMINE Maleate 100 MG Oral Tablet Take 1 1/2 tablet at bedtime * Quantity: 45 Refills: 0 Pretty Aranda M.D.* Started 23-Jul-2014 ActiveVitamin B-12 1000 MCG Oral Tablet TAKE [...] Refills: 0 Pretty Aranda M.D.* Started 14-May-2013 ActiveFish Oil 1000 MG Oral Capsule TAKE 2 CAPSULE Daily * Quantity: 60 Refills: 0 * Started ActiveVitamin D3 2000 UNIT Oral Tablet Take 1 tablet daily * Quantity: 30 Refills: 0 * Started ActiveClonazePAM 1 MG Oral Tablet TAKE 1 TABLET 3 times daily * Refills: 0 * Started 14-Apr-2009 ActiveLinzess 145 MCG Oral Capsule take 1 capsule daily * Quantity: 7 Refills: 0 Kip Grey* Started 02-Jul-2014 ActiveGabapentin 600 MG Oral Tablet TAKE ONE TABLET BY MOUTH AT BEDTIME * Quantity: 90 Refills: 3 David Franks M.D.* Started 27-Mar-2013 ActiveLisinopril 10 MG Oral Tablet TAKE 1 TABLET DAILY. * Quantity: 90 Refills: 3 Pretty Aranda M.D.* Started 01-Nov-2012 ActiveSEROquel XR 300 MG Oral Tablet Extended Release 24 Hour TAKE 1 TABLET DAILY. * Refills: 0 * Started 10-Jul-2012 ActiveDicyclomine HCl - 20 MG Oral Tablet TAKE 1 TABLET EVERY 6 HOURS NEEDED. * Quantity: 40 Refills: 0 Kip Grey* Started 27-May-2014 ActiveHYDROmorphone HCl - 4 MG Oral Tablet Si PO every 6 hours prn with a max of 4 per day. Script must last 30 days. * Quantity: 120 Refills: 0 Devendra Lugo M.D.* Started 29-Aug-2013 Active Allergies and Adverse Reactions [...] B Administered on:13-Jan-2004 Tdap (Adacel) Lot #: [id number] Administered on: Influenza Administered on:03-Jun-2010 Influenza Lot #: [id number] Administered on:23-May-2011 Pneumo (Pneumovax) Lot #: [id number] Administered on:31-Aug-2011 Influenza Lot #: [id number] Administered on:08-May-2012 Influenza Administered on:13-Jun-2013 Family History [...]
--- NOTE | 2016-12-25 13:09 | NUR ---
XRAY PORTABLE XRAY AT BEDSIDE.
--- OUTSIDE RECORDS SUMMARY | 2016-12-25 13:09 | XMS REPORT | Summary of Care ---
Author Author Amelia Rucker Unknown Address [address], [place] [id number] Phone Unavailable Care Team Providers Care Microbiology Lab Technician Name Role Phone Tiny Crystal, Min [...] Quantity: 60 Refills: 0 * Started ActiveNystatin-Triamcinolone 753748-4.1 UNIT/GM-% External Cream APPLY SPARINGLY TO AFFECTED AREA(S) 3 TIMES A DAY * Quantity: 2 Refills: 4 Pretty Aranda M.D.* Started 19-Jan-2012 Ykkzmj99 GM Tube SEROquel XR 300 MG Oral [...] B Administered on:13-Jan-2004 Tdap (Adacel) Lot #: [id number] Administered on: Influenza Administered on:03-Jun-2010 Influenza Lot #: [id number] Administered on:23-May-2011 Pneumo (Pneumovax) Lot #: [id number] Administered on:31-Aug-2011 Influenza Lot #: [id number] Administered on:08-May-2012 Influenza Administered on:13-Jun-2013 Family History [...] Problem not documented On 21-Oct-2013 10:30 Appointment; Dejuna Alcantar Encounter Diagnosis: Problem not documented On [...] Problem not documented On 03-Jan-2013 07:00 Appointment; Quiñonez, Endoscopy Encounter Diagnosis: Problem not documented On 03-Jan-2013 07:00
--- OUTSIDE RECORDS SUMMARY | 2016-12-25 13:09 | XMS REPORT | Summary of Care ---
Author Author Juan Carlos Crystal, Nimesh Mireles Unknown Address Unknown Phone Unavailable Care Team Providers Care Crane Ladle Person Name Role Phone Kip Jensen Unavailable Unavailable [...] Quantity: 60 Refills: 0 * Started ActiveNystatin-Triamcinolone 170124-7.1 UNIT/GM-% External Cream APPLY SPARINGLY TO AFFECTED AREA(S) 3 TIMES A DAY * Quantity: 2 Refills: 4 Pretty Aranda M.D.* Started 19-Jan-2012 Opmolm96 GM Tube SEROquel XR 300 MG Oral [...] B Administered on:13-Jan-2004 Tdap (Adacel) Lot #: [id number] Administered on: Influenza Administered on:03-Jun-2010 Influenza Lot #: [id number] Administered on:23-May-2011 Pneumo (Pneumovax) Lot #: [id number] Administered on:31-Aug-2011 Influenza Lot #: [id number] Administered on:08-May-2012 Influenza Administered on:13-Jun-2013 Fluzone Intramuscular Injectable Lot #: [id number] Administered on:29-Apr-2015 Tdap (Adacel) Lot #: [id number] Administered on:29-Apr-2015 Family History Unknown Family Member* [...] Problem not documented On 24-Aug-2015 10:15 Appointment; Deevndra Lugo Encounter Diagnosis: Problem not documented On [...]
--- OUTSIDE RECORDS SUMMARY | 2016-12-25 13:09 | XMS REPORT | Summary of Care ---
Author Author Pema Sanchez APRN [facility] Unknown Address [address], [place] [id number] Phone Unavailable Care Team Providers Care Hr Associate Name Role Phone Que Adams, Kip Unavailable [...] 60 Refills: 0 * Start Active Nystatin-Triamcinolone 791185-2.1 UNIT/GM-% External Cream APPLY SPARINGLY TO AFFECTED [...] B on: 13-Jan-2004 Tdap (Adacel) Lot #: [id number] on: Influenza on: 03-Jun-2010 Influenza Lot #: [id number] on: 23-May-2011 Pneumo (Pneumovax) Lot #: [id number] on: 31-Aug-2011 Influenza Lot #: [id number] on: 08-May-2012 Influenza on: 13-Jun-2013 Fluzone INJ Lot #: [id number] on: 29-Apr-2015 Tdap (Adacel) Lot #: [id number] on: 29-Apr-2015 Family History Name Dates Details [...] >60 ml/min Range: >60 EST GFR, NON-AFR [place] 52 ml/min (Below low threshold) Range: >60 Comments: EST GFR is reported in ml/min per 1.73 m2 of body surface area. For -Turkmen, please multiple result by 1.2.----- BUN:CREATININE RATIO [...] Provider: Pretty Aranda M.D. On 21-Apr-2016 14:15 Interventions Provided Labs/Procedures/Imaging* CBC w/ Auto Diff 7150; Done: [id number] 02:33PM Instructions Name Dates Details Instructions not documented [...] not documented On 10:30 Appointment; David Kelly M.D.|CynthiaC.STaco|Marah,EMBER|Marah,EMBER, Encounter Diagnosis: Problem not documented On 10:30 Appointment; Devendra Lugo M.D. Encounter Diagnosis: Problem not documented On 07-Jan-2016 14:15 Appointment; Pretty Aranda M.D. Encounter Diagnosis: Problem not documented On 23-Dec-2015 09:45 Appointment; Devendra Lugo M.D. Encounter Diagnosis: Problem not documented On 12-Nov-2015 10:30 Appointment; Alphonse Asif M.D. Encounter Diagnosis: Problem not documented On 11-Nov-2015 10:15 Appointment; David Kelly M.D.|F.A.C.STaco|Marah,EMBER|Marah,EMBER, Encounter Diagnosis: Problem not documented On 03-Nov-2015 [...]
--- OUTSIDE RECORDS SUMMARY | 2016-12-25 13:09 | XMS REPORT | Summary of Care ---
Author Author Devendra Lugo M.D. Unknown Address Unknown Phone Unavailable Care Team Providers Care Human Resources Benefits Coordinator Name Role Phone Kip Jensen Unavailable Unavailable [...] Quantity: 60 Refills: 0 * Started ActiveNystatin-Triamcinolone 866537-7.1 UNIT/GM-% External Cream APPLY SPARINGLY TO AFFECTED AREA(S) 3 TIMES A DAY * Quantity: 2 Refills: 4 Pretty Aranda M.D.* Started 19-Jan-2012 Kpkxdf58 GM Tube SEROquel XR 300 MG Oral [...] M.D.* Started 14-May-2013 ActiveHerbal/ Natural Products Saccharonyces Bomaricarmendiitmos * Refills: 0 * Started 05-Jul-2013 ActiveCalcium [...] B Administered on:13-Jan-2004 Tdap (Adacel) Lot #: [id number] Administered on: Influenza Administered on:03-Jun-2010 Influenza Lot #: [id number] Administered on:23-May-2011 Pneumo (Pneumovax) Lot #: [id number] Administered on:31-Aug-2011 Influenza Lot #: [id number] Administered on:08-May-2012 Influenza Administered on:13-Jun-2013 Fluzone Intramuscular Injectable Lot #: [id number] Administered on:29-Apr-2015 Tdap (Adacel) Lot #: [id number] Administered on:29-Apr-2015 Family History Unknown Family Member* [...]
--- OUTSIDE RECORDS SUMMARY | 2016-12-25 13:10 | XMS REPORT | Summary of Care ---
Author Author Pretty Aranda M.D. Unknown Address [address], [place] [address] Phone Unavailable Care Team Providers Care Cargo Service Supervisor Name Role Phone Kip Jensen Unavailable Unavailable Edson Adams, Amelia Unavailable Unavailable Parish Crystal, Tarcie Unavailable Unavailable Manoj Crystal, Pretty Unavailable Unavailable [...] B Administered on:13-Jan-2004 Tdap (Adacel) Lot #: [id number] Administered on: Influenza Administered on:03-Jun-2010 Influenza Lot #: [id number] Administered on:23-May-2011 Pneumo (Pneumovax) Lot #: [id number] Administered on:31-Aug-2011 Influenza Lot #: [id number] Administered on:08-May-2012 Influenza Administered on:13-Jun-2013 Fluzone Intramuscular Injectable Lot #: [id number] Administered on:29-Apr-2015 Tdap (Adacel) Lot #: [id number] Administered on:29-Apr-2015 Family History Unknown Family Member* [...]
--- OUTSIDE RECORDS SUMMARY | 2016-12-25 13:10 | XMS REPORT | Summary of Care ---
Author Author Devendra Lugo M.D. Unknown Address Unknown Phone Unavailable Care Team Providers Care Flotation Tender Helper Name Role Phone Kip Jensen Unavailable Unavailable [...] 60 Refills: 0 * Start Active Nystatin-Triamcinolone 089351-2.1 UNIT/GM-% External Cream APPLY SPARINGLY TO AFFECTED [...] B on: 13-Jan-2004 Tdap (Adacel) Lot #: [id number] on: Influenza on: 03-Jun-2010 Influenza Lot #: [id number] on: 23-May-2011 Pneumo (Pneumovax) Lot #: [id number] on: 31-Aug-2011 Influenza Lot #: [id number] on: 08-May-2012 Influenza on: 13-Jun-2013 Fluzone INJ Lot #: [id number] on: 29-Apr-2015 Tdap (Adacel) Lot #: [id number] on: 29-Apr-2015 Fluzone Quadrivalent 0.5 ML Intramuscular Suspension Lot #: [id number] on: 21-Apr-2016 Family History Name Dates Details [...] not documented On 10-Nov-2016 15:30 Appointment; Devendra Luog M.D. Encounter Diagnosis: Problem not documented On [...]
--- OUTSIDE RECORDS SUMMARY | 2016-12-25 13:10 | XMS REPORT | Summary of Care ---
Author Author Pretty Aranda M.D. Unknown Address [address], [place] [address] Phone Unavailable Care Team Providers Care Medical Library Assistant Name Role Phone Tiny Crystal, Min Unavailable [...] Quantity: 60 Refills: 0 * Started ActiveNystatin-Triamcinolone 025885-2.1 UNIT/GM-% External Cream APPLY SPARINGLY TO AFFECTED AREA(S) 3 TIMES A DAY * Quantity: 2 Refills: 4 Pretty Aranda M.D.* Started 19-Jan-2012 Ebmxva06 GM Tube SEROquel XR 300 MG Oral [...] B Administered on:13-Jan-2004 Tdap (Adacel) Lot #: [id number] Administered on: Influenza Administered on:03-Jun-2010 Influenza Lot #: [id number] Administered on:23-May-2011 Pneumo (Pneumovax) Lot #: [id number] Administered on:31-Aug-2011 Influenza Lot #: [id number] Administered on:08-May-2012 Influenza Administered on:13-Jun-2013 Family History [...]
--- OUTSIDE RECORDS SUMMARY | 2016-12-25 13:10 | XMS REPORT | Summary of Care ---
Author Author Amelia Rucker Unknown Address [address], [place] [address] Phone Unavailable Care Team Providers Care Major Account Manager Name Role Phone Cristi Crystal, Leon Unavailable [...] Quantity: 60 Refills: 0 * Started ActiveNystatin-Triamcinolone 309780-7.1 UNIT/GM-% External Cream APPLY SPARINGLY TO AFFECTED AREA(S) 3 TIMES A DAY * Quantity: 2 Refills: 4 Pretty Aranda M.D.* Started 19-Jan-2012 Exrvvf01 GM Tube SEROquel XR 300 MG Oral [...] Refills: 0 Kip Grey PTacoATaco* Started 02-Jul-2014 ActiveFluvoxaMINE Maleate 100 MG Oral [...] B Administered on:13-Jan-2004 Tdap (Adacel) Lot #: [id number] Administered on: Influenza Administered on:03-Jun-2010 Influenza Lot #: [id number] Administered on:23-May-2011 Pneumo (Pneumovax) Lot #: [id number] Administered on:31-Aug-2011 Influenza Lot #: [id number] Administered on:08-May-2012 Influenza Administered on:13-Jun-2013 Family History [...] low threshold) Range: >60 EST GFR, NON-AFR CITIZEN OF [place] 47 ml/min (Below low threshold) Range: >60 Comments: EST GFR is reported in ml/min per 1.73 m2 of body surface area. For -Finnish, please multiple result by 1.2.----- GLUCOSE 156 [...] 14:39 Urinalysis, reflex to Micro and Culture ([facility]) 8016 pH 7.5 (Better) Range: 5.0-7.5 SP [...]
--- OUTSIDE RECORDS SUMMARY | 2016-12-25 13:11 | XMS REPORT | Summary of Care ---
Author Author Pretty Aranda M.D. Unknown Address [address], [place] [address] Phone Unavailable Care Team Providers Care Dye Penetrant Testing Technician Name Role Phone Tiny Crystal, Min [...] Quantity: 60 Refills: 0 * Started ActiveNystatin-Triamcinolone 526834-8.1 UNIT/GM-% External Cream APPLY SPARINGLY TO AFFECTED AREA(S) 3 TIMES A DAY * Quantity: 2 Refills: 4 Pretty Aranda M.D.* Started 19-Jan-2012 Wkabon16 GM Tube SEROquel XR 300 MG Oral [...] B Administered on:13-Jan-2004 Tdap (Adacel) Lot #: [id number] Administered on: Influenza Administered on:03-Jun-2010 Influenza Lot #: [id number] Administered on:23-May-2011 Pneumo (Pneumovax) Lot #: [id number] Administered on:31-Aug-2011 Influenza Lot #: [id number] Administered on:08-May-2012 Influenza Administered on:13-Jun-2013 Family History [...] not documented On 03-Apr-2013 15:15 Appointment; David Frakns Encounter Diagnosis: Problem not documented On 27-Mar-2013 [...]
--- OUTSIDE RECORDS SUMMARY | 2016-12-25 13:11 | XMS REPORT | Summary of Care ---
Author Author Ortiz Crystal, [employer] Organization Unknown Address [address], [place] [id number] Phone Unavailable Care Team Providers Care Ruching Machine Operator Name Role Phone Que Adams, Kip [...] B Administered on:13-Jan-2004 Tdap (Adacel) Lot #: [id number] Administered on: Influenza Administered on:03-Jun-2010 Influenza Lot #: [id number] Administered on:23-May-2011 Pneumo (Pneumovax) Lot #: [id number] Administered on:31-Aug-2011 Influenza Lot #: [id number] Administered on:08-May-2012 Influenza Administered on:13-Jun-2013 Fluzone Intramuscular Injectable Lot #: [id number] Administered on:29-Apr-2015 Tdap (Adacel) Lot #: [id number] Administered on:29-Apr-2015 Family History Unknown Family Member* [...] smoker Vital Signs Date Test Result Details 14-Oct-2015 16:12 BP Systolic 144 mm[Hg] Status: BP Diastolic 88 mm[Hg] Status: Weight 244 lb Status: Body Mass Index Calculated 42.54 kg/m2 Status: Body Surface Area Calculated 2.12 m2 Status: 29-Sep-2015 14:04 BP Systolic 130 mm[Hg] Status: [...] (Better) Range: 0-2 01-Oct-2015 09:21 URINE CULTURE [id number] Comments: 8aweek performed at: [facility] [address] [place], [address], Shovel Operator: Wilfrido Quinones D.O., MPHQuest Collection Date/Time: [id number] Results Received Date/Time: [id number] Reported Date/Time: [id number] CULTURE, URINE, ROUTINE SEE NOTE (Better) Comments: CULTURE, URINE, ROUTINE MICRO NUMBER: [id number] TEST STATUS: FINAL SPECIMEN SOURCE : URINE, CLEAN CATCH SPECIMEN QUALITY: ADEQUATE RESULT: Multiple organisms present, each less than 10,000 CFU/mL. These organisms, commonly found on external and internal genitalia, are considered to be colonizers. No further testing performed.[TN]----- Plan of Care Planned Observations* Name Dates Details Planned Goals not documented Goal Planned Encounters* Appointment; Provider: Devendra Lugo On 12-Nov-2015 10:30 * Appointment; Provider: Alphonse Asif On 11-Nov-2015 10:15 * Appointment; Provider: Pretty Aranda On 02-Nov-2015 09:45 * Appointment; Provider: Schedule Radiology On 23-Sep-2015 [...] Instructions * Instructions not documented Encounters Appointment; Dejuan Alcantar Encounter Diagnosis: Problem not [...] Problem not documented On 26-Aug-2015 13:30 Appointment; Prtety Aranda Encounter Diagnosis: Problem not documented On [...]
--- OUTSIDE RECORDS SUMMARY | 2016-12-25 13:11 | XMS REPORT ---
Author Author Pretty Aranda Organization Unknown Address [address], [place] [address] Phone Care Team Providers Care Fuels Sales Representative Name Role Phone Manoj Olsen PP Unavailable Unavailable Reason for Referral No Reason for Referral was given. History of Present Illness No HPI available. 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); (Active) * Obesity (278.00); (Active) * Vitamin D Deficiency (268.9); (Active) * Anemia (285.9); (Active) * Joint Pain, Localized In The Knee (719.46); (Active) * Diarrhea (Symptom) (787.91); (Active) * Visit For: Screening Malignant Neoplasm Colon (V76.51); (Active) * Hypertension (401.9); (Active) * Fibromyalgia (729.1); (Active) * Depression (311); (Active) * Type 2 Diabetes Mellitus (250.00); (Active) * Obstructive Sleep Apnea (327.23); (Active) * Clostridium Difficile Colitis (008.45); (Active) Medication * Multi-Vitamin/Minerals Oral Tablet; TAKE 1 TABLET DAILY.; Start Date: 2008 (Active) * Hydrocodone-Acetaminophen 10-300 MG Oral Tablet; Si PO every 4-6 hrs prn with a max of 4 per day.; Start Date: 01/08/2009 (Active) * Lyrica 150 MG Oral Capsule; TAKE 1 CAPSULE BY MOUTH TWICE DAILY.; Start Date: 11/10/2009 (Active) * ClonazePAM 2 MG Oral Tablet; Start Date: 04/14/2009 (Active) * Vitamin D3 1000 UNIT Oral Tablet; TAKE 1/2 TABLET DAILY; Start Date: 2010 (Active) * Fish Oil 1000 MG Oral Capsule; TAKE 1 CAPSULE DAILY.; Start Date: 03/01/2011 ( Active) * Calcium 600 MG Oral Tablet; Start Date: 03/01/2011 (Active) * Pramipexole Dihydrochloride 0.125 MG Oral Tablet; 1 tab daily at bedtime. May increase to 2 tab nightly after 1 week if still have symptoms. Consult pharmacist before starting.; Start Date: 03/01/2011; End Date: ( Active) * Zolpidem Tartrate ER 12.5 MG Oral Tablet Extended Release; 1 tablet at bedtime to help with sleep onset and maintenance insomnia. Call for any adverse side effects.; Start Date: 03/22/2011 (Active) * Gabapentin 600 MG Oral Tablet; 1 tablet 1-2 hours before bedtime to help with restless leg syndrome; Start Date: 05/23/2011; End Date: (Active) * Cymbalta 60 MG Oral Capsule Delayed Release Particles; TAKE 1 CAPSULE DAILY.; Start Date: 08/24/2011 (Active) * Cymbalta 30 MG Oral Capsule Delayed Release Particles; TAKE 1 CAPSULE DAILY.; Start Date: 10/10/2011 (Active) * Nystatin-Triamcinolone 142952-7.1 UNIT/GM-% External Cream; APPLY SPARINGLY TO AFFECTED AREA(S) 3 TIMES A DAY; Start Date: 01/19/2012 (Active) * Iron Complex Oral Capsule; TAKE 1 CAPSULE DAILY.; Start Date: 05/08/2012 ( Active) * SEROquel XR 150 MG Oral Tablet Extended Release 24 Hour; take 1 at supper; Start Date: 07/10/2012 (Active) * Lisinopril 10 MG Oral Tablet; TAKE 1 TABLET DAILY.; Start Date: 11/01/2012; End Date: (Active) * Glimepiride 2 MG Oral Tablet; TAKE 1 TABLET DAILY WITH BREAKFAST.; Start Date : 11/06/2012; End Date: (Active) * BusPIRone HCl 15 MG Oral Tablet; 1 TABLET TWICE DAILY; Start Date: 11/19/2012 (Active) * MoviPrep 100 GM Oral Solution Reconstituted; USE DIRECTED per colonoscopy instructions; Start Date: 11/27/2012; End Date: (Active) Allergies and Adverse Reactions * MetFORMIN HCl TABS; Diarrhea (Active) Past Medical History * History of Infectious Mononucleosis (075); (Resolved) * History of Herpes Zoster (Shingles) (053.9); (Resolved) * History of Transient Ischemic Attack (435.9); (Resolved) * History of Candidiasis (112.9); (Resolved) * History of Influenza (487.1); (Resolved) Procedures Procedure Procedure Date Date Completed Status Surgical Lysis Of Intestinal Adhesions - - Active Section - - Active Breast Surgery Lumpectomy - - Active Appendectomy - - Active Cholecystectomy - - Active Hysterectomy - - Active Salpingo-oophorectomy Bilat Laparosc Removal Of Both Ovaries & Tubes - - Active Gastroscopy With Biopsy 10/19/2012 - Active Colonoscopy For Forceps Biopsy 01/03/2013 - Active Immunization * Hepatitis B - Administered on: 12/08/2003 * Hepatitis B - Administered on: 01/13/2004 * DTaP * Tdap (Adacel) (Lot #: [id number]) - Administered on: 02/19/2010 * Influenza - Administered on: 06/03/2010 * Influenza (Lot #: [id number]) - Administered on: 05/23/2011 * Pneumo (Pneumovax) (Lot #: [id number]) - Administered on: 08/31/2011 * Influenza (Lot #: [id number]) - Administered on: 05/08/2012 Family History * Family history of Coronary Artery Disease (Active) * Family history of Stroke Syndrome (V17.1); (Active) * Family history of Depression (Active) * Family history of Arthritis (V17.7); (Active) * Family history of Colon Cancer (V16.0); (Active) Social History * Marital History - Currently (Active) * Never A Smoker (Active) * Never Drank Alcohol (Active) Treatment Plan * Urinalysis w/ Microscopic 8006 09/24/2008 Routine * Urinalysis w/ Microscopic 8006 09/24/2008 Routine * XM CAD (SCREENING) 10/03/2008 Routine * XRay KNEE-BILATERAL 12/02/2008 Routine * Urinalysis w/ Microscopic 8006 08/18/2009 Routine * Urinalysis w/ Microscopic 8006 08/18/2009 Routine * XRay FOOT-Left 03/02/2010 Routine * Urine Culture PRN 8000 08/24/2011 Routine * Urine Culture PRN 8000 10/10/2011 Stat * Urine Culture PRN 8000 01/30/2012 Routine * XM CAD (SCREENING) 05/15/2012 Routine * 5-HIAA,Quant.,24 Hr Urine 889410 01/10/2013 Routine * Calcitonin, Serum 473128 01/10/2013 Routine * Drug Screen ( 7 Drug Bundle) 840725 01/10/2013 Routine * Gastrin, Serum 580309 01/10/2013 Routine * HIV 1,2 ASSAY 3400 01/10/2013 Routine * Fecal Fat/Muscle Fibers, Qual 547390 01/10/2013 Routine * pH, Stool 343699 01/10/2013 Routine * STOOL CULTURE 5015 01/10/2013 Routine * Stool, C DIFFICILE TOXIN GENE 5515 01/10/2013 Routine * Protein Elec + Interp, Serum 557834 01/10/2013 Routine * Protein Electro, Random Urine 848686 01/10/2013 Routine * Metanephrines, Frac, Qn, 24-Hr 326645 01/10/2013 Routine * Metanephrines, Frac., Pl. Free 384663 01/10/2013 Routine * THYROID STIM. HORMONE 3602 01/10/2013 Routine * Fecal Fat/Muscle Fibers, Qual 324865 01/10/2013 Routine * pH, Stool 446166 01/10/2013 Routine * STOOL CULTURE 5015 01/10/2013 Routine * Stool, C DIFFICILE TOXIN GENE 5515 01/10/2013 Routine * Stool, C DIFFICILE TOXIN GENE 5515 Routine Advance Directives * No Advance Directives available. Encounters * Appointment 01/15/2013 * PX , Provider: Manoj Olsen, Status: Lion , Time: 11:30 AM 2012 * RTNPT , Provider: Parish Ramsay, Status: Lion , Time: 2:15 PM 03/12/2013
--- OUTSIDE RECORDS SUMMARY | 2016-12-25 13:11 | XMS REPORT | Summary of Care ---
Author Author Pretty Aranda M.D. Unknown Address Unknown Phone Unavailable Care Team Providers Care Consultant [employer]. Vice President [employer] (Ex ) Name Role Phone Kip Jensen Unavailable Unavailable [...] Status: Active Bruising (924.9, T14.8) Status: Active Need for vaccination (V05.9, Z23) Status: Active Medications Name Dates Details Multi-Vitamin/Minerals [...] 60 Refills: 0 * Start Active Nystatin-Triamcinolone 837215-4.1 UNIT/GM-% External Cream APPLY SPARINGLY TO AFFECTED [...] Quantity: 90 Refills: 3 Pretty Aranda M.D. * Start 29-Apr-2015 Active Aspirin 81 MG TABS Take 1 tablet daily * Quantity: 100 Refills: 0 Pretty Aranda M.D. * Start 29-Apr-2015 Active Meclizine HCl - 25 MG Oral Tablet TAKE 1 TABLET 3 TIMES DAILY NEEDED. * Quantity: 30 Refills: 0 Manoj Carver.Pretty Knapp * Start 24-Aug-2015 Active Movantik 25 MG [...] Lumbar BASIC METABOLIC PROFILE 1210 Ordered: 14-Apr-2016 ORTHO SPINE LUMBAR ( 2 VIEWS ONLY) Ordered: MAMMOGRAM-SCREENING Ordered: 07-Apr-2016 Immunization Name Dates Details DTaP on: 2003 Hepatitis B on: 08-Dec-2003 Hepatitis B on: 13-Jan-2004 Tdap (Adacel) Lot #: [id number] on: Influenza on: 03-Jun-2010 Influenza Lot #: [id number] on: 23-May-2011 Pneumo (Pneumovax) Lot #: [id number] on: 31-Aug-2011 Influenza Lot #: [id number] on: 08-May-2012 Influenza on: 13-Jun-2013 Fluzone INJ Lot #: [id number] on: 29-Apr-2015 Tdap (Adacel) Lot #: [id number] on: 29-Apr-2015 Fluzone Quadrivalent 0.5 ML Intramuscular Suspension Lot #: [id number] on: 21-Apr-2016 Family History Name Dates Details [...] >60 ml/min Range: >60 EST GFR, NON-AFR POLISH 52 ml/min (Below low threshold) Range: >60 Comments: EST GFR is reported in ml/min per 1.73 m2 of body surface area. For -Mongolian, please multiple result by 1.2.----- BUN:CREATININE RATIO 7 GLUCOSE 113 mg/dL (Above high threshold) Range: 70-100 CALCIUM 9.3 mg/dL Range: 8.5-10.1 15:22 HEMOGLOBIN A1C 3507 Hemoglobin A1C 6.9 % ESTIMATED AVG. GLUCOSE 151 Plan of Care Name Dates Details Planned Observations Planned Goals not documented Planned Encounters Appointment; Provider: David Kelly M.D.|MarianSGIOVANNI Wade FACS, On 27-Jul-2016 10:15 Appointment; Provider: Pretty Aranda [...] not documented On 10:30 Appointment; David Kelly M.D.|GIOVANNI Meadows FACS, Encounter Diagnosis: Problem not documented On 10:30 Appointment; Devendra Lugo M.D. Encounter Diagnosis: Problem not documented On 07-Jan-2016 14:15 Appointment; Pretty Aranda M.D. Encounter Diagnosis: Problem not documented On 23-Dec-2015 09:45 Appointment; Devendra Lugo M.D. Encounter Diagnosis: Problem not documented On 12-Nov-2015 10:30 Appointment; Alphonse Asif M.D. Encounter Diagnosis: Problem not documented On 11-Nov-2015 10:15 Appointment; David Kelly M.D.|CynthiaC.S.|M.D.,FACS|M.D.,FACS, Encounter Diagnosis: Problem not documented On 03-Nov-2015 [...]
--- NOTE | 2016-12-25 13:13 | ERPDOC ---
Departure Disposition Decision Date: December 25, 2016 Disposition Decision Time: 14:44 Disposition: 01 DISCHARGED HOME, SELF-CARE Impression Impression Impression: Primary Impression: Constipation Constipation type: unspecified constipation type Qualified Codes: K59.00 - Constipation, unspecified Additional Impression: Ventral hernia Obstruction and gangrene presence: without obstruction or gangrene Qualified Codes: K43.9 - Ventral hernia without obstruction or gangrene Severity: Moderate Condition: Improved Seen By: Physician only Referrals: EDIS GUTIERREZ MD (Family) 1 Week Patient Instructions: Constipation (ED), Ventral Hernia (ED) Problems/Meds/Labs Reviewed?: Yes Medications reviewed and manag: Yes Additional Instructions: You have significant constipation. Take miralax up to six times per day for the next week. Ibuprofen or naproxen can help with the anticipated pain. Once you have decreased your stool burden, take the miralax daily to help maintain good bowel habits. Follow up with your doctor in the next week. Follow up care ordered?: Yes Mental Status: Alert, Oriented Scripts Ondansetron (Zofran Odt) 4 Mg Tab.rapdis 4 MG PO QID Y for NAUSEA &/OR VOMITING, #20 TAB 0 Refills Prov: KRISTYN CRAIG DO 12/25/16 HPI - Chest Pain General Stated Complaint: PAIN WITHIN DIGESTIVE SYSTEM Time Seen by Provider: 12:52 Source: patient Exam Limitations: no limitations HPI - Chest Pain Initial Comments 51yo woman presents to the ER with 'something wrong in my digestive system'. Pt has a long h/o SBO and numerous abdominal surgeries. Pt states that she took several laxatives to try to force a BM today, but only got a scant amount of stool with both dark/tarry character and BRB. Pt is unable to characterize her abd pain further. Pt then states that she has substernal chest pain with radiation into her abdomen, but assures the NRS that it is related to her GI complaints, despite the CP feeling like pressure. Pt tried to eat today, but that only made her pain worse. Occurred At: home Onset/Timing: Gradual, Getting worse Duration: 6-12 hrs Pain/Severity Scale: Now & Worst: 10/10 Activities at Onset/Context: sleep Location: substernal, epigastric, abdomen Quality: 'pain' Modifying Factors: IMPROVES WITH: lying down, WORSE WITH: eating, movement, palpation Associated Symptoms: abdominal pain, diaphoresis, nausea/vomiting Chest Pain Radiation: no radiation Nitro Today/Relief: 0.4 mg x 1, provided by ED Aspirin Treatment Today: 81 mg x 4, provided by ED Allergies: Coded Allergies: metformin (Verified Adverse Reaction, Mild, DIARRHEA, 12/25/16) Past History Patient Medical History (1) SBO (small bowel obstruction) Past Medical History GI: constipation Psychological: anxiety, depression Review of Systems Cardiovascular Cardiac: chest pain, dyspnea on exertion Rhythm/Rate: irregular beat, palpitations Pulmonary Respiratory: cough, tachypnea GI Upper Abdomen: dysphagia, heartburn/indigestion, nausea, pain Lower Abdomen: blood in stool, constipation, pain All other Systems All Other Systems: Reviewed and Negative Physical Exam General General Nourishment: well nourished, well developed, appears stated age, no acute distress, adult, obese General Body Habitus: well groomed Vitals and Pain First Documented Vital Signs Date Time Temp Pulse Resp B/P Pulse Ox O2 Delivery O2 Flow Rate FiO2 12/25/16 12:45 98.2 92 28 109/64 95 Room Air Weight: Kilograms: Height (feet): Height (inches): Triage Pain Scale: RN VS reviewed by Provider: Yes Normal Exams: Head: Normocephalic w/o trauma Eyes: Pupils are PERRLA w/ EOMI, No scleral icterus, irritation ENMT: No facial trauma, nasal exudates, pharyngeal erythema Neck: Full range of motion, without adenopathy, JVD Lymphatic: No lymphadenopathy Musculoskeletal: No tenderness, or deformity noted Integumentary: No rashes, hives, or bruising noted Neurologic: Patient is alert, and oriented Psychiatric: Patient exhibits, appropriate attention Respiratory (brief) Respiratory: FOUND: clear all nance, equal bilaterally, symmetrical, NOT FOUND : rales, wheezes Cardiovascular (brief) Cardiac: FOUND: regular rate, regular rhythm, NOT FOUND: click, gallop, murmur , pedal edema, peripheral edema, rub Capillary Refill: <2 sec Pulses: all distal extremities, equal, strong Abdomen (brief) Abdominal Brief: FOUND: bowel normo active x4, soft, tender (Diffusely TTP without peritoneal signs), NOT FOUND: distended, hepatosplenomegaly, pulsatile mass Differential Diagnoses Considering: Acute [place], Anxiety/Panic, Angina, Aortic Dissection, Esophageal Spasm, GERD, Pancreatitis, Pericarditis, Pleurisy, Pneumothorax, Pneumonia, PSVT , Muscle Spasm, Other (SBO) Progress Results/Orders Orders Procedure Category Date Status Time Cbc W/Auto LAB 12/25/16 Complete Diff-Reflex Manual 12:52 Bmp - Basic Metabolic LAB 12/25/16 Complete Panel 12:52 Probnp LAB 12/25/16 Complete 12:52 Troponin I W LAB 12/25/16 Complete Hemolysis Index 12:52 INR LAB 12/25/16 Complete 12:52 EKG EKG 12/25/16 Logged 12:52 Chest 1 View RAD 12/25/16 Taken 12:52 Iv Lock (Ed Only) EDM 12/25/16 Transmitted 12:52 Aspirin (Asa) PHA 12/25/16 Complete 13:00 Nitroglycerin PHA 12/25/16 In Process (Nitrostat) 13:00 Lipase LAB 12/25/[address] Abd/Pelvis CT 12/25/16 Logged W/Contrast Only 13:17 Iohexol (Omnipaque) PHA 12/25/16 Complete 13:36 Normal Saline (Ns) PHA 12/25/16 Complete 13:37 Saline Flush (Iv PHA 12/25/16 Complete Flush) 13:37 Normal Saline (Normal PHA 12/25/16 Complete Saline Iv) 14:15 Lab Results Laboratory Tests Test 12/25/16 12:52 12/25/16 13:07 Lipase 152U/L White Blood Count 14.4T/MM3 Red Blood Count 5.00M/MM3 Hemoglobin 14.3GM/DL Hematocrit 42.7% Mean Corpuscular Volume 85.4UM3 Mean Corpuscular Hemoglobin 28.6UUG Mean Corpuscular Hemoglobin Concent 33.5GM/DL RDW Standard Deviation 44.5FL Platelet Count 317T/MM3 Mean Platelet Volume 11.7UM3 Immature Granulocyte % (Auto) 1.0% Neutrophils (%) (Auto) 80.6% Lymphocytes (%) (Auto) 11.9% Monocytes (%) (Auto) 5.8% Eosinophils (%) (Auto) 0.3% Basophils (%) (Auto) 0.4% Absolute Immature Granulocyte (auto 0.14T/MM3 Absolute Neutrophils (auto) 11.6T/MM3 Absolute Lymphocytes (auto) 1.7T/MM3 Absolute Monocytes (auto) 0.8T/MM3 Absolute Eosinophils (auto) 0.0T/MM3 Absolute Basophils (auto) 0.1T/MM3 Prothromb Time International Ratio 1.04 Turbidity < 20 Sodium Level 146MEQ/L Potassium Level 4.0MEQ/L Chloride Level 112MEQ/L Carbon Dioxide Level 20MEQ/L Anion Gap 14MEQ/L Blood Urea Nitrogen 19.0MG/DL Creatinine 1.1MG/DL Glomerular Filtration Rate Calc 53 BUN/Creatinine Ratio 17RATIO Glucose Level 213MG/DL Calculated Osmolality 289MOSM/KG Calcium Level 9.4MG/DL Icterus Index < 2 Troponin I < 0.012ng/ml ZF-Rix-M-Type Natriuretic Peptide 25PG/ML Chemistry Specimen Hemolysis 24 Medications Current ED Medications Aspirin (ASA) 324 mg O ONCE PO Last administered on 12/25/16 13:01; Start 12/25 at 13:00; Stop 12/25/16 at 13:01; Status DC Nitroglycerin (Nitrostat) 0.4 mg Q5MIN PRN SL CHEST PAIN Last administered on 13:09; Start 12/25/16 at 13:00 Iohexol 1 bottle 1 bottle STK-MED ONCE .ROUTE ; Start 12/25/16 at 13:36; Stop 12/25/16 at 13:37; Status DC Sodium Chloride (NS) 100 ml @ As Directed STK-MED ONCE .ROUTE ; Start 12/25/16 at 13:37; Stop 12/25/16 at 13:38; Status DC Sodium Chloride 10 ml 10 ml STK-MED ONCE .ROUTE ; Start 12/25/16 at 13:37; Stop 12/25/16 at 13:38; Status DC Sodium Chloride (Normal Saline IV) 1,000 ml @ 0 mls/hr Q0M ONCE IV Last administered on 12/25/16 14:15; Start 12/25/16 at 14:15; Stop 12/25/16 at 14:16; Status DC Progress Progress Discussed dx, prognosis, tx, and need for f/u with pt, who voiced understanding. Discussed numerous methods for disimpaction with pt and family. EKG EKG : Rate: 60-100 Rhythm: sinus [place]: normal QRS: normal Intervals: normal ST/T: non-specific changes Interpreted by: signing physician Consult/PCP Consult/PCP : Physician Contacted: Dr. Diallo Time Called: 14:17 Time of first response: 14:26 Type of discussion: Phone Consult/PCP Discussion Details No indications for surgery at this time. KRISTYN CRAIG DO December 25, 2016 13:13
--- NOTE | 2016-12-25 13:15 | NUR ---
PROVIDER DR. CRAIG AT BEDSIDE FOR EXAM.
--- OUTSIDE RECORDS SUMMARY | 2016-12-25 13:15 | XMS REPORT ---
Author Author GENERATED, SYSTEM Organization Unknown Address Unknown Phone Unavailable Care Team Providers Care Railroad Car Repair Supervisor Name Role Phone MD MARIFER, RODOLFO [phone] Reason For Visit Chief Complaint NECK PAIN [...]
[2016-12-25 13:19] LABS: BASOPHILS # (AUTO) 0.1 T/MM3 (0-0.2); BASOPHILS % (AUTO) 0.4 % (0-2); EOSINOPHILS % (AUTO) 0.3 % (0-4); HCT - HEMATOCRIT 42.7 % (36-46); HGB - HEMOGLOBIN 14.3 GM/DL (12-16); IMMATURE GRANULOCYTE # (AUTO) 0.14 T/MM3 (0.00-0.03); LYMPHOCYTES # (AUTO) 1.7 T/MM3 (1-4.8); LYMPHOCYTES % (AUTO) 11.9 % (23-45); MEAN CORPUSCULAR HGB 28.6 UUG (26-34); MEAN CORPUSCULAR HGB CONC(MCHC 33.5 GM/DL (31-37); MEAN CORPUSCULAR VOLUME 85.4 UM3 (80-100); MEAN PLATELET VOLUME 11.7 UM3 (9.4-12.4); MONOCYTES # (AUTO) 0.8 T/MM3 (0-0.8); MONOCYTES % (AUTO) 5.8 % (0-9.0); NEUTROPHILS #(AUTO)-ABSOLUTE 11.6 T/MM3 (1.8-7.7); NEUTROPHILS % (AUTO) 80.6 % (33-66); WBC - WHITE BLOOD COUNT 14.4 T/MM3 (4.5-11.0)
--- OUTSIDE RECORDS SUMMARY | 2016-12-25 13:19 | XMS REPORT | Continuity of care Document ---
[...] - SPINE CERVICAL 5 VIEWS CPT Code(s): 64245-; ; ; INDICATION / CLINICAL HISTORY: Fall, [...] - SPINE LUMBOSACRAL 4 VIEWS CPT Code(s): 07906-; ; ; INDICATION / CLINICAL HISTORY: Fall, [...] - SPINE THORACIC 3 VIEW CPT Code(s): 11780-; ; ; INDICATION / CLINICAL HISTORY: \E\fall, [...] - WRIST LEFT 3 VIEWS CPT Code(s): 98129-VD; ; ; INDICATION / CLINICAL HISTORY: \E\fall, [...] - KNEE LEFT 3 VIEWS CPT Code(s): 52559-EA; ; ; INDICATION / CLINICAL HISTORY: Fall. Knee pain. COMPARISON: None. FINDINGS: There is no acute fracture. The knee is in normal alignment. There are minimal degenerative changes. No significant joint effusion is demonstrated. IMPRESSION: No acute osseous abnormality.
--- NOTE | 2016-12-25 13:21 | NUR ---
PAIN PT REPORTS NO CHANGE IN PAIN AFTER FIRST SL NTG. BP READS 94/49. SECOND SL NTG HELD.
--- OUTSIDE RECORDS SUMMARY | 2016-12-25 13:21 | XMS REPORT ---
Author Author GENERATED, SYSTEM Organization Unknown Address Unknown Phone Unavailable Care Team Providers Care Stone Derrickman And Rigger Name Role Phone MD MARIFER, RODOLFO [phone] Reason For Visit Chief Complaint R32 Social [...]
--- OUTSIDE RECORDS SUMMARY | 2016-12-25 13:22 | XMS REPORT ---
Author Author GENERATED, SYSTEM Organization Unknown Address Unknown Phone Unavailable Care Team Providers Care Chemistry Laboratory Technician Name Role Phone MD MARIFER, RODOLFO [phone] Reason For Visit Reason for Visit from [...] the responsibility of the patient or patient admissions representative to confirm the list of medications [...] the evening * L. gasseri-B. bifidum-B longum ([place]) 1.5 billion cell Capsule, Ordered By: DANIEL [...]
--- OUTSIDE RECORDS SUMMARY | 2016-12-25 13:22 | XMS REPORT ---
Author Author GENERATED, SYSTEM Organization Unknown Address Unknown Phone Unavailable Care Team Providers Care Dx Board Operator Name Role Phone MD MARIFER, RODOLFO [phone] Reason For Visit Reason for Visit from [...] 1-2 days) * Address # 1 : [facility]: [address] [place], [place]- or Treatment Plan from 04/23/2016 9:59 AM:* [...] the responsibility of the patient or patient automobile sales representative to confirm the list of [...]
[2016-12-25 13:23] LABS: INR 1.04 (0.76-1.04); PROTHROMBIN TIME 11.3 SEC (9.31-12.49)
--- OUTSIDE RECORDS SUMMARY | 2016-12-25 13:23 | XMS REPORT ---
Author Author GENERATED, SYSTEM Organization Unknown Address Unknown Phone Unavailable Care Team Providers Care Pit Slagman Name Role Phone MD MARIFER, RODOLFO [phone] Reason For Visit Reason for Visit from [...] H (65-99 MG/DL) GFR EST NON AFR KYRGYZ 63 ML/MIN GFRA EST AFR AMER 73 [...] Office appointment: : Dr. Caicedo [facility] before [phone] * #1 Date/Time : 04/22/2015 10:30 AM * Address # 1 : [facility]: [address] [place]- or Treatment Plan from 04/16/2015 10:55 AM:* [...] voiced concerns regarding outpatient vs inpatient status. [facility] Anette Laughlin [...] was already paying someone to do that. [facility] advised her to keep the list [...] lives at home with her spouse in [place]. She states that she had been considering having a DURALUMIN MECHANIC provide services in her home as there are many things that she is not able to do on her own. Patient states that she falls often due to degenerative disc disease and is unable to complete many ADLs. [facility] explained the difference between services that Medicare or insurances would pay for and what would be private pay. Many of items patient is interested in would be private pay such as cleaning, cooking and being availalbe when she bathes. SW' er provided home health lists for both private pay and insurance billable. [facility] informed patient and spouse that if they made a decision prior to discharge [facility] be able to assist in making the referral. [facility] also [facility] as patient stated she wasn't always able to prepare a meal when her was gone. [facility] will be [facility] is needed. Treatment [...] the responsibility of the patient or patient labor union business representative to confirm the list of medications [...]
--- OUTSIDE RECORDS SUMMARY | 2016-12-25 13:25 | XMS REPORT | Continuity of Care Document ---
Author Author [facility] Organization [facility] Address Unknown Phone Unavailable Allergies Active Description Code Type Severity Reaction Onset Reported/Identified Relationship to Patient Clinical Status Yes metFORMIN ZZ Drug Allergy N/A diarrhea, stomach upset 10/30/2013 Medications Problems Date Dx Coded Attending Type Code Diagnosis Diagnosed By 05/21/2015 [facility] THERAPIST, LINK [place]ajas 296.33 Major Depressive Disorder, Recurrent, Severe Without Psychotic Features 05/21/2015 [facility] THERAPIST, LINK [place] 300.01 Panic Disorder Without Agoraphobia 05/21/2015 [facility] TH[facility]APISTLINK 300.3 Obsessive-Compulsive Disorder 05/21/2015 [facility] THERAPIST, LINK [place]ajas 301.83 Borderline Personality Disorder 09/03/2015 RADHA WILSON H6123 Impacted cerumen, bilateral 09/03/2015 RADHA WILSON R51 Headache 09/03/2015 RADHA WILSON [id number] Unspecified injury of head, initial encounter 09/03/2015 RADHA WILSON [id number] Contusion of right elbow, initial encounter 09/03/2015 RADHA WILSON [id number] Contusion of right knee, initial encounter 09/03/2015 RADHA WILSON [id number] Fall from bed, initial encounter 09/03/2015 RADHA IWLSON D36231 Bedroom of single-family (private) house as place 05/23/2016 [facility] THERAPIST, LINK [place]ajas 300.3 Obsessive-Compulsive Disorder Procedures Code Description [place] [address] 08/26/2015 76589 08/26/2015 05123 08/26/2015 62680 08/26/2015 91364 08/26/2015 43833 08/26/2015 Results Test Result Range CBC WITH [...] - 07/19/16 08:50 *GFR EST NON AFR ECUADOREAN 52 mL/min NRG *GRFA EST AFR AMER [...] - 07/20/16 20:01 *GFR EST NON AFR ECUADOREAN 57 mL/min NRG *GRFA EST AFR AMER [...] Status Pt. Type Provider Facility Loc./Unit Complaint [id number] 09/08/2008 00:00:00 09/08/2008 23: 59:59 CLS Outpatient MARAH SERRATOJenn THERAPISTLINK
[2016-12-25 13:27] LABS: ANION GAP 14 MEQ/L (5-15); BUN/CREATININE RATIO 17 RATIO (6-26); CALCIUM 9.4 MG/DL (8.4-10.2); CHLORIDE 112 MEQ/L (98-107); CO2 - CARBON DIOXIDE 20 MEQ/L (22-30); CREATININE 1.1 MG/DL (0.7-1.2); GLOMERULAR FILTRATION RATE 53; GLUCOSE 213 MG/DL (65-110); SODIUM 146 MEQ/L (134-144)
--- OUTSIDE RECORDS SUMMARY | 2016-12-25 13:27 | XMS REPORT ---
Author Author GENERATED, SYSTEM Organization Unknown Address Unknown Phone Unavailable Care Team Providers Care Lehr Stripper Name Role Phone MD MARIFER, RODOLFO [phone] Reason For Visit Chief Complaint WEAKNESS Social [...] H (65-99 MG/DL) *GFR EST NON AFR NEPALESE 52 ML/MIN *GFR EST AFR AMER 61 [...] AM* Status: Final Result URINALYSIS Specimen Number: [id number] Sample Collection Date/Time: 07/19/2016 9:18 AM Specimen [...] 07/19/2016 12:07 [facility] History: weakness, tachycardia Technique: 1 view chest performed Priors: 04/22/2016 Findings: The heart size is within normal limits. No acute infiltrate, pneumothorax, or pleural effusion is identified. Impression: No evidence of acute cardiopulmonary process. Electronically signed by: Kyaw Johnson MD Dictated: 07/19/2016 12:08 CT [facility] 07[facility]19[facility]2016 9[facility] History: weakness, [...]
--- OUTSIDE RECORDS SUMMARY | 2016-12-25 13:28 | XMS REPORT ---
Author Author GENERATED, SYSTEM Organization Unknown Address Unknown Phone Unavailable Care Team Providers Care Education Supervisor Name Role Phone MD MARIFER, RODOLFO [phone] Reason For Visit Chief Complaint FELL, LEG [...]
[2016-12-25] MEDS ORDERED: IOHEXOL 300 MG/ML 100ml INJECTION ONE (13:36)
[2016-12-25] MEDS ORDERED: SALINE FLUSH 10ml SYRINGE ONE (13:37)
[2016-12-25] MEDS ORDERED: NORMAL SALINE 100 ML ONE (13:37)
--- NOTE | 2016-12-25 13:39 | NUR ---
CT PT TO CT BY CART AT THIS TIME.
[2016-12-25] MEDS ORDERED: PREG150C PO (13:49)
[2016-12-25] MEDS ORDERED: HYDR4TAB84 PO (13:49)
[2016-12-25] MEDS ORDERED: ATOR10TA64 PO (13:49)
[2016-12-25] MEDS ORDERED: GLIM2TAB3 PO (13:49)
[2016-12-25] MEDS ORDERED: LISI10TA7 PO (13:49)
[2016-12-25] MEDS ORDERED: FLUV150C2 PO (13:53)
[2016-12-25] MEDS ORDERED: QUET300T3 PO (13:53)
[2016-12-25] MEDS ORDERED: CYCL-375 PO (13:53)
[2016-12-25] MEDS ORDERED: BUSP30TA2 PO (13:53)
[2016-12-25] MEDS ORDERED: ZOLP10TA6 PO (13:53)
[2016-12-25] MEDS ORDERED: PROM25TA7 PO (13:56)
[2016-12-25] MEDS ORDERED: COLE1TAB2 PO (13:56)
[2016-12-25] MEDS ORDERED: TOPI50TA25 PO (13:56)
[2016-12-25] MEDS ORDERED: DICY10CA13 PO (13:56)
[2016-12-25] MEDS ORDERED: NALO25TA PO (13:56)
[2016-12-25 13:58] LABS: PROBNP 25 PG/ML (0-175)
[2016-12-25] MEDS ORDERED: HYDR50TA48 PO (13:58)
[2016-12-25] MEDS ORDERED: BETH10TA PO (13:58)
[2016-12-25] MEDS ORDERED: LEVO500T88 PO (13:58)
[2016-12-25] MEDS ORDERED: PRED10TA PO (13:58)
--- NOTE | 2016-12-25 13:58 | NUR ---
RETURN PT RETURNED FROM CT BY CART AT THIS TIME.
[2016-12-25] MEDS ORDERED: MENT118G TOP (14:01)
[2016-12-25] MEDS ORDERED: DICL100G5 TOP (14:01)
[2016-12-25] MEDS ORDERED: L GA1CAP2 PO (14:01)
[2016-12-25] MEDS ORDERED: IBUP-1724 PO (14:01)
[2016-12-25] MEDS ORDERED: GUAI-782 PO (14:01)
[2016-12-25] MEDS ORDERED: ASPI-557 PO (14:05)
[2016-12-25] MEDS ORDERED: MULT1TAB69 PO (14:05)
[2016-12-25] MEDS ORDERED: NORMAL SALINE 1,000 ML IV ONE (14:15)
--- NOTE | 2016-12-25 14:29 | NUR ---
PROVIDER DR. CRAIG AT BEDSIDE TO SPEAK WITH PT.
[2016-12-25] MEDS ORDERED: ONDA4TAB7 PO (14:47)
[2016-12-25 14:59] VITALS: BP 105/53; PULSE 80; RESP 18; TEMP 98.2; O2SAT 97
--- NOTE | 2016-12-25 14:59 | NUR ---
DISCHARGE WRITTEN INSTRUCTIONS WITH [facility] REVIEWED AND SENT WITH PT. PT VERBALIZES UNDERSTANDING OF DI AND MEDICATION, DENIES QUESTIONS. REPORTS PAIN REMAINS 4/10, BUT IS MUCH MORE COMFORTABLE. PT AMBULATES OUT OF ER WITH STEADY GAIT USING CANE ACCOMP BY SPOUSE AT THIS TIME.
--- NOTE | 2016-12-25 17:35 | DI ---
Indication: ITS.REASON: Abd pain history of multiple prior abdominal surgeries. PROCEDURE: CT ABD/PELVIS W/CONTRAST ONLY: Encounter: Initial Comparison: None Technique: Axial CT images were performed through the abdomen and pelvis after the administration of intravenous contrast. Coronal and sagittal two-dimensional reformats. Automated Exposure Control and Iterative Reconstruction dose reducing techniques were utilized. Contrast: Omnipaque 300 100 mL Findings: The lung bases are clear. The liver is diffusely fatty infiltrated without discrete mass. The gallbladder is surgically absent. The spleen, pancreas and adrenal glands are within normal limits. The kidneys are normal. No abdominal or pelvic adenopathy. The bladder is normal. Uterus is absent. No free fluid. Surgical clips in the left pelvis. No evidence of a bowel obstruction. Bone windows show no acute findings. Appendix is not seen and reportedly surgically absent. Small bowel containing Meier's hernia seen in the upper pelvis on axial image #65 without evidence of acute obstruction. Impression: No acute disease process seen. Nonobstructing small bowel containing Meier's hernia. Hepatic steatosis. There is a preliminary report by [employer]. .
--- NOTE | 2016-12-25 17:40 | DI ---
Indication: ITS.REASON: Epigastric pain and chest pain PROCEDURE: CHEST 1 VIEW: Encounter: Initial Comparison: None FINDINGS: The lungs are clear. There is no abnormal airspace opacity, pleural effusion or pneumothorax identified. The heart size, pulmonary vasculature and mediastinum are within normal limits. No significant skeletal abnormality is seen. IMPRESSION: No acute cardiopulmonary abnormality. .
[2016-12-26] MEDS ORDERED: HYOS0.124 SL (13:17)
== END 2016-12-25 14:59 | disposition home or self-care (01) ==
LOC: ED 12:42
DX: K59.00 Constipation, unspecified (principal); K43.9 Ventral hernia without obstruction or gangrene
CPT/HCPCS: 71010; 74177; 80048; 83690; 83880; 84484; 85025; 85610; 93005; 96360; 99284; A9270; J7030; J7050; Q9967

== ENCOUNTER 2016-12-26 11:27 | Emergency (ER) | payer MEDICARE, OTHER ==
[~2016-12-26] VITALS: Ht 160 cm; Wt 109.3 kg
[~2016-12-26 11:27] MED LIST changes: -HYOS0.124 SL
[2016-12-26 11:31] VITALS: Ht 160 cm; Wt 109.3 kg
--- OUTSIDE RECORDS SUMMARY | 2016-12-26 11:32 | XMS REPORT | Continuity of Care Document ---
Author Author [facility] Organization [facility] Address Unknown Phone Unavailable Support Name Relationship Address Phone DECEMBER, KRISTYN Cavrer DO Caregiver [address] [place] [address] Unavailable EDIS GUTIERREZ MD Caregiver [address] [place] [address] Unavailable JENNIFER ALBERT Next Of Kin [address] [place] [address] Insurance Providers Guarantor Bibi Albert Address [address] [place] [address] Email DENIED 2016 Payer Medicare Policy Number [id number] Subscriber's Name Bibi Albert Relationship 18 Self Payer [employer] Medicare Supp Wps Policy Number [id number] Subscriber's Name MarthaJennifer Relationship 01 Spouse Advance Directives Directive Response Recorded Date/Time Advanced Directives Type None 12/25/16 12:45pm Chief Complaint and Reason for Visit Chief Complaint Chest Pain Reason for Visit Ventral hernia Constipation Problems Active Problems Medical Problem Onset Date Status SBO (small bowel obstruction) Unknown Past Problems Medical Problem Onset Date Constipation Unknown Ventral hernia Unknown Medications Current Home Medications Medication Dose Units Route Directions Days Qty Instructions Start Date Aspirin (Aspir 81) 81 Mg Tablet. 81 Mg Oral Bedtime 12/25/16 Atorvastatin Calcium 10 Mg Tablet 10 Mg Oral Bedtime 12/25/16 Bethanechol Chloride 10 Mg Tablet 10 Mg Oral Three Times Daily With Meals 12/25/16 Buspirone Hcl 30 Mg Tablet 30 Mg Oral Twice A Day 12/25/16 Colestipol Hcl 1 Gm Tablet 1 Gm Oral Twice A Day as needed for Prn Orders 12/25/16 Cyclobenzaprine Hcl 10 Mg Tablet 10 Mg Oral Three Times A Day as needed for Prn Orders 12/25/16 Diclofenac Sodium (Voltaren) 100 Gm Gel..gram. 1 Applic Topically As Needed 12/25/16 Dicyclomine Hcl 10 Mg Capsule 10 Mg Oral Three Times A Day as needed for Prn Orders 12/25/16 Fluvoxamine Maleate 150 Mg Cap.er.24h 150 Mg Oral Twice A Day 03/06 Glimepiride 2 Mg Tablet 2 Mg Oral Daily 12/25/16 Guaifenesin/Dextromethorphan (Mucinex Dm Er 600-30 Mg Tablet) 1 Each Tab.er.12h 1 Tab Oral Every 12 Hrs Prn as needed for Prn Orders Hydromorphone Hcl 4 Mg Tablet 4 Mg Oral Four Times Daily as needed for Pain 12/25/16 Hydroxyzine Hcl 50 Mg Tablet 50 Mg Oral Three Times A Day as needed for Anxiety 12/25/16 Ibuprofen 200 Mg Tablet 400 Mg Oral Every 4 Hours as needed for Pain 12/25/16 L Gasseri/B Bifidum/B Longum (Correlec Colon Health Capsule) 1 Each Capsule 1 Cap Oral Daily 12/25/16 Levofloxacin 500 Mg Tablet 500 Mg Oral Daily start 12/19/16 12/25/16 Lisinopril 10 Mg Tablet 10 Mg Oral Bedtime 12/25/16 Menthol (Biofreeze) 118 Ml Gel..ml. 1 Applic Topically As Needed 12/25/16 Multivitamin (Multivitamins) 1 Each Tablet 1 Tab Oral Daily 12/25 Naloxegol Oxalate (Movantik) 25 Mg Tablet 50 Mg Oral Bedtime 03/06 Ondansetron (Zofran Odt) 4 Mg Tab.rapdis 4 Mg Oral Four Times Daily as needed for Nausea &/Or Vomiting 20 Tablet 12/25/16 Prednisone 10 Mg Tablet 40 Mg Oral Daily 12/25/16 Pregabalin (Lyrica) 150 Mg Capsule 150 Mg Oral Twice A Day Promethazine Hcl 25 Mg Tablet 25 Mg Oral Every 6-8 Hours as needed for Prn Orders 12/25/16 Quetiapine Fumarate (Seroquel Xr) 300 Mg Tablet 300 Mg Oral Every Evening 12/25/16 Topiramate 50 Mg Tablet 50 Mg Oral Twice A Day 12/25/16 Zolpidem Tartrate 10 Mg Tablet 10 Mg Oral Bedtime 12/25/16 Social History Social History Problem Response Recorded Date/Time Onset Date Status Chewing Tobacco Status No 12/25/2016 2:16pm Not Applicable Not Applicable Hx Substance Use No 12/25/2016 2:16pm Not Applicable Not Applicable Hx Alcohol Use No 12/25/2016 2:16pm Not Applicable Not Applicable Query Response Start Date Stop Date Smoking Status Never smoker Hospital Discharge Instructions No hospital discharge instructions. Plan of Care Discharge Date 12/25/16 2:59pm Disposition 01 DISCHARGED HOME, SELF-CARE Condition at Discharge Improved Instructions/Education Provided Constipation (ED) Ventral Hernia (ED) Prescriptions See Medication Section Referrals EDIS GUTIERREZ MD Order Date: 1 Week Address: [address] [id number] Note: Additional Instructions/Education You have significant constipation. Take miralax up to six times per day for the next week. Ibuprofen or naproxen can help with the anticipated pain. Once you have decreased your stool burden, take the miralax daily to help maintain good bowel habits. Follow up with your doctor in the next week. Care Plan and Goals Physician Care Plan Problem: Constipation Goal: Follow up with primary care provider Instructions: Take medications and follow care plan as discussed/written Functional Status No functional status results. Allergies, Adverse Reactions, Alerts Allergen Type Severity Reaction Status Last Updated Metformin Adverse Reaction Mild DIARRHEA Active 12/25/16 Immunizations No immunization records. Vital Signs Acute Vital Signs Vital Response Date/Time Temperature (Fahrenheit) 98.2 deg F (96.8 - 99.1) 12/25/2016 2:59pm Temperature (Calculated Celsius) 36.20904 degrees C (36.0 - 37.3) 12/25/2016 2:59pm Pulse Rate (adult) 80 bpm (60 - 100) 12/25/2016 2:59pm Respiratory Rate 18 breaths/min (10 - 20) 12/25/2016 2:59pm O2 Sat by Pulse Oximetry 97 % (90 - 100) 12/25/2016 2:59pm Blood Pressure 105/53 mm Hg 12/25/2016 2:59pm Height (Feet) 5 feet 12/25/2016 12:45pm Height (Inches) 3.00 inches 12/25/2016 12:45pm Weight (Kilograms) 109.300 kg 12/25/2016 12:45pm Body Mass Index (BMI) 42.0 12/25/2016 12:45pm Results Laboratory Results Test Name Result Units Flags Reference Collection Date/Time Result Date/ Time Comments White Blood Count 14.4 T/MM3 H 4.5-11.0 12/25/2016 1:12/25/2016 1: 19pm Red Blood Count 5.00 M/MM3 4.00-5.20 12/25/2016 1:12/25/2016 1: 19pm Hemoglobin 14.3 GM/DL 12-16 12/25/2016 1:12/25/2016 1:19pm Hematocrit 42.7 % 36-46 12/25/2016 1:12/25/2016 1:19pm Mean Corpuscular Volume 85.4 UM3 80-100 12/25/2016 1:12/25/2016 1: 19pm Mean Corpuscular Hemoglobin 28.6 UUG 26-34 12/25/2016 1:2016 1:19pm Mean Corpuscular Hemoglobin Concent 33.5 GM/DL 31-37 12/25/2016 1:12/25/2016 1:19pm RDW Standard Deviation 44.5 FL 36.9-50.2 12/25/2016 1:12/25/2016 1 :19pm Platelet Count 317 T/MM3 130-400 12/25/2016 1:12/25/2016 1:19pm Mean Platelet Volume 11.7 UM3 9.4-12.4 12/25/2016 1:12/25/2016 1: 19pm Neutrophils (%) (Auto) 80.6 % H 33-66 12/25/2016 1:12/25/2016 1: 19pm Lymphocytes (%) (Auto) 11.9 % L 23-45 12/25/2016 1:12/25/2016 1: 19pm Monocytes (%) (Auto) 5.8 % 0-9.0 12/25/2016 1:12/25/2016 1:19pm Eosinophils (%) (Auto) 0.3 % 0-4 12/25/2016 1:12/25/2016 1:19pm Basophils (%) (Auto) 0.4 % 0-2 12/25/2016 1:12/25/2016 1:19pm Immature Granulocyte % (Auto) 1.0 % H 0.0-0.5 12/25/2016 1:2016 1:19pm Absolute Neutrophils (auto) 11.6 T/MM3 H 1.8-7.7 12/25/2016 1:12/25 1:19pm Absolute Lymphocytes (auto) 1.7 T/MM3 1-4.8 12/25/2016 1:072016 1:19pm Absolute Monocytes (auto) 0.8 T/MM3 0-0.8 12/25/2016 1:12/25/2016 1:19pm Absolute Eosinophils (auto) 0.0 T/MM3 0-0.5 12/25/2016 1:2016 1:19pm Absolute Basophils (auto) 0.1 T/MM3 0-0.2 12/25/2016 1:12/25/2016 1:19pm Absolute Immature Granulocyte (auto 0.14 T/MM3 H 0.00-0.03 12/25/2016 1: 12/25/2016 1:19pm Prothromb Time International Ratio 1.04 0.76-1.04 12/25/2016 1:12/25/2016 1:23pm THERAPUTIC RANGE=2.00-3.00 FOR ANTI-THROMBOSIS THERAPUTIC RANGE=2.50-3.50 FOR IMPLANTED VALVE Icterus Index < 2 0-7 12/25/2016 1:pm 12/25/2016 1:27pm Chemistry Specimen Hemolysis 24 0-25 12/25/2016 1:12/25/2016 1: 27pm 0-25: Specimen Exhibited No Hemolysis. Turbidity < 20 0-20 12/25/2016 1:12/25/2016 1:27pm Sodium Level 146 MEQ/L H 134-144 12/25/2016 1:12/25/2016 1:27pm Potassium Level 4.0 MEQ/L 3.6-5 12/25/2016 1:12/25/2016 1:27pm Chloride Level 112 MEQ/L H 98-107 12/25/2016 1:pm 12/25/2016 1:27pm Carbon Dioxide Level 20 MEQ/L L 22-30 12/25/2016 1:pm 12/25/2016 1: 27pm Anion Gap 14 MEQ/L 5-15 12/25/2016 1:07pm 12/25/2016 1:27pm Blood Urea Nitrogen 19.0 MG/DL H 7-17 12/25/2016 1:pm 12/25/2016 1: 27pm Creatinine 1.1 MG/DL 0.7-1.2 12/25/2016 1:07pm 12/25/2016 1:27pm BUN/Creatinine Ratio 17 RATIO 6-26 12/25/2016 1:pm 12/25/2016 1:27pm Glomerular Filtration Rate Calc 53 12/25/2016 1:pm 12/25/2016 1: 27pm Glucose Level 213 MG/DL H 65-110 12/25/2016 1:pm 12/25/2016 1:27pm Calculated Osmolality 289 MOSM/KG H 261-280 12/25/2016 1:pm 2016 1:27pm Calcium Level 9.4 MG/DL 8.4-10.2 12/25/2016 1:pm 12/25/2016 1:27pm Troponin I < 0.012 ng/ml 0-0.12 12/25/2016 1:pm 12/25/2016 1:39pm Troponin values with a difference of 55% increase from orginal troponin value represent a true biological DELTA value. (%increase Calc=Orginal Troponin value, divided by subsequent Troponin value, multiplied by 100) CN-Ofj-U-Type Natriuretic Peptide 25 PG/ML 0-175 12/25/2016 1:07pm 02/2017 1:58pm Rule in cut points: <50 years old=450; 50-75 years old=900; >75 years old=1800; When utilizing ProBNP rule-in cut points, adjustment for impaired renal function is typically not required. Lipase 152 U/L 23-300 12/25/2016 12:52pm 12/25/2016 1:56pm Procedures No known history of procedures. Encounters Encounter Location Arrival/Admit Date Discharge/Depart Date Attending Provider Departed Emergency Room [facility] 12/25/16 12:42pm 12/25/16 2: 59pm KRISTYN CRAIG DO [facility] 12/15/16 2:46pm EDIS GUTIERREZ MD Recent Diagnosis
--- OUTSIDE RECORDS SUMMARY | 2016-12-26 11:34 | XMS REPORT ---
Author Author [facility] Organization Unknown Address Unknown Phone Unavailable Care Team Providers Care Multiple Sclerosis Nurse Name Role Phone MD MARIFER, RODOLFO [phone] Reason For Visit Chief Complaint NECK PAIN [...]
--- OUTSIDE RECORDS SUMMARY | 2016-12-26 11:38 | XMS REPORT | Continuity of care Document ---
[...] - SPINE CERVICAL 5 VIEWS CPT Code(s): 88047-; ; ; INDICATION / CLINICAL HISTORY: Fall, [...] - SPINE LUMBOSACRAL 4 VIEWS CPT Code(s): 84437-; ; ; INDICATION / CLINICAL HISTORY: Fall, [...] - SPINE THORACIC 3 VIEW CPT Code(s): 10723-; ; ; INDICATION / CLINICAL HISTORY: \E\fall, [...] - WRIST LEFT 3 VIEWS CPT Code(s): 43950-QD; ; ; INDICATION / CLINICAL HISTORY: \E\fall, [...] - KNEE LEFT 3 VIEWS CPT Code(s): 74918-LU; ; ; INDICATION / CLINICAL HISTORY: Fall. Knee pain. COMPARISON: None. FINDINGS: There is no acute fracture. The knee is in normal alignment. There are minimal degenerative changes. No significant joint effusion is demonstrated. IMPRESSION: No acute osseous abnormality.
--- OUTSIDE RECORDS SUMMARY | 2016-12-26 11:40 | XMS REPORT ---
Author Author [facility] Organization Unknown Address Unknown Phone Unavailable Care Team Providers Care Meat Smoker Name Role Phone MD MARIFER, RODOLFO [phone] Reason For Visit Chief Complaint R32 Social [...]
--- OUTSIDE RECORDS SUMMARY | 2016-12-26 11:42 | XMS REPORT ---
Author Author [facility] Organization Unknown Address Unknown Phone Unavailable Care Team Providers Care Linting Machine Operator Name Role Phone MD MARIFER, RODOLFO [phone] Reason For Visit Reason for Visit from [...] the responsibility of the patient or patient billing customer service representative to confirm the list of medications [...] the evening * L. gasseri-B. bifidum-B longum (Virtusize) 1.5 billion cell Capsule, Ordered By: DANIEL [...]
--- OUTSIDE RECORDS SUMMARY | 2016-12-26 11:42 | XMS REPORT ---
Author Author [facility] Organization Unknown Address Unknown Phone Unavailable Care Team Providers Care Flight Instructor Name Role Phone MD MARIFER, RODOLFO [phone] Reason For Visit Reason for Visit from [...] H (65-99 MG/DL) GFR EST NON AFR THAI 63 ML/MIN GFRA EST AFR AMER 73 [...] Office appointment: : Dr. [facility]iced[facility] before [phone] * #1 Date/Time : 04/22/2015 10:30 AM * Address # 1 : [facility]: [address] [place]- or [...] voiced concerns regarding outpatient vs inpatient status. [facility] management nurse Anette Laughlin [...] was already paying someone to do that. [facility] advised her to keep the list [...] lives at home with her spouse in [place]. She states that she had been considering having a TRACK LAYING EQUIPMENT OPERATOR provide services in her home as there are many things that she is not able to do on her own. Patient states that she falls often due to degenerative disc disease and is unable to complete many ADLs. [facility] explained the difference between services that Medicare or insurances would pay for and what would be private pay. Many of items patient is interested in would be private pay such as cleaning, cooking and being availalbe when she bathes. SW' er provided home health lists for both private pay and insurance billable. [facility] informed patient and spouse that if they made a decision prior to discharge [facility] would be able to assist in making the referral. [facility] also suggested [facility] as patient stated she wasn't always able to prepare a meal when her was gone. [facility] will be available is needed. Treatment [...] the responsibility of the patient or patient pharmacy services representative to confirm the list of medications [...]
--- OUTSIDE RECORDS SUMMARY | 2016-12-26 11:42 | XMS REPORT ---
Author Author [facility] Organization Unknown Address Unknown Phone Unavailable Care Team Providers Care Feller Hand Name Role Phone MD MARIFER, RODOLFO [phone] Reason For Visit Reason for Visit from [...] 1-2 days) * Address # 1 : [facility]: [address], [place]- or [...] responsibility of the patient or patient patient representative to confirm the list of medications [...] atorvastatin 10 mg Tablet, Ordered By: ANALILIA HUBABRD MD Directions: 1 tablet oral daily * [...]
--- OUTSIDE RECORDS SUMMARY | 2016-12-26 11:44 | XMS REPORT | Continuity of Care Document ---
Author Author [facility] Organization [facility] Address Unknown Phone Unavailable Allergies Active Description Code Type Severity Reaction Onset Reported/Identified Relationship to Patient Clinical Status Yes metFORMIN ZZ Drug Allergy N/A diarrhea, stomach upset 10/30/2013 Medications Problems Date Dx Coded Attending Type Code Diagnosis Diagnosed By 05/21/2015 [facility] THER[facility], LINK [place]ajas 296.33 Major Depressive Disorder, Recurrent, Severe Without Psychotic Features 05/21/2015 [facility], LINK [place] 300.01 Panic Disorder Without Agoraphobia 05/21/2015 [facility] 300.3 Obsessive-Compulsive Disorder 05/21/2015 [facility], LINK [place] 301.83 Borderline Personality Disorder 09/03/2015 RADHA WILSON H6123 Impacted cerumen, bilateral 09/03/2015 RADHA WILSON R51 Headache 09/03/2015 RADHA WILSON [id number] Unspecified injury of head, initial encounter 09/03/2015 RADHA WILSON [id number] Contusion of right elbow, initial encounter 09/03/2015 RADHA WILSON [id number] Contusion of right knee, initial encounter 09/03/2015 RADHA WILSON [id number] Fall from bed, initial encounter 09/03/2015 RADHA WILSON [id number] Bedroom of single-family (private) house as place 05/23/2016 [facility], LINK [place] 300.3 Obsessive-Compulsive Disorder Procedures Code Description [place] [address] 08/26/2015 76746 08/26/2015 04620 08/26/2015 61186 08/26/2015 17600 08/26/2015 37676 08/26/2015 Results Test Result Range CBC WITH [...] - 07/19/16 08:50 *GFR EST NON AFR ZAMBIAN 52 mL/min NRG *GRFA EST AFR AMER [...] - 07/20/16 20:01 *GFR EST NON AFR ZAMBIAN 57 mL/min NRG *GRFA EST AFR AMER [...] Status Pt. Type Provider Facility Loc./Unit Complaint [id number] 09/08/2008 00:00:00 09/08/2008 23: 59:59 CLS Outpatient MARAH SERRATOJenn THERAPISTLINK
--- OUTSIDE RECORDS SUMMARY | 2016-12-26 11:46 | XMS REPORT ---
Author Author [facility] Organization Unknown Address Unknown Phone Unavailable Care Team Providers Care Swimming Pool Serviceperson Name Role Phone MD MARIFER, RODOLFO [phone] Reason For Visit Chief Complaint WEAKNESS Social [...] H (65-99 MG/DL) *GFR EST NON AFR [place] CITIZ[place] 52 ML/MIN *GFR EST AFR AMER 61 [...] AM* Status: Final Result URINALYSIS Specimen Number: [id number] Sample Collection Date/Time: 07/19/2016 9:18 AM Specimen [...] 07/19/2016 12:07 [facility] History: weakness, tachycardia Technique: 1 view chest performed Priors: 04/22/2016 Findings: The heart size is within normal limits. No acute infiltrate, pneumothorax, or pleural effusion is identified. Impression: No evidence of acute cardiopulmonary process. Electronically signed by: Kyaw Johnson MD Dictated: 07/19/2016 12:08 CT Scan from 07/19/2016 9:42 [facility] CHE[facility] (CTA) History: weakness, tachy- r/o PE [...]
--- OUTSIDE RECORDS SUMMARY | 2016-12-26 11:47 | XMS REPORT ---
Author Author [facility] Organization Unknown Address Unknown Phone Unavailable Care Team Providers Care Renewable Energy Project Manager Name Role Phone MD MARIFER, RODOLFO [phone] Reason For Visit Chief Complaint FELL, LEG [...]
--- NOTE | 2016-12-26 12:05 | NUR ---
PROVIDER N NOLD SENIOR LINUX ADMINISTRATOR AT BEDSIDE FOR H&P
[2016-12-26] MEDS ORDERED: G.I. COCKTAIL 30ml PO ONE ×2 (12:15→13:30)
--- NOTE | 2016-12-26 12:16 | NUR ---
LAB LAB AT BEDSIDE FOR BLOOD DRAW
--- NOTE | 2016-12-26 12:18 | ERPDOC ---
Departure Disposition Decision Date: December 26, 2016 Disposition Decision Time: 13:13 Disposition: 01 DISCHARGED HOME, SELF-CARE Impression Impression Impression: Primary Impression: Abdominal pain Severity: Moderate Condition: Stable Seen By: Mid-level only Referrals: EDIS GUTIERREZ MD (Family) Patient Instructions: Abdominal Pain (ED) Problems/Meds/Labs Reviewed?: Yes Medications reviewed and manag: Yes Additional Instructions: Please take the Levsin as needed for pain to see if this will help with the pain you feel with eating and drinking. Your labs today are normal aside from your potassium being a little low which may be from the diarrhea you have had from the stool softeners. We did give you potassium tablets here in ER to bring you potassium level up. You liver enzymes today were a little elevated as well. I do want you to follow up with Dr Gutierrez and have him recheck your liver enzymes in about a week to see if they remain elevated. This may have been a virus that has caused some of your symptoms so I do want you to monitor your symptoms. Schedule an appointment for follow up with Dr Gutierrez, if your symptoms are not improving you may need to see a GI specialist. Follow up care ordered?: Yes Mental Status: Alert, Oriented Scripts Hyoscyamine Sulfate (Levsin-Sl) 0.125 Mg Tab.subl 1 TAB SL Q4H Y for ABDOMINAL PAIN, #20 TAB 0 Refills Prov: EVELYNE ALVA JOSH 12/26/16 HPI - Abdominal Pain General Chief Complaint: Abdominal Pain Stated Complaint: PAIN IS BACK FROM LAST VISIT Time Seen by Provider: 11:57 Source: patient History/Exam Limitations: no limitations HPI - Abdominal Pain Initial Comments She started having abdominal pain yesterday morning around 0430. This has not really improved since then. She was evaluated in Er yesterday and had labs, chest xray, and CT of abd/pelvis that was negative. Was found to be constipated and given instructions for what to take at home to fix this. She did start on some Miralax and also has taken an enema. Has had diarrhea since all of that. Today she states that the pain persists. When she drinks fluids she has pain that stars in the upper abdomen and then spreads. Did try to take some antacids but it did not help at all. She did call Dr Gutierrez who is her PCP and painter airbrush. He recommended that she come to ER. Occurred At: home Onset: Gradual Duration: other (Started) Quality: sharpness Location: other (Starts in the epigastric region with eating and spreads down her stomach) Radiation: no radiation Activities at Onset: none Associated Symptoms: heartburn, DENIES: back pain, chest pain, diaphoresis, fatigue, fever/chills, headache, nausea/vomiting, rash, shortness of breath, swelling/mass in abdomen, syncope, weakness Hx of Similar Symptoms: No Allergies: Coded Allergies: metformin (Verified Adverse Reaction, Mild, DIARRHEA, 12/26/16) Past History Past Medical History GI: constipation Psychological: anxiety, depression Surgical History Denies Surgeries Family History Family History: Negative Social History Smoking Status: Never smoker Substance Use Type: does not use Alcohol Intake: none Review of Systems Constitutional Constitutional: DENIES: chills, dizziness, fatigue, fever, weakness Cardiovascular Cardiac: DENIES: chest pain, orthopnea Rhythm/Rate: DENIES: irregular beat, palpitations Vascular: DENIES: pedal edema, unilateral swelling Pulmonary Respiratory: DENIES: cough, dyspnea, sputum, tachypnea GI Upper Abdomen: pain, DENIES: nausea, vomiting Lower Abdomen: constipation, diarrhea (since treating the constipation), DENIES : pain Neurological General: DENIES: headache, numbness, tingling, weakness Physical Exam General General Nourishment: well nourished, well developed, appears stated age, no acute distress, adult General Body Habitus: well groomed Vitals and Pain First Documented Vital Signs Date Time Temp Pulse Resp B/P Pulse Ox O2 Delivery O2 Flow Rate FiO2 12/26/16 11:31 97.9 101 20 138/70 97 Room Air Weight: Kilograms: 109.300 Height (feet): 5 Height (inches): 3.00 Triage Pain Scale: RN VS reviewed by Provider: Yes Normal Exams: Neck: Full range of motion, without adenopathy, JVD, bruits or thyromegaly Chest/Resp: Clear all nance, with good airflow, and symmetry bilaterally CV: Regular rate and rhythm, without murmur or gallop, Pulses 2+ all extremities, capillary refill, <2 seconds all ext., no pedal edema noted Lymphatic: No lymphadenopathy, or lymphedema noted Integumentary: No rashes, hives, or bruising noted Neurologic: Patient is alert, and oriented Psychiatric: Patient exhibits, appropriate attention, emotion and affect Differential Diagnoses Considering: Bowel Obstruction, Constipation, Gastroenteritis, GERD, Hepatitis , Pancreatitis, UTI Progress Results/Orders Orders Procedure Category Date Status Time Potassium Chloride PHA 12/26/16 Complete (Kdur) 13:30 EKG EKG 12/26/16 Taken G.I. Cocktail PHA 12/26/16 Complete (/Maalox/Lidocaine 13:30 Lab Results Medications Current ED Medications Pharmacy Profile Note (/Maalox/ Lidocaine Soln) 30 ml O ONCE PO Last administered on 12/26/16 12:23; Start 12/26/16 at 12:15; Stop 12/26/16 at 12:16; Status DC Potassium Chloride (Kdur) 40 meq O ONCE PO Last administered on 12/26/16 13:31 ; Start 12/26/16 at 13:30; Stop 12/26/16 at 13:31; Status DC Pharmacy Profile Note (/Maalox/ Lidocaine Soln) 60 ml O ONCE PO Last administered on 12/26/16 13:31; Start 12/26/16 at 13:30; Stop 12/26/16 at 13:31; Status DC Progress Progress WBC is 12.6 which is down from yesterday. Na-146 and K+-3.2. We did give her oral K+ in ER today. AST is 204, ALT-110, and Alk Phos is 190. Lipase is negative. She is feeling better after the GI cocktail given. I did discuss findings with Dr Pope as well and he does agree that no need at this time for repeat CT scan. KUB was negative for obstruction. Will go ahead and let her go home today and have her follow up with her PCP this week for reevaluation if the pain persists. Xray Xray : Reason for Exam: abdominal pain Xray: KUB Upright Interpretation: Normal EVELYNE ALVA Declan LABORER HEADING December 26, 2016 12:18 Mean Corpuscular Volume 86.0UM3 Mean Corpuscular Hemoglobin 28.2UUG Mean Corpuscular Hemoglobin Concent 32.8GM/DL RDW Standard Deviation 45.5FL Platelet Count 300T/MM3 Mean Platelet Volume 11.6UM3 Immature Granulocyte % (Auto) 0.6% Neutrophils (%) (Auto) 72.3% Lymphocytes (%) (Auto) 17.7% Monocytes (%) (Auto) 8.2% Eosinophils (%) (Auto) 0.7% Basophils (%) (Auto) 0.5% Absolute Immature Granulocyte (auto 0.07T/MM3 Absolute Neutrophils (auto) 9.1T/MM3 Absolute Lymphocytes (auto) 2.2T/MM3 Absolute Monocytes (auto) 1.0T/MM3 Absolute Eosinophils (auto) 0.1T/MM3 Absolute Basophils (auto) 0.1T/MM3 Turbidity < 20 Sodium Level 146MEQ/L Potassium Level 3.2MEQ/L Chloride Level 110MEQ/L Carbon Dioxide Level 21MEQ/L Anion Gap 15MEQ/L Blood Urea Nitrogen 12.0MG/DL Creatinine 1.1MG/DL Glomerular Filtration Rate Calc 53 BUN/Creatinine Ratio 11RATIO Glucose Level 168MG/DL Calculated Osmolality 285MOSM/KG Calcium Level 9.1MG/DL Total Bilirubin 1.50MG/DL Icterus Index < 2 Aspartate Amino Transf (AST/SGOT) 204U/L Alanine Aminotransferase (ALT/SGPT) 110U/L Alkaline Phosphatase 190U/L Total Protein 6.6G/DL Albumin 4.1G/DL Globulin 2.5G/DL Albumin/Globulin Ratio 1.6RATIO Lipase 108U/L Chemistry Specimen Hemolysis < 15 Medications Current ED Medications Pharmacy Profile Note (/Maalox/ Lidocaine Soln) 30 ml O ONCE PO Last administered on 12/26/16 12:23; Start 12/26/16 at 12:15; Stop 12/26/16 at 12:16; Status DC Potassium Chloride (Kdur) 40 meq O ONCE PO Last administered on 12/26/16 13:31 ; Start 12/26/16 at 13:30; Stop 12/26/16 at 13:31; Status DC Pharmacy Profile Note (/Maalox/ Lidocaine Soln) 60 ml O ONCE PO Last administered on 12/26/16 13:31; Start 12/26/16 at 13:30; Stop 12/26/16 at 13:31; Status DC Xray Xray : Reason for Exam: abdominal pain Xray: KUB Upright Interpretation: Normal EVELYNE ALVA LABORER HEADING December 26, 2016 12:18
--- OUTSIDE RECORDS SUMMARY | 2016-12-26 12:19 | XMS REPORT ---
Author Author GENERATED, SYSTEM Organization Unknown Address Unknown Phone Unavailable Care Team Providers Care Machine Bander And Cellophaner Helper Name Role Phone MD MARIFER, RODOLFO [phone] Reason For Visit Chief Complaint NECK PAIN [...]
--- OUTSIDE RECORDS SUMMARY | 2016-12-26 12:23 | XMS REPORT | Continuity of care Document ---
[...] - SPINE CERVICAL 5 VIEWS CPT Code(s): 16205-; ; ; INDICATION / CLINICAL HISTORY: Fall, [...] - SPINE LUMBOSACRAL 4 VIEWS CPT Code(s): 21467-; ; ; INDICATION / CLINICAL HISTORY: Fall, [...] - SPINE THORACIC 3 VIEW CPT Code(s): 78834-; ; ; INDICATION / CLINICAL HISTORY: \E\fall, [...] - WRIST LEFT 3 VIEWS CPT Code(s): 43667-HF; ; ; INDICATION / CLINICAL HISTORY: \E\fall, [...] - KNEE LEFT 3 VIEWS CPT Code(s): 72133-PB; ; ; INDICATION / CLINICAL HISTORY: Fall. Knee pain. COMPARISON: None. FINDINGS: There is no acute fracture. The knee is in normal alignment. There are minimal degenerative changes. No significant joint effusion is demonstrated. IMPRESSION: No acute osseous abnormality.
--- OUTSIDE RECORDS SUMMARY | 2016-12-26 12:25 | XMS REPORT ---
Author Author GENERATED, SYSTEM Organization Unknown Address Unknown Phone Unavailable Care Team Providers Care Weigher Alloy Name Role Phone MD MARIFER, RODOLFO [phone] Reason For Visit Chief Complaint R32 Social [...]
--- OUTSIDE RECORDS SUMMARY | 2016-12-26 12:26 | XMS REPORT ---
Author Author GENERATED, SYSTEM Organization Unknown Address Unknown Phone Unavailable Care Team Providers Care Security Screener Name Role Phone MD MARIFER, RODOLFO [phone] Reason For Visit Reason for Visit from [...] responsibility of the patient or patient patient services representative to confirm the list of [...] the evening * L. gasseri-B. bifidum-B longum ([employer]) 1.5 billion cell Capsule, Ordered By: DANIEL [...]
--- OUTSIDE RECORDS SUMMARY | 2016-12-26 12:26 | XMS REPORT ---
Author Author GENERATED, SYSTEM Organization Unknown Address Unknown Phone Unavailable Care Team Providers Care Lamp Shade Assembler Name Role Phone MD MARIFER, RODOLFO [phone] Reason For Visit Reason for Visit from [...] 1-2 days) * Address # 1 : [facility]: [address] [place], [place]- [phone] or Treatment Plan from 04/23/2016 9:59 AM:* [...] the responsibility of the patient or patient auto claim representative to confirm the list of medications [...]
--- OUTSIDE RECORDS SUMMARY | 2016-12-26 12:27 | XMS REPORT ---
Author Author GENERATED, SYSTEM Organization Unknown Address Unknown Phone Unavailable Care Team Providers Care Chemical Cell Changer Name Role Phone MD MARIFER, RODOLFO [phone] Reason For Visit Reason for Visit from [...] H (65-99 MG/DL) GFR EST NON AFR TANZANIAN 63 ML/MIN GFRA EST AFR AMER 73 [...] Office appointment: : Dr. [facility]iced[facility] before [phone] * #1 Date/Time : 04/22/2015 10:30 AM * Address # 1 : [facility]: [address] [place]- [phone] or Treatment Plan from 04/16/2015 10:55 AM:* [...] voiced concerns regarding outpatient vs inpatient status. [facility] Anette Laughlin went [...] was already paying someone to do that. [facility] advised her to keep the list of [...] lives at home with her spouse in [place]. She states that she had been considering having a MECHANICAL PIPING DESIGNER provide services in her home as there are many things that she is not able to do on her own. Patient states that she falls often due to degenerative disc disease and is unable to complete many ADLs. [facility] explained the difference between services that Medicare [...] they made a decision prior to discharge [facility] be able to assist in making the referral. [facility] also suggested [facility] as patient stated she wasn't always able to prepare a meal when her was gone. [facility] will be available is needed. Treatment Plan [...] the responsibility of the patient or patient solar sales representative and assessor to confirm the list of medications with [...]
--- OUTSIDE RECORDS SUMMARY | 2016-12-26 12:29 | XMS REPORT | Continuity of Care Document ---
Author Author [facility] Organization [facility] Address Unknown Phone Unavailable Allergies Active Description Code Type Severity Reaction Onset Reported/Identified Relationship to Patient Clinical Status Yes metFORMIN ZZ Drug Allergy N/A diarrhea, stomach upset 10/30/2013 Medications Problems Date Dx Coded Attending Type Code Diagnosis Diagnosed By 05/21/2015 [facility] THERAPIST, LINK [place] 296.33 Major Depressive Disorder, Recurrent, Severe Without Psychotic Features 05/21/2015 [facility] THERAPIST, [place] 300.01 Panic Disorder Without Agoraphobia 05/21/2015 [facility] THERAPISTLINK 300.3 Obsessive-Compulsive Disorder 05/21/2015 [facility] THERAPIST, [place] 301.83 Borderline Personality Disorder 09/03/2015 RADHA WILSON [id number] Impacted cerumen, bilateral 09/03/2015 RADHA WILSON R51 Headache 09/03/2015 RADHA WILSON [id number] Unspecified injury of head, initial encounter 09/03/2015 RADHA WILSON [id number] Contusion of right elbow, initial encounter 09/03/2015 RADHA WILSON [id number] Contusion of right knee, initial encounter 09/03/2015 RADHA WILSON [id number] Fall from bed, initial encounter 09/03/2015 RADHA WILSON [id number] Bedroom of single-family (private) house as place 05/23/2016 [facility] THERAPIST, LINK [place] 300.3 Obsessive-Compulsive Disorder Procedures Code Description [place] [address] 08/26/2015 92583 08/26/2015 19739 08/26/2015 27842 08/26/2015 31252 08/26/2015 68584 08/26/2015 Results Test Result Range CBC WITH [...] - 07/19/16 08:50 *GFR EST NON AFR [place] 52 mL/min NRG *GRFA EST AFR AMER [...] - 07/20/16 20:01 *GFR EST NON AFR [place] 57 mL/min NRG *GRFA EST AFR AMER [...] Status Pt. Type Provider Facility Loc./Unit Complaint [id number] 09/08/2008 00:00:00 09/08/2008 23: 59:59 CLS Outpatient MARAH SERRATOJenn THERAPISTLINK
[2016-12-26 12:31] LABS: BASOPHILS # (AUTO) 0.1 T/MM3 (0-0.2); BASOPHILS % (AUTO) 0.5 % (0-2); EOSINOPHILS # (AUTO) 0.1 T/MM3 (0-0.5); EOSINOPHILS % (AUTO) 0.7 % (0-4); HCT - HEMATOCRIT 43.6 % (36-46); HGB - HEMOGLOBIN 14.3 GM/DL (12-16); IMMATURE GRANULOCYTE # (AUTO) 0.07 T/MM3 (0.00-0.03); IMMATURE GRANULOCYTE % (AUTO) 0.6 % (0.0-0.5); LYMPHOCYTES # (AUTO) 2.2 T/MM3 (1-4.8); LYMPHOCYTES % (AUTO) 17.7 % (23-45); MEAN CORPUSCULAR HGB 28.2 UUG (26-34); MEAN CORPUSCULAR HGB CONC(MCHC 32.8 GM/DL (31-37); MEAN PLATELET VOLUME 11.6 UM3 (9.4-12.4); MONOCYTES % (AUTO) 8.2 % (0-9.0); NEUTROPHILS #(AUTO)-ABSOLUTE 9.1 T/MM3 (1.8-7.7); NEUTROPHILS % (AUTO) 72.3 % (33-66); RED BLOOD COUNT 5.07 M/MM3 (4.00-5.20); WBC - WHITE BLOOD COUNT 12.6 T/MM3 (4.5-11.0)
--- OUTSIDE RECORDS SUMMARY | 2016-12-26 12:31 | XMS REPORT ---
Author Author GENERATED, SYSTEM Organization Unknown Address Unknown Phone Unavailable Care Team Providers Care Engine Repairer Production Name Role Phone MD MARIFER, RODOLFO [phone] Reason For Visit Chief Complaint WEAKNESS Social [...] H (65-99 MG/DL) *GFR EST NON AFR [place]GI[place] 52 ML/MIN *GFR EST AFR AMER 61 [...] AM* Status: Final Result URINALYSIS Specimen Number: [id number] Sample Collection Date/Time: 07/19/2016 9:18 AM Specimen [...] 07/19/2016 12:07 [facility] History: weakness, tachycardia Technique: 1 view chest performed Priors: 04/22/2016 Findings: The heart size is within normal limits. No acute infiltrate, pneumothorax, or pleural effusion is identified. Impression: No evidence of acute cardiopulmonary process. Electronically signed by: Kyaw Johnson MD Dictated: 07/19/2016 12:08 CT Scan from 07/19/2016 9:42 [facility] [place] CHEST (CTA) History: weakness, tachy- r/o PE [...]
--- OUTSIDE RECORDS SUMMARY | 2016-12-26 12:32 | XMS REPORT ---
Author Author GENERATED, SYSTEM Organization Unknown Address Unknown Phone Unavailable Care Team Providers Care Residential Gas Heat Technician Name Role Phone MD MARIFER, RODOLFO [phone] Reason For Visit Chief Complaint FELL, LEG [...] Impression: No acute findings. Electronically signed by: Kywa Johnson MD Dictated: 08/26/2015 09:29 KNEE RIGHT [...]
[2016-12-26 12:38] LABS: ALBUMIN 4.1 G/DL (3.5-5.0); ALBUMIN/GLOBULIN RATIO 1.6 RATIO (1.1-2.2); ALKALINE PHOSPHATASE 190 U/L (38-126); ALT (SGPT) 110 U/L (9-52); ANION GAP 15 MEQ/L (5-15); AST (SGOT) 204 U/L (14-36); BUN/CREATININE RATIO 11 RATIO (6-26); CALCIUM 9.1 MG/DL (8.4-10.2); CHLORIDE 110 MEQ/L (98-107); CO2 - CARBON DIOXIDE 21 MEQ/L (22-30); CREATININE 1.1 MG/DL (0.7-1.2); GLOMERULAR FILTRATION RATE 53; GLUCOSE 168 MG/DL (65-110); LIPASE 108 U/L (23-300); POTASSIUM 3.2 MEQ/L (3.6-5); SODIUM 146 MEQ/L (134-144); TOTAL PROTEIN 6.6 G/DL (6.3-8.2)
--- NOTE | 2016-12-26 12:58 | DI ---
Indication: ITS.REASON: abdominal pain PROCEDURE: KUB W/UPRIGHT: Encounter: Initial Comparison: None Findings: The included portions of the lung bases are clear. Heart size normal. No pleural effusion. There is scattered gas and stool in the abdomen without evidence of obstruction or free air. There are surgical clips in the right upper quadrant and in the left lower pelvis. No soft tissue mass or organomegaly. No abnormal calcification. No definite bony destructive process. IMPRESSION: No evidence for obstruction or perforation. .
[2016-12-26] MEDS ORDERED: HYOS0.124 SL (13:17)
--- NOTE | 2016-12-26 13:18 | NUR ---
UPDATE PATIENT REPORTS HER ABDOMINAL PAIN IS IMPROVED AFTER THE GI COCKTAIL.
[2016-12-26] MEDS ORDERED: POTASSIUM CHLORIDE 20 MEQ TABLET PO ONE (13:30)
[2016-12-26 13:35] VITALS: BP 105/55; PULSE 91; RESP 19; TEMP 97.9; O2SAT 95
== END 2016-12-26 13:35 | disposition home or self-care (01) ==
LOC: ED 11:27
DX: R10.13 Epigastric pain (principal); R19.7 Diarrhea, unspecified
CPT/HCPCS: 36415; 74020; 80053; 83690; 85025; 93005; 99283; A9270; J7999